=== PATIENT | male | born 1935 | race Caucasian/White ===

== ENCOUNTER → 2017-03-30 | Outpatient (CLI) | payer MEDICARE, OTHER ==
[~2017-03-30] MED LIST: ACHD5005 PO; ALDACTONE25 MG PO; ALLP300T PO; ASCO-262 PO; ASP81CT PO; ASPI-983 PO; ATOR80TA PO; CARV12.53 PO; CARV25TA PO; CEFU500T PO; DOCU-143 PO; ESCI10TA55 PO; GRAP50CA5 PO; METF500T4 PO; MTF500T PO; MULT-608 PO; OMEG1CAP PO; OMEP-10 PO; PGLT30T PO; RAMI5CAP PO; UBID200C16 PO
[2017-03-30 08:44] LABS: ALANINE AMINOTRANSFERASE 24 U/L (0-55); ALBUMIN 3.9 GM/DL (3.2-4.5); ANION GAP 10 MMOL/L (5-14); ASPARTATE AMINO TRANSFERASE 21 U/L (5-34); BILIRUBIN,TOTAL 0.8 MG/DL (0.1-1.0); BLOOD UREA NITROGEN 14 MG/DL (7-18); BUN/CREATININE RATIO 19; CALCIUM 9.2 MG/DL (8.5-10.1); CARBON DIOXIDE 26 MMOL/L (21-32); CHLORIDE 103 MMOL/L (98-107); CHOLESTEROL 101 MG/DL (< 200); CREATININE SERUM 0.72 MG/DL (0.60-1.30); DIRECT LDL 49 MG/DL (1-129); GFR ESTIMATED > 60; GLUCOSE 100 MG/DL (70-105); POTASSIUM 4.1 MMOL/L (3.6-5.0); SODIUM 139 MMOL/L (135-145); TOTAL PROTEIN 6.9 GM/DL (6.4-8.2); TRIGLYCERIDES 125 MG/DL (<150); VLDL CHOLESTEROL 25 MG/DL (5-40)
== END ==
LOC: LAB 07:58
PROVIDERS: ATTEND Physician Assistant
DX: I25.10 Atherosclerotic heart disease of native coronary artery without angina pectoris (principal); I10 Essential (primary) hypertension; E78.2 Mixed hyperlipidemia
CPT/HCPCS: 36415; 80053; 80061

== ENCOUNTER → 2017-05-14 | Outpatient (CLI) | payer MEDICARE, OTHER | LOC: CARD 08:12 | PROVIDERS: ATTEND Physician Assistant | DX: I25.10 Atherosclerotic heart disease of native coronary artery without angina pectoris (principal); I11.0 Hypertensive heart disease with heart failure; I50.22 Chronic systolic (congestive) heart failure; E78.2 Mixed hyperlipidemia | CPT/HCPCS: 93306 ==

== ENCOUNTER → 2017-05-19 | Outpatient (CLI) | payer MEDICARE, OTHER ==
[~2017-05-19] MED LIST changes: +CATHETER FLUSH 10 ML SYR IV PRN; +REGADENOSON 0.4 MG/5 ML SYR (LEXISCAN) IV ONE
[2017-05-19 09:00] VITALS: BP 140/70
[2017-05-19 09:08] VITALS: BP 127/53
--- NOTE | 2017-05-20 09:22 | STRESS TEST ---
DATE OF SERVICE: 05/19/2017 LEXISCAN MYOVIEW STRESS TEST REPORT REFERRING PHYSICIAN: Dr. Zheng Baseline heart rate is 63. Baseline blood pressure 140/70. Baseline EKG is sinus rhythm with no ischemic changes. In summary, the patient received 10.94 mCi of technetium-99 Myoview and the resting images were obtained. Then, the patient received 0.4 mg of Lexiscan followed by 32.7 mCi of technetium-99 Myoview. Throughout the test, there were no EKG changes. The resting and stress images were reviewed and compared in the short axis, horizontal long axis, and vertical long axis views. Review of the images showed patchy uptake with total infarction of the whole inferior wall, inferolateral wall, inferior apex and true apex with small area of nixon-infarct ischemia. SSS is 26, SDS 2, TID value 0.92. On the gated images, the left ventricle is dilated with akinesia of the whole inferior wall, inferoapical hypokinesia at the lateral wall. Calculated ejection fraction 35%. CONCLUSION: 1. The patient tolerated Lexiscan well. 2. 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 3. Dilated left ventricle with akinesia of the whole inferior wall, inferior apex, mild hypokinesia of the lateral wall. Calculated ejection fraction 35%. Job ID: [id number] DocumentID: [id number] Dictated Date: 05/19/2017 15:32:22 Mold Shaker Date: 05/20/2017 08:11:56 Dictated By: JONO WASHINGTON MD
== END ==
LOC: CARD 07:16
PROVIDERS: ATTEND Physician Assistant
DX: I50.22 Chronic systolic (congestive) heart failure; I11.0 Hypertensive heart disease with heart failure; E78.2 Mixed hyperlipidemia; I25.10 Atherosclerotic heart disease of native coronary artery without angina pectoris
CPT/HCPCS: 78452; 93017

== ENCOUNTER → 2017-11-24 | Outpatient (CLI) | payer MEDICARE, OTHER ==
[~2017-11-24] MED LIST changes: -CATHETER FLUSH 10 ML SYR IV PRN; -REGADENOSON 0.4 MG/5 ML SYR (LEXISCAN) IV ONE
[2017-11-24 09:43] LABS: ALANINE AMINOTRANSFERASE 25 U/L (0-55); ALBUMIN 4.1 GM/DL (3.2-4.5); ALKALINE PHOSPHATASE 57 U/L (40-136); BILIRUBIN,TOTAL 0.7 MG/DL (0.1-1.0); BUN/CREATININE RATIO 25; CALCIUM 9.3 MG/DL (8.5-10.1); CARBON DIOXIDE 22 MMOL/L (21-32); CHLORIDE 106 MMOL/L (98-107); CHOLESTEROL 94 MG/DL (< 200); CREATININE SERUM 0.75 MG/DL (0.60-1.30); GFR ESTIMATED > 60; GLUCOSE 97 MG/DL (70-105); HDL CHOLESTEROL 31 MG/DL (40-60); SODIUM 140 MMOL/L (135-145); TRIGLYCERIDES 104 MG/DL (<150); VLDL CHOLESTEROL 21 MG/DL (5-40)
== END ==
LOC: LAB 09:05
PROVIDERS: ATTEND Internal Medicine Cardiovascular Disease
DX: I25.10 Atherosclerotic heart disease of native coronary artery without angina pectoris (principal); I11.0 Hypertensive heart disease with heart failure; I50.22 Chronic systolic (congestive) heart failure; E78.5 Hyperlipidemia, unspecified; E66.9 Obesity, unspecified
CPT/HCPCS: 36415; 80053; 80061

== ENCOUNTER → 2018-03-24 | Outpatient (CLI) | payer MEDICARE, OTHER ==
[~2018-03-24] MED LIST changes: -METF500T4 PO; +METF500T5 PO
[2018-03-24 07:51] LABS: ALANINE AMINOTRANSFERASE 25 U/L (0-55); ALBUMIN 4.2 GM/DL (3.2-4.5); ALKALINE PHOSPHATASE 62 U/L (40-136); BUN/CREATININE RATIO 21; CALCIUM 9.2 MG/DL (8.5-10.1); CARBON DIOXIDE 23 MMOL/L (21-32); CHLORIDE 101 MMOL/L (98-107); CHOLESTEROL 103 MG/DL (< 200); CREATININE SERUM 0.77 MG/DL (0.60-1.30); GFR ESTIMATED > 60; GLUCOSE 109 MG/DL (70-105); HDL CHOLESTEROL 32 MG/DL (40-60); POTASSIUM 4.4 MMOL/L (3.6-5.0); SODIUM 135 MMOL/L (135-145); TRIGLYCERIDES 105 MG/DL (<150); VLDL CHOLESTEROL 21 MG/DL (5-40)
== END ==
LOC: LAB 07:14
PROVIDERS: ATTEND Physician Assistant
DX: I25.10 Atherosclerotic heart disease of native coronary artery without angina pectoris (principal); I11.0 Hypertensive heart disease with heart failure; I50.9 Heart failure, unspecified; E78.5 Hyperlipidemia, unspecified
CPT/HCPCS: 36415; 80053; 80061

== ENCOUNTER → 2018-03-31 | Outpatient (CLI) | payer MEDICARE, OTHER | LOC: CARD 09:22 | PROVIDERS: ATTEND Physician Assistant | DX: I25.10 Atherosclerotic heart disease of native coronary artery without angina pectoris (principal); I11.9 Hypertensive heart disease without heart failure; I50.22 Chronic systolic (congestive) heart failure; E78.2 Mixed hyperlipidemia | CPT/HCPCS: 93306 ==

== ENCOUNTER → 2018-05-16 | Outpatient (CLI) | payer MEDICARE, OTHER ==
[~2018-05-16] MED LIST changes: +METF-397 PO; -METF500T5 PO
[2018-05-16 08:04] LABS: ALANINE AMINOTRANSFERASE 17 U/L (0-55); ALKALINE PHOSPHATASE 49 U/L (40-136); BILIRUBIN,TOTAL 0.9 MG/DL (0.1-1.0); BUN/CREATININE RATIO 18; CALCIUM 9.4 MG/DL (8.5-10.1); CARBON DIOXIDE 23 MMOL/L (21-32); CHLORIDE 103 MMOL/L (98-107); CREATININE SERUM 0.83 MG/DL (0.60-1.30); GFR ESTIMATED > 60; GLUCOSE 107 MG/DL (70-105); POTASSIUM 4.4 MMOL/L (3.6-5.0); SODIUM 136 MMOL/L (135-145); TOTAL PROTEIN 6.9 GM/DL (6.4-8.2)
[2018-05-16 08:10] LABS: DIGOXIN 0.39 NG/ML (0.80-2.00)
== END ==
LOC: LAB 07:27
PROVIDERS: ATTEND Internal Medicine Cardiovascular Disease
DX: I25.10 Atherosclerotic heart disease of native coronary artery without angina pectoris (principal); I50.22 Chronic systolic (congestive) heart failure; I11.0 Hypertensive heart disease with heart failure; E66.9 Obesity, unspecified
CPT/HCPCS: 36415; 80053; 80162; 84443

== ENCOUNTER 2018-07-27 08:21 | Day surgery (SDC) | payer MEDICARE, OTHER ==
[~2018-07-27] VITALS: Ht 175.3 cm; Wt 95.7 kg
[2018-07-27] VITALS (25 sets, daily range): BP systolic 97–139; BP diastolic 48–103
[2018-07-27] MEDS ORDERED: NS IV 1000 ML 1,000 ML IV ONE (08:25)
[2018-07-27] MEDS ORDERED: LIDOCAINE 2% VISCOUS 15 ML UDC ONE (08:29)
[2018-07-27] MEDS ORDERED: NS IV 1000 ML 1,000 ML ONE (08:29)
[2018-07-27] MEDS ORDERED: LIDOCAINE 2% VISCOUS 15 ML UDC PO ONE ×2 (08:30→10:00)
[2018-07-27] MEDS ORDERED: proPOfol 200 MG/20 ML (DIPRIVAN) VIAL IV ONE ×2 (08:53→09:36)
[2018-07-27] MEDS ORDERED: MIDAZOLAM 5 MG/5 ML (VERSED) VIAL ONE (08:54)
[2018-07-27] MEDS ORDERED: fentaNYL INJECTION 100 MCG/2 ML AMP ONE (08:54)
[2018-07-27 08:56] LABS: HEMOGLOBIN 13.6 G/DL (13.3-17.7); MEAN PLATELET VOLUME 9.6 FL (7.4-10.4); RED BLOOD COUNT 4.07 10^6/uL (4.35-5.85); RED CELL DISTRIBUTION WIDTH 14.5 % (10.0-14.5); WHITE BLOOD COUNT 7.6 10^3/uL (4.3-11.0)
--- NOTE | 2018-07-27 09:01 | Diagnostic Imaging Report ---
EXAMINATION: Portable erect AP chest at 8:37 AM. INDICATION: Pre cardioversion. FINDINGS: The heart size is within normal limits and stable when compared to 09/15/2015. The left-sided defibrillator device and the sternotomy wires and surgical clips noted previously are again evident and no different; however, in the interval since the prior study, the right hemidiaphragm has become obscured by atelectasis/infiltrate and fluid. The right upper lung and left lung are generally clear. The mediastinum is not widened. The osseous structures are intact. IMPRESSION: 1. The appearance of the chest has worsened since the prior study as the right lung base is now partially opacified by atelectasis/infiltrate and fluid. Clinical followup is recommended. 2. There is no acute cardiopulmonary abnormality noted otherwise. 3. These results were called to Dr. Dominguez. Dictated by: Dictated on workstation # [id number]
[2018-07-27 09:10] LABS: INR 1.1 (0.8-1.4); PROTHROMBIN TIME PATIENT 13.7 SEC (12.2-14.7)
[2018-07-27 09:15] LABS: ALANINE AMINOTRANSFERASE 22 U/L (0-55); ALKALINE PHOSPHATASE 50 U/L (40-136); BILIRUBIN,TOTAL 0.9 MG/DL (0.1-1.0); BUN/CREATININE RATIO 23; CALCIUM 9.3 MG/DL (8.5-10.1); CARBON DIOXIDE 23 MMOL/L (21-32); CHLORIDE 106 MMOL/L (98-107); CREATININE SERUM 0.79 MG/DL (0.60-1.30); GFR ESTIMATED > 60; GLUCOSE 117 MG/DL (70-105); POTASSIUM 4.1 MMOL/L (3.6-5.0); SODIUM 139 MMOL/L (135-145)
[2018-07-27] MEDS ORDERED: CARV25TA PO (09:17)
[2018-07-27] MEDS ORDERED: DIGO125T18 PO (09:17)
[2018-07-27] MEDS ORDERED: APIX5TAB PO (09:18)
[2018-07-27] MEDS ORDERED: OMEG10005 PO (09:19)
[2018-07-27] MEDS ORDERED: FURO20TA4 PO (09:19)
[2018-07-27] MEDS ORDERED: POTA10CA43 PO (09:20)
[2018-07-27] MEDS ORDERED: UBID200C16 PO (09:20)
--- NOTE | 2018-07-27 09:22 | Cardiac Procedure Note-CS/ASA ---
Pre-Procedure Note Pre-Op Procedure Note H&P Reviewed The H&P was reviewed, patient examined and no changes noted. Date H&P Reviewed: Jul 27, 2018 Time H&P Reviewed: 09:22 Conscious Sedation Pre-Proced Time 09:22 ASA Score 3 For ASA 3 and 4: Consider anesthesia and medical clearance. Also, for patients with a history of failed moderate sedation consider anesthesia. Airway Lungs Heart ASA score ASA 1: a normal healthy patient ASA 2: a patient with a mild systemic disease (mid diabetes, controlled hypertension, obesity x ASA 3: a patient with a severe systemic disease that limits activity (angina , COPD, prior Myocardial infarction) ASA 4: a patient with an incapacitating disease that is a constant threat to life (CHF, renal failure) ASA 5: a moribund patient not expected to survive 24 hrs. (ruptured aneurysm) ASA 6: a declared brain patient whose organs are being harvested. For emergent operations, add the letter E after the classification Mallampati Classification Grade 3 Sedation Plan Analgesia, Amnesia, Plan communicated to team members, Discussed options with patient/fam, Discussed risks with patient/fam The patient is an appropriate candidate to undergo the planned procedure, sedation, and anesthesia. The patient immediately re-assessed prior to indication. JONO WASHINGTON MD Jul 27, 2018 09:22
[2018-07-27] MEDS ORDERED: MIDAZOLAM 2 MG/2 ML (VERSED) VIAL ONE (09:36)
[2018-07-27] MEDS ORDERED: AMIODARONE 150 MG/3 ML (CORDARONE) AMP IV ONE (09:58)
[2018-07-27] MEDS ORDERED: AMIODARONE FOR BOLUS 150 MG in D5W 100 ML IVPB 100 ML IV ONE (10:00)
--- NOTE | 2018-07-27 10:08 | Cardioversion ---
Cardioversion PROCEDURE PHYSICIAN: Jono Dominguez DATE OF PROCEDURE: 07/27/18 DIRECT EXTERNAL ELECTRICAL CARDIOVERSION: Indications: Atrial Fibrillation Preoperative diagnoses: Atrial Fibrillation Postoperative diagnosis: Sinus rhythm, Successful Electrical Cardioversion Anesthesia: By Anesthesia services Complications: None Specimen: None Contrast: 0 Flouroscopy: none Procedure Details: The patient was brought the stucco laborer after informed consent was taken, all the risks and complications were explained including the risk of stroke. Electrical cardioversion was carried out with anesthesia support with propofol. 200 joules of synchronized shock was delivered through external patches which promptly restored sinus rhythm. The patient tolerated the procedure well. Conclusions: Successful electrical cardioversion Final Diagnosis: Atrial fibrillation Congestive heart failure, chronic compensated LV systolic dysfunction Coronary artery disease Hypertension JONO DOMINGUEZ MD Jul 27, 2018 10:08
[2018-07-27] MEDS: AMIODARONE INJECTION 450 MG in D5W IV SOLUTION (EXCEL) 250 ML IV SCH ×2 (10:22→18:14)
[2018-07-27] MEDS ORDERED: APIXABAN 5 MG (ELIQUIS) TABLET ONE (10:52)
[2018-07-27] MEDS: APIXABAN 5 MG (ELIQUIS) TABLET PO SCH ×2 (10:59→20:53)
[2018-07-27] MEDS ORDERED: FUROSEMIDE 40 MG/4 ML INJ (LASIX) ONE (11:35)
[2018-07-27] MEDS: FUROSEMIDE 40 MG/4 ML INJ (LASIX) IVP SCH ×2 (11:39→16:07)
--- OUTSIDE RECORDS SUMMARY | 2018-07-27 12:43 | XMS REPORT | Clinical Summary ---
Author Author [facility] Organization [facility] Address Unknown Phone Unavailable Care Team Providers Care Scalper Operator Name Role Phone PCP Unavailable Allergies Not on File Current Medications Not on file Active Problems Not on file Social History Tobacco Use Types Packs/Day Years Used Date Never Assessed Sex Assigned at Date Recorded Not on file Last Filed Vital Signs Not on file Plan of Treatment Not on file Results Not on filefrom Last 3 Months
[2018-07-27] MEDS ORDERED: PATIENT MAY USE OWN MEDS, ALL MC SCH (12:45)
--- OUTSIDE RECORDS SUMMARY | 2018-07-27 12:45 | XMS REPORT | Continuity of Care Document ---
Author Author [facility] Address Unknown Phone Unavailable Allergies Active Description Code Type Severity Reaction Onset Reported/Identified Relationship to Patient Clinical Status Yes No Known Drug Allergies [id number] Drug Allergy Unknown N/A 09/14/2015 Medications There is no data. Problems Date Dx Coded Attending Type Code Diagnosis Diagnosed By 03/02/2011 Ot 923.21 CONTUSION OF WRIST 03/02/2011 Ot 959.3 ELB/FOREARM/ WRST INJ NOS 03/02/2011 Ot E000.8 OTHER EXTERNAL CAUSE STATUS 03/02/2011 Ot E849.0 ACCIDENT IN HOME 03/02/2011 Ot E888.9 FALL NOS 07/26/2014 GIL WALTER YONATHAN K V03.82 PCV-13 (PREVNAR) DX 05/25/2015 Ot E11.9 TYPE 2 DIABETES MELLITUS WITHOUT COMPLIC 05/25/2015 Ot I10 ESSENTIAL ( PRIMARY) HYPERTENSION 05/25/2015 Ot S30.0XXA CONTUSION OF LOWER BACK AND PELVIS, INIT 05/25/2015 Ot S39.012A STRAIN OF MUSCLE, FASCIA AND TENDON OF L 05/25/2015 Ot S39.92XA UNSPECIFIED INJURY OF LOWER BACK, INITIA 05/25/2015 Ot S40.811A ABRASION OF RIGHT UPPER ARM, INITIAL ENC 05/25/2015 Ot S40.812A ABRASION OF LEFT UPPER ARM, INITIAL ENCO 05/25/2015 Ot W10.8XXA FALL (ON) (FROM) OTHER STAIRS AND STEPS, 05/25/[address] IN SINGLE-FAMILY (PRIVATE) SANDRA 05/27/2015 JONO WASHINGTON MD Ot 272.4 05/27/2015 JONO WASHINGTON MD Ot 278.00 05/27/2015 JONO WASHINGTON MD Ot 401.9 05/27/2015 JONO WASHINGTON MD Ot 414.00 05/27/2015 JONO WASHINGTON MD Ot 272.4 05/27/2015 PADMINI POLO, JONO Dumont Ot 278.00 05/27/2015 PADMINI POLO, JONO Dumont Ot 401.9 05/27/2015 PADMINI POLO, JONO Dumont Ot 414.00 06/03/2015 PADMINI POLO, JONO Dumont Ot 272.4 06/03/2015 PADMINI POLO, JONO Dumont Ot 278.00 06/03/2015 PADMINI POLO, JONO Dumont Ot 401.9 06/03/2015 PADMINI POLO, JONO J Ot 414.00 06/05/2015 JONO WASHINGTON MD Ot E66.9 06/05/2015 JONO WASHINGTON MD Ot E78.5 06/05/2015 JONO WASHINGTON MD Ot I10 06/05/2015 JONO WASHINGTON MD Ot I25.10 06/05/2015 JONO WASHINGTON MD Ot E66.9 06/05/2015 JONO WASHINGTON MD Ot E78.5 06/05/2015 JONO WASHINGTON MD Ot I10 06/05/2015 JONO WASHINGTON MD Ot I25.10 06/05/2015 JONO WASHINGTON MD Ot 272.4 06/05/2015 PADMINI POLO, JONO Dumont Ot 278.00 06/05/2015 JONO WASHINGTON MD Ot 401.9 06/05/2015 JONO WASHINGTON MD Ot 414.00 06/05/2015 JONO WASHINGTON MD Ot 272.4 06/05/2015 PADMINI POLO, JONO J Ot 278.00 06/05/2015 JONO WASHINGTON MD Ot 401.9 06/05/2015 JONO WASHINGTON MD Ot 414.00 06/05/2015 JONO WASHINGTON MD Ot E11.9 TYPE 2 DIABETES MELLITUS WITHOUT COMPLIC 06/05/2015 JONO WASHINGTON MD Ot E66.9 OBESITY, UNSPECIFIED 06/05/2015 JONO WASHINGTON MD Ot E78.5 HYPERLIPIDEMIA, UNSPECIFIED 06/05/2015 JONO WASHINGTON MD J Ot I10 ESSENTIAL (PRIMARY) HYPERTENSION 06/05/2015 JONO WASHINGTON MD Ot 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 06/05/2015 JONO WASHINGTON MD Ot 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 06/05/2015 JONO WASHINGTON MD Ot I42.9 CARDIOMYOPATHY, UNSPECIFIED 06/05/2015 JONO WASHINGTON MD Ot 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) HEART FAIL 06/05/2015 JONO WASHINGTON MD Ot R94.39 ABNORMAL RESULT OF OTHER CARDIOVASCULAR 06/05/2015 JONO WASHINGTON MD Ot Z68.31 BODY MASS INDEX (BMI) 31.0-31.9, ADULT 06/05/2015 JONO WASHINGTON MD Ot Z79.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 06/05/2015 JONO WASHINGTON MD Ot Z95.1 PRESENCE OF AORTOCORONARY BYPASS GRAFT 06/07/2015 JONO WASHINGTON MD Ot E66.9 06/07/2015 JONO WASHIGNTON MD Ot E78.5 06/07/2015 JONO WASHINGTON MD Ot I10 06/07/2015 JONO WASHINGTON MD Ot I25.10 06/07/2015 JONO WASHINGTON MD Ot E66.9 06/07/2015 JONO WASHINGTON MD Ot E78.5 06/07/2015 JONO WASHINGTON MD Ot I10 06/07/2015 JONO WASHINGTON MD Ot I25.10 06/07/2015 JONO WASHINGTON MD Ot 272.4 06/07/2015 JONO WASHNIGTON MD Ot 278.00 06/07/2015 JONO WASHINGTON MD Ot 401.9 06/07/2015 JONO WASHINGTON MD Ot 414.00 06/07/2015 JONO WASHINGTON MD Ot 272.4 06/07/2015 JONO WASHINGTON MD Ot 278.00 06/07/2015 JONO WASHINGTON MD Ot 401.9 06/07/2015 JONO WASHINGTON MD Ot 414.00 06/07/2015 JONO WASHINGTON MD Ot E66.9 06/07/2015 JONO WASHINGTON MD Ot E78.5 06/07/2015 JONO WASHINGTON MD Ot I10 06/07/2015 JONO WASHINGTON MD Ot I25.10 06/07/2015 JONO WASHINGTON MD Ot E66.9 06/07/2015 JONO WASHINGTON MD Ot E78.5 06/07/2015 PADMINI POLO, JONO Dumont Ot I10 06/07/2015 PADMINI POLO, JONO Dumont Ot I25.10 06/07/2015 JONO WASHINGTON MD Ot E66.9 06/07/2015 JONO WASHINGTON MD Ot E78.5 06/07/2015 PADMINI POLO, JONO Dumont Ot I10 06/07/2015 JONO WASHINGTON MD Ot I25.10 06/07/2015 JONO WASHINGTON MD Ot E66.9 06/07/2015 JONO WASHINGTON MD Ot E78.5 06/07/2015 JONO WASHINGTON MD Ot I10 06/07/2015 JONO WASHINGTON MD Ot I25.10 06/13/2015 JONO WASHINGTON MD Ot E11.9 06/13/2015 JONO WASHINGTON MD Ot E66.9 06/13/2015 JONO WASHINGTON MD Ot E78.5 06/13/2015 JONO WASHINGTON MD Ot I10 06/13/2015 JONO WASHINGTON MD Ot I25.10 06/13/2015 JONO WASHINGTON MD Ot I25.82 06/13/2015 JONO WASHINGTON MD Ot I42.9 06/13/2015 JONO WASHINGTON MD Ot I50.22 06/13/2015 JONO WASHINGTON MD Ot R94.39 06/13/2015 JONO WASHINGTON MD Ot Z68.31 06/13/2015 JONO WASHINGTON MD Ot Z79.899 06/13/2015 JONO WASHINGTON MD Ot Z95.1 06/19/2015 JONO WASHINGTON MD Ot E66.9 06/19/2015 JONO WASHINGTON MD Ot E78.5 06/19/2015 JONO WASHINGTON MD Ot I10 06/19/2015 JONO WASHINGTON MD Ot I25.10 06/25/2015 JONO WASHINGTON MD Ot E66.9 06/25/2015 JONO WASHINGTON MD Ot E78.5 06/25/2015 JONO WASHINGTON MD Ot I10 06/25/2015 JONO WASHINGTON MD Ot I25.10 07/08/2015 JONO WASHINGTON MD Ot E66.9 07/08/2015 JONO WASHINGTON MD Ot E78.5 07/08/2015 JONO WASHINGTON MD Ot I10 07/08/2015 JONO WASHINGTON MD Ot I25.10 07/10/2015 JONO WASHINGTON MD Ot E66.9 07/10/2015 JONO WASHINGTON MD Ot E78.5 07/10/2015 JONO WASHINGTON MD Ot I10 07/10/2015 JONO WASHINGTON MD Ot I25.10 09/12/2015 JONO WASHINGTON MD Ot E78.5 HYPERLIPIDEMIA, UNSPECIFIED 09/12/2015 JONO WASHINGTON MD Ot I10 ESSENTIAL (PRIMARY) HYPERTENSION 09/12/2015 JONO WASHINGTON MD Ot 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 09/12/2015 JONO WASHINGTON MD Ot I25.5 ISCHEMIC CARDIOMYOPATHY 09/12/2015 JONO WASHINGTON MD Ot 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) HEART FAIL 09/12/2015 JONO WASHINGTON MD Ot 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.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 09/12/2015 JONO WASHINGTON MD Ot Z95.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 09/18/2015 SHARON WHARTON DOI Ot I10 ESSENTIAL (PRIMARY) HYPERTENSION 09/18/2015 BRIDGER WHARTON DO Ot 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 09/18/2015 BRIDGER WHARTON DO Ot I42.9 CARDIOMYOPATHY, UNSPECIFIED 09/18/2015 SHARON WHARTON DOI Ot 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) HEART FAIL 09/18/2015 BRIDGER WHARTON DO Ot 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, LEFT ELBOW 09/18/2015 BRIDGER WHARTON DO Ot 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, LEFT WRIST 09/18/2015 BRIDGER WHARTON DO Ot M19.021 PRIMARY OSTEOARTHRITIS, RIGHT ELBOW 09/18/2015 DIO WALTERBRIDGER Ot M25.561 PAIN IN RIGHT KNEE 09/18/2015 WHARTONBRIGDER PIÑA DO Ot M70.21 OLECRANON BURSITIS, RIGHT ELBOW 09/18/2015 DIO WALTERBRIDGER Ot Z87.891 PERSONAL HISTORY OF NICOTINE DEPENDENCE 09/18/2015 WHARTON BRIDGER Ot Z95.1 PRESENCE OF AORTOCORONARY BYPASS GRAFT 09/18/2015 BRIDGER WHARTON DO Ot Z95.810 PRESENCE OF AUTOMATIC (IMPLANTABLE) CARD 09/23/2015 JACQUELINE BOWMNA Ot E78.2 09/23/2015 JACQUELINE BOWMAN Ot I10 09/23/2015 JACQUELINE BOWMAN Ot I25.10 09/23/2015 JACQUELINE BOWMAN Ot I25.5 04/07/2016 JACQUELINE BOWMAN Ot E78.5 HYPERLIPIDEMIA, UNSPECIFIED 04/07/2016 JACQUELINE BOWMAN Ot I10 ESSENTIAL (PRIMARY) HYPERTENSION 04/07/2016 JACQUELINE BOWMAN Ot 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 04/07/2016 JACQUELINE BOWMAN Ot 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) HEART FAIL 04/24/2016 JACQUELINE BOWMAN Ot E78.5 HYPERLIPIDEMIA, UNSPECIFIED 04/24/2016 JACQUELINE BOWMAN Ot I10 ESSENTIAL (PRIMARY) HYPERTENSION 04/24/2016 JACQUELINE BOWMAN Ot 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 05/13/2016 JONO WASHINGTON MD Ot 272.4 HYPERLIPIDEMIA NEC/NOS 05/13/2016 JONO WASHINGTON MD Ot 278.00 OBESITY, NOS 05/13/2016 JONO WASHINGTON MD Ot 401.9 HYPERTENSION NOS 05/13/2016 JONO WASHINGTON MD Ot 414.00 CORON ATHEROSCLER NOS TYPE VESSEL, NATIV 05/13/2016 JONO WASHINGTON MD Ot 272.4 HYPERLIPIDEMIA NEC/NOS 05/13/2016 JONO WASHINGTON MD Ot 278.00 OBESITY, NOS 05/13/2016 JONO WASHINGTON MD Ot 401.9 HYPERTENSION NOS 05/13/2016 JONO WASHINGTON MD Ot 414.00 CORON ATHEROSCLER NOS TYPE VESSEL, NATIV 05/13/2016 JACQUELINE BOWMAN Ot E78.2 MIXED HYPERLIPIDEMIA 05/13/2016 JACQUELINE BOWMAN Ot I10 ESSENTIAL (PRIMARY) HYPERTENSION 05/13/2016 JACQUELINE BOWMAN Ot 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 05/13/2016 JACQUELINE BOWMAN Ot I25.5 ISCHEMIC CARDIOMYOPATHY 05/13/2016 JACQUELINE BOWMAN Ot E78.5 HYPERLIPIDEMIA, UNSPECIFIED 05/13/2016 JACQUELINE BOWMAN Ot I10 ESSENTIAL (PRIMARY) HYPERTENSION 05/13/2016 JACQUELINE BOWMAN Ot 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 05/13/2016 JACQUELINE BOWMAN Ot 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) HEART FAIL 05/14/2016 JACQUELINE BOWMAN Ot E78.2 MIXED HYPERLIPIDEMIA 05/14/2016 JACQUELINE BOWMAN Ot I10 ESSENTIAL (PRIMARY) HYPERTENSION 05/14/2016 COLVIN-JAREN PA, JACQUELINE K Ot 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 05/14/2016 JACQUELINE BOWMAN Ot 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) HEART FAIL 05/14/2016 JACQUELINE BOWMAN Ot E78.2 MIXED HYPERLIPIDEMIA 05/14/2016 JACQUELINE BOWMAN Ot I10 ESSENTIAL (PRIMARY) HYPERTENSION 05/14/2016 JACQUELINE BOWMAN Ot 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 05/14/2016 JACQUELINE BOWMAN Ot 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) HEART FAIL 06/04/2016 JACQUELINE BOWMAN Ot E78.2 MIXED HYPERLIPIDEMIA 06/04/2016 JACQUELINE BOWMAN Ot I10 ESSENTIAL (PRIMARY) HYPERTENSION 06/04/2016 JACQUELINE BOWMAN Ot 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 03/30/2017 JONO WASHINGTON MD Ot 272.4 HYPERLIPIDEMIA NEC/NOS 03/30/2017 JONO WASHINGTON MD Ot 278.00 OBESITY, NOS 03/30/2017 JONO WASHINGTON MD Ot 401.9 HYPERTENSION NOS 03/30/2017 OJNO WASHINGTON MD Ot 414.00 CORON ATHEROSCLER NOS TYPE VESSEL, NATIV 03/30/2017 JONO WASHINGTON MD Ot 272.4 HYPERLIPIDEMIA NEC/NOS 03/30/2017 JONO WASHINGTON MD Ot 278.00 OBESITY, NOS 03/30/2017 JONO WASHINGTON MD Ot 401.9 HYPERTENSION NOS 03/30/2017 JONO WASHINGTON MD Ot 414.00 CORON ATHEROSCLER NOS TYPE VESSEL, NATIV 03/30/2017 JACQUELINE BOWMAN Ot E78.2 MIXED HYPERLIPIDEMIA 03/30/2017 JACQUELINE BOWMAN Ot I10 ESSENTIAL (PRIMARY) HYPERTENSION 03/30/2017 JACQUELINE BOWMAN Ot 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 03/30/2017 JACQUELINE BOWMAN Ot I25.5 ISCHEMIC CARDIOMYOPATHY 03/30/2017 JACQUELINE BOWMAN Ot E78.5 HYPERLIPIDEMIA, UNSPECIFIED 03/30/2017 JACQUELINE BOWMAN Ot I10 ESSENTIAL (PRIMARY) HYPERTENSION 03/30/2017 JACQUELINE BOWMAN Ot 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 03/30/2017 JACQUELINE BOWMAN Ot 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) HEART FAIL 03/30/2017 JACQUELINE BOWMAN Ot E78.2 MIXED HYPERLIPIDEMIA 03/30/2017 JACQUELINE BOWMAN Ot I10 ESSENTIAL (PRIMARY) HYPERTENSION 03/30/2017 JACQUELINE BOWMAN Ot 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 03/30/2017 JACQUELINE BOWMAN Ot 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) HEART FAIL 03/30/2017 JACQUELINE BOWMAN Ot E78.2 MIXED HYPERLIPIDEMIA 03/30/2017 JACQUELINE BOWMAN Ot I10 ESSENTIAL (PRIMARY) HYPERTENSION 03/30/2017 JACQUELINE BOWMAN Ot 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 04/21/2017 JACQUELINE BOWMAN Ot E78.2 MIXED HYPERLIPIDEMIA 04/21/2017 JACQUELINE BOWMAN K Ot I10 ESSENTIAL (PRIMARY) HYPERTENSION 04/21/2017 COLVIN-JAREN PA, JACQUELINE K Ot 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 05/20/2017 JAYDE PA, JACQUELINE K Ot E78.2 MIXED HYPERLIPIDEMIA 05/20/2017 JAYDE PA, JACQUELINE K Ot 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 05/20/2017 JAYDE PA, JACQUELINE K Ot 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 05/20/2017 JAYDE PA, JACQUELINE K Ot 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) HEART FAIL 05/25/2017 JAYDE PA, JACQUELINE K Ot E78.2 MIXED HYPERLIPIDEMIA 05/25/2017 JAYDE RICHARDS, JACQUELINE K Ot 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 05/25/2017 JAYDE RICHARDS, JACQUELINE K Ot 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 05/25/2017 JAYDE RICHARDS, JACQUELINE K Ot 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) HEART FAIL 06/04/2017 JAYDE RICHARDS, JACQUELINE K Ot E78.2 MIXED HYPERLIPIDEMIA 06/04/2017 JAYDE RICHARDS, JACQUELINE K Ot 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 06/04/2017 JAYDE RICHARDS, JACQUELINE K Ot 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 06/04/2017 JAYDE RICHARDS, JACQUELINE K Ot 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) HEART FAIL 06/09/2017 JAYDE RICHARDS, JACQUELINE K Ot E78.2 MIXED HYPERLIPIDEMIA 06/09/2017 COLVINJAREN RICHARDS, JACQUELINE K Ot 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 06/09/2017 JAYDE RICHARDS, JACQUELINE K Ot 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 06/09/2017 JAYDE RICHARDS, JACQUELINE K Ot 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) HEART FAIL 06/14/2017 JAYDE RICHARDS, JACQUELINE K Ot E78.2 MIXED HYPERLIPIDEMIA 06/14/2017 JAYDE RICHARDS, JACQUELINE K Ot 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 06/14/2017 JAYDE RICHARDS, JACQUELINE K Ot 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 06/14/2017 JACQUELINE BOWMAN Ot 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) HEART FAIL 06/14/2017 JACQUELINE BOWMAN Ot E78.2 MIXED HYPERLIPIDEMIA 06/14/2017 JACQUELINE BOWMAN Ot 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 06/14/2017 JACQUELINE BOWMAN Ot 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 11/24/2017 JONO WASHINGTON MD Ot 272.4 HYPERLIPIDEMIA NEC/NOS 11/24/2017 JONO WASHINGTON MD Ot 278.00 OBESITY, NOS 11/24/2017 JONO WASHINGTON MD Ot 401.9 HYPERTENSION NOS 11/24/2017 JONO WASHINGTON MD Ot 414.00 CORON ATHEROSCLER NOS TYPE VESSEL, NATIV 11/24/2017 JONO WASHINGTON MD Ot 272.4 HYPERLIPIDEMIA NEC/NOS 11/24/2017 JONO WASHINGTON MD Ot 278.00 OBESITY, NOS 11/24/2017 JONO WASHINGTON MD J Ot 401.9 HYPERTENSION NOS 11/24/2017 JONO WASHINGTON MD Ot 414.00 CORON ATHEROSCLER NOS TYPE VESSEL, NATIV 11/24/2017 JACQUELINE BOWMAN Ot E78.2 MIXED HYPERLIPIDEMIA 11/24/2017 JAYDE RICHARDS, JACQUELINE K Ot I10 ESSENTIAL (PRIMARY) HYPERTENSION 11/24/2017 JAYDE RICHARDS, JACQUELINE K Ot 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 11/24/2017 JAYDE RICHARDS, JACQUELINE K Ot I25.5 ISCHEMIC CARDIOMYOPATHY 11/24/2017 JAYDE RICHARDS, JACQUELINE K Ot E78.5 HYPERLIPIDEMIA, UNSPECIFIED 11/24/2017 JAYDE RICHARDS, JACQUELINE K Ot I10 ESSENTIAL (PRIMARY) HYPERTENSION 11/24/2017 JAYDE RICHARDS, JACQUELINE K Ot 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 11/24/2017 JAYDE RICHARDS, JACQUELINE K Ot 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) HEART FAIL 11/24/2017 JACQUELINE BOWMAN Ot E78.2 MIXED HYPERLIPIDEMIA 11/24/2017 JAYDE RICHARDS, JACQUELINE K Ot I10 ESSENTIAL (PRIMARY) HYPERTENSION 11/24/2017 RADHA BOWMANTH K Ot 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 11/24/2017 JAYDE RICHARDS, JACQUELINE K Ot 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) HEART FAIL 11/24/2017 JACQUELINE BOWMAN K Ot E78.2 MIXED HYPERLIPIDEMIA 11/24/2017 JAYDE RICHARDS, JACQUELINE K Ot I10 ESSENTIAL (PRIMARY) HYPERTENSION 11/24/2017 JAYDE RICHARDS, JACQUELINE K Ot 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 11/24/2017 JACQUELINE BOWMAN K Ot E78.2 MIXED HYPERLIPIDEMIA 11/24/2017 JAYDE RICHARDS, JACQUELINE K Ot 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 11/24/2017 JACQUELINE BOWMAN K Ot 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 11/24/2017 RADHA BOWMANTH K Ot 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) HEART FAIL 11/24/2017 JAYDE RICHARDS, JACQUELINE K Ot E78.2 MIXED HYPERLIPIDEMIA 11/24/2017 JAYDE RICHARDS, JACQUELINE K Ot 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 11/24/2017 JACQUELINE BOWMAN Ot 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 11/24/2017 JACQUELINE BOWMAN Ot 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) HEART FAIL 11/25/2017 JONO WASHINGTON MD Ot E66.9 OBESITY, UNSPECIFIED 11/25/2017 JONO WASHINGTON MD Ot E78.5 HYPERLIPIDEMIA, UNSPECIFIED 11/25/2017 JONO WASHINGTON MD Ot 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 11/25/2017 JONO WASHINGTON MD Ot 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 11/25/2017 JONO WASHINGTON MD Ot 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) HEART FAIL 12/14/2017 JONO WASHINGTON MD Ot E66.9 OBESITY, UNSPECIFIED 12/14/2017 JONO WASHINGTON MD Ot E78.5 HYPERLIPIDEMIA, UNSPECIFIED 12/14/2017 JONO WASHINGTON MD Ot 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 12/14/2017 JONO WASHINGTON MD Ot 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9 HYPERTENSIVE HEART DISEASE WITHOUT HEART 05/04/2018 Ot 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 05/04/2018 Ot 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) HEART FAIL 05/10/2018 Ot E78.2 MIXED HYPERLIPIDEMIA 05/10/2018 Ot I11.9 HYPERTENSIVE HEART DISEASE WITHOUT HEART 05/10/2018 Ot 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 05/10/2018 Ot 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) HEART FAIL 05/18/2018 JONO WASHINGTON MD Ot E66.9 OBESITY, UNSPECIFIED 05/18/2018 JONO WASHINGTON MD Ot 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 05/18/2018 JONO WASHINGTON MD Ot 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 05/18/2018 JONO WASHINGTON MD Ot 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) HEART FAIL 06/14/2018 JONO WASHINGTON MD Ot E66.9 OBESITY, UNSPECIFIED 06/14/2018 JONO WASHINGTON MD Ot 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 06/14/2018 JONO WASHINGTON MD Ot 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 06/14/2018 JONO WASHINGTON MD Ot 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) HEART FAIL 07/26/2018 JONO WASHINGTON MD Ot E66.9 OBESITY, UNSPECIFIED 07/26/2018 JONO WASHINGTON MD Ot E78.5 HYPERLIPIDEMIA, UNSPECIFIED 07/26/2018 JONO WASHINGTON MD Ot I10 ESSENTIAL (PRIMARY) HYPERTENSION 07/26/2018 JONO WASHINGTON MD Ot 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 07/26/2018 JONO WASHINGTON MD Ot E66.9 OBESITY, UNSPECIFIED 07/26/2018 JONO WASHINGTON MD Ot E78.5 HYPERLIPIDEMIA, UNSPECIFIED 07/26/2018 JONO WASHINGTON MD Ot I10 ESSENTIAL (PRIMARY) HYPERTENSION 07/26/2018 JONO WASHINGTON MD Ot 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 07/26/2018 JONO WASHINGTON MD Ot 272.4 HYPERLIPIDEMIA NEC/NOS 07/26/2018 JONO WASHINGTON MD Ot 278.00 OBESITY, NOS 07/26/2018 JONO WASHINGTON MD Ot 401.9 HYPERTENSION NOS 07/26/2018 JOON WASHINGTON MD Ot 414.00 CORON ATHEROSCLER NOS TYPE VESSEL, NATIV 07/26/2018 JONO WASHINGTON MD Ot 272.4 HYPERLIPIDEMIA NEC/NOS 07/26/2018 JONO WASHINGTON MD Ot 278.00 OBESITY, NOS 07/26/2018 PADMINI POLO, JONO Dumont Ot 401.9 HYPERTENSION NOS 07/26/2018 PADMINI POLO, JONO Dumont Ot 414.00 CORON ATHEROSCLER NOS TYPE VESSEL, NATIV 07/26/2018 JACQUELINE BOWMAN Ot E78.2 MIXED HYPERLIPIDEMIA 07/26/2018 JACQUELINE BOWMAN Ot I10 ESSENTIAL (PRIMARY) HYPERTENSION 07/26/2018 JACQUELINE BOWMAN Ot 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 07/26/2018 JACQUELINE BOWMAN Ot I25.5 ISCHEMIC CARDIOMYOPATHY 07/26/2018 JACQUELINE BOWMAN Ot E78.5 HYPERLIPIDEMIA, UNSPECIFIED 07/26/2018 JACQUELINE BOWMAN Ot I10 ESSENTIAL (PRIMARY) HYPERTENSION 07/26/2018 JACQUELINE BOWMAN Ot 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 07/26/2018 JACQUELINE BOWMAN Ot 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) HEART FAIL 07/26/2018 JACQUELINE BOWMAN Ot E78.2 MIXED HYPERLIPIDEMIA 07/26/2018 JACQUELINE BOWMAN Ot I10 ESSENTIAL (PRIMARY) HYPERTENSION 07/26/2018 JACQUELINE BOWMAN Ot 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 07/26/2018 JACQUELINE BOWMAN Ot 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) HEART FAIL 07/26/2018 JACQUELINE BOWMAN Ot E78.2 MIXED HYPERLIPIDEMIA 07/26/2018 JACQUELINE BOWMAN Ot I10 ESSENTIAL (PRIMARY) HYPERTENSION 07/26/2018 JACQUELINE BOWMAN Ot 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 07/26/2018 JACQUELINE BOWMAN Ot E78.2 MIXED HYPERLIPIDEMIA 07/26/2018 JACQUELINE BOWMAN Ot 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 07/26/2018 JACQUELINE BOWMAN Ot 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 07/26/2018 JACQUELINE BOWMAN Ot 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) HEART FAIL 07/26/2018 JACQUELINE BOWMAN Ot E78.2 MIXED HYPERLIPIDEMIA 07/26/2018 JACQUELINE BOWMAN Ot 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 07/26/2018 JACQUELINE BOWMAN Ot 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 07/26/2018 JACQUELINE BOWMAN Ot 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) HEART FAIL 07/26/2018 JONO WASHINGTON MD Ot E66.9 OBESITY, UNSPECIFIED 07/26/2018 JONO WASHINGTON MD Ot E78.5 HYPERLIPIDEMIA, UNSPECIFIED 07/26/2018 JONO WASHINGTON MD Ot 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 07/26/2018 JONO WASHINGTON MD Ot 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 07/26/2018 JONO WASHINGTON MD Ot 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) HEART FAIL 07/26/2018 Ot E78.2 MIXED HYPERLIPIDEMIA 07/26/2018 Ot I11.9 HYPERTENSIVE HEART DISEASE WITHOUT HEART 07/26/2018 Ot 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 07/26/2018 Ot 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) HEART FAIL 07/26/2018 Ot E78.5 HYPERLIPIDEMIA, UNSPECIFIED 07/26/2018 Ot 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 07/26/2018 Ot 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 07/26/2018 Ot I50.9 HEART FAILURE , UNSPECIFIED 07/26/2018 JONO WASHINGTON MD Ot E66.9 OBESITY, UNSPECIFIED 07/26/2018 JONO WASHINGTON MD Ot 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 07/26/2018 JONO WASHINGTON MD Ot 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 07/26/2018 JONO WASHINGTON MD Ot 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) HEART FAIL Procedures There is no data. Results Test Result Range Whole blood basic metabolic panel - 04/03/16 06:50 Serum or plasma sodium measurement (moles/volume) 140 mmol/L 135-145 Serum or plasma potassium measurement (moles/volume) 3.9 mmol/L 3.6-5.0 Serum or plasma chloride measurement (moles/volume) 105 mmol/L 98-107 Carbon dioxide 27 mmol/L 21-32 Serum or plasma anion gap determination (moles/volume) 8 mmol/L 5-14 Serum or plasma urea nitrogen measurement (mass/volume) 16 mg/dL 7-18 Serum or plasma creatinine measurement (mass/volume) 0.66 mg/dL 0.60-1.30 Serum or plasma urea nitrogen/creatinine mass ratio 24 NRG Serum or plasma creatinine measurement with calculation of estimated glomerular filtration rate > NRG Serum or plasma glucose measurement (mass/volume) 101 mg/dL 70-105 Serum or plasma calcium measurement (mass/volume) 9.1 mg/dL 8.5-10.1 Automated blood complete blood count (hemogram) panel - 07/27/18 08:45 Blood leukocytes automated count (number/volume) 7.6 10*3/uL 4.3-11.0 Blood erythrocytes automated count (number/volume) 4.07 10*6/uL 4.35-5.85 Venous blood hemoglobin measurement (mass/volume) 13.6 g/dL 13.3-17.7 Blood hematocrit (volume fraction) 40 % 40-54 Automated erythrocyte mean corpuscular volume 98 [foz_us] 80-99 Automated erythrocyte mean corpuscular hemoglobin (mass per erythrocyte) 33 pg 25-34 Automated erythrocyte mean corpuscular hemoglobin concentration measurement ( mass/volume) 34 g/dL 32-36 Automated erythrocyte distribution width ratio 14.5 % 10.0-14.5 Automated blood platelet count (count/volume) 240 10*3/uL 130-400 Automated blood platelet mean volume measurement 9.6 [foz_us] 7.4-10.4 PT panel in platelet poor plasma by coagulation assay - 07/27/18 08:45 Prothrombin time (PT) in platelet poor plasma by coagulation assay 13.7 s 12.2-14.7 INR in platelet poor plasma or blood by coagulation assay 1.1 0.8-1.4 Activated partial thromboplastin time (aPTT) in platelet poor plasma bycoagulation assay - 07/27/18 08:45 Activated partial thromboplastin time (aPTT) in platelet poor plasma bycoagulation assay 39 s 24-35 Comprehensive metabolic panel - 07/27/18 08:45 Serum or plasma sodium measurement (moles/volume) 139 mmol/L 135-145 Serum or plasma potassium measurement (moles/volume) 4.1 mmol/L 3.6-5.0 Serum or plasma chloride measurement (moles/volume) 106 mmol/L 98-107 Carbon dioxide 23 mmol/L 21-32 Serum or plasma anion gap determination (moles/volume) 10 mmol/L 5-14 Serum or plasma urea nitrogen measurement (mass/volume) 18 mg/dL 7-18 Serum or plasma creatinine measurement (mass/volume) 0.79 mg/dL 0.60-1.30 Serum or plasma urea nitrogen/creatinine mass ratio 23 NRG Serum or plasma creatinine measurement with calculation of estimated glomerular filtration rate > NRG Serum or plasma glucose measurement (mass/volume) 117 mg/dL 70-105 Serum or plasma calcium measurement (mass/volume) 9.3 mg/dL 8.5-10.1 Serum or plasma total bilirubin measurement (mass/volume) 0.9 mg/dL 0.1-1.0 Serum or plasma alkaline phosphatase measurement (enzymatic activity/volume) 50 U/L 40-136 Serum or plasma aspartate aminotransferase measurement (enzymatic activity/ volume) 20 U/L 5-34 Serum or plasma alanine aminotransferase measurement (enzymatic activity/volume ) 22 U/L 0-55 Serum or plasma protein measurement (mass/volume) 7.0 g/dL 6.4-8.2 Serum or plasma albumin measurement (mass/volume) 4.0 g/dL 3.2-4.5 CALCIUM CORRECTED 9.3 mg/dL 8.5-10.1 Encounters ACCT No. Visit Date/Time Discharge Status Pt. Type Provider Facility Loc./Unit Complaint [id number] 07/26/2014 08:31:00 07/26/2014 23:59:59 CLS Outpatient YONATHAN CORDERO DO [id number] 05/16/2018 07:27:00 05/16/2018 23:59:59 CLS Outpatient JONO WASHINGTON MD [facility] I25.10,I50.22,E78.2,I10 [id number] 11/24/2017 09:05:00 11/24/2017 23:59:59 CLS Outpatient JONO WASHINGTON MD [facility] I25.10,I50.22 [id number] 05/19/2017 07:16:00 05/19/2017 23:59:59 CLS Outpatient VINICIUS-JACQUELINE PALOMINO [facility] CARD CAD I25.10 [id number] 05/14/2017 08:12:00 05/14/2017 23:59:59 CLS Outpatient VINICIUS-JACQUELINE PALOMINO [facility] CARD CAD I25.10 [id number] 03/30/2017 07:58:00 03/30/2017 23:59:59 CLS Outpatient JACQUELINE BOWMAN [facility] LAB I25.10 I10 E78.2 [id number] 05/13/2016 06:40:00 05/13/2016 23:59:59 CLS Outpatient JACQUELINE BOWMAN [facility] CAD,CHF,HLD, HTN [id number] 04/03/2016 06:38:00 04/03/2016 23:59:59 CLS Outpatient JACQUELINE BOWMAN [facility] CAD,CHF,HLD, HTN [id number] 09/14/2015 14:05:00 09/18/2015 11:50:00 DIS Inpatient BRIDGER WHARTON DO [facility] CSD POST OP CELLULITIS L CHEST, S/P ICD PLACEMENT [id number] 09/11/2015 11:51:00 09/11/2015 23:59:59 CLS Outpatient JONO WASHINGTON MD [facility] CATH CHF,CAD,HTN,HLP [id number] 08/19/2015 12:39:00 08/19/2015 23:59:59 CLS Outpatient JACQUELINE BOWMAN [facility] CARD CAD,HLD,HTN , ISCHEMIC CARDIOMYOPATHY [id number] 06/05/2015 08:21:00 06/05/2015 16:05:00 DIS Outpatient JONO WASHINGTON MD [facility] CATH ABN STRESS TEST,CAD,CHF, HTN,DM [id number] 05/29/2015 07:14:00 05/29/2015 23:59:59 CLS Outpatient JONO WASHINGTON MD [facility] CARD CAD, HLD, HTN, OBESITY [id number] 05/27/2015 14:48:00 05/27/2015 23:59:59 CLS Outpatient JONO WASHINGTON MD [facility] CARD CAD, HLD, HTN, OBESITY [id number] 05/11/2015 07:03:00 05/11/2015 23:59:59 CLS Outpatient JONO WASHINGTON MD [facility] LAB CAD,HLD,HTN,OBESITY [id number] 05/10/2015 12:21:00 05/10/2015 23:59:59 CLS Outpatient JONO WASHINGTON MD [facility] CAD,HLD,HTN,OBESITY [id number] 07/27/2018 08:21:00 ACT Outpatient JONO WASHINGTON MD [facility] AFIB,CAD,CHF [id number] 03/31/2018 09:22:00 Document Registration [id number] 03/24/2018 07:14:00 Document Registration [id number] 05/27/2015 14:48:00 Document Registration [id number] 03/02/2011 00:08:00 Document Registration
--- NOTE | 2018-07-27 14:22 | Anesthesia-Procedure Note ---
Procedures/Interventions Procedure Start/Stop/Diagnosis Date of Procedure: Jul 27, 2018 Start Time: 09:50 Referring Physician: Dr Dominguez Preprocedural Diagnosis: A-fib Brief History Brief history obtained from patient and Dr Dominguez. NPO status verified. Pt maintained the spontaneous ventilation throughout and tolerated the procedure well. Stop Time: 10:00 Postprocedural Diagnosis: Sinus rhythm DEMETRIS/Cardioversion Anesthesia Type: MAC ASA Class: 3 Medications Versed 1 mg IV and Propofol 80 mg IV Monitors and Equipment: BP Cuff - Left, Continuous EKG, End Tidal CO2, IV, Pulse Oximeter, V Lead EKG YANI PAGAN DO Jul 27, 2018 14:22
--- NOTE | 2018-07-27 14:29 | Anesthesia-General Post-Op ---
MAC Patient Condition Mental Status/LOC: Same as Preop Cardiovascular: Satisfactory Nausea/Vomiting: Absent Respiratory: Satisfactory Pain: Controlled Complications: Absent Post Op Complications Complications None Follow Up Care/Instructions Patient Instructions None needed. Anesthesiology Discharge Order Discharge Order Patient was seen this morning after the procedure and he was doing well, no complaints, stable vital signs, no apparent adverse anesthesia problems. YANI PAGAN DO Jul 27, 2018 14:28
[2018-07-27] MEDS: metFORMIN 500 MG (GLUCOPHAGE) TAB PO SCH (16:38)
[2018-07-27] MEDS: OMEGA 3 (FISH OIL) 1000 MG CAP PO SCH (16:38)
[2018-07-27] MEDS ORDERED: KCL 10 MEQ TAB (MICRO K) PO SCH (17:00)
[2018-07-27] MEDS: KCL 10 MEQ TAB (MICRO K) PO SCH (17:25)
[2018-07-27] MEDS: AMIODARONE 200 MG (CORDARONE) TAB PO SCH (20:54)
[2018-07-27] MEDS: CARVEDILOL 25 MG TAB PO SCH (20:55)
[2018-07-27] MEDS ORDERED: CARVEDILOL 12.5 MG (COREG) TABLET PO SCH (21:00)
[2018-07-27] MEDS ORDERED: APIXABAN 5 MG (ELIQUIS) TABLET PO SCH (21:00)
[2018-07-27] MEDS ORDERED: ASPIRIN E.C. 81 MG (ECOTRIN) TAB PO SCH (21:00)
[2018-07-27] MEDS ORDERED: ATORVASTATIN 80 MG (LIPITOR) TABLET PO SCH (21:00)
[2018-07-28] VITALS (11 sets, daily range): BP systolic 100–146; BP diastolic 49–75
[2018-07-28 05:40] LABS: ALANINE AMINOTRANSFERASE 20 U/L (0-55); ALBUMIN 3.7 GM/DL (3.2-4.5); ALKALINE PHOSPHATASE 52 U/L (40-136); BILIRUBIN,TOTAL 1.2 MG/DL (0.1-1.0); BUN/CREATININE RATIO 25; CALCIUM 9.6 MG/DL (8.5-10.1); CARBON DIOXIDE 25 MMOL/L (21-32); CHLORIDE 100 MMOL/L (98-107); CREATININE SERUM 0.89 MG/DL (0.60-1.30); GFR ESTIMATED > 60; GLUCOSE 103 MG/DL (70-105); POTASSIUM 4.1 MMOL/L (3.6-5.0); SODIUM 136 MMOL/L (135-145); TOTAL PROTEIN 6.4 GM/DL (6.4-8.2)
[2018-07-28] MEDS: FUROSEMIDE 40 MG/4 ML INJ (LASIX) IVP SCH (06:50)
[2018-07-28] MEDS ORDERED: MULTIVIT W/MINERALS TAB (THERAGRAN M) PO SCH (07:00)
[2018-07-28] MEDS: OMEGA 3 (FISH OIL) 1000 MG CAP PO SCH (07:42)
[2018-07-28] MEDS: metFORMIN 500 MG (GLUCOPHAGE) TAB PO SCH (07:43)
[2018-07-28] MEDS: KCL 10 MEQ TAB (MICRO K) PO SCH (07:43)
--- NOTE | 2018-07-28 08:04 | Cardiology Progress Note ---
Subjective Date Seen by Provider: Jul 28, 2018 Time Seen by Provider: 08:03 Subjective/Events-last exam patient is sitting in bed, continue to be in sinus rhythm overnight. No chest pain Review of Systems General: No Chills, No Night Sweats, No Fatigue, No Malaise, No Appetite, No Other HEENT: No Head Aches, No Visual Changes, No Eye Pain, No Ear Pain, No Dysphasia , No Sinus Congestion, No Post Nasal Drip, No Sore Throat, No Other Pulmonary: No Dyspnea, No Cough, No Pleuritic Chest Pain, No Other Cardiovascular: No: Chest Pain, Palpitations, Orthopnea, Paroxysmal Noc. Dyspnea, Edema, Lt Headedness, Other Objective-Cardiology Exam Last Set of Vital Signs Vital Signs 07/27/18 07/28/18 23:24 06:00 Pulse 58 Resp 16 B/P (MAP) 128/66 (86) Pulse Ox 90 O2 Delivery NIV CPAP O2 Flow Rate 1.00 Capillary Refill : I&O Intake and Output 07/28/18 00:00 Intake Total 1022 ml Output Total 4375 ml Balance -3353 ml Intake Oral 660 ml IV Total 362 ml Output Urine Total 4375 ml General: Alert, Oriented X3, Cooperative HEENT: Atraumatic, PERRLA Neck: Supple, No JVD, No Thyromegaly Lungs: Clear to Auscultation, Normal Air Movement Heart: Regular Rate, Normal S1, Normal S2, No Murmurs Abdomen: Normal Bowel Sounds, Soft, No Tenderness, No Hepatosplenomegaly, No Masses Extremities: No Clubbing, No Cyanosis, No Edema, Normal Pulses, No Tenderness/ Swelling Skin: No Rashes, No Breakdown, No Significant Lesion Neuro: Normal Gait, Normal Speech, Strength at 5/5 X4 Ext, Normal Tone, Sensation Intact Psych/Mental Status: Mental Status NL, Mood NL Results Lab Laboratory Tests 07/27/18 08:45 07/28/18 05:15 A/P-Cardiology Admission Diagnosis chronic atrial fibrillation Coronary artery disease Congestive heart failure Hypertension Assessment/Plan Paroxysmal atrial fibrillation, status post DEMETRIS with electrical cardioversion, maintained in sinus rhythm, continue on amiodarone Coronary artery disease, clinically stable. Continue to monitor Congestive heart failure, chronic compensated left ventricular systolic dysfunction, ischemic cardiomyopathy, ejection fraction 30 percent. Continue current medications and monitor Hypertension, controlled, continue to monitor blood pressure Permanent pacemaker/ICD, interrogated today. JONO WASHINGTON MD Jul 28, 2018 08:04
[2018-07-28] MEDS ORDERED: AMIO200T4 PO (08:06)
[2018-07-28] MEDS ORDERED: FUROSEMIDE 20 MG (LASIX) TAB PO SCH (09:00)
[2018-07-28] MEDS ORDERED: ALLOPURINOL 300 MG (ZYLOPRIM) TAB PO SCH (09:00)
[2018-07-28] MEDS ORDERED: SPIRONOLACTONE 25 MG (ALDACTONE) TAB PO SCH (09:00)
[2018-07-28] MEDS ORDERED: PANTOPRAZOLE 20 MG TABLET (PROTONIX) PO SCH (09:00)
[2018-07-28] MEDS ORDERED: DIGOXIN 0.125 MG (LANOXIN) TAB PO SCH ×2 (09:00)
[2018-07-28] MEDS ORDERED: RAMIPRIL 5 MG (ALTACE) CAP PO SCH (09:00)
[2018-07-28] MEDS: CARVEDILOL 25 MG TAB PO SCH (09:06)
[2018-07-28] MEDS: APIXABAN 5 MG (ELIQUIS) TABLET PO SCH (09:06)
[2018-07-28] MEDS: AMIODARONE 200 MG (CORDARONE) TAB PO SCH (09:16)
== END 2018-07-28 09:58 | disposition home or self-care (01) ==
LOC: CATH 08:21 → ICU 10:45 → CATH 07-28 09:58
PROVIDERS: ATTEND Internal Medicine Cardiovascular Disease
DX: I48.0 Paroxysmal atrial fibrillation (principal); I11.0 Hypertensive heart disease with heart failure; I50.22 Chronic systolic (congestive) heart failure; I25.5 Ischemic cardiomyopathy; I25.10 Atherosclerotic heart disease of native coronary artery without angina pectoris; E78.5 Hyperlipidemia, unspecified; E11.9 Type 2 diabetes mellitus without complications; I65.23 Occlusion and stenosis of bilateral carotid arteries; E66.9 Obesity, unspecified; Z68.31 Body mass index [BMI] 31.0-31.9, adult; Z79.01 Long term (current) use of anticoagulants; Z79.899 Other long term (current) drug therapy; Z95.0 Presence of cardiac pacemaker; Z95.1 Presence of aortocoronary bypass graft; Z95.5 Presence of coronary angioplasty implant and graft
CPT/HCPCS: 36415; 71045; 80053; 83880; 85027; 85610; 85730; 87081; 92960; 93005; 93312; 93320; 93325

== ENCOUNTER 2018-08-02 23:01 | Emergency (ER) | payer MEDICARE, OTHER ==
[~2018-08-02] VITALS: Ht 175.3 cm; Wt 95.7 kg
[~2018-08-02 23:01] MED LIST changes: +AMIO200T4 PO; +APIX5TAB PO; +DIGO125T18 PO; +FURO20TA4 PO; +OMEG10005 PO; +POTA10CA43 PO
--- OUTSIDE RECORDS SUMMARY | 2018-08-02 23:06 | XMS REPORT | Clinical Summary ---
Author Author [facility] Organization [facility] Address Unknown Phone Unavailable Care Team Providers Care Lumber Tripper Name Role Phone PCP Unavailable Allergies Not [...]
--- OUTSIDE RECORDS SUMMARY | 2018-08-02 23:08 | XMS REPORT | Continuity of Care Document ---
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 06/05/2015 JONO WASHINGTON MD Ot I42.9 CARDIOMYOPATHY, UNSPECIFIED 06/05/2015 JONO WASHINGTON MD Ot 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) HEART FAIL 06/05/2015 JONO WASHINGTON MD Ot R94.39 ABNORMAL RESULT OF OTHER CARDIOVASCULAR 06/05/2015 JONO WASHINGTON MD Ot Z68.31 BODY MASS INDEX (BMI) 31.0-31.9, ADULT 06/05/2015 JONO WASHINGTON MD Ot Z79.899 OTHER STATISTICS MANAGER (CURRENT) DRUG THERAPY 06/05/2015 JONO WASHINGTON MD [...] MD Ot I25.10 ATHSCL HEART DISEASE OF [place] CORONARY 09/12/2015 JONO WASHINGTON MD Ot I25.5 ISCHEMIC CARDIOMYOPATHY 09/12/2015 JONO WASHINGTON MD Ot 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) HEART FAIL 09/12/2015 JONO WASHINGTON MD Ot Z79.899 OTHER STATISTICS MANAGER (CURRENT) DRUG THERAPY 09/12/2015 JONO WASHINGTON MD [...] DO Ot I25.10 ATHSCL HEART DISEASE OF [place] CORONARY 09/18/2015 BRIDGER WHARTON DO Ot I42.9 CARDIOMYOPATHY, UNSPECIFIED 09/18/2015 SHARON WHARTON DOI Ot 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) HEART FAIL 09/18/2015 BRIDGER WHARTON DO Ot 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, LEFT ELBOW 09/18/2015 BRIDGER WHARTON DO Ot 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, LEFT WRIST 09/18/2015 BRIDGER WHARTON DO Ot M19.021 PRIMARY OSTEOARTHRITIS, RIGHT ELBOW 09/18/2015 DIO WALTERBRIDGER Ot M25.561 PAIN IN RIGHT KNEE 09/18/2015 WHARTONBRIDGER PIÑA DO Ot M70.21 OLECRANON BURSITIS, RIGHT ELBOW 09/18/2015 DIO WALTERBRIDGER Ot Z87.891 PERSONAL HISTORY OF NICOTINE DEPENDENCE 09/18/2015 WHARTON BRIDGER Ot Z95.1 PRESENCE OF AORTOCORONARY BYPASS GRAFT 09/18/2015 BRIDGER WHARTON DO Ot Z95.810 PRESENCE OF AUTOMATIC (IMPLANTABLE) CARD 09/23/2015 JACQUELINE BOWMAN Ot E78.2 09/23/2015 JACQUELINE BOWMAN Ot I10 09/23/2015 JACQUELINE BOWMAN Ot I25.10 09/23/2015 JACQUELINE BOWMAN Ot I25.5 04/07/2016 JACQUELINE BOWMAN Ot E78.5 HYPERLIPIDEMIA, UNSPECIFIED 04/07/2016 JACQUELINE BOWMAN Ot I10 ESSENTIAL (PRIMARY) HYPERTENSION 04/07/2016 JACQUELINE BOWMAN Ot I25.10 ATHSCL HEART DISEASE OF [place] CORONARY 04/07/2016 JACQUELINE BOWMAN Ot 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) HEART FAIL 04/24/2016 JACQUELINE BOWMAN Ot E78.5 HYPERLIPIDEMIA, UNSPECIFIED 04/24/2016 JACQUELINE BOWMAN Ot I10 ESSENTIAL (PRIMARY) HYPERTENSION 04/24/2016 JACQUELINE BOWMAN Ot I25.10 ATHSCL HEART DISEASE OF [place] CORONARY 04/24/2016 JACQUELINE BOWMAN Ot 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) HEART FAIL 05/13/2016 JONO WASHINGTON MD Ot E66.9 OBESITY, UNSPECIFIED 05/13/2016 JONO WASHINGTON MD Ot E78.5 HYPERLIPIDEMIA, UNSPECIFIED 05/13/2016 JONO WASHINGTON MD Ot I10 ESSENTIAL (PRIMARY) HYPERTENSION 05/13/2016 JONO WASHINGTON MD Ot I25.10 ATHSCL HEART DISEASE OF [place] CORONARY 05/13/2016 JONO WASHINGTON MD Ot E66.9 OBESITY, UNSPECIFIED 05/13/2016 JONO WASHINGTON MD Ot E78.5 HYPERLIPIDEMIA, UNSPECIFIED 05/13/2016 JONO WASHINGTON MD Ot I10 ESSENTIAL (PRIMARY) HYPERTENSION 05/13/2016 JONO WASHINGTON MD Ot I25.10 ATHSCL HEART DISEASE OF [place] CORONARY 05/13/2016 JONO WASHINGTON MD Ot 272.4 [...] BOWMAN Ot I25.10 ATHSCL HEART DISEASE OF [place] CORONARY 05/13/2016 JACQUELINE BOWMAN Ot I25.5 ISCHEMIC CARDIOMYOPATHY 05/13/2016 JACQUELINE BOWMAN Ot E78.5 HYPERLIPIDEMIA, UNSPECIFIED 05/13/2016 JACQUELINE BOWMAN Ot I10 ESSENTIAL (PRIMARY) HYPERTENSION 05/13/2016 JACQUELINE BOWMAN Ot I25.10 ATHSCL HEART DISEASE OF [place] CORONARY 05/13/2016 JACQUELINE BOWMAN Ot 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) HEART FAIL 05/14/2016 JACQUELINE BOWMAN Ot E78.2 MIXED HYPERLIPIDEMIA 05/14/2016 JACQUELINE BOWMAN Ot I10 ESSENTIAL (PRIMARY) HYPERTENSION 05/14/2016 COLVIN-JAREN PA, JACQUELINE K Ot I25.10 ATHSCL HEART DISEASE OF [place] CORONARY 05/14/2016 JACQUELINE BOWMAN Ot 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) HEART FAIL 05/14/2016 JACQUELINE BOWMAN Ot E78.2 MIXED HYPERLIPIDEMIA 05/14/2016 JACQUELINE BOWMAN Ot I10 ESSENTIAL (PRIMARY) HYPERTENSION 05/14/2016 JACQUELINE BOWMAN Ot I25.10 ATHSCL HEART DISEASE OF [place] CORONARY 05/14/2016 JACQUELINE BOWMAN Ot 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) HEART FAIL 06/04/2016 JACQUELINE BOWMAN Ot E78.2 MIXED HYPERLIPIDEMIA 06/04/2016 JACQUELINE BOWMAN Ot I10 ESSENTIAL (PRIMARY) HYPERTENSION 06/04/2016 JACQUELINE BOWMAN Ot I25.10 ATHSCL HEART DISEASE OF [place] CORONARY 06/04/2016 JACQUELINE BOWMAN Ot 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) HEART FAIL 03/30/2017 JONO WASHINGTON MD Ot E66.9 OBESITY, UNSPECIFIED 03/30/2017 JONO WASHINGTON MD Ot E78.5 HYPERLIPIDEMIA, UNSPECIFIED 03/30/2017 JONO WASHINGTON MD Ot I10 ESSENTIAL (PRIMARY) HYPERTENSION 03/30/2017 JONO WASHINGTON MD Ot I25.10 ATHSCL HEART DISEASE OF [place] CORONARY 03/30/2017 JONO WASHINGTON MD Ot E66.9 OBESITY, UNSPECIFIED 03/30/2017 JONO WASHINGTON MD Ot E78.5 HYPERLIPIDEMIA, UNSPECIFIED 03/30/2017 JONO WASHINGTON MD Ot I10 ESSENTIAL (PRIMARY) HYPERTENSION 03/30/2017 JONO WASHINGTON MD Ot I25.10 ATHSCL HEART DISEASE OF [place] CORONARY 03/30/2017 JONO WASHINGTON MD Ot 272.4 [...] BOWMAN Ot I25.10 ATHSCL HEART DISEASE OF [place] CORONARY 03/30/2017 JACQUELINE BOWMAN Ot I25.5 ISCHEMIC CARDIOMYOPATHY 03/30/2017 JACQUELINE BOWMAN Ot E78.5 HYPERLIPIDEMIA, UNSPECIFIED 03/30/2017 JACQUELINE BOWMAN Ot I10 ESSENTIAL (PRIMARY) HYPERTENSION 03/30/2017 JACQUELINE BOWMAN Ot I25.10 ATHSCL HEART DISEASE OF [place] CORONARY 03/30/2017 JACQUELINE BOWMAN Ot 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) HEART FAIL 03/30/2017 JACQUELINE BOWMAN Ot E78.2 MIXED HYPERLIPIDEMIA 03/30/2017 JACQUELINE BOWMAN Ot I10 ESSENTIAL (PRIMARY) HYPERTENSION 03/30/2017 JACQUELINE BOWMAN Ot I25.10 ATHSCL HEART DISEASE OF [place] CORONARY 03/30/2017 JACQUELINE BOWMAN Ot 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) HEART FAIL 03/30/2017 JACQUELINE BOWMAN Ot E78.2 MIXED HYPERLIPIDEMIA 03/30/2017 JACQUELINE BOWMAN Ot I10 ESSENTIAL (PRIMARY) HYPERTENSION 03/30/2017 JACQUELINE BOWMAN Ot I25.10 ATHSCL HEART DISEASE OF [place] CORONARY 04/21/2017 JACQUELINE BOWMAN Ot E78.2 MIXED HYPERLIPIDEMIA 04/21/2017 JACQUELINE BOWMAN K Ot I10 ESSENTIAL (PRIMARY) HYPERTENSION 04/21/2017 COLVIN-JAREN PA, JACQUELINE K Ot I25.10 ATHSCL HEART DISEASE OF [place] CORONARY 05/20/2017 JAYDE PA, JACQUELINE K Ot E78.2 MIXED HYPERLIPIDEMIA 05/20/2017 JAYDE PA, JACQUELINE K Ot 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 05/20/2017 JAYDE PA, JACQUELINE K Ot I25.10 ATHSCL HEART DISEASE OF [place] CORONARY 05/20/2017 JAYDE PA, JACQUELINE K Ot 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) HEART FAIL 05/25/2017 JAYDE PA, JACQUELINE K Ot E78.2 MIXED HYPERLIPIDEMIA 05/25/2017 JAYDE RICHARDS, JACQUELINE K Ot 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 05/25/2017 JAYDE RICHARDS, JACQUELINE K Ot I25.10 ATHSCL HEART DISEASE OF [place] CORONARY 05/25/2017 JAYDE RICHARDS, JACQUELINE K Ot 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) HEART FAIL 06/04/2017 JAYDE RICHARDS, JACQUELINE K Ot E78.2 MIXED HYPERLIPIDEMIA 06/04/2017 JAYDE RICHARDS, JACQUELINE K Ot 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 06/04/2017 JAYDE RICHARDS, JACQUELINE K Ot I25.10 ATHSCL HEART DISEASE OF [place] CORONARY 06/04/2017 JAYDE RICHARDS, JACQUELINE K Ot 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) HEART FAIL 06/09/2017 JAYDE RICHARDS, JACQUELINE K Ot E78.2 MIXED HYPERLIPIDEMIA 06/09/2017 COLVINJAREN RICHARDS, JACQUELINE K Ot 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 06/09/2017 JAYDE RICHARDS, JACQUELINE K Ot I25.10 ATHSCL HEART DISEASE OF [place] CORONARY 06/09/2017 JAYDE RICHARDS, JACQUELINE K Ot 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) HEART FAIL 06/14/2017 JAYDE RICHARDS, JACQUELINE K Ot E78.2 MIXED HYPERLIPIDEMIA 06/14/2017 JAYDE RICHARDS, JACQUELINE K Ot 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 06/14/2017 JAYDE RICHARDS, JACQUELINE K Ot I25.10 ATHSCL HEART DISEASE OF [place] CORONARY 06/14/2017 JACQUELINE BOWMAN Ot 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) HEART FAIL 06/14/2017 JACQUELINE BOWMAN Ot E78.2 MIXED HYPERLIPIDEMIA 06/14/2017 JACQUELINE BOWMAN Ot 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 06/14/2017 JACQUELINE BOWMAN Ot I25.10 ATHSCL HEART DISEASE OF [place] CORONARY 06/14/2017 JACQUELINE BOWMAN Ot 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) HEART FAIL 11/24/2017 JONO WASHINGTON MD Ot E66.9 OBESITY, UNSPECIFIED 11/24/2017 JONO WASHINGTON MD Ot E78.5 HYPERLIPIDEMIA, UNSPECIFIED 11/24/2017 JONO WASHINGTON MD Ot I10 ESSENTIAL (PRIMARY) HYPERTENSION 11/24/2017 JONO WASHINGTON MD Ot I25.10 ATHSCL HEART DISEASE OF [place] CORONARY 11/24/2017 JONO WASHINGTON MD Ot E66.9 OBESITY, UNSPECIFIED 11/24/2017 JONO WASHINGTON MD Ot E78.5 HYPERLIPIDEMIA, UNSPECIFIED 11/24/2017 JONO WASHINGTON MD Ot I10 ESSENTIAL (PRIMARY) HYPERTENSION 11/24/2017 JONO WASHINGTON MD Ot I25.10 ATHSCL HEART DISEASE OF [place] CORONARY 11/24/2017 JONO WASHINGTON MD Ot 272.4 [...] K Ot I25.10 ATHSCL HEART DISEASE OF [place] CORONARY 11/24/2017 JAYDE RICHARDS, JACQUELINE K Ot I25.5 ISCHEMIC CARDIOMYOPATHY 11/24/2017 JAYDE RICHARDS, JACQUELINE K Ot E78.5 HYPERLIPIDEMIA, UNSPECIFIED 11/24/2017 JAYDE RICHARDS, JACQUELINE K Ot I10 ESSENTIAL (PRIMARY) HYPERTENSION 11/24/2017 JAYDE RICHARDS, JACQUELINE K Ot I25.10 ATHSCL HEART DISEASE OF [place] CORONARY 11/24/2017 JAYDE RICHARDS, JACQUELINE K Ot 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) HEART FAIL 11/24/2017 JACQUELINE BOWMAN Ot E78.2 MIXED HYPERLIPIDEMIA 11/24/2017 JAYDE RICHARDS, JACQUELINE K Ot I10 ESSENTIAL (PRIMARY) HYPERTENSION 11/24/2017 RADHA BOWMANTH K Ot I25.10 ATHSCL HEART DISEASE OF [place] CORONARY 11/24/2017 JAYDE RICHARDS, JACQUELINE K Ot 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) HEART FAIL 11/24/2017 JACQUELINE BOWMAN K Ot E78.2 MIXED HYPERLIPIDEMIA 11/24/2017 JAYDE RICHARDS, JACQUELINE K Ot I10 ESSENTIAL (PRIMARY) HYPERTENSION 11/24/2017 JAYDE RICHARDS, JACQUELINE K Ot I25.10 ATHSCL HEART DISEASE OF [place] CORONARY 11/24/2017 JACQUELINE BOWMAN K Ot E78.2 MIXED HYPERLIPIDEMIA 11/24/2017 JAYDE RICHARDS, JACQUELINE K Ot 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 11/24/2017 JACQUELINE BOWMAN K Ot I25.10 ATHSCL HEART DISEASE OF [place] CORONARY 11/24/2017 RADHA BOWMANTH K Ot 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) HEART FAIL 11/24/2017 JAYDE RICHARDS, JACQUELINE K Ot E78.2 MIXED HYPERLIPIDEMIA 11/24/2017 JAYDE RICHARDS, JACQUELINE K Ot 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 11/24/2017 JACQUELINE BOWMAN Ot I25.10 ATHSCL HEART DISEASE OF [place] CORONARY 11/24/2017 JACQUELINE BOWMAN Ot 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) HEART FAIL 11/25/2017 JONO WASHINGTON MD Ot E66.9 OBESITY, UNSPECIFIED 11/25/2017 JONO WASHINGTON MD Ot E78.5 HYPERLIPIDEMIA, UNSPECIFIED 11/25/2017 JONO WASHINGTON MD Ot 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 11/25/2017 JONO WASHINGTON MD Ot I25.10 ATHSCL HEART DISEASE OF [place] CORONARY 11/25/2017 JONO WASHINGTON MD Ot 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) HEART FAIL 12/14/2017 JONO WASHINGTON MD Ot E66.9 OBESITY, UNSPECIFIED 12/14/2017 JONO WASHINGTON MD Ot E78.5 HYPERLIPIDEMIA, UNSPECIFIED 12/14/2017 JONO WASHINGTON MD Ot 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 12/14/2017 JONO WASHINGTON MD Ot I25.10 ATHSCL HEART DISEASE OF [place] CORONARY 12/14/2017 JONO WASHINGTON MD Ot 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) HEART FAIL 04/04/2018 Ot E78.2 MIXED HYPERLIPIDEMIA 04/04/2018 Ot I11.9 HYPERTENSIVE HEART DISEASE WITHOUT HEART 04/04/2018 Ot I25.10 ATHSCL HEART DISEASE OF [place] CORONARY 04/04/2018 Ot 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) HEART FAIL 05/04/2018 Ot E78.5 HYPERLIPIDEMIA, UNSPECIFIED 05/04/2018 Ot 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 05/04/2018 Ot I25.10 ATHSCL HEART DISEASE OF [place] CORONARY 05/04/2018 Ot I50.9 HEART FAILURE , UNSPECIFIED 05/04/2018 Ot E78.2 MIXED HYPERLIPIDEMIA 05/04/2018 Ot I11.9 HYPERTENSIVE HEART DISEASE WITHOUT HEART 05/04/2018 Ot I25.10 ATHSCL HEART DISEASE OF [place] CORONARY 05/04/2018 Ot 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) HEART FAIL 05/10/2018 Ot E78.2 MIXED HYPERLIPIDEMIA 05/10/2018 Ot I11.9 HYPERTENSIVE HEART DISEASE WITHOUT HEART 05/10/2018 Ot I25.10 ATHSCL HEART DISEASE OF [place] CORONARY 05/10/2018 Ot 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) HEART FAIL 05/18/2018 JONO WASHINGTON MD Ot E66.9 OBESITY, UNSPECIFIED 05/18/2018 JONO WASHINGTON MD Ot 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 05/18/2018 JONO WASHINGTON MD Ot I25.10 ATHSCL HEART DISEASE OF [place] CORONARY 05/18/2018 JONO WASHINGTON MD Ot 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) HEART FAIL 06/14/2018 JONO WASHINGTON MD Ot E66.9 OBESITY, UNSPECIFIED 06/14/2018 JONO WASHINGTON MD Ot 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 06/14/2018 JONO WASHINGTON MD Ot I25.10 ATHSCL HEART DISEASE OF [place] CORONARY 06/14/2018 JONO WASHINGTON MD Ot 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) HEART FAIL 07/26/2018 JONO WASHINGTON MD Ot E66.9 OBESITY, UNSPECIFIED 07/26/2018 JONO WASHINGTON MD Ot E78.5 HYPERLIPIDEMIA, UNSPECIFIED 07/26/2018 JONO WASHINGTON MD Ot I10 ESSENTIAL (PRIMARY) HYPERTENSION 07/26/2018 JONO WASHINGTON MD Ot I25.10 ATHSCL HEART DISEASE OF [place] CORONARY 07/26/2018 JONO WASHINGTON MD Ot E66.9 OBESITY, UNSPECIFIED 07/26/2018 JONO WASHINGTON MD Ot E78.5 HYPERLIPIDEMIA, UNSPECIFIED 07/26/2018 JONO WASHINGTON MD Ot I10 ESSENTIAL (PRIMARY) HYPERTENSION 07/26/2018 JONO WASHINGTON MD Ot I25.10 ATHSCL HEART DISEASE OF [place] CORONARY 07/26/2018 JONO WASHINGTON MD Ot 272.4 HYPERLIPIDEMIA NEC/NOS 07/26/2018 JONO WASHINGTON MD Ot 278.00 OBESITY, NOS 07/26/2018 JONO WASHINGTON MD Ot 401.9 HYPERTENSION NOS 07/26/2018 JNOO WASHINGTON MD Ot 414.00 CORON ATHEROSCLER NOS [...] BOWMAN Ot I25.10 ATHSCL HEART DISEASE OF [place] CORONARY 07/26/2018 JACQUELINE BOWMAN Ot I25.5 ISCHEMIC CARDIOMYOPATHY 07/26/2018 JACQUELINE BOWMAN Ot E78.5 HYPERLIPIDEMIA, UNSPECIFIED 07/26/2018 JACQUELINE BOWMAN Ot I10 ESSENTIAL (PRIMARY) HYPERTENSION 07/26/2018 JACQUELINE BOWMAN Ot I25.10 ATHSCL HEART DISEASE OF [place] CORONARY 07/26/2018 JACQUELINE BOWMAN Ot 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) HEART FAIL 07/26/2018 JACQUELINE BOWMAN Ot E78.2 MIXED HYPERLIPIDEMIA 07/26/2018 JACQUELINE BOWMAN Ot I10 ESSENTIAL (PRIMARY) HYPERTENSION 07/26/2018 JACQUELINE BOWMAN Ot I25.10 ATHSCL HEART DISEASE OF [place] CORONARY 07/26/2018 JACQUELINE BOWMAN Ot 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) HEART FAIL 07/26/2018 JACQUELINE BOWMAN Ot E78.2 MIXED HYPERLIPIDEMIA 07/26/2018 JACQUELINE BOWMAN Ot I10 ESSENTIAL (PRIMARY) HYPERTENSION 07/26/2018 JACQUELINE BOWMAN Ot I25.10 ATHSCL HEART DISEASE OF [place] CORONARY 07/26/2018 JACQUELINE BOWMAN Ot E78.2 MIXED HYPERLIPIDEMIA 07/26/2018 JACQUELINE BOWMAN Ot 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 07/26/2018 JACQUELINE BOWMAN Ot I25.10 ATHSCL HEART DISEASE OF [place] CORONARY 07/26/2018 JACQUELINE BOWMAN Ot 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) HEART FAIL 07/26/2018 JACQUELINE BOWMAN Ot E78.2 MIXED HYPERLIPIDEMIA 07/26/2018 JACQUELINE BOWMAN Ot 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 07/26/2018 JACQUELINE BOWMAN Ot I25.10 ATHSCL HEART DISEASE OF [place] CORONARY 07/26/2018 JACQUELINE BOWMAN Ot 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) HEART FAIL 07/26/2018 JONO WASHINGTON MD Ot E66.9 OBESITY, UNSPECIFIED 07/26/2018 JONO WASHINGTON MD Ot E78.5 HYPERLIPIDEMIA, UNSPECIFIED 07/26/2018 JONO WASHINGTON MD Ot 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 07/26/2018 JONO WASHINGTON MD Ot I25.10 ATHSCL HEART DISEASE OF [place] CORONARY 07/26/2018 JONO WASHINGTON MD Ot 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) HEART FAIL 07/26/2018 Ot E78.2 MIXED HYPERLIPIDEMIA 07/26/2018 Ot I11.9 HYPERTENSIVE HEART DISEASE WITHOUT HEART 07/26/2018 Ot I25.10 ATHSCL HEART DISEASE OF [place] CORONARY 07/26/2018 Ot 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) HEART FAIL 07/26/2018 Ot E78.5 HYPERLIPIDEMIA, UNSPECIFIED 07/26/2018 Ot 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 07/26/2018 Ot I25.10 ATHSCL HEART DISEASE OF [place] CORONARY 07/26/2018 Ot I50.9 HEART FAILURE , UNSPECIFIED 07/26/2018 JONO WASHINGTON MD Ot E66.9 OBESITY, UNSPECIFIED 07/26/2018 JONO WASHINGTON MD Ot 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 07/26/2018 JONO WASHINGTON MD Ot I25.10 ATHSCL HEART DISEASE OF [place] CORONARY 07/26/2018 JONO WASHINGTON MD Ot I50.22 [...] calculation of estimated glomerular filtration rate > [facility] Serum or plasma glucose measurement (mass/volume) 117 [...] g/dL 3.2-4.5 CALCIUM CORRECTED 9.3 mg/dL 8.5-10.1 Methicillin resistant Staphylococcus aureus (MRSA) screening culture - 08:45 Methicillin resistant Staphylococcus aureus (MRSA) screening culture NEG [facility] Comprehensive metabolic panel - 07/28/18 05:15 Serum or plasma sodium measurement (moles/volume) 136 mmol/L 135-145 Serum or plasma potassium measurement (moles/volume) 4.1 mmol/L 3.6-5.0 Serum or plasma chloride measurement (moles/volume) 100 mmol/L 98-107 Carbon dioxide 25 mmol/L 21-32 Serum or plasma anion gap determination (moles/volume) 11 mmol/L 5-14 Serum or plasma urea nitrogen measurement (mass/volume) 22 mg/dL 7-18 Serum or plasma creatinine measurement (mass/volume) 0.89 mg/dL 0.60-1.30 Serum or plasma urea nitrogen/creatinine mass ratio 25 NRG Serum or plasma creatinine measurement with calculation of estimated glomerular filtration rate > [facility]G Serum or plasma glucose measurement (mass/volume) 103 mg/dL 70-105 Serum or plasma calcium measurement (mass/volume) 9.6 mg/dL 8.5-10.1 Serum or plasma total bilirubin measurement (mass/volume) 1.2 mg/dL 0.1-1.0 Serum or plasma alkaline phosphatase measurement (enzymatic activity/volume) 52 U/L 40-136 Serum or plasma aspartate aminotransferase measurement (enzymatic activity/ volume) 20 U/L 5-34 Serum or plasma alanine aminotransferase measurement (enzymatic activity/volume ) 20 U/L 0-55 Serum or plasma protein measurement (mass/volume) 6.4 g/dL 6.4-8.2 Serum or plasma albumin measurement (mass/volume) 3.7 g/dL 3.2-4.5 CALCIUM CORRECTED 9.8 mg/dL 8.5-10.1 Serum or plasma lithium measurement (moles/volume) - 07/28/18 05:15 BNP level 92.7 pg/mL <100.0 Encounters ACCT No. Visit Date/Time Discharge Status Pt. Type Provider Facility Loc./Unit Complaint [id number] 07/26/2014 08:31:00 07/26/2014 23:59:59 CLS Outpatient YONATHAN CORDERO DO [id number] 07/27/2018 08:21:00 07/28/2018 09:58:00 DIS Outpatient JONO WASHINGTON MD [facility] CATH AFIB,CAD,CHF [id number] 05/16/2018 07:27:00 05/16/2018 23:59:59 CLS Outpatient JONO WASHINGTON MD [facility] LAB I25.10,I50.22,E78.2,I10 [id number] 11/24/2017 09:05:00 11/24/2017 23:59:59 CLS Outpatient JONO WASHINGTON MD [facility] LAB I25.10,I50.22 [id number] 05/19/2017 07:16:00 05/19/2017 23:59:59 CLS Outpatient JACQUELINE BOWMAN [facility] CARD CAD I25.10 [id number] 05/14/2017 08:12:00 05/14/2017 23:59:59 CLS Outpatient JACQUELINE BOWMAN [facility] CARD CAD I25.10 [id number] 03/30/2017 07:58:00 03/30/2017 23:59:59 CLS Outpatient JACQUELINE BOWMAN [facility] LAB I25.10 I10 E78.2 [id number] 05/13/2016 06:40:00 05/13/2016 23:59:59 CLS Outpatient JACQUELINE BOWMAN [facility] LAB CAD,CHF,HLD, HTN [id number] 04/03/2016 06:38:00 04/03/2016 23:59:59 CLS Outpatient JACQUELINE BOWMAN [facility] LAB CAD,CHF,HLD, HTN [id number] 09/14/2015 14:05:00 09/18/2015 11:50:00 DIS Inpatient BRIDGER WHARTON DO [facility] CSD POST OP CELLULITIS L CHEST, S/P ICD PLACEMENT [id number] 09/11/2015 11:51:00 09/11/2015 23:59:59 CLS Outpatient JONO WASHINGTON MD [facility] CATH CHF,CAD,HTN,HLP [id number] 08/19/2015 12:39:00 08/19/2015 23:59:59 CLS Outpatient JACQUELINE BOWMAN [facility] CARD CAD,HLD,HTN , ISCHEMIC CARDIOMYOPATHY [id number] 06/05/2015 08:21:00 06/05/2015 16:05:00 DIS Outpatient JONO WASHINGTON MD [facility] CATH ABN STRESS TEST,CAD,CHF, HTN,DM [id number] 05/29/2015 07:14:00 05/29/2015 23:59:59 CLS Outpatient JONO WASHINGTON MD [facility] CARD CAD, HLD, HTN, OBESITY [id number] 05/27/2015 14:48:00 05/27/2015 23:59:59 CLS Outpatient JONO WASHINGTON MD [facility] CARD CAD, HLD, HTN, OBESITY [id number] 05/11/2015 07:03:00 05/11/2015 23:59:59 CLS Outpatient JONO WASHINGTON MD [facility] LAB CAD,HLD,HTN,OBESITY [id number] 05/10/2015 12:21:00 05/10/2015 23:59:59 CLS Outpatient JONO WASHINGTON MD [facility] LAB CAD,HLD,HTN,OBESITY [id number] 03/31/2018 09:22:00 Document Registration [id number] 03/24/2018 07:14:00 Document Registration [id number] 05/27/2015 14:48:00 Document Registration [id number] 03/02/2011 00:08:00 Document Registration
[2018-08-02] MEDS ORDERED: OXYMETAZOLINE (AFRIN) 0.05% NA 15 ML BTL ONE (23:16)
--- NOTE | 2018-08-03 00:01 | ED EENT ---
History of Present Illness General Chief Complaint: Nasal Problems Stated Complaint: NOSE BLEED Nursing Triage Note: pt presents ot er with complaint of nose bleed. states it started around 9pm and has not been able to get it stop. Source: patient, family Exam Limitations: no limitations History of Present Illness Date Seen by Provider: Aug 02, 2018 Time Seen by Provider: 23:14 Initial Comments This 83-year-old gentleman presents to the emergency room with nosebleed. He is anticoagulated. Apparently the epistaxis was quite severe at home. EMS was called and the hope. They placed a gauze packing in his right nostril and patient presented to the ER by private vehicle. It does not appear to be actively bleeding upon arrival. Allergies and Home Medications Allergies Coded Allergies: No Known Drug Allergies (Unverified , 09/14/15) Home Medications Allopurinol 300 Mg Tab, 300 MG PO DAILY, (Reported) Amiodarone HCl 200 Mg Tablet, 200 MG PO UD Take 2 tabs twice daily for one week then Take 1 tab twice daily Prescribed by: JONO WASHINGTON on 07/28/18 0806 Apixaban 5 Mg Tablet, 5 MG PO BID, (Reported) Ascorbate Calcium 500 Mg Tablet, 1,000 MG PO DAILY, (Reported) Aspirin 81 Mg Tablet.dr, 81 MG PO HS, (Reported) Atorvastatin Calcium 80 Mg Tablet, 80 MG PO HS, (Reported) Carvedilol 25 Mg Tablet, 25 MG PO BID, (Reported) Digoxin 125 Mcg Tablet, 125 MCG PO DAILY, (Reported) Escitalopram Oxalate 10 Mg Tablet, 10 MG PO DAILY, (Reported) Furosemide 20 Mg Tablet, 20 MG PO DAILY, (Reported) Metformin HCl 500 Mg Tablet, 500 MG PO BID, (Reported) Multivitamins 1 Tab Tablet, 1 TAB PO DAILY, (Reported) [place]-3 Fatty Acids 1,000 Mg Capsule, 2,000 MG PO BID, (Reported) Omeprazole 20 Mg Capsule.dr, 20 MG PO DAILY, (Reported) Pioglitazone Hcl 30 Mg Tab, 30 MG PO DAILY, (Reported) Potassium Chloride 10 Meq Capsule.er, 10 MEQ PO DAILY, (Reported) Ramipril 5 Mg Capsule, 5 MG PO DAILY, (Reported) Spironolactone 25 Mg Tablet, 25 MG PO DAILY, (Reported) Ubidecarenone 200 Mg Capsule, 200 MG PO DAILY, (Reported) Patient Home Medication List Home Medication List Reviewed: Yes Review of Systems Review of Systems Constitutional: no symptoms reported Eyes: No Symptoms Reported Ears: No Symptoms Reported Nose: see HPI Mouth: no symptoms reported Throat: no symptoms reported Respiratory: no symptoms reported Cardiovascular: no symptoms reported Gastrointestinal: no symptoms reported Musculoskeletal: no symptoms reported Skin: no symptoms reported Neurological: No Symptoms Reported Hematologic/Lymphatic: See HPI Immunological/Allergic: no symptoms reported Past Jywgfgb-Bnrdcv-Kibhta Hx Past Med/Social Hx: Reviewed and Corrections made Patient Social History Alcohol Use: Denies Use Recreational Drug Use: No Smoking Status: Former Smoker Type Used: Cigarettes Former Smoker, Quit: Jul 27, 1953 Recent Foreign Travel: No Contact w/Someone Who Travel: No Recent Infectious Disease Expo: No Immunizations Up To Date Tetanus Booster (TDap): Unknown PED Vaccines UTD: No Date of Pneumonia Vaccine: Jun 05, 2011 Date of Influenza Vaccine: May 16, 2018 Past Medical History Surgeries: Yes (ICD ON 09-11-15) Defibrillator, Orthopedic Respiratory: Yes Sleep Apnea Currently Using CPAP: Yes Currently Using BIPAP: No Cardiac: Yes (PT HAD LIFE VEST PRIOR TO ICD PLACEMENT) Atrial Fibrillation, Coronary Artery Disease, Congenital Heart Disease, Heart Attack, High Cholesterol, Hypertension Neurological: No Reproductive Disorders: No Sexually Transmitted Disease: No Gastrointestinal: No Musculoskeletal: Yes Arthritis, Gout Endocrine: Yes Diabetes, Non-Insulin dep Cataract Loss of Vision: Denies Cancer: No Psychosocial: No Integumentary: No Blood Disorders: No Family Medical History Hypertension Not obtainable due to adoption No Pertinent Family Hx Physical Exam Vital Signs Vital Signs - First Documented 08/02/18 23:14 Temp 98.0 Pulse 62 Resp 20 B/P (MAP) 150/58 (88) Pulse Ox 97 O2 Delivery Room Air Height, Weight, BMI Height: 5'9.00" Weight: 211lbs. 0.0oz. 95.037189jm; 31.2 BMI Method:Stated General Appearance: WD/WN, no apparent distress Nose: other (gauze packing in the right near with minimal blood on it. No active bleeding. Small blood in the nostril) Neck: normal inspection Cardiovascular: regular rate, rhythm, no edema, no murmur Respiratory: lungs clear, normal breath sounds, no respiratory distress, no accessory muscle use Neurologic/Psychiatric: slip injector and applicator II-XII nml as tested, no motor/sensory deficits, alert, normal mood/affect, oriented x 3 Skin: normal color, warm/dry Progress/Results/Core Measures Results/Orders My Orders Orders - AYSE LLANES MD Oxymetazoline 0.05% [place] (Afrin 0. (08/03/18 09:00) Oxymetazoline 0.05% [place] (Afrin 0. (08/02/18 23:16) Vital Signs/I&O 08/02/18 08/03/18 23:14 00:05 Temp 98.0 98.0 Pulse 62 62 Resp 20 20 B/P (MAP) 150/58 (88) 132/56 (81) Pulse Ox 97 97 O2 Delivery Room Air Blood Pressure Mean: 88 Progress Progress Note : Progress Note Patient was observed for sufficient time to ensure no rebound bleeding. He was discharged home with a nasal clamp and Afrin to use if bleeding returns. Departure Impression Primary Impression: Epistaxis Disposition: 01 HOME, SELF-CARE Condition: Improved Departure-Patient Inst. Decision time for Depature: 23:59 Referrals: HELADIO LÓPEZ MD (PCP/Family) Primary Care Physician Patient Instructions: Nosebleeds (DC) Add. Discharge Instructions: Avoid rubbing or blowing your nose for at least 24 hours. Any disruption of the nose could cause of bleeding to return. If bleeding does return, spray 2-4 sprays of Afrin in each nostril and apply direct pressure for 15 minutes. Elevate your head. If this does not resolve the bleeding, you may return to the emergency room. All discharge instructions reviewed with patient and/or family. Voiced understanding. AYSE LLANES MD Aug 03, 2018 00:00
[2018-08-03 00:05] VITALS: BP 132/56
[2018-08-03] MEDS ORDERED: OXYMETAZOLINE (AFRIN) 0.05% NA 15 ML BTL SCH (09:00)
== END 2018-08-03 00:07 | disposition home or self-care (01) ==
LOC: EDUNIT# 23:01 → ER 23:02
DX: R04.0 Epistaxis (principal); G47.30 Sleep apnea, unspecified; I48.91 Unspecified atrial fibrillation; I25.10 Atherosclerotic heart disease of native coronary artery without angina pectoris; I25.2 Old myocardial infarction; E78.00 Pure hypercholesterolemia, unspecified; I10 Essential (primary) hypertension; M10.9 Gout, unspecified; E11.9 Type 2 diabetes mellitus without complications; Z79.01 Long term (current) use of anticoagulants; Z79.82 Long term (current) use of aspirin; Z79.84 Long term (current) use of oral hypoglycemic drugs; Z87.891 Personal history of nicotine dependence; Z95.810 Presence of automatic (implantable) cardiac defibrillator
CPT/HCPCS: 99281

== ENCOUNTER → 2018-08-03 | Outpatient (CLI) | payer MEDICARE, OTHER ==
--- NOTE | 2018-08-03 10:12 | Diagnostic Imaging Report ---
INDICATION: Abnormal chest radiograph. COMPARISON: 07/27/2018. FINDINGS: Frontal and lateral radiographic views of the chest were obtained and continue show complete obscuration the right hemidiaphragm. There is blunting of the posterior and lateral costophrenic angles consistent with underlying effusion. Left lung is relatively clear. There is no large effusion on the left. No pneumothorax is seen on either side. Cardiac silhouette and pulmonary vasculature are within normal limits. Sternotomy wires and left-sided AICD are noted. Bony structures show no gross acute abnormalities. IMPRESSION: 1. Persistent small right basilar effusion and associated adjacent atelectasis. Some component of underlying infiltrate is not entirely excluded. Dictated by: Dictated on workstation # [id number]
== END ==
LOC: RAD 09:23
PROVIDERS: ATTEND Internal Medicine
DX: J90 Pleural effusion, not elsewhere classified (principal); J98.11 Atelectasis
CPT/HCPCS: 71046

== ENCOUNTER → 2018-09-15 | Outpatient (CLI) | payer MEDICARE, OTHER ==
--- NOTE | 2018-09-15 08:00 | Diagnostic Imaging Report ---
EXAM: CHEST PA/LAT (2 VIEW) INDICATION: F/U PLEURAL EFFUSION COMPARISON: Chest radiograph 08/03/2018. FINDINGS: Sternotomy with mediastinal markers. AICD. Normal heart size and central pulmonary vascularity. Tiny right pleural effusion similar to the prior exam. No pneumothorax. No acute osseous findings IMPRESSION: Stable tiny right pleural effusion. No new cardiopulmonary findings. Dictated by: Dictated on workstation # [id number]
== END ==
LOC: RAD 07:35
PROVIDERS: ATTEND Internal Medicine
DX: J90 Pleural effusion, not elsewhere classified (principal); Z95.810 Presence of automatic (implantable) cardiac defibrillator
CPT/HCPCS: 71046

== ENCOUNTER → 2019-03-21 | Outpatient (CLI) | payer MEDICARE, OTHER ==
[2019-03-21 08:09] LABS: BUN/CREATININE RATIO 20; CALCIUM 9.2 MG/DL (8.5-10.1); CARBON DIOXIDE 24 MMOL/L (21-32); CHLORIDE 104 MMOL/L (98-107); CREATININE SERUM 0.89 MG/DL (0.60-1.30); GFR ESTIMATED > 60; GLUCOSE 99 MG/DL (70-105); POTASSIUM 4.3 MMOL/L (3.6-5.0); SODIUM 138 MMOL/L (135-145)
[2019-03-21 08:10] LABS: ALANINE AMINOTRANSFERASE 152 U/L (0-55); ALBUMIN 3.7 GM/DL (3.2-4.5); ALKALINE PHOSPHATASE 69 U/L (40-136); BILIRUBIN,TOTAL 0.5 MG/DL (0.1-1.0); CHOLESTEROL 105 MG/DL (< 200); HDL CHOLESTEROL 38 MG/DL (40-60); TOTAL PROTEIN 6.7 GM/DL (6.4-8.2); TRIGLYCERIDES 91 MG/DL (<150); VLDL CHOLESTEROL 18 MG/DL (5-40)
== END ==
LOC: LAB 07:35
PROVIDERS: ATTEND Physician Assistant
DX: I25.10 Atherosclerotic heart disease of native coronary artery without angina pectoris (principal); I10 Essential (primary) hypertension; E78.5 Hyperlipidemia, unspecified
CPT/HCPCS: 36415; 80053; 80061

== ENCOUNTER 2019-10-26 19:32 | Emergency (ER) | payer MEDICARE, OTHER ==
[~2019-10-26] VITALS: Ht 175.2 cm; Wt 95.2 kg
--- NOTE | 2019-10-26 20:07 | ED Fall/Injury ---
General Chief Complaint: Trauma-Non Activation Stated Complaint: FALL Source: patient, family (SON) History of Present Illness Date Seen by Provider: Oct 26, 2019 Time Seen by Provider: 19:55 Initial Comments PT ARRIVES VIA POV WITH FAMILY--SON PT WAS WALKING INTO THE [facility] TO GO EXERCISE, AND TRIPPED AND FELL ON THE SIDEWALK--OCCURRED AT 1900 WITNESSED BY SON FELL FORWARD, HIT FACE ON SIDEWALK, AND HAD OUTSTRETCHED HANDS BROKE HIS GLASSES HAS ABRASIONS TO FACE, AND LEFT HAND NO LOSS OF CONSCIOUSNESS, BUT WAS "WOOZY" IMMEDIATELY AFTERWARD, BUT NOT NOW. NO NECK OR BACK PAIN NO CHEST OR ABDOMINAL PAIN NO LEG OR HIP PAIN NO NAUSEA/VOMITING NO CHANGES IN VISION NO PARESTHESIAS OR MOTOR DEFICITS NO HEADACHE NO ALTERED MENTAL STATUS LAST TETANUS IS UNKNOWN PT IS ON ELIQUIS--TOOK AM DOSE TODAY PCP: DR. LÓPEZ TORCH OPERATOR: DR. WASHINGTON Allergies and Home Medications Allergies Coded Allergies: No Known Drug Allergies (Unverified , 09/14/15) Home Medications Allopurinol 300 Mg Tab, 300 MG PO DAILY, (Reported) Amiodarone HCl 200 Mg Tablet, 200 MG PO UD Take 2 tabs twice daily for one week then Take 1 tab twice daily Prescribed by: JONO WASHINGTON on 07/28/18 0806 Apixaban 5 Mg Tablet, 5 MG PO BID, (Reported) Ascorbate Calcium 500 Mg Tablet, 1,000 MG PO DAILY, (Reported) Aspirin 81 Mg Tablet., 81 MG PO HS, (Reported) Atorvastatin Calcium 80 Mg Tablet, 80 MG PO HS, (Reported) Carvedilol 25 Mg Tablet, 25 MG PO BID, (Reported) Digoxin 125 Mcg Tablet, 125 MCG PO DAILY, (Reported) Escitalopram Oxalate 10 Mg Tablet, 10 MG PO DAILY, (Reported) Furosemide 20 Mg Tablet, 20 MG PO DAILY, (Reported) Hydrocodone/Acetaminophen 1 Each Tablet, 1 TAB PO Q4-6HR Prescribed by: ALINA SCRUGGS on 10/26/19 2223 Metformin HCl 500 Mg Tablet, 500 MG PO BID, (Reported) Multivitamins 1 Tab Tablet, 1 TAB PO DAILY, (Reported) [place]-3 Fatty Acids 1,000 Mg Capsule, 2,000 MG PO BID, (Reported) Omeprazole 20 Mg Capsule., 20 MG PO DAILY, (Reported) Pioglitazone Hcl 30 Mg Tab, 30 MG PO DAILY, (Reported) Potassium Chloride 10 Meq Capsule.er, 10 MEQ PO DAILY, (Reported) Ramipril 5 Mg Capsule, 5 MG PO DAILY, (Reported) Spironolactone 25 Mg Tablet, 25 MG PO DAILY, (Reported) Ubidecarenone 200 Mg Capsule, 200 MG PO DAILY, (Reported) Patient Home Medication List Home Medication List Reviewed: Yes Review of Systems Review of Systems Constitutional: see HPI, dizziness Eyes: No Symptoms Reported Ears, Nose, Mouth, Throat: no symptoms reported Respiratory: no symptoms reported Cardiovascular: no symptoms reported Gastrointestinal: no symptoms reported Genitourinary: no symptoms reported Musculoskeletal: see HPI Skin: see HPI Psychiatric/Neurological: No Symptoms Reported; Denies Headache, Denies Numbness, Denies Paresthesia, Denies Seizure, Denies Tingling, Denies Weakness Past Chzujzi-Mdivto-Fegvac Hx Past Med/Social Hx: Reviewed and Corrections made Patient Social History Smoking Status: Former Smoker Type Used: Cigarettes Former Smoker, Quit: Jul 27, 1953 Recent Foreign Travel: No Contact w/Someone Who Travel: No Immunizations Up To Date Tetanus Booster (TDap): Unknown PED Vaccines UTD: No Date of Pneumonia Vaccine: Jun 05, 2011 Date of Influenza Vaccine: May 16, 2018 Past Medical History Surgeries: Yes (ICD ON 09-11-) Cardiac, CABG, Coronary Stent, Defibrillator, Joint Replacement, Orthopedic Respiratory: Yes Sleep Apnea Currently Using CPAP: Yes Currently Using BIPAP: No Cardiac: Yes (PT HAD LIFE VEST PRIOR TO ICD PLACEMENT) Atrial Fibrillation, Coronary Artery Disease, Congenital Heart Disease, Heart Attack, High Cholesterol, Hypertension Neurological: No Reproductive Disorders: No Sexually Transmitted Disease: No Gastrointestinal: No Musculoskeletal: Yes Arthritis, Gout Endocrine: Yes Diabetes, Non-Insulin dep Cataract Loss of Vision: Denies Cancer: No Psychosocial: No Integumentary: No Blood Disorders: No Family Medical History Hypertension Not obtainable due to adoption No Pertinent Family Hx PSH: -RIGHT FEUMUR FRACTURE SURGERY X 5 -RIGHT KNEE PATELLAR TENDON REPAIR -LEFT KNEE REPLACEMENT -CARDIAC CATHS WITH STENT X 1 -5 VESSEL CABG Physical Exam Vital Signs Vital Signs - First Documented 10/26/19 19:56 Temp 36.4 Pulse 69 Resp 18 B/P (MAP) 123/62 (82) Pulse Ox 99 O2 Delivery Room Air Capillary Refill : Height, Weight, BMI Height: 5'9.00" Weight: 211lbs. 0.0oz. 95.298545vq; 31.2 BMI Method:Stated General Appearance: WD/WN, no apparent distress, other (SMILING, VERY TALKATIVE, VERY PLEASANT GENTLEMAN. ) HEENT: PERRL/EOMI, TMs normal, pharynx normal, other (ABRASIONS TO LEFT FOREHEAD AND LEFT CHEEK WITH MILD SWELLING AND EARLY BRUSING. ) Neck: non-tender, full range of motion, supple, normal inspection Cardiovascular: regular rate, rhythm, no murmur Respiratory: normal breath sounds, no respiratory distress, no accessory muscle use Peripheral Pulses: 2+ Dorsalis Pedis (R), 2+ Left Dors-Pedis (L) Gastrointestinal: normal bowel sounds, non tender, soft Back: normal inspection, no CVA tenderness, no vertebral tenderness Extremities: other (RIGHT KNEE HAS VERY MINIMAL ROM--UNABLE TO FLEX--IS CHRONIC/NORMAL FOR PT. LEFT KNEE IS NOT TENDER. DORSAL ASPECT OF LEFT HAD WITH MILD SWELLING AND ECCHYMOSIS , WITH TENDERNESS OVER METACARPALS 2 AND 3. NO DEFORMITY, DISTAL MOTOR/SENSORY/VASCULAR INTACT. 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, no motor/sensory deficits, alert, normal mood/affect, oriented x 3 Skin: normal color, warm/dry, ecchymosis, other (ABRASIONS) Procedures/Interventions Splinting and Joint Reduction : Splints: [facility] Wrist Progress/Results/Core Measures Results/Orders Lab Results Laboratory Tests Test 10/26/19 00:00 10/26/19 21:36 Range/Units Digoxin Level 0.56 L 0.80-2.00 NG/ML White Blood Count 5.7 4.3-11.0 10^3/uL Red Blood Count 3.53 L 4.35-5.85 10^6/uL Hemoglobin 11.7 L 13.3-17.7 G/DL Hematocrit 35 L 40-54 % Mean Corpuscular Volume 99 80-99 FL Mean Corpuscular Hemoglobin 33 25-34 PG Mean Corpuscular Hemoglobin Concent 34 32-36 G/DL Red Cell Distribution Width 14.0 10.0-14.5 % Platelet Count 168 130-400 10^3/uL Mean Platelet Volume 9.2 7.4-10.4 FL Neutrophils (%) (Auto) 74 42-75 % Lymphocytes (%) (Auto) 14 12-44 % Monocytes (%) (Auto) 10 0-12 % Eosinophils (%) (Auto) 1 0-10 % Basophils (%) (Auto) 0 0-10 % Neutrophils # (Auto) 4.2 1.8-7.8 X 10^3 Lymphocytes # (Auto) 0.8 L 1.0-4.0 X 10^3 Monocytes # (Auto) 0.6 0.0-1.0 X 10^3 Eosinophils # (Auto) 0.1 0.0-0.3 10^3/uL Basophils # (Auto) 0.0 0.0-0.1 10^3/uL Prothrombin Time 14.7 12.2-14.7 SEC INR Comment 1.1 0.8-1.4 Activated Partial Thromboplast Time 37 H 24-35 SEC Sodium Level 134 L 135-145 MMOL/L Potassium Level 4.5 3.6-5.0 MMOL/L Chloride Level 101 98-107 MMOL/L Carbon Dioxide Level 20 L 21-32 MMOL/L Anion Gap 13 5-14 MMOL/L Blood Urea Nitrogen 17 7-18 MG/DL Creatinine 0.81 0.60-1.30 MG/DL Estimat Glomerular Filtration Rate > 60 BUN/Creatinine Ratio 21 Glucose Level 121 H 70-105 MG/DL Calcium Level 8.3 L 8.5-10.1 MG/DL Corrected Calcium 8.7 8.5-10.1 MG/DL Magnesium Level 1.5 L 1.6-2.4 MG/DL Total Bilirubin 0.4 0.1-1.0 MG/DL Aspartate Amino Transf (AST/SGOT) 40 H 5-34 U/L Alanine Aminotransferase (ALT/SGPT) 52 0-55 U/L Alkaline Phosphatase 59 40-136 U/L Total Protein 6.2 L 6.4-8.2 GM/DL Albumin 3.5 3.2-4.5 GM/DL My Orders Orders - ALINA SCRUGGS DO Ed Iv/Invasive Line Start (10/26/19 20:03) Monitor-Rhythm Ecg Trace Only (10/26/19 20:03) Ct Head/Face/Cervical Wo (10/26/19 20:03) Hand, Left, 3 Views (10/26/19 20:03) Cbc With Automated Diff (10/26/19 20:03) Comprehensive Metabolic Panel (10/26/19 20:03) Magnesium (10/26/19 20:03) Protime With Inr (10/26/19 20:03) Partial Thromboplastin Time (10/26/19 20:03) Dipht,Pertuss(Acell),Tet Adult (Boostrix (10/26/19 20:15) Ed Ortho/Other Supplies Order (10/26/19 21:35) Digoxin (10/26/19 22:05) Magnesium Oxide Tablet (Mag Ox Tablet) (10/26/19 22:15) Rx-Hydrocodone/Apap 5-325 Mg (Rx-Vicodin (10/26/19 22:30) Magnesium Oxide Tablet (Mag Ox Tablet) (10/26/19 22:35) Medications Given in ED Vital Signs/I&O 10/26/19 10/26/19 19:56 22:47 Temp 36.4 Pulse 69 72 Resp 18 18 B/P (MAP) 123/62 (82) 106/62 (82) Pulse Ox 99 99 O2 Delivery Room Air Progress Progress Note : Progress Note UNEVENTFUL ER STAY Diagnostic Imaging Comments XRAYS LEFT HAND--FRACTURE 3RD METACARPAL CT HEAD/MAXILLOFACIALS/CERVICAL SPINE--NO ACUTE PROCESS, CHRONIC/DEGENERATIVE CHANGES PER RADIOLOGIST REPORTS Reviewed: Reviewed by Me Departure Impression Primary Impression: S/P FALL FROM STANDING Additional Impressions: Minor head injury without loss of consciousness FACIAL CONTUSIONS AND ABRASIONS Closed fracture of third metacarpal bone of left hand Bazqhsjtof-bgdrgpcky-mgjnkiv (DPT) vaccination administered at current visit ELIQUIS THERAPY Disposition: 01 HOME, SELF-CARE Condition: Stable Departure-Patient Inst. Referrals: HELADIO LÓPEZ MD (PCP/Family) Primary Care Physician PORSHA VELIZ MD Patient Instructions: Minor Head Injury (DC), Skin Abrasions (DC), Hand Fracture (DC) Add. Discharge Instructions: WEAR SPLINT AT ALL TIMES ICE TO SORE AREAS AT 20 MINUTE INTERVALS ELEVATE HAND MUCH POSSIBLE TYLENOL NEEDED FOR PAIN FOLLOW UP WITH DR. VELIZ NEXT WEEK FOR FURTHER CARE--CALL IN AM FOR APPOINTMENT All discharge instructions reviewed with patient and/or family. Voiced understanding. Scripts Hydrocodone/Acetaminophen (Hydrocodone/Acetaminophen 5 MG/325 MG TAB) 1 Each Tablet 1 TAB PO Q4-6HR for Pain MDD 10 TABS for 7 Days, #20 TAB Prov: ALINA SCRUGGS DO 10/26/19 ALINA SCRUGGS DO Oct 26, 2019 20:07
[2019-10-26] MEDS ORDERED: TETANUS,DIPTH,PERTUSS P/F (BOOSTRIX) 0.5 ML VIAL IM ONE (20:15)
--- NOTE | 2019-10-26 21:00 | Diagnostic Imaging Report ---
INDICATION: Fell today with abrasion to the left posterior hand over the 2nd and 3rd metacarpals. FINDINGS: 3 views of the left hand demonstrate a minimally displaced fracture of the midshaft of the 3rd metacarpal. There are fairly severe degenerative changes of the 1st carpometacarpal joint. Moderate degenerative changes present in the fingers. IMPRESSION: There is a fairly well aligned fracture of the 3rd metacarpal shaft. Dictated by: Dictated on workstation # [id number]
--- NOTE | 2019-10-26 21:09 | Diagnostic Imaging Report ---
PROCEDURE: CT head, face, and cervical spine without contrast. TECHNIQUE: Multiple contiguous axial images were obtained through the head, neck, and facial bones without the use of intravenous contrast. Sagittal and coronal reformations through the cervical spine and facial bones were also performed. Auto Exposure Controls were utilized during the CT exam to meet ALARA standards for radiation dose reduction. INDICATION: Fell and landed on face with abrasion to the forehead. FINDINGS: Noncontrast CT scan of the head demonstrates no mass effect, midline shift, hemorrhage, or extra-axial fluid collection. Moderate atrophy and mild white matter changes are present. There are no focal areas of ischemia. Bone windows demonstrate no fractures. No fluid is seen in the paranasal sinuses or mastoid air cells. Facial bones: Examination demonstrates soft tissue swelling of the left forehead. Postoperative changes are present consistent with cataract surgery. Some mild degenerative changes present in the temporomandibular joints, greatest on the left. The paranasal sinuses are clear. No fractures are present. Cervical spine: Noncontrast CT scan of the cervical spine demonstrates diffuse degenerative changes. No fractures are present. Soft tissues appear unremarkable. There is some calcification of the carotid arteries. C3-C4 level demonstrates moderate narrowing of the left neural foramina. C4-C5 level demonstrates mild narrowing of the right neural foramina. C5-C6 level demonstrates moderate narrowing of the right neural foramina and mild central stenosis. C6-C7 level demonstrates moderate narrowing of the left neural foramina. IMPRESSION: 1. There are senescent changes within the brain with no acute findings. 2. No acute findings are seen to the facial bones. Degenerative changes present in the temporomandibular joints. 3. No acute findings are present in the cervical spine. Degenerative changes are present. There is calcification of the carotid arteries. 4. There is a right pleural effusion. Dictated by: Dictated on workstation # [id number]
[2019-10-26 21:57] LABS: BASOPHILS % (AUTO) 0 % (0-10); EOSINOPHILS # (AUTO) 0.1 10^3/uL (0.0-0.3); EOSINOPHILS % (AUTO) 1 % (0-10); HEMATOCRIT 35 % (40-54); HEMOGLOBIN 11.7 G/DL (13.3-17.7); LYMPHOCYTES # (AUTO) 0.8 X 10^3 (1.0-4.0); LYMPHOCYTES % (AUTO) 14 % (12-44); MEAN CORPUSCULAR HEMOGLOBIN 33 PG (25-34); MEAN CORPUSCULAR HGB CONC 34 G/DL (32-36); MEAN CORPUSCULAR VOLUME 99 FL (80-99); MEAN PLATELET VOLUME 9.2 FL (7.4-10.4); MONOCYTES # (AUTO) 0.6 X 10^3 (0.0-1.0); MONOCYTES % (AUTO) 10 % (0-12); NEUTROPHILS # (AUTO) 4.2 X 10^3 (1.8-7.8); NEUTROPHILS % (AUTO) 74 % (42-75); PLATELET COUNT 168 10^3/uL (130-400); WHITE BLOOD COUNT 5.7 10^3/uL (4.3-11.0)
[2019-10-26 22:06] LABS: ALANINE AMINOTRANSFERASE 52 U/L (0-55); ALBUMIN 3.5 GM/DL (3.2-4.5); ALKALINE PHOSPHATASE 59 U/L (40-136); BILIRUBIN,TOTAL 0.4 MG/DL (0.1-1.0); BUN/CREATININE RATIO 21; CALCIUM 8.3 MG/DL (8.5-10.1); CARBON DIOXIDE 20 MMOL/L (21-32); CHLORIDE 101 MMOL/L (98-107); CREATININE SERUM 0.81 MG/DL (0.60-1.30); GFR ESTIMATED > 60; GLUCOSE 121 MG/DL (70-105); MAGNESIUM 1.5 MG/DL (1.6-2.4); POTASSIUM 4.5 MMOL/L (3.6-5.0); SODIUM 134 MMOL/L (135-145); TOTAL PROTEIN 6.2 GM/DL (6.4-8.2)
[2019-10-26 22:11] LABS: INR 1.1 (0.8-1.4); PROTHROMBIN TIME PATIENT 14.7 SEC (12.2-14.7)
[2019-10-26] MEDS ORDERED: MAGNESIUM OXIDE (MAG-OX)400 MG TAB PO ONE (22:15)
[2019-10-26] MEDS ORDERED: HYDR-4226 PO (22:22)
[2019-10-26] MEDS ORDERED: RX-HYDROCODONE/APAP 5/325 MG #4 TAB PK PO PRN (22:30)
[2019-10-26] MEDS ORDERED: MAGNESIUM OXIDE (MAG-OX)400 MG TAB ONE (22:35)
[2019-10-26 22:47] VITALS: BP 106/62
== END 2019-10-26 23:02 | disposition home or self-care (01) ==
LOC: EDUNIT# 19:32 → ER 19:34
DX: S09.90XA Unspecified injury of head, initial encounter (principal); S62.303A Unspecified fracture of third metacarpal bone, left hand, initial encounter for closed fracture; S00.83XA Contusion of other part of head, initial encounter; I10 Essential (primary) hypertension; I25.2 Old myocardial infarction; E11.9 Type 2 diabetes mellitus without complications; E78.00 Pure hypercholesterolemia, unspecified; I25.10 Atherosclerotic heart disease of native coronary artery without angina pectoris; I48.91 Unspecified atrial fibrillation; M10.9 Gout, unspecified; G47.30 Sleep apnea, unspecified; Z99.89 Dependence on other enabling machines and devices; Z23 Encounter for immunization; Z95.1 Presence of aortocoronary bypass graft; Z95.5 Presence of coronary angioplasty implant and graft; Z95.810 Presence of automatic (implantable) cardiac defibrillator; Z79.01 Long term (current) use of anticoagulants; Z79.82 Long term (current) use of aspirin; Z79.84 Long term (current) use of oral hypoglycemic drugs; Z87.891 Personal history of nicotine dependence; W01.0XXA Fall on same level from slipping, tripping and stumbling without subsequent striking against object, initial encounter; Y92.480 Sidewalk as the place of occurrence of the external cause
CPT/HCPCS: 36415; 70450; 70486; 72125; 73130; 80053; 80162; 83735; 85025; 85610; 85730; 90715; 93041

== ENCOUNTER 2020-01-05 20:00 | Emergency (ER) | payer MEDICARE ==
[~2020-01-05] VITALS: Ht 175 cm; Wt 90.0 kg
[~2020-01-05 20:00] MED LIST changes: +HYDR-4226 PO
--- OUTSIDE RECORDS SUMMARY | 2020-01-05 20:38 | XMS REPORT ---
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 [employer] [facility] [employer] (formerly [employer]) [facility] [employer] Address [address] [address] Care Team Providers Care Joy Operator Helper Name Role Phone HELADIO LÓPEZ Unavailable JACQUELINE BOWMAN Unavailable Unavailab HELADIO Tapia Unavailable JACQUELINE BOWMAN Unavailable Unavailab ALINA Koch DO Unavailable Unavailable Unavailable Unavailable ROSE POLO, RAJNI Allen Unavailable Unavailable Unavailable Unavailable Unavailable Unavailable Unavailable Unavailable Allergies Normalized Allergy Reported Date of Reaction(s) Care Provider Facility Allergy Type classification allergen Allergy Onset DA (21 Unclassified No Known Drug 09-14-2015 - no information BASITA ANGELICA , Not Available sources.) Allergies (14695) Medications Medication Ingredient Drug Dose Dates Status Sig Sig Care Class(es) (Normalized) (Original) Provid er no Acetaminoph no 03-02-20 Complete take 5 Acetaminophe Timoth information en/Hydrocod information 11 - d tablets by n/H ydrocodon y D (2 one Bitart 06-05-20 mouth every e Bitart Stebbi sources.) (Lortab 5 15 six hours as (Lortab 5 Mg ns (n o Mg Tablet) needed, then Tablet) 1 phone) 1 Each take 1-1 Each Tablet, Tablet, 1 - tablets by 1 - 2 Each 2 Each Oral mouth as Oral Every 6 needed Hours as needed 03/02/11 Discontinued amiodarone Amiodarone Antiarrhyth 400 mg 07-28-20 Complete take 2 Amiodarone Bashar hydrochlori rosemarie 18 d tablets by Hcl 200 Mg J de 200 mg mouth twice Tablet 200 Angelica oral tablet daily, then Mg ORAL As (no (2 take 1 Directed 100 phone) sources.) tablet by Tab Take 2 mouth twice tabs twice daily daily for one week then Take 1 tab twice daily 07/28/18 apixaban 5 apixaban Factor Xa 5 mg Complete take 1 Apixaban (n o mg oral Inhibitor d tablet by (Eliquis) 5 phone) tablet (2 mouth twice Mg Tablet 5 sources.) daily Mg ORAL Twice A Day no Ascorbate no 1000 Complete take 2 Ascorbate (no information Calcium information mg d tablets by Calcium phone) (2 (Vitamin C) mouth once (Vitamin C) sources.) 500 Mg daily 500 Mg Tablet Tablet 1,000 Mg ORAL Daily digoxin Digoxin Cardiac 0.125 Complete take 1 Digoxin (no 0.125 mg Glycoside mg d tablet by (Digox) 125 brandon ne) oral tablet mouth once Mcg Tablet (2 daily 125 Mcg ORAL sources.) Daily furosemide Furosemide Loop 20 mg Complete take 1 Furosemide ( no 20 mg oral Diuretic d tablet by 20 Mg Tablet phone) tablet (2 mouth once 20 Mg ORAL sources.) daily Daily no Multivitami no Complete take 1 Multivitamin (n o information ns information d tablet by s (Multipl e phone) (2 (Multiple mouth once Vitamin) 1 sources.) Vitamin) 1 daily, then Tab Tablet 1 Tab Tablet take 1 Tab ORAL tablet by Daily mouth no Columbus-3 no 1999 Complete take 1 Columbus-3 (no information Fatty Acids information mg d capsule by Fatt y Acids phone) (2 (Columbus-3) mouth twice (Columbus-3) sources.) 1,000 Mg daily, then 1,000 Mg Capsule take 1000 Capsule capsules by 2,000 Mg mouth ORAL Twice A Day no Omeprazole no 20 mg Complete take 1 Omeprazole (no information (Prilosec information d capsule by (Prilose c 20 phone) (2 20 Mg) 20 mouth once Mg) 20 Mg sources.) Mg daily, then Capsule.dr Capsule.dr take 1 20 Mg ORAL capsule by Daily mouth potassium Potassium no 10 mEq Complete take 1 Potassium (no chloride 10 Chloride information d capsule by Chloride 10 phone) meq mouth once Meq extended daily Capsule.er release 10 Meq ORAL oral Daily capsule (2 sources.) no Ubidecareno no 200 mg Complete take 1 Ubidecarenon ( no information ne (Co information d capsule by e (Co Q-1 0) phone) (2 Q-10) 200 mouth once 200 Mg sources.) Mg Capsule daily Capsule 200 Mg ORAL Daily no Ubidecareno no 09-11-19 Complete no Ubidecarenon (no information ne (Co information 16 d information e (Co Q -10) phone) (2 Q-10) 200 200 Mg sources.) Mg Capsule, Capsule, 200 200 Mg Oral Mg Oral Daily Discontinued Problems Active Problems Problem Normalized Date Last Normalized Normalized Provider Fa cility Classification Problem(s) Recorded Problem Problem Sta tus Duration Coronary Atheroscleroti Chronic Active JONO DOMINGUEZ , No t Available atherosclerosi c heart MD (30376) s and other disease of heart disease habematolel (22 sources.) coronary artery without angina pectoris Translations: [ ISCHEMIC CARDIOMYOPATHY , CORON ATHEROSCLER NOS TYPE VESSEL, NATIV, OLD MYOCARDIAL INFARCTION, ATHSCL HEART DISEASE OF [place] CORONARY ] Other Body mass Chronic Active BASHAR ANGELICA , Not Maria D ilable nutritional; index (BMI) MD (31933) endocrine; and 31.0-31.9, metabolic adult disorders (8 sources.) Hyacinth-; endo-; Cardiomyopathy Chronic Active BASHAR ANGELICA , Not Available and , unspecified MD (09545) myocarditis; cardiomyopathy (8 sources.) Congestive Chronic Chronic Active BASHAR ANGELICA , Not Maria D ilable heart failure; systolic MD (42746) nonhypertensiv (congestive) e (22 heart failure sources.) Translations: [ HEART FAILURE, UNSPECIFIED] Coronary Chronic total no information Active JONO ANGELICA , Not Available atherosclerosi occlusion of MD (59988) s and other coronary heart disease artery (22 sources.) Translations: [ ATHSCL HEART DISEASE OF [place] CORONARY , PRESENCE OF AORTOCORONARY BYPASS GRAFT, ISCHEMIC CARDIOMYOPATHY , PRESENCE OF CORONARY ANGIOPLASTY IMPLANT, ISCHEMIC CARDIOMYOPATHY ] Residual Dependence on Chronic Active ALINA SHEBA DO [facility] codes; other enabling [facility] unclassified machines and Hospital - (2 sources.) devices [place] ([address]897) Immunizations Encounter for Episodic Active ALINA SHEBA DO [facility] Via and screening immunization [facility] for infectious Hospital - disease (2 [place] sources.) (89450) Other upper Epistaxis Episodic Active HELADIO LÓPEZ [facility] Via respiratory [address] [place] disease (1 Hospital source.) (67211) Other upper Epistaxis Episodic Active AYSE Not Availa ble respiratory BRUEGGEMANN , (28658) disease (4 MD sources.) External cause Fall on same Episodic Active ALINA SHEBA DO [facility] Via codes: Fall (2 level from [place] sources.) slipping, Hospital - tripping and [place] stumbling (14213) without subsequent striking against object, initial encounter Disorders of Hyperlipidemia Chronic Active JACQUELINE Not Available lipid , unspecified [facility] (52315) metabolism (22 Translations: N , [place] sources.) [ MIXED HYPERLIPIDEMIA , HYPERLIPIDEMIA NEC/NOS, HYPERLIPIDEMIA , UNSPECIFIED, PURE HYPERCHOLESTER OLEMIA, UNSPECIFIED] Hypertension Hypertensive Chronic Active JACQUELINE Not Av ailable with heart disease [facility] (18869[facility] complications with heart N , [place] and secondary failure hypertension Translations: (21 sources.) [ ESSENTIAL (PRIMARY) HYPERTENSION, HYPERTENSIVE HEART DISEASE WITHOUT HEART] Gout and other Idiopathic Chronic Active BRIDGER WHARTON N ot Available crystal gout, left DO (06019) arthropathies wrist (10 sources.) Translations: [ IDIOPATHIC GOUT, LEFT ELBOW, GOUT, UNSPECIFIED] Other shelter Episodic Active BASHAR ANGELICA , Not Maria D ilable aftercare (9 (current) use MD (54870) sources.) of anticoagulants Other shelter Episodic Active AYSE Not Availabl e aftercare (4 (current) use MARIO ALBERTO , (80622) sources.) of aspirin 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 ALINA SHEBA , DO [facility] Via aftercare (2 (current) use [place] sources.) of oral Hospital - hypoglycemic [place] drugs (83443) Other Obesity, Chronic Active BASHAR ANGELICA , Not Avai lable nutritional; unspecified MD (48138) endocrine; and Translations: metabolic [ BODY MASS disorders (21 INDEX (BMI) sources.) 31.0-31.9, ADULT, OBESITY, NOS] Other Obesity, Chronic Active BASHAR ANGELICA , Not Avai lable nutritional; unspecified MD (13098) endocrine; and metabolic disorders (6 sources.) Occlusion or Occlusion and Chronic Active BASHAR ANGELICA , Not Available 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 (5 carotid sources.) arteries Other Other long Episodic Active BASHAR ANGELICA , Not Av ailable aftercare (13 term (current) MD (13723) sources.) drug therapy Cardiac Paroxysmal Chronic Active BASHAR ANGELICA , Not Av ailable dysrhythmias atrial (55010) (9 sources.) fibrillation Translations: [ UNSPECIFIED ATRIAL FIBRILLATION] Screening or Personal Episodic Active BRIDGER IDO , Not A vailable history of history of DO (60278) mental health nicotine and substance dependence abuse (8 sources.) Skin and Postoperative Episodic Active HELADIO LÓPEZ [facility] [place] [place] [address] [facility] tissue surgical wound Hospital infections (2 (24022) sources.) Coronary Presence of Episodic Active ALINA SHEBA , DO [facility] V ia atherosclerosi aortocoronary [facility] and other bypass graft Hospital - heart disease Translations: [place] (4 sources.) [ PRESENCE OF (02172) CORONARY ANGIOPLASTY IMPLANT] Conduction Presence of Chronic Active BRIDGER WHARTON , Not Available disorders (15 automatic DO (04228) sources.) (implantable) cardiac defibrillator Translations: [ PRESENCE OF CARDIAC PACEMAKER] Osteoarthritis Primary Chronic Active BRIDGER WHARTON , Not Available (4 sources.) osteoarthritis DO (20981) , right elbow External cause Sidewalk as Episodic Active ALINA SHEBA , DO [facility] Via codes: Place the place [facility] of occurrence occurrence of Hospital - (2 sources.) the external [place] cause (92379) Residual Sleep apnea, Chronic Active ALINA SHEBA , DO [facility] Via codes; unspecified [place] unclassified Hospital - (2 sources.) [place] (82486) Diabetes Type 2 Chronic Active RAJNI Not Available mellitus diabetes MD ROSE (98253) without mellitus complication without (21 sources.) complications Essential Unspecified Chronic Active BASITA DOMINGUEZ , Not A vailable hypertension essential (75289) (21 sources.) hypertension Translations: [ ESSENTIAL (PRIMARY) HYPERTENSION] Fracture of Unspecified Episodic Active ALINA SHEBA , DO [facility] Via upper limb (2 fracture of [facility] sources.) third Hospital - metacarpal [place] bone, left (61203) hand, initial encounter for closed fracture Other injuries Unspecified Episodic Active ALINA SHEBA , DO [facility] Via and conditions injury of [facility] due to head, initial Hospital - external encounter [place] causes (2 (51848) sources.) Unclassified no information no information Active HELADIO SALCIDO ON [facility] (12 sources.) [address] [place] [address] (35945) Past or Other Problems Problem Normalized Date Last Normalized Normalized Provider Fa cility Classification Problem(s) Recorded Problem Problem Sta tus Duration Unclassified Abnormal Episodic Completed JONO DOMINGUEZ , Not A vailable (4 sources.) result of MD (78490) other cardiovascular function study Delirium, Delirium due Episodic Completed BRIDGER WHARTON , Not Available 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 cognitive disorders (4 sources.) External Fall (on) no information no information RAJNI No t Available Injury - Fall (from) other MD ROSE (01147) (4 sources.) stairs and steps, initial encounter Other shelter no information no information AYSE No t Available aftercare (2 (current) use MARIO ALBERTO , (49151) sources.) of oral MD hypoglycemic drugs Other Olecranon Episodic Completed BRIDGER WHARTON , Not Maria D ilable connective bursitis, DO (32982) tissue disease right elbow (4 sources.) External Other place in no information no information RAJNI Not Available Injury - Place single-family MD ROSE (95619) of occurrence (private) (4 sources.) house as the place of occurrence of the external cause Other Pain in right Episodic Completed BRIDGER WHARTON , Not Available non-traumatic knee DO (50419) joint disorders (4 sources.) Disorders of Pure no information no information AYSE Not Available lipid hypercholester MARIO ALBERTO , (42141) metabolism (2 olemiaMD sources.) unspecified Residual Sleep apnea, no information no information AYSE Not Available codes; unspecified MARIO ALBERTO , (59748) unclassified (2 sources.) Other injuries Unspecified Episodic Completed RAJNI Not A vailable and conditions injury of MD ROSE (14179) due to lower back, external initial causes (4 encounter sources.) Procedures Procedure Normalized Procedure Procedure Result Performer Facility Date 07-27-2018 Bidirectional no information JONO DOMINGUEZ [facility] (28566) ultrasonic Doppler 07-28-2018 Diagnostic radiography no information JONO CALLES I [facility] of chest, combined [facility] (35539) and lateral 07-27-2018 Echocardiography no information JONO DOMINGUEZ Asc [facility] (95085) 07-28-2018 Electrocardiographic no information JONO DOMINGUEZ [facility] (01272) 07-27-2018 Electrocardiographic no information JONO DOMINGUEZ [facility] (10087) 07-27-2018 Plain chest X-ray no information JONO DOMINGUEZ As cension Via [facility] (49084) 07-27-2018 Transesophageal no information JONO Dumont ANGELICA Asce nsion Via [facility] (32615) Immunizations Normalized Immunization Date Notes Care Provider Facili ty Immunization tetanus toxoid, 10-26-2019 no information no name [facility] diphtheria [facility] toxoid, and (56895) acellular pertussis vaccine, adsorbed vaccine no information HELADIO LÓPEZ [address] [facility] ia Translations: [ [facility] vaccine] (45162) Results Test Name Value Interpretation Reference Range Date Time Fa cility (Normalized) (Normalized) (Medline Reference) serum or plasma urea nitrogen/creatin ine mass ratio on 2018-07-28 Urea 25 mg/mg (no code) 6 - 22 mg/mg [facility] a nitrogen/Creatin [facility] ine mass ratio (01550) serum or plasma urea nitrogen measurement (mass/volume) on 2018-07-28 Urea nitrogen 22 mg/dL (H) 7 - 20 mg/dL [facility] mass [facility] (06359) serum or plasma total bilirubin measurement (mass/volume) on 2018-07-28 Bilirubin mass 1.2 mg/dL (H) 0.1 - 1.2 mg/dL [facility] (03800) serum or plasma sodium measurement (moles/volume) on 2018-07-28 Sodium molar 136 mmol/L (no code) 135 - 145 mmol/L [facility] (34557) serum or plasma protein measurement (mass/volume) on 2018-07-28 Protein mass 6.4 g/dL (no code) 6.4 - 8.3 g/dL [facility] (77721) serum or plasma potassium measurement (moles/volume) on 2018-07-28 Potassium molar 4.1 mmol/L (no code) 3.7 - 5.2 mmol/L Asce nsion Via [facility] (22972) serum or plasma glucose measurement (mass/volume) on 2018-07-28 Glucose mass 103 mg/dL (no code) 60 - 125 mg/dL [facility] (12212) serum or plasma creatinine measurement with calculation of estimated glomerular filtration rate on 2018-07-28 GFR/1.73 sq M no information (no code) [facility] predicted among [facility] non-blacks MDRD (95874) vol rate/area (S/P/Bld) serum or plasma creatinine measurement (mass/volume) on 2018-07-28 Creatinine mass 0.89 mg/dL (no code) [facility] (33584) serum or plasma chloride measurement (moles/volume) on 2018-07-28 Chloride molar 100 mmol/L (no code) 95 - 106 mmol/L [facility] (52675) serum or plasma calcium measurement (mass/volume) on 2018-07-28 Calcium mass 9.6 mg/dL (no code) 8.5 - 10.2 mg/dL [facility] (57069) serum or plasma aspartate aminotransferase measurement (enzymatic activity/volume) on 2018-07-28 AST enzyme 20 U/L (no code) 10 - 34 U/L [facility] act/[facility] (70565) serum or plasma anion gap determination (moles/volume) on 2018-07-28 Anion gap 3 11 mmol/L (no code) 3 - 11 mmol/L [facility] molar [facility] (03318) serum or plasma alkaline phosphatase measurement (enzymatic activity/volume) on 2018-07-28 ALP enzyme 52 U/L (no code) 44 - 147 U/L [facility] (15318) serum or plasma albumin measurement (mass/volume) on 2018-07-28 Albumin mass 3.7 g/dL (no code) 3.4 - 5.4 g/dL [facility] (73555) serum or plasma alanine aminotransferase measurement (enzymatic activity/volume) on 2018-07-28 ALT enzyme 20 U/L (no code) 4 - 40 U/L [facility] (58633) carbon dioxide on 2018-07-28 CO2 molar conc 25 mmol/L (no code) 23 - 29 mmol/L [facility] (22793) calcium measurement corrected for albumin on 2018-07-28 Albumin mass 9.8 g/dL (no code) 3.4 - 5.4 g/dL [facility] (43718) bnp level on 2018-07-28 Natriuretic 92.7 pg/mL (no code) 0 - 100 pg/mL [facility] peptide B mass [facility] conc (Bld) (53596) venous blood hemoglobin measurement (mass/volume) on 2018-07-27 Hemoglobin mass 13.6 g/dL (no code) 12.1 - 17.2 g/dL Asce ns[facility] Via conc (Bld) [facility] (47925) prothrombin time (pt) in platelet poor plasma by coagulation assay on 2018-07-27 Prothrombin time 13.7 s (no code) 9.4 - 12.5 s [facility] (PT) Coag time [facility] (PPP) (79041) methicillin resistant staphylococcus aureus (mrsa) screening culture on 2018-07-27 MRSA DNA MRSA not (no code) [facility] GLORIA+probe Ql isolated [facility] (Unsp spec) (06795) inr in platelet poor plasma or blood by coagulation assay on 2018-07-27 INR Coag RelTime 1.1 (no code) [facility] (Platelet poor [facility] plasma or blood) (08334) blood leukocytes automated count (number/volume) on 2018-07-27 WBC Auto #/vol 7.6 10*3/uL (no code) 3.5 - 10.5 [facility] (Bld) 10*3/uL [facility] (46446) blood hematocrit (volume fraction) on 2018-07-27 Hematocrit Auto 40 % (no code) 36.1 - 50.3 % [facility] Volume Fraction [facility] ([facility]) (05427) blood erythrocytes automated count (number/volume) on 2018-07-27 RBC Auto #/vol 4.07 10*6/uL (L) 4.2 - 6.1 [facility] (Bld) 10*6/uL [facility] (17857) automated erythrocyte mean corpuscular volume on 2018-07-27 MCV Auto Entitic 98 fL (no code) 80 - 100 fL [facility] volume (RBC) [facility] (55796) automated erythrocyte mean corpuscular hemoglobin concentration measurement (mass/volume) on 2018-07-27 MCHC Auto mass 34 g/dL (no code) 32 - 36 g/dL [facility] conc (RBC) [facility] (49772) automated erythrocyte mean corpuscular hemoglobin (mass per erythrocyte) on 2018-07-27 MCH Auto Entitic 33 pg (no code) 27 - 31 pg [facility] mass (RBC) [facility] (05390) automated erythrocyte distribution width ratio on 2018-07-27 Erythrocyte 14.5 % (no code) 11.6 - 14.6 % [facility] distribution [facility] width Auto Ratio (27490) (RBC) automated blood platelet mean volume measurement on 2018-07-27 Platelet mean 9.6 fL (no code) 7.2 - 11.7 fL [facility] volume Auto [facility] Entitic volume (89712) (Bld) automated blood platelet count (count/volume) on 2018-07-27 Platelets Auto 240 10*3/uL (no code) 150 - 450 [facility] #/vol (Bld) 10*3/uL [facility] (29577) activated partial thromboplastin time (aptt) in platelet poor plasma bycoagulation assay on 2018-07-27 aPTT Coag time 39 s (H) 25 - 35 s [facility] (Bld) [facility] (40828) Vital Signs The data below is from unstructured sources Vital Response Date/Time Temperature Source [facility] 09/18/2015 4:00am Pulse Rate (adult) 70 bpm (60 - 90) 09/18/2015 8:21am Respiratory Rate 16 bpm (12 - 24) 09/18/2015 8:21am O2 Sat by Pulse Oximetry 96 % (88 - 100) 09/18/2015 8:21am Blood Pressure 129/67 mm Hg 09/18/2015 8:21am Blood Pressure Mean 87 mm Hg 09/18/2015 8:21am Pain Pain Intensity 0 2015 8:21am Height (Centimeters) 175.5 cm 09/14/2015 2:55pm Weight (Calculated Grams) 77787.000 gm 09/18/2015 6:00am Weight (Kilograms) 95.2 kg 09/18/2015 6:00am Calculated BMI 31.00 2:55pm Vital Response Date/Time Temperature Source [facility] 09/12/2015 10:20am Pulse Rate (adult) 52 bpm (60 - 90) 09/12/2015 10:20am Respiratory Rate 16 bpm (12 - 24) 09/12/2015 10:20am O2 Sat by Pulse Oximetry 96 % (88 - 100) 09/12/2015 10:20am Blood Pressure 133/86 mm Hg 09/12/2015 10:20am Blood Pressure Mean 102 mm Hg 09/12/2015 7:32am Pain Pain Intensity 0 2015 7:32am Height (Centimeters) 175.3 cm 09/11/2015 12:19pm Weight (Calculated Grams) 67903.000 gm 09/12/2015 6:17am Weight (Kilograms) 97.0 kg 09/12/2015 6:17am Calculated BMI 30.45 12:19pm Vital Response Date/Time Temperature (Fahrenheit) 96.0 degree s F (97.6 - 99.5) 06/05/2015 5:07pm Temperature (Calculated Celsius) 35. 76682 degrees C (36.4 - 37.5) 06/05/2015 3:15pm Temperature Source Temporal 06/05/2015 5:07pm Pulse Rate (adult) 70 bpm (60 - 90) 06/05/2015 5:07pm Respiratory Rate 18 bpm (12 - 24) 06/05/2015 5:07pm O2 Sat by Pulse Oximetry 96 % (88 - 100) 06/05/2015 3:15pm Blood Pressure 104/63 mm Hg 06/05/2015 5:07pm Blood Pressure Mean 77 mm Hg 06/05/2015 3:15pm Pain Pain Intensity 0 2014 3:15pm Height (Feet) 5 feet 8:46am Height (Inches) 9.00 inches 06/05/2015 8:46am Height (Calculated Centimeters) 175. 883324 cm 06/05/2015 8:46am Weight (Pounds) 211 pounds 06/05/2015 8:46am Weight (Calculated Grams) 72747.991 gm 06/05/2015 8:46am Weight (Calculated Kilograms) 95.707 991 kilograms 06/05/2015 8:46am Calculated BMI 31.16 8:46am Vital Response Date/Time Temperature (Fahrenheit) 98.0 degree s F (97.6 - 99.5) 08/02/2018 11:14pm Temperature (Calculated Celsius) 36. 30185 degrees C (36.4 - 37.5) 08/02/2018 11:14pm Temperature Source Temporal 07/28/2018 9:58am Pulse Rate (adult) 62 bpm (60 - 90) 08/02/2018 11:14pm Respiratory Rate 20 bpm (12 - 24) 08/02/2018 11:14pm O2 Sat by Pulse Oximetry 97 % (88 - 100) 08/02/2018 11:14pm Blood Pressure 150/58 mm Hg 08/02/2018 11:14pm Blood Pressure Mean 88 mm Hg (65 - 110) 08/02/2018 11:14pm Pain Numeric Pain Scale 0-No Pain 08/02/2018 11:14pm Height (Feet) 5 feet 11:14pm Height (Inches) 9.00 inches 08/02/2018 11:14pm Height (Calculated Centimeters) 175. 530534 cm 08/02/2018 11:14pm Height Method Stated 11:14pm Weight (Pounds) 211 pounds 08/02/2018 11:14pm Weight (Ounces) 0.0 oz 1 09/27/2017 8:45am Weight (Calculated Grams) 66439.99 gm 08/02/2018 11:14pm Weight (Calculated Kilograms) 95.707 991 kilograms 08/02/2018 11:14pm Calculated BMI 31.2 07/16 8:45am Weight Method Stated 11:14pm Capillary Refill Capillary Refill Less Than 3 Seconds 08/02/2018 11:14pm Vital Response Date/Time Temperature (Fahrenheit) 97.6 degree s F (97.6 - 99.5) 07/28/2018 9:58am Temperature (Calculated Celsius) 36. 53555 degrees C (36.4 - 37.5) 07/28/2018 8:00am Temperature Source Temporal 07/28/2018 9:58am Pulse Rate (adult) 59 bpm (60 - 90) 07/28/2018 9:58am Respiratory Rate 16 bpm (12 - 24) 07/28/2018 9:58am O2 Sat by Pulse Oximetry 90 % (88 - 100) 07/28/2018 9:58am Blood Pressure 128/66 mm Hg 07/28/2018 9:58am Blood Pressure Mean 86 mm Hg (65 - 110) 07/28/2018 6:00am Pain Numeric Pain Scale 0-No Pain 07/28/2018 9:58am Height (Feet) 5 feet 07/2018 8:45am Height (Inches) 9.00 inches 07/27/2018 8:45am Height (Calculated Centimeters) 175. 223727 cm 07/27/2018 8:45am Weight (Pounds) 211 pounds 07/27/2018 8:45am Weight (Ounces) 0.0 oz 1 09/27/2017 8:45am Weight (Calculated Grams) 56518.99 gm 07/27/2018 8:45am Weight (Calculated Kilograms) 95.707 991 kilograms 07/27/2018 8:45am Calculated BMI 31.2 07/16 8:45am Vital Response Date/Time Temperature (Fahrenheit) 97.6 degree s F (97.6 - 99.5) 07/28/2018 9:58am Temperature (Calculated Celsius) 36. 06048 degrees C (36.4 - 37.5) 07/28/2018 8:00am Temperature Source Temporal 07/28/2018 9:58am Pulse Rate (adult) 59 bpm (60 - 90) 07/28/2018 9:58am Respiratory Rate 16 bpm (12 - 24) 07/28/2018 9:58am O2 Sat by Pulse Oximetry 90 % (88 - 100) 07/28/2018 9:58am Blood Pressure 128/66 mm Hg 07/28/2018 9:58am Blood Pressure Mean 86 mm Hg (65 - 110) 07/28/2018 6:00am Pain Numeric Pain Scale 0-No Pain 07/28/2018 9:58am Height (Feet) 5 feet 07/2018 8:45am Height (Inches) 9.00 inches 07/27/2018 8:45am Height (Calculated Centimeters) 175. 292090 cm 07/27/2018 8:45am Weight (Pounds) 211 pounds 07/27/2018 8:45am Weight (Ounces) 0.0 oz 1 09/27/2017 8:45am Weight (Calculated Grams) 61139.99 gm 07/27/2018 8:45am Weight (Calculated Kilograms) 95.707 991 kilograms 07/27/2018 8:45am Calculated BMI 31.2 07/16 8:45am Interventions No Information Plan of Treatment The data below is from unstructured sources Discharge Date 09/18/15 11:50am Disposition 01 HOME, SELF-CARE Instructions/Education Provided Cell ulitis (DC) Forms Provided PDI Medical Prescriptions See Medication Section Referrals JONO DOMINGUEZ MD (Unspeci fied) - 09/26/15 Address: [address] [place] [phone] Reason(s) for Referral: FOLLOW UP WITH DR. DOMINGUEZ ON SEPTEMBER 26 AT 1:40 PM. HELADIO LÓPEZ MD (Unspecified) - 09/25/15 Address: [address] [place] [address], [address] [place] [phone] Reason(s) for Referral: FOLLOW UP WITH DR. 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 Any disruption of the nose could cause of bleeding to return. If bleeding does return, spray 2-4 sprays of Afrin in each nostril and apply direct pressure for 15 minutes. Elevate your head. If this does not resolve the bleeding, you may return to the emergency room. All discharge instructions reviewed with patient and/or family. Voiced understanding. Discharge Date 07/28/18 9:58am Instructions/Education Provided Atri al Fibrillation (DC) Prescriptions See Medication Section Discharge Date 07/28/18 9:58am Instructions/Education Provided Atri al Fibrillation (DC) Prescriptions See Medication Section Goals No Information Social History No Information Functional Status The data below is from unstructured sources Query Response Date Cuong rded Patient Orientation Person Place Confused September 18, 2015 12:04pm Comprehension Ability Understands Co ncepts September 18, 2015 8:00am Query Response Date Cuong rded Patient Orientation Person Place Time Situation Normal For Age September 12, 2015 11:00am Comprehension Ability Understands Co ncepts September 12, 2015 7:34am Query Response Date Cuong rded Patient Orientation Person Place Time Situation June 13, 2015 10:41am Query Response Date Cuong rded Patient Orientation Person Place Time Situation Normal For Age July 27, 2018 6:45pm Comprehension Ability Understands Co ncepts July 28, 2018 8:00am Query Response Date Cuong rded Patient Orientation Person Place Time Situation Normal For Age July 27, 2018 6:45pm Comprehension Ability Understands Co ncepts July 28, 2018 8:00am Mental Status No Information Encounters Encounter Normalized Encounter Encounter Diagnosis Care Provi zulma Organization Date Type 07-27-2018 Admission to day no information JONO DOMINGUEZ Work no organization name - surgery Phone: 07-28-2018 JONO Dumont [employer] 01-05-2020 Emergency department no information RAJNI CALLEJAS MD [facility] patient visit (no phone) [facility] (no phone) 10-26-2019 Emergency department no information ALINA SCRUGGS DO (no [facility] - patient visit phone) [facility] 10-26-2019 (no phone) 08-03-2018 Emergency department no information AYSE LOVELL no organization name - patient visit Work Phone: 08-03-2018 NEGATED Patient encounter no information no name no or ganization name 05-16-2018 03-31-2018 Patient encounter no information no name no or ganization name 03-24-2018 Patient encounter no information no name no or ganization name 11-24-2017 Patient encounter no information no name no or ganization name 05-19-2017 Patient encounter no information no name no or ganization name 05-14-2017 Patient encounter no information no name no or ganization name 03-30-2017 Patient encounter no information no name no or ganization name 05-13-2016 Patient encounter no information no name no or ganization name 04-03-2016 Patient encounter no information no name no or ganization name 09-11-2015 Patient encounter no information no name no or ganization name - 09-12-2015 06-05-2015 Patient encounter no information no name no or ganization name - 06-05-2015 05-11-2015 Patient encounter no information no name no or ganization name 05-10-2015 Patient encounter no information no name no or ganization name 12-28-2019 Patient encounter no information (no phone) [facility] procedure [facility] (no phone) 10-26-2019 Patient encounter no information ALINA SCRUGGS DO (no [facility] procedure phone) [facility] (no phone) 03-21-2019 Patient encounter no information no name no or ganization name procedure 09-15-2018 Patient encounter no information no name no or ganization name procedure 08-03-2018 Patient encounter no information no name no or ganization name procedure 07-27-2018 Patient encounter no information no name no or ganization name - procedure 07-28-2018 Patient encounter no information (no phone) [facility] procedure [facility] (no phone) Medical Equipment No Information Payers Normalized Payer Value Medicare [id number] ([id number]) Advance Directives Directive Response Recor ded Date/Time Advance Directives Yes 0 09/14/15 3:02pm Health Care Power of School Library Media Specialist Y STEPHAN ADAN DTR 09/14/15 3:02pm Organ Donor No 09/14/15 11:22am Resuscitation Status Full Code 09/14/15 3:02pm Directive Response Recor ded Date/Time Advance Directives Yes 0 09/11/15 12:17pm Health Care Power of School Library Media Specialist Y STEPHAN ADAN DTR 09/11/15 12:17pm Organ Donor No 09/11/15 12:17pm Resuscitation Status Full Code 09/11/15 12:17pm Directive Response Recor ded Date/Time Advance Directives Yes 1 8:54am Health Care Power of School Library Media Specialist Y STEPHAN ADAN DTR 06/05/15 8:54am Organ Donor No 06/05/15 8:54am Resuscitation Status Full Code 06/05/15 8:54am Directive Response Recor ded Date/Time Advance Directives Yes 1 10/03/17 11:14pm Health Care Power of School Library Media Specialist Y [facility] NA ADAN DTR 08/02/18 11:14pm Organ Donor No 08/02/18 11:14pm Resuscitation Status Full Code 08/02/18 11:14pm Directive Response Recor ded Date/Time Advance Directives Yes 1 09/27/17 8:47am Health Care Power of School Library Media Specialist Deena LEO ADAN DTR 07/27/18 8:47am Organ Donor No 07/27/18 8:47am Resuscitation Status Full Code 07/27/18 8:47am Discharge Instructions No hospital discharge instructions.No hospital discharge instructions.No hospital discharge instructions. Patient Instructions Physician Instructions Follow Up/Plan Hold Metformin for [address] Dominguez's office in 2-4 weeks CARDIAC CATH DISCHARGE INSTRUCTIONS Cardiac Rehab Please be expecting a follow up call from Cardiac Rehab within in one week. *Hold Metformin for 48 hours post heart cath. ACTIVITY * Go Home directly and rest. * Limit activity of the leg (or wrist if it was used) for 7 days including aerobics, swimming, jogging, bicycling, etc. * Restrict stair-climbing for 7 days if possible, if not, climb up with your non-cath leg, then bring together on the same step. * Avoid lifting, pushing, pulling or excessive movement of the affected extremity for 7 days. * Customary sexual activity may be resumed after 2 days-use caution not to use a position that strains or causes pain to the affected extremity. * No driving for 24 hours. * NO SMOKING. * Avoid straining for bowel movements for 7 days. * Gentle walking on level ground is allowed. * Returning to work will depend on the type of procedure and the results. Your doctor will discuss this with you. CALL YOUR DOCTOR FOR ANY OF THE FOLLOWING: *If bleeding from the puncture site occurs- Apply gentle pressure to site with clean cloth and call your doctor or EMS. * If a knot or lump forms under the skin, increases in size, or causes pain. * If bruising appears to be worsening or moving further down your leg instead of disappearing. * Temperature above 101 F. CARE OF YOUR GROIN INCISION; * Bruising or purple discoloration of the skin near the puncture site is common. * You may shower only, no bathtub bathing for 5 days. Be careful to avoid slipping as your leg may feel stiff. * If a closure device was used on your femoral artery, please see the attached guide regarding care of the device and your leg. * REMOVE the dressing from your groin the next day after your procedure in the shower. CARE OF YOUR WRIST INCISION; * Bruising or purple discoloration of the skin near the puncture site is common. * You may shower. * DO NOT submerge wrist. * Remove dressing in 24 hours. No hospital discharge instruction information available.No hospital discharge instruction information available. Chief Complaint and Reason for Visit Chief Complaint Nasal Problems Reason for Visit Epistaxis Family History Relationship Condition A ge at Onset Recorded Date/Time Not Specified Family history not obt ainable due to adoption Not Recorded 09/11/2015 6:14pm Additional Source Comments This clinical document has been generated using [employer] software that has been certified by the Office of the National Coordinator for Health Information Technology (ONC 15.99.04.3023.Diam.[id number]) and the National Committee for Water Resources Technical Officer (NCQA, as an eMeasure certified technology). FOR RECORDS PERTAINING TO PATIENTS WHO ARE OR HAVE BEEN ENROLLED IN A CHEMICAL D EPENDENCY/SUBSTANCE ABUSE PROGRAM, SOME INFORMATION MAY BE OMITTED. This clinica l summary was aggregated from multiple sources. Caution should be exercised in using it in the provision of clinical care. This summary normalizes information from multiple sources, and as a consequence, information in this document may ma terially change the coding, format and clinical context of patient data. In lebron tion, data may be omitted in some cases. CLINICAL DECISIONS SHOULD BE BASED ON T HE PRIMARY CLINICAL RECORDS. [employer] provides no warranty or guara ntee of the accuracy or completeness of information in this document.The followi ng information is based on time limited clinical information
--- OUTSIDE RECORDS SUMMARY | 2020-01-05 20:38 | XMS REPORT | Continuity of Care Document ---
Author Organization Unknown Address Unknown Phone Unavailable Allergies Active Description Code Type Severity Reaction Onset Reported/Identified Relationship to Patient Clinical Status Yes No Known Drug Allergies [id number] Drug Allergy Unknown N/A 09/14/2015 Medications There is no data. 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 07/26/2014 CORDERO DO, YONATHAN K V03.82 PCV-13 (PREVNAR) DX 05/25/2015 Ot E11.9 TYPE 2 DIABETES MELLITUS WITHOUT COMPLIC 05/25/2015 Ot I10 ESSENT IAL (PRIMARY) HYPERTENSION 05/25/2015 Ot S30.0XXA C ONTUSION OF LOWER BACK AND PELVIS, INIT 05/25/2015 Ot S39.012A S TRAIN OF MUSCLE, FASCIA AND TENDON OF L 05/25/2015 Ot S39.92XA U NSPECIFIED INJURY OF LOWER BACK, INITIA 05/25/2015 Ot S40.811A A BRASION OF RIGHT UPPER ARM, INITIAL ENC 05/25/2015 Ot S40.812A A BRASION OF LEFT UPPER ARM, INITIAL ENCO 05/25/2015 Ot W10.8XXA F ALL (ON) (FROM) OTHER STAIRS AND STEPS, 05/25/[address] IN SINGLE-FAMILY (PRIVATE) SANDRA 05/27/2015 JONO WASHINGTON MD Ot 272. 4 05/27/2015 JONO WASHINGTON MD Ot 278. 00 05/27/2015 JONO WASHINGTON MD Ot 401. 9 05/27/2015 JONO WASHINGTON MD Ot 414. 00 05/27/2015 JONO WASHINGTON MD Ot 272. 4 05/27/2015 PADMINI POLO, JONO Dumont Ot 278. 00 05/27/2015 PADMINI POLO, JONO Dumont Ot 401. 9 05/27/2015 PADMINI POLO, JONO Dumont Ot 414. 00 06/03/2015 PADMINI POLO, JONO Dumont Ot 272. 4 06/03/2015 PADMINI POLO, JONO Dumont Ot 278. 00 06/03/2015 PADMINI POLO, JONO Dumont Ot 401. 9 06/03/2015 PADMINI POLO, JONO J Ot 414. 00 06/05/2015 JONO WASHINGTON MD Ot E66. 9 06/05/2015 JONO WASHINGTON MD Ot E78. 5 06/05/2015 JONO WASHINGTON MD Ot I10 06/05/2015 JONO WASHINGTON MD Ot I25. 10 06/05/2015 JONO WASHINGTON MD Ot E66. 9 06/05/2015 JONO WASHINGTON MD Ot E78. 5 06/05/2015 JONO WASHINGTON MD Ot I10 06/05/2015 JONO WASHINGTON MD Ot I25. 10 06/05/2015 JONO WASHINGTON MD Ot 272. 4 06/05/2015 PADMINI POLO, JONO Dumont Ot 278. 00 06/05/2015 JONO WASHINGTON MD Ot 401. 9 06/05/2015 PADMINI POLO, JONO Dumont Ot 414. 00 06/05/2015 JONO WASHINGTON MD Ot 272. 4 06/05/2015 PADMINI POLO, JONO J Ot 278. 00 06/05/2015 JONO WASHINGTON MD Ot 401. 9 06/05/2015 JONO WASHINGTON MD Ot 414. 00 06/05/2015 JONO WASHINGTON MD Ot E11. 9 TYPE 2 DIABETES MELLITUS WITHOUT COMPLIC 06/05/2015 JONO WASHINGTON MD Ot E66. 9 OBESITY, UNSPECIFIED 06/05/2015 JONO WASHINGTON MD Ot E78. 5 HYPERLIPIDEMIA, UNSPECIFIED 06/05/2015 JONO WASHINGTON MD J Ot I10 ESSENTIAL (PRIMARY) HYPERTENSION 06/05/2015 JONO WASHINGTON MD Ot I25. 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 39 ABNORMAL RESULT OF OTHER CARDIOVASCULAR 06/05/2015 JONO WASHINGTON MD Ot Z68. 31 BODY MASS INDEX (BMI) 31.0-31.9, ADULT 06/05/2015 JONO WASHINGTON MD Ot Z79.899 OTHER HALF-WAY (CURRENT) DRUG THERAPY 06/05/2015 JONO WASHINGTON MD Ot Z95. 1 PRESENCE OF AORTOCORONARY BYPASS GRAFT 06/07/2015 JONO WASHINGTON MD Ot E66. 9 06/07/2015 JONO WASHINGTON MD Ot E78. 5 06/07/2015 JONO WASHINGTON MD Ot I10 06/07/2015 JONO WASHINGTON MD Ot I25. 10 06/07/2015 JONO WASHINGTON MD Ot E66. 9 06/07/2015 JONO WASHINGTON MD Ot E78. 5 06/07/2015 JONO WASHINGTON MD Ot I10 06/07/2015 JONO WASHINGTON MD Ot I25. 10 06/07/2015 JONO WASHINGTON MD Ot 272. 4 06/07/2015 JONO WASHINGTON MD Ot 278. 00 06/07/2015 JONO WASHINGTON MD Ot 401. 9 06/07/2015 JONO WASHINGTON MD Ot 414. 00 06/07/2015 JONO WASHINGTON MD Ot 272. 4 06/07/2015 JONO WASHINGTON MD Ot 278. 00 06/07/2015 JONO WASHINGTON MD Ot 401. 9 06/07/2015 JONO WASHINGTON MD Ot 414. 00 06/07/2015 JONO WASHINGTON MD Ot E66. 9 06/07/2015 JONO WASHINGTON MD Ot E78. 5 06/07/2015 JONO WASHINGTON MD Ot I10 06/07/2015 JONO WASHINGTON MD Ot I25. 10 06/07/2015 JONO WASHINGTON MD Ot E66. 9 06/07/2015 JONO WASHINGTON MD Ot E78. 5 06/07/2015 PADMINI POLO, JONO Dumont Ot I10 06/07/2015 JONO WASHINGTON MD Ot I25. 10 06/07/2015 PADMINI POLO, JONO Dumont Ot E66. 9 06/07/2015 JONO WASHINGTON MD Ot E78. 5 06/07/2015 JONO WASHINGTON MD Ot I10 06/07/2015 JONO WASHINGTON MD Ot I25. 10 06/07/2015 JONO WASHINGTON MD Ot E66. 9 06/07/2015 JONO WASHINGTON MD Ot E78. 5 06/07/2015 JONO WASHINGTON MD Ot I10 06/07/2015 JONO WASHINGTON MD Ot I25. 10 06/13/2015 JONO WASHINGTON MD Ot E11. 9 06/13/2015 JONO WASHINGTON MD Ot E66. 9 06/13/2015 JONO WASHINGTON MD Ot E78. 5 06/13/2015 JNOO WASHINGTON MD Ot I10 06/13/2015 JONO WASHINGTON MD Ot I25. 10 06/13/2015 JONO WASHINGTON MD Ot I25. 82 06/13/2015 JONO WASHINGTON MD Ot I42. 9 06/13/2015 JONO WASHINGTON MD Ot I50. 22 06/13/2015 JONO WASHINGTON MD Ot R94. 39 06/13/2015 JONO WASHINGTON MD Ot Z68. 31 06/13/2015 JONO WASHINGTON MD Ot Z79.899 06/13/2015 JONO WASHINGTON MD Ot Z95. 1 06/19/2015 JONO WASHINGTON MD Ot E66. 9 06/19/2015 JONO WASHINGTON MD Ot E78. 5 06/19/2015 JONO WASHINGTON MD Ot I10 06/19/2015 JONO WASHINGTON MD Ot I25. 10 06/25/2015 JONO WASHINGTON MD Ot E66. 9 06/25/2015 JONO WASHINGTON MD Ot E78. 5 06/25/2015 JONO WASHINGTON MD Ot I10 06/25/2015 JONO WASHINGTON MD Ot I25. 10 07/08/2015 JONO WASHINGTON MD Ot E66. 9 07/08/2015 JONO WASHINGTON MD Ot E78. 5 07/08/2015 JONO WASHINGTON MD Ot I10 07/08/2015 JONO WASHINGTON MD Ot I25. 10 07/10/2015 JONO WASHINGTON MD Ot E66. 9 07/10/2015 JONO WASHINGTON MD Ot E78. 5 07/10/2015 JONO WASHINGTON MD Ot I10 07/10/2015 JONO WASHINGTON MD Ot I25. 10 09/12/2015 JONO WASHINGTON MD Ot E78. 5 HYPERLIPIDEMIA, UNSPECIFIED 09/12/2015 JONO WASHINGTON MD Ot I10 ESSENTIAL (PRIMARY) HYPERTENSION 09/12/2015 JONO WASHINGTON MD Ot I25. 10 ATHSCL HEART DISEASE OF [place] CORONARY 09/12/2015 JONO WASHINGTON MD Ot I25. 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 09/18/2015 SHARON WHARTON DOI Ot I10 ESSENTIAL (PRIMARY) HYPERTENSION 09/18/2015 BRIDGER WHARTON DO Ot I25.10 ATHSCL HEART DISEASE OF [place] CORONARY 09/18/2015 BRIDGER WHARTON DO Ot I42.9 CARDIOMYOPATHY, UNSPECIFIED 09/18/2015 BRIDGER WHARTON DO Ot 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) HEART FAIL 09/18/2015 BRIDGER WHARTON DO Ot 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, LEFT ELBOW 09/18/2015 BRIDGER WHARTON DO Ot 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, LEFT WRIST 09/18/2015 BRIDGER WHARTON DO Ot M19.02 1 PRIMARY OSTEOARTHRITIS, RIGHT ELBOW 09/18/2015 BRIDGER WHARTON DO Ot M25.56 1 PAIN IN RIGHT KNEE 09/18/2015 BRIDGER WHARTON DO Ot M70.21 OLECRANON BURSITIS, RIGHT ELBOW 09/18/2015 BRIDGER WHARTON DO Ot Z87.89 1 PERSONAL HISTORY OF NICOTINE DEPENDENCE 09/18/2015 BRIDGER WHARTON DO Ot Z95.1 PRESENCE OF AORTOCORONARY BYPASS GRAFT 09/18/2015 BRIDGER WHARTON DO Ot Z95.81 0 PRESENCE OF AUTOMATIC (IMPLANTABLE) CARD 09/23/2015 JACQUELINE BOWMAN Ot E78.2 09/23/2015 JACQUELINE BOWMAN Ot I10 09/23/2015 JACQUELINE BOWMAN Ot I25.10 09/23/2015 JACQUELNIE BOWMAN Ot I25.5 04/07/2016 JACQUELINE BOWMAN Ot E78.5 HYPERLIPIDEMIA, UNSPECIFIED 04/07/2016 JACQUELINE BOWMAN Ot I10 ESSENTIAL (PRIMARY) HYPERTENSION 04/07/2016 JACQUELINE BOWMAN Ot I25.10 ATHSCL HEART DISEASE OF [place] CORONARY 04/07/2016 JACQUELINE BOWMAN Ot 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) HEART FAIL 04/24/2016 JACQUELINE BOWMAN Ot E78.5 HYPERLIPIDEMIA, UNSPECIFIED 04/24/2016 JACQUELINE BOWMAN Ot I10 ESSENTIAL (PRIMARY) HYPERTENSION 04/24/2016 JACQUELINE BOWMAN Ot I25.10 ATHSCL HEART DISEASE OF [place] CORONARY 04/24/2016 JACQUELINE BOWMAN Ot 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) HEART FAIL 05/13/2016 JONO WASHINGTON MD Ot E66. 9 OBESITY, UNSPECIFIED 05/13/2016 JONO WASHINGTON MD Ot E78. 5 HYPERLIPIDEMIA, UNSPECIFIED 05/13/2016 JONO WASHINGTON MD Ot I10 ESSENTIAL (PRIMARY) HYPERTENSION 05/13/2016 JONO WASHINGTON MD Ot I25. 10 ATHSCL HEART DISEASE OF [place] CORONARY 05/13/2016 JONO WASHINGTON MD Ot E66. 9 OBESITY, UNSPECIFIED 05/13/2016 JONO WASHINGTON MD Ot E78. 5 HYPERLIPIDEMIA, UNSPECIFIED 05/13/2016 JONO WASHINGTON MD Ot I10 ESSENTIAL (PRIMARY) HYPERTENSION 05/13/2016 JONO WASHINGTON MD Ot I25. 10 ATHSCL HEART DISEASE OF [place] CORONARY 05/13/2016 JONO WASHINGTON MD Ot 272. 4 HYPERLIPIDEMIA NEC/NOS 05/13/2016 JONO WASHINGTON MD Ot 278. 00 OBESITY, NOS 05/13/2016 JONO WASHINGTON MD Ot 401. 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 4 HYPERLIPIDEMIA NEC/NOS 05/13/2016 JONO WASHINGTON MD Ot 278. 00 OBESITY, NOS 05/13/2016 JONO WASHINGTON MD Ot 401. 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, NATIV 05/13/2016 JACQUELINE BOWMAN Ot E78.2 MIXED HYPERLIPIDEMIA 05/13/2016 JACQUELINE BOWMAN Ot I10 ESSENTIAL (PRIMARY) HYPERTENSION 05/13/2016 JACQUELINE BOWMAN Ot I25.10 ATHSCL HEART DISEASE OF [place] CORONARY 05/13/2016 JACQUELINE BOWMAN Ot I25.5 ISCHEMIC CARDIOMYOPATHY 05/13/2016 JACQUELINE BOWMAN Ot E78.5 HYPERLIPIDEMIA, UNSPECIFIED 05/13/2016 JACQUELINE BOWMAN Ot I10 ESSENTIAL (PRIMARY) HYPERTENSION 05/13/2016 JACQUELINE BOWMAN Ot I25.10 ATHSCL HEART DISEASE OF [place] CORONARY 05/13/2016 JACQUELINE BOWMAN Ot 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) HEART FAIL 05/14/2016 JACQUELINE BOWMAN Ot E78.2 MIXED HYPERLIPIDEMIA 05/14/2016 JACQUELINE BOWMAN Ot I10 ESSENTIAL (PRIMARY) HYPERTENSION 05/14/2016 JACQUELINE BOWMAN Ot I25.10 ATHSCL HEART DISEASE OF [place] CORONARY 05/14/2016 JACQUELINE BOWMAN Ot 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) HEART FAIL 05/14/2016 JACQUELINE BOWMAN Ot E78.2 MIXED HYPERLIPIDEMIA 05/14/2016 JACQUELINE BOWMAN Ot I10 ESSENTIAL (PRIMARY) HYPERTENSION 05/14/2016 JACQUELINE BOWMAN Ot I25.10 ATHSCL HEART DISEASE OF [place] CORONARY 05/14/2016 JACQUELINE BOWMAN Ot 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) HEART FAIL 06/04/2016 JACQUELINE BOWMAN Ot E78.2 MIXED HYPERLIPIDEMIA 06/04/2016 JACQUELINE BOWMAN Ot I10 ESSENTIAL (PRIMARY) HYPERTENSION 06/04/2016 JACQUELINE BOWMAN Ot I25.10 ATHSCL HEART DISEASE OF [place] CORONARY 06/04/2016 JACQUELINE BOWMAN Ot 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) HEART FAIL 03/30/2017 JONO WASHINGTON MD Ot E66. 9 OBESITY, UNSPECIFIED 03/30/2017 JONO WASHINGTON MD Ot E78. 5 HYPERLIPIDEMIA, UNSPECIFIED 03/30/2017 JONO WASHINGTON MD Ot I10 ESSENTIAL (PRIMARY) HYPERTENSION 03/30/2017 JONO WASHINGTON MD Ot I25. 10 ATHSCL HEART DISEASE OF [place] CORONARY 03/30/2017 JONO WASHINGTON MD Ot E66. 9 OBESITY, UNSPECIFIED 03/30/2017 JONO WASHINGTON MD Ot E78. 5 HYPERLIPIDEMIA, UNSPECIFIED 03/30/2017 JONO WASHINGTON MD Ot I10 ESSENTIAL (PRIMARY) HYPERTENSION 03/30/2017 JONO WASHINGTON MD Ot I25. 10 ATHSCL HEART DISEASE OF [place] CORONARY 03/30/2017 JONO WASHINGTON MD Ot 272. 4 HYPERLIPIDEMIA NEC/NOS 03/30/2017 JONO WASHINGTON MD Ot 278. 00 OBESITY, NOS 03/30/2017 JONO WASHINGTON MD Ot 401. 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 4 HYPERLIPIDEMIA NEC/NOS 03/30/2017 PADMINI POLO, JONO Dumont Ot 278. 00 OBESITY, NOS 03/30/2017 JONO WASHINGTON MD Ot 401. 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, NATIV 03/30/2017 JACQUELINE BOWMAN Ot E78.2 MIXED HYPERLIPIDEMIA 03/30/2017 JACQUELINE BOWMAN Ot I10 ESSENTIAL (PRIMARY) HYPERTENSION 03/30/2017 JACQUELINE BOWMAN Ot I25.10 ATHSCL HEART DISEASE OF [place] CORONARY 03/30/2017 JACQUELINE BOWMAN Ot I25.5 ISCHEMIC CARDIOMYOPATHY 03/30/2017 JACQUELINE BOWMAN Ot E78.5 HYPERLIPIDEMIA, UNSPECIFIED 03/30/2017 JACQUELINE BOWMAN Ot I10 ESSENTIAL (PRIMARY) HYPERTENSION 03/30/2017 JACQUELINE BOWMAN Ot I25.10 ATHSCL HEART DISEASE OF [place] CORONARY 03/30/2017 JACQUELINE BOWMAN Ot 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) HEART FAIL 03/30/2017 JACQUELINE BOWMAN Ot E78.2 MIXED HYPERLIPIDEMIA 03/30/2017 JACQUELINE BOWMAN Ot I10 ESSENTIAL (PRIMARY) HYPERTENSION 03/30/2017 JACQUELINE BOWMAN Ot I25.10 ATHSCL HEART DISEASE OF [place] CORONARY 03/30/2017 JACQUELINE BOWMAN Ot 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) HEART FAIL 03/30/2017 JACQUELINE BOWMAN Ot E78.2 MIXED HYPERLIPIDEMIA 03/30/2017 JACQUELINE BOWMAN K Ot I10 ESSENTIAL (PRIMARY) HYPERTENSION 03/30/2017 JACQUELINE BOWMAN Ot I25.10 ATHSCL HEART DISEASE OF [place] CORONARY 04/21/2017 JACQUELINE BOWMAN Ot E78.2 MIXED HYPERLIPIDEMIA 04/21/2017 JACQUELINE BOWMAN K Ot I10 ESSENTIAL (PRIMARY) HYPERTENSION 04/21/2017 JAYDE RICHARDS, JACQUELINE K Ot I25.10 ATHSCL HEART DISEASE OF [place] CORONARY 05/20/2017 JAYDE RICHARDS, JACQUELINE K Ot E78.2 MIXED HYPERLIPIDEMIA 05/20/2017 JAYDE RICHARDS, JACQUELINE K Ot 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 05/20/2017 JAYDE RICHARDS, JACQUELINE K Ot I25.10 ATHSCL HEART DISEASE OF [place] CORONARY 05/20/2017 JAYDE RICHARDS, JACQUELINE K Ot 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) HEART FAIL 05/25/2017 JAYDE RICHARDS, JACQUELINE K Ot E78.2 MIXED HYPERLIPIDEMIA 05/25/2017 JAYDE RICHARDS, JACQUELINE K Ot 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 05/25/2017 JAYDE RICHARDS, JACQUELINE K Ot I25.10 ATHSCL HEART DISEASE OF [place] CORONARY 05/25/2017 JAYDE RICHARDS JACQUELINE K Ot 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) HEART FAIL 06/04/2017 JAYDE RICHARDS, JACQUELINE K Ot E78.2 MIXED HYPERLIPIDEMIA 06/04/2017 JAYDE RICHARDS, JACQUELINE K Ot 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 06/04/2017 JAYDE RICHARDS, JACQUELINE K Ot I25.10 ATHSCL HEART DISEASE OF [place] CORONARY 06/04/2017 JAYDE RICHARDS, JACQUELINE K Ot 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) HEART FAIL 06/09/2017 JAYDE RICHARDS, JACQUELINE K Ot E78.2 MIXED HYPERLIPIDEMIA 06/09/2017 JAYDE RICHARDS, JACQUELINE K Ot 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 06/09/2017 JAYDE RICHARDS, JACQUELINE K Ot I25.10 ATHSCL HEART DISEASE OF [place] CORONARY 06/09/2017 JAYDE RICHARDS, JACQUELINE K Ot 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) HEART FAIL 06/14/2017 JAYDE RICHARDS, JACQUELINE K Ot E78.2 MIXED HYPERLIPIDEMIA 06/14/2017 JAYDE RICHARDS, JACQUELINE K Ot 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 06/14/2017 COLVINJACQUELINE DENNISON Ot I25.10 ATHSCL HEART DISEASE OF [place] CORONARY 06/14/2017 JACQUELINE BOWMAN Ot 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) HEART FAIL 06/14/2017 JACQUELINE BOWMAN Ot E78.2 MIXED HYPERLIPIDEMIA 06/14/2017 JACQUELINE BOWMAN Ot 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 06/14/2017 JACQUELINE BOWMAN Ot I25.10 ATHSCL HEART DISEASE OF [place] CORONARY 06/14/2017 JACQUELINE BOWMAN Ot 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) HEART FAIL 11/24/2017 JONO WASHINGTON MD Ot E66. 9 OBESITY, UNSPECIFIED 11/24/2017 JONO WASHINGTON MD Ot E78. 5 HYPERLIPIDEMIA, UNSPECIFIED 11/24/2017 JONO WASHINGTON MD Ot I10 ESSENTIAL (PRIMARY) HYPERTENSION 11/24/2017 JONO WASHINGTON MD Ot I25. 10 ATHSCL HEART DISEASE OF [place] CORONARY 11/24/2017 JONO WASHINGTON MD Ot E66. 9 OBESITY, UNSPECIFIED 11/24/2017 JONO WASHINGTON MD Ot E78. 5 HYPERLIPIDEMIA, UNSPECIFIED 11/24/2017 JONO WASHINGTON MD Ot I10 ESSENTIAL (PRIMARY) HYPERTENSION 11/24/2017 JONO WASHINGTON MD Ot I25. 10 ATHSCL HEART DISEASE OF [place] CORONARY 11/24/2017 JONO WASHINGTON MD Ot 272. 4 HYPERLIPIDEMIA NEC/NOS 11/24/2017 JONO WASHINGTON MD Ot 278. 00 OBESITY, NOS 11/24/2017 JONO WASHINGTON MD Ot 401. 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 4 HYPERLIPIDEMIA NEC/NOS 11/24/2017 JONO WASHINGTON MD Ot 278. 00 OBESITY, NOS 11/24/2017 JONO WASHINGTON MD Ot 401. 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, NATIV 11/24/2017 COLVIN-JAREN PA, JACQUELINE K Ot E78.2 MIXED HYPERLIPIDEMIA 11/24/2017 JAYDE RICHARDS, JACQUELINE K Ot I10 ESSENTIAL (PRIMARY) HYPERTENSION 11/24/2017 JAYDE RICHARDS, JACQUELINE K Ot I25.10 ATHSCL HEART DISEASE OF [place] CORONARY 11/24/2017 JAYDE RICHARDS, JACQUELINE K Ot I25.5 ISCHEMIC CARDIOMYOPATHY 11/24/2017 JAYDE RICHARDS, JACQUELINE K Ot E78.5 HYPERLIPIDEMIA, UNSPECIFIED 11/24/2017 JAYDE RICHARDS, JACQUELINE K Ot I10 ESSENTIAL (PRIMARY) HYPERTENSION 11/24/2017 JAYDE RICHARDS, JACQUELINE K Ot I25.10 ATHSCL HEART DISEASE OF [place] CORONARY 11/24/2017 JAYDE RICHARDS, JACQUELINE K Ot 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) HEART FAIL 11/24/2017 JAYDE RICHARDS, JACQUELINE K Ot E78.2 MIXED HYPERLIPIDEMIA 11/24/2017 JAYDE RICHARDS, JACQUELINE K Ot I10 ESSENTIAL (PRIMARY) HYPERTENSION 11/24/2017 JAYDE RICHARDS, JACQUELINE K Ot I25.10 ATHSCL HEART DISEASE OF [place] CORONARY 11/24/2017 JAYDE RICHARDS, JACQUELINE K Ot 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) HEART FAIL 11/24/2017 JAYDE RICHARDS, JACQUELINE K Ot E78.2 MIXED HYPERLIPIDEMIA 11/24/2017 JAYDE RICHARDS, JACQUELINE K Ot I10 ESSENTIAL (PRIMARY) HYPERTENSION 11/24/2017 JAYDE RICHARDS, JACQUELINE K Ot I25.10 ATHSCL HEART DISEASE OF [place] CORONARY 11/24/2017 JAYDE RICHARDS, JACQUELINE K Ot E78.2 MIXED HYPERLIPIDEMIA 11/24/2017 JAYDE RICHARDS, JACQUELINE K Ot 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 11/24/2017 JAYDE RICHARDS, JACQUELINE K Ot I25.10 ATHSCL HEART DISEASE OF [place] CORONARY 11/24/2017 JAYDE RICHARDS, JACQUELINE K Ot 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) HEART FAIL 11/24/2017 JAYDE RICHARDS, JACQUELINE K Ot E78.2 MIXED HYPERLIPIDEMIA 11/24/2017 JAYDE RICHARDS, JACQUELINE K Ot 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 11/24/2017 JACQUELINE BOWMAN Ot I25.10 ATHSCL HEART DISEASE OF [place] CORONARY 11/24/2017 JACQUELINE BOWMAN Ot 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) HEART FAIL 11/25/2017 JONO WASHINGTON MD Ot E66. 9 OBESITY, UNSPECIFIED 11/25/2017 JONO WASHINGTON MD Ot E78. 5 HYPERLIPIDEMIA, UNSPECIFIED 11/25/2017 JONO WASHINGTON MD Ot I11. 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 11/25/2017 JONO WASHINGTON MD Ot I25. 10 ATHSCL HEART DISEASE OF [place] CORONARY 11/25/2017 JONO WASHINGTON MD Ot I50. 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) HEART FAIL 12/14/2017 JONO WASHINGTON MD Ot E66. 9 OBESITY, UNSPECIFIED 12/14/2017 JONO WASHINGTON MD Ot E78. 5 HYPERLIPIDEMIA, UNSPECIFIED 12/14/2017 JONO WASHINGTON MD Ot I11. 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 12/14/2017 JONO WASHINGTON MD Ot I25. 10 ATHSCL HEART DISEASE OF [place] CORONARY 12/14/2017 JONO WASHINGTON MD Ot I50. 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 9 OBESITY, UNSPECIFIED 05/18/2018 JONO WASHINGTON MD Ot I11. 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 05/18/2018 JONO WASHINGTON MD Ot I25. 10 ATHSCL HEART DISEASE OF [place] CORONARY 05/18/2018 JONO WASHINGTON MD Ot I50. 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) HEART FAIL 06/14/2018 JONO WASHINGTON MD Ot E66. 9 OBESITY, UNSPECIFIED 06/14/2018 JONO WASHINGTON MD Ot I11. 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 06/14/2018 JONO WASHINGTON MD Ot I25. 10 ATHSCL HEART DISEASE OF [place] CORONARY 06/14/2018 JONO WASHINGTON MD Ot I50. 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) HEART FAIL 07/26/2018 JONO WASHINGTON MD Ot E66. 9 OBESITY, UNSPECIFIED 07/26/2018 JONO WASHINGTON MD Ot E78. 5 HYPERLIPIDEMIA, UNSPECIFIED 07/26/2018 JONO WASHINGTON MD Ot I10 ESSENTIAL (PRIMARY) HYPERTENSION 07/26/2018 JONO WASHINGTON MD Ot I25. 10 ATHSCL HEART DISEASE OF [place] CORONARY 07/26/2018 JONO WASHINGTON MD Ot E66. 9 OBESITY, UNSPECIFIED 07/26/2018 JONO WASHINGTON MD Ot E78. 5 HYPERLIPIDEMIA, UNSPECIFIED 07/26/2018 JONO WASHINGTON MD Ot I10 ESSENTIAL (PRIMARY) HYPERTENSION 07/26/2018 JONO WASHINGTON MD Ot I25. 10 ATHSCL HEART DISEASE OF [place] CORONARY 07/26/2018 JONO WASHINGTON MD Ot 272. 4 HYPERLIPIDEMIA NEC/NOS 07/26/2018 JONO WASHINGTON MD Ot 278. 00 OBESITY, NOS 07/26/2018 JONO WASHINGTON MD Ot 401. 9 HYPERTENSION NOS 07/26/2018 JONO WASHINGTON MD Ot 414. 00 CORON ATHEROSCLER NOS TYPE VESSEL, NATIV 07/26/2018 JONO WASHINGTON MD Ot 272. 4 HYPERLIPIDEMIA NEC/NOS 07/26/2018 JONO WASHINGTON MD Ot 278. 00 OBESITY, NOS 07/26/2018 JONO WASHINGTON MD Ot 401. 9 HYPERTENSION NOS 07/26/2018 JONO WASHINGTON MD Ot 414. 00 CORON ATHEROSCLER NOS TYPE VESSEL, NATIV 07/26/2018 JACQUELINE BOWMAN Ot E78.2 MIXED HYPERLIPIDEMIA 07/26/2018 JACQUELINE BOWMAN Ot I10 ESSENTIAL (PRIMARY) HYPERTENSION 07/26/2018 JACQUELINE BOWMAN Ot I25.10 ATHSCL HEART DISEASE OF [place] CORONARY 07/26/2018 JACQUELINE BOWMAN Ot I25.5 ISCHEMIC CARDIOMYOPATHY 07/26/2018 JACQUELINE BOWMAN Ot E78.5 HYPERLIPIDEMIA, UNSPECIFIED 07/26/2018 JACQUELINE BOWMAN Ot I10 ESSENTIAL (PRIMARY) HYPERTENSION 07/26/2018 JACQUELINE BOWMAN Ot I25.10 ATHSCL HEART DISEASE OF [place] CORONARY 07/26/2018 JACQUELINE BOWMAN K Ot 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) HEART FAIL 07/26/2018 JACQUELINE BOWMAN Ot E78.2 MIXED HYPERLIPIDEMIA 07/26/2018 JACQUELINE BOWMAN K Ot I10 ESSENTIAL (PRIMARY) HYPERTENSION 07/26/2018 JACQUELINE BOWMAN Ot I25.10 ATHSCL HEART DISEASE OF [place] CORONARY 07/26/2018 JACQUELINE BOWMAN Ot 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) HEART FAIL 07/26/2018 JACQUELINE BOWMAN Ot E78.2 MIXED HYPERLIPIDEMIA 07/26/2018 JACQUELINE BOWMAN Ot I10 ESSENTIAL (PRIMARY) HYPERTENSION 07/26/2018 JACQUELINE BOWMAN Ot I25.10 ATHSCL HEART DISEASE OF [place] CORONARY 07/26/2018 JACQUELINE BOWMAN Ot E78.2 MIXED HYPERLIPIDEMIA 07/26/2018 JACQUELINE BOWMAN Ot 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 07/26/2018 JACQUELINE BOWMAN Ot I25.10 ATHSCL HEART DISEASE OF [place] CORONARY 07/26/2018 JACQUELINE BOWMAN Ot 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) HEART FAIL 07/26/2018 JACQUELINE BOWMAN Ot E78.2 MIXED HYPERLIPIDEMIA 07/26/2018 JACQUELINE BOWMAN Ot 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 07/26/2018 JACQUELINE BOWMAN Ot I25.10 ATHSCL HEART DISEASE OF [place] CORONARY 07/26/2018 JACQUELINE BOWMAN Ot 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) HEART FAIL 07/26/2018 JONO WASHINGTON MD Ot E66. 9 OBESITY, UNSPECIFIED 07/26/2018 JONO WASHINGTON MD Ot E78. 5 HYPERLIPIDEMIA, UNSPECIFIED 07/26/2018 JONO WASHINGTON MD Ot I11. 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 07/26/2018 JONO WASHINGTON MD Ot I25. 10 ATHSCL HEART DISEASE OF [place] CORONARY 07/26/2018 JONO WASHINGTON MD Ot I50. 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 9 OBESITY, UNSPECIFIED 07/26/2018 JONO WASHINGTON MD Ot I11. 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 07/26/2018 JONO WASHINGTON MD Ot I25. 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 9 TYPE 2 DIABETES MELLITUS WITHOUT COMPLIC 07/28/2018 JONO WASHINGTON MD Ot E66. 9 OBESITY, UNSPECIFIED 07/28/2018 JONO WASHINGTON MD Ot E78. 5 HYPERLIPIDEMIA, UNSPECIFIED 07/28/2018 JONO WASHINGTON MD Ot I11. 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 07/28/2018 JONO WASHINGTON MD Ot I25. 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 31 BODY MASS INDEX (BMI) 31.0-31.9, ADULT 07/28/2018 JONO WASHINGTON MD Ot Z79. 01 MECHANICAL ESTIMATOR (CURRENT) USE OF ANTICOAGULANT 07/28/2018 JONO WASHINGTON MD Ot Z79.899 OTHER HALF-WAY (CURRENT) DRUG THERAPY 07/28/2018 JONO WASHINGTON MD Ot Z95. 0 PRESENCE OF CARDIAC PACEMAKER 07/28/2018 JONO WASHINGTON MD Ot Z95. 1 PRESENCE OF AORTOCORONARY BYPASS GRAFT 07/28/2018 JONO WASHINGTON MD Ot Z95. 5 PRESENCE OF CORONARY ANGIOPLASTY IMPLANT 08/01/2018 JONO WASHINGTON MD Ot E11. 9 TYPE 2 DIABETES MELLITUS WITHOUT COMPLIC 08/01/2018 JONO WASHINGTON MD Ot E66. 9 OBESITY, UNSPECIFIED 08/01/2018 JONO WASHINGTON MD Ot E78. 5 HYPERLIPIDEMIA, UNSPECIFIED 08/01/2018 JONO WASHINGTON MD Ot I11. 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 08/01/2018 JONO WASHINGTON MD Ot I25. 10 ATHSCL HEART DISEASE OF [place] CORONARY 08/01/2018 JONO WASHINGTON MD Ot I25. 5 ISCHEMIC CARDIOMYOPATHY 08/01/2018 JONO WASHINGTON MD Ot I48. 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 31 BODY MASS INDEX (BMI) 31.0-31.9, ADULT 08/01/2018 JONO WASHINGTON MD Ot Z79. 01 HALF-WAY (CURRENT) USE OF ANTICOAGULANT 08/01/2018 JONO WASHINGTON MD Ot Z79.899 OTHER HALF-WAY (CURRENT) DRUG THERAPY 08/01/2018 JONO WASHINGTON MD Ot Z95. 0 PRESENCE OF CARDIAC PACEMAKER 08/01/2018 JONO WASHINGTON MD Ot Z95. 1 PRESENCE OF AORTOCORONARY BYPASS GRAFT 08/01/2018 JONO WASHINGTON MD Ot Z95. 5 PRESENCE OF CORONARY ANGIOPLASTY IMPLANT 08/02/2018 JONO WASHINGTON MD Ot E11. 9 TYPE 2 DIABETES MELLITUS WITHOUT COMPLIC 08/02/2018 JONO WAHSINGTON MD Ot E66. 9 OBESITY, UNSPECIFIED 08/02/2018 JONO WASHINGTON MD Ot E78. 5 HYPERLIPIDEMIA, UNSPECIFIED 08/02/2018 JONO WASHINGTON MD Ot I11. 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 08/02/2018 JONO WASHINGTON MD Ot I25. 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 31 BODY MASS INDEX (BMI) 31.0-31.9, ADULT 08/02/2018 JONO WASHINGTON MD Ot Z79. 01 MECHANICAL ESTIMATOR (CURRENT) USE OF ANTICOAGULANT 08/02/2018 JONO WASHINGTON MD Ot Z79.899 OTHER MECHANICAL ESTIMATOR (CURRENT) DRUG THERAPY 08/02/2018 JONO WASHINGTON MD Ot Z95. 0 PRESENCE OF CARDIAC PACEMAKER 08/02/2018 PADMINI POLO, JONO Dumont Ot Z95. 1 PRESENCE OF AORTOCORONARY BYPASS GRAFT 08/02/2018 PADMINI POLO, JONO Dumont Ot Z95. 5 PRESENCE OF CORONARY ANGIOPLASTY IMPLANT 08/03/2018 AYSE LLANES MD Ot E11.9 TYPE 2 DIABETES MELLITUS WITHOUT COMPLIC 08/03/2018 AYSE LLANES MD Ot E78.00 PURE HYPERCHOLESTEROLEMIA, UNSPECIFIED 08/03/2018 AYSE LLANES MD Ot G47.30 SLEEP APNEA, UNSPECIFIED 08/03/2018 AYSE LLANES MD Ot I10 ESSENTIAL (PRIMARY) HYPERTENSION 08/03/2018 AYSE LLANES MD Ot I25.10 ATHSCL HEART DISEASE OF [place] CORONARY 08/03/2018 AYSE LLANES MD, Ot I25.2 OLD MYOCARDIAL INFARCTION 08/03/2018 AYSE LLANES MD Ot I48.91 UNSPECIFIED ATRIAL FIBRILLATION 08/03/2018 AYSE LLANES MD Ot M10.9 GOUT, UNSPECIFIED 08/03/2018 AYSE LLANES MD Ot R04.0 EPISTAXIS 08/03/2018 AYSE LLANES MD Ot Z79.01 HALF-WAY (CURRENT) USE OF ANTICOAGULANT 08/03/2018 AYSE LLANES MD Ot Z79.82 MECHANICAL ESTIMATOR (CURRENT) USE OF ASPIRIN 08/03/2018 AYSE LLANES MD Ot Z79.84 HALF-WAY (CURRENT) USE OF ORAL HYPOGLYC 08/03/2018 AYSE LLANES MD Ot Z87.891 PERSONAL HISTORY OF NICOTINE DEPENDENCE 08/03/2018 AYSE LLANES MD Ot Z95.810 PRESENCE OF AUTOMATIC (IMPLANTABLE) CARD 08/04/2018 HELADIO LÓPEZ MD Ot J90 PLEURAL EFFUSION, NOT ELSEWHERE CLASSIFI 08/04/2018 HELADIO LÓPEZ MD Ot J98. 11 ATELECTASIS 08/24/2018 HELADIO LÓPEZ MD, Ot J90 PLEURAL EFFUSION, NOT ELSEWHERE CLASSIFI 08/24/2018 HELADIO LÓPEZ MD Ot J98. 11 ATELECTASIS 08/26/2018 HELADIO LÓPEZ MD Ot J90 PLEURAL EFFUSION, NOT ELSEWHERE CLASSIFI 08/26/2018 HELADIO LÓPEZ MD Ot J98. 11 ATELECTASIS 10/05/2018 HELADIO LÓPEZ MD Ot J90 PLEURAL EFFUSION, NOT ELSEWHERE CLASSIFI 10/05/2018 HELADIO LÓPEZ MD Ot Z95.810 PRESENCE OF AUTOMATIC (IMPLANTABLE) CARD 10/10/2018 HELADIO LÓPEZ MD Ot J90 PLEURAL EFFUSION, NOT ELSEWHERE CLASSIFI 10/10/2018 HELADIO LÓPEZ MD Ot Z95.810 PRESENCE OF AUTOMATIC (IMPLANTABLE) CARD 03/22/2019 JACQUELINE BOWMAN Ot E78.2 MIXED HYPERLIPIDEMIA 03/23/2019 JACQUELINE BOWMAN Ot E78.5 HYPERLIPIDEMIA, UNSPECIFIED 03/23/2019 JACQUELINE BOWMAN Ot I10 ESSENTIAL (PRIMARY) HYPERTENSION 03/23/2019 JACQUELINE BOWMAN Ot I25.10 ATHSCL HEART DISEASE OF [place] CORONARY 10/26/2019 SHEBA DO, ALINA K Ot E11.9 TYPE 2 DIABETES MELLITUS WITHOUT COMPLIC 10/26/2019 SHEBA DO, ALINA K Ot E78.00 PURE HYPERCHOLESTEROLEMIA, UNSPECIFIED 10/26/2019 SHEBA DO, ALINA K Ot G47.30 SLEEP APNEA, UNSPECIFIED 10/26/2019 SHEBA DO, ALINA K Ot I10 ESSENTIAL (PRIMARY) HYPERTENSION 10/26/2019 SHEBA DO, ALINA K Ot I25.10 ATHSCL HEART DISEASE OF [place] CORONARY 10/26/2019 SHEBA DO, ALINA K Ot I25.2 OLD MYOCARDIAL INFARCTION 10/26/2019 SHEBA DO, ALINA K Ot I48.91 UNSPECIFIED ATRIAL FIBRILLATION 10/26/2019 SHEBA DO, ALINA K Ot M10.9 GOUT, UNSPECIFIED 10/26/2019 SHEBA DO, ALINA K Ot S00.83X A CONTUSION OF OTHER PART OF HEAD, INITIAL 10/26/2019 SHEBA DO, ALINA K Ot S09.90X A UNSPECIFIED INJURY OF HEAD, INITIAL ENCO 10/26/2019 SHEBA DO, ALINA K Ot S62.303 A UNSP FRACTURE OF THIRD METACARPAL BONE, 10/26/2019 SHEBA DO, ALINA K Ot W01.0XX A FALL SAME LEV FROM SLIP/TRIP W/O STRIKE 10/26/2019 MCGREW DO, ALINA Carter Ot Y92.[address] OF OCCURRENCE OF T 10/26/2019 MCGREW DO, ALINA Carter Ot Z23 ENCOUNTER FOR IMMUNIZATION 10/26/2019 MCGREW DO, ALINA Carter Ot Z79.01 MECHANICAL ESTIMATOR (CURRENT) USE OF ANTICOAGULANT 10/26/2019 MCGREW DO, ALINA Carter Ot Z79.82 MECHANICAL ESTIMATOR (CURRENT) USE OF ASPIRIN 10/26/2019 MCGREW DO, ALINA Carter Ot Z79.84 HALF-WAY (CURRENT) USE OF ORAL HYPOGLYC 10/26/2019 MCGREW DO, ALINA Carter Ot Z87.891 PERSONAL HISTORY OF NICOTINE DEPENDENCE 10/26/2019 MCGREW DO, ALINA Carter Ot Z95.1 PRESENCE OF AORTOCORONARY BYPASS GRAFT 10/26/2019 MCGREW DO, ALINA Carter Ot Z95.5 PRESENCE OF CORONARY ANGIOPLASTY IMPLANT 10/26/2019 MCGREW DO, ALINA Carter Ot Z95.810 PRESENCE OF AUTOMATIC (IMPLANTABLE) CARD 10/26/2019 MCGREW DO, ALINA Carter Ot Z99.89 DEPENDENCE ON OTHER ENABLING MACHINES AN 11/02/2019 MCGREW DO, ALINA Carter Ot E11.9 TYPE 2 DIABETES MELLITUS WITHOUT COMPLIC 11/02/2019 MCGREW DO, ALINA Carter Ot E78.00 PURE HYPERCHOLESTEROLEMIA, UNSPECIFIED 11/02/2019 SHEBA DO, ALINA Carter Ot G47.30 SLEEP APNEA, UNSPECIFIED 11/02/2019 MCGREW DOCTA Emma Ot I10 ESSENTIAL (PRIMARY) HYPERTENSION 11/02/2019 MCGREW DOALINA Ot I25.10 ATHSCL HEART DISEASE OF [place] CORONARY 11/02/2019 MCGREW DOALINA Ot I25.2 OLD MYOCARDIAL INFARCTION 11/02/2019 SHEBA DO, ALINA Carter Ot I48.91 UNSPECIFIED ATRIAL FIBRILLATION 11/02/2019 MCGREW DOALINA Ot M10.9 GOUT, UNSPECIFIED 11/02/2019 SHEBA DO, ALINA Emma Ot S00.83X A CONTUSION OF OTHER PART OF HEAD, INITIAL 11/02/2019 SHEBA DOALINA Ot S09.90X A UNSPECIFIED INJURY OF HEAD, INITIAL ENCO 11/02/2019 SHEBA DOALINA Ot S62.303 A UNSP FRACTURE OF THIRD METACARPAL BONE, 11/02/2019 SHEBA ALINA Emma Ot W01.0XX A FALL SAME LEV FROM SLIP/TRIP W/O STRIKE 11/02/2019 SHEBA ALINA Emma Ot Y92.[address] OF OCCURRENCE OF T 11/02/2019 SHEBA ALINA Emma Ot Z23 ENCOUNTER FOR IMMUNIZATION 11/02/2019 MCGREW ALINA Emma Ot Z79.01 HALF-WAY (CURRENT) USE OF ANTICOAGULANT 11/02/2019 [facility] ALINA Emma Ot Z79.82 HALF-WAY (CURRENT) USE OF ASPIRIN 11/02/2019 [facility] ALINA Emma Ot Z79.84 HALF-WAY (CURRENT) USE OF ORAL HYPOGLYC 11/02/2019 [facility] ALINA Emma Ot Z87.891 PERSONAL HISTORY OF NICOTINE DEPENDENCE 11/02/2019 [facility] ALINA Emma Ot Z95.1 PRESENCE OF AORTOCORONARY BYPASS GRAFT 11/02/2019 [facility] ALINA Emma Ot Z95.5 PRESENCE OF CORONARY ANGIOPLASTY IMPLANT 11/02/2019 [facility] ALINA Emma Ot Z95.810 PRESENCE OF AUTOMATIC (IMPLANTABLE) CARD 11/02/2019 SHEBA DO ALINA Carter Ot Z99.89 DEPENDENCE ON OTHER ENABLING MACHINES AN Procedures There is no data. Results Test Result Range Whole blood basic metabolic panel - 03/16 05/01 06:50 Serum or plasma sodium measurement (moles/volume) 140 mmol/L 135-145 Serum or plasma potassium measurement (moles/volume) 3.9 mmol/L 3.6-5.0 Serum or plasma chloride measurement (moles/volume) 105 mmol/L 98-107 Carbon dioxide 27 mmol/L 21-32 Serum or plasma anion gap determination (moles/volume) 8 mmol/L 5-14 Serum or plasma urea nitrogen measurement (mass/volume ) 16 mg/dL 7-18 Serum or plasma creatinine measurement (mass/volume) 0.66 mg/dL 0.60-1.30 Serum or plasma urea nitrogen/creatinine mass ratio 24 NRG Serum or plasma creatinine measurement w ith calculation of estimated glomerular filtration rate > NRG Serum or plasma glucose measurement (mass/volume) 101 mg/dL 70-105 Serum or plasma calcium measurement (mass/volume) 9.1 mg/dL 8.5-10.1 Automated blood complete blood count (he mogram) panel - 07/27/18 08:45 Blood leukocytes automated count (number/volume) 7.6 10*3/uL 4.3-11.0 Blood erythrocytes automated count (number/volume) 4.07 10*6/uL 4.35-5.85 Venous blood hemoglobin measurement (mass/volume) 13.6 g/dL 13.3-17.7 Blood hematocrit (volume fraction) 40 % 40-54 Automated erythrocyte mean corpuscular volume 98 [ foz_us] 80-99 Automated erythrocyte mean corpuscular h emoglobin (mass per erythrocyte) 33 pg 25-34 Automated erythrocyte mean corpuscular h emoglobin concentration measurement (mass/volume) 34 g/dL 32-36 Automated erythrocyte distribution width ratio 14. 5 % 10.0- 14.5 Automated blood platelet count (count/volume) 240 10*3/uL 130-400 Automated blood platelet mean volume measurement 9.6 [foz_us] 7.4-10.4 PT panel in platelet poor plasma by coag ulation assay - 07/27/18 08:45 Prothrombin time (PT) in platelet poor plasma by coagu lation assay 13.7 s 12.2-14.7 INR in platelet poor plasma or blood by coagulation as say 1.1 0.8-1.4 Activated partial thromboplastin time (a PTT) in platelet poor plasma bycoagulation assay - 07/27/18 08:45 Activated partial thromboplastin time (a PTT) in platelet poor plasma bycoagulation assay 39 s 24-35 Comprehensive metabolic panel - 07/27/18 08:45 Serum or plasma sodium measurement (moles/volume) 139 mmol/L 135-145 Serum or plasma potassium measurement (moles/volume) 4.1 mmol/L 3.6-5.0 Serum or plasma chloride measurement (moles/volume) 106 mmol/L 98-107 Carbon dioxide 23 mmol/L 21-32 Serum or plasma anion gap determination (moles/volume) 10 mmol/L 5-14 Serum or plasma urea nitrogen measurement (mass/volume ) 18 mg/dL 7-18 Serum or plasma creatinine measurement (mass/volume) 0.79 mg/dL 0.60-1.30 Serum or plasma urea nitrogen/creatinine mass ratio 23 NRG Serum or plasma creatinine measurement w ith calculation of estimated glomerular filtration rate > NRG Serum or plasma glucose measurement (mass/volume) 117 mg/dL 70-105 Serum or plasma calcium measurement (mass/volume) 9.3 mg/dL 8.5-10.1 Serum or plasma total bilirubin measurement (mass/volu me) 0.9 mg/dL 0.1-1.0 Serum or plasma alkaline phosphatase gurinder surement (enzymatic activity/volume) 50 U/L 40-136 Serum or plasma aspartate aminotransfera se measurement (enzymatic activity/volume) 20 U/L 5-34 Serum or plasma alanine aminotransferase measurement (enzymatic activity/volume) 22 U/L 0-55 Serum or plasma protein measurement (mass/volume) 7.0 g/dL 6.4-8.2 Serum or plasma albumin measurement (mass/volume) 4.0 g/dL 3.2-4.5 CALCIUM CORRECTED 9.3 mg/dL 8.5-10.1 Methicillin resistant Staphylococcus aur eus (MRSA) screening culture - 07/27/18 08:45 Methicillin resistant Staphylococcus aureus (MRSA) scr eening culture NEG G Comprehensive metabolic panel - 07/28/18 05:15 Serum or plasma sodium measurement (moles/volume) 136 mmol/L 135-145 Serum or plasma potassium measurement (moles/volume) 4.1 mmol/L 3.6-5.0 Serum or plasma chloride measurement (moles/volume) 100 mmol/L 98-107 Carbon dioxide 25 mmol/L 21-32 Serum or plasma anion gap determination (moles/volume) 11 mmol/L 5-14 Serum or plasma urea nitrogen measurement (mass/volume ) 22 mg/dL 7-18 Serum or plasma creatinine measurement (mass/volume) 0.89 mg/dL 0.60-1.30 Serum or plasma urea nitrogen/creatinine mass ratio 25 NRG Serum or plasma creatinine measurement w ith calculation of estimated glomerular filtration rate > NRG Serum or plasma glucose measurement (mass/volume) 103 mg/dL 70-105 Serum or plasma calcium measurement (mass/volume) 9.6 mg/dL 8.5-10.1 Serum or plasma total bilirubin measurement (mass/volu me) 1.2 mg/dL 0.1-1.0 Serum or plasma alkaline phosphatase gurinder surement (enzymatic activity/volume) 52 U/L 40-136 Serum or plasma aspartate aminotransfera se measurement (enzymatic activity/volume) 20 U/L 5-34 Serum or plasma alanine aminotransferase measurement (enzymatic activity/volume) 20 U/L 0-55 Serum or plasma protein measurement (mass/volume) 6.4 g/dL 6.4-8.2 Serum or plasma albumin measurement (mass/volume) 3.7 g/dL 3.2-4.5 CALCIUM CORRECTED 9.8 mg/dL 8.5-10.1 Serum or plasma lithium measurement (mol es/volume) - 07/28/18 05:15 BNP level 92.7 pg/mL <100.0 [id number] - 10/26/19 00:00 [id number] 0.56 ng/mL 0.80-2.00 Complete blood count (CBC) with automate d white blood cell (WBC) differential - 10/26/19 21:36 Blood leukocytes automated count (number/volume) 5.7 10*3/uL 4.3-11.0 Blood erythrocytes automated count (number/volume) 3.53 10*6/uL 4.35-5.85 Venous blood hemoglobin measurement (mass/volume) 11.7 g/dL 13.3-17.7 Blood hematocrit (volume fraction) 35 % 40-54 Automated erythrocyte mean corpuscular volume 99 [ foz_us] 80-99 Automated erythrocyte mean corpuscular h emoglobin (mass per erythrocyte) 33 pg 25-34 Automated erythrocyte mean corpuscular h emoglobin concentration measurement (mass/volume) 34 g/dL 32-36 Automated erythrocyte distribution width ratio 14. 0 % 10.0- 14.5 Automated blood platelet count (count/volume) 168 10*3/uL 130-400 Automated blood platelet mean volume measurement 9.2 [foz_us] 7.4-10.4 Automated blood neutrophils/100 leukocytes 74 % 42-75 Automated blood lymphocytes/100 leukocytes 14 % 12-44 Blood monocytes/100 leukocytes 10 % 0-12 Automated blood eosinophils/100 leukocytes 1 % 0-10 Automated blood basophils/100 leukocytes 0 % 0-10 Blood neutrophils automated count (number/volume) 4.2 10*3 1.8-7.8 Blood lymphocytes automated count (number/volume) 0.8 10*3 1.0-4.0 Blood monocytes automated count (number/volume) 0. 6 10*3 0.0-1.0 Automated eosinophil count 0.1 10*3/uL 0 .0-0.3 Automated blood basophil count (count/volume) 0.0 10*3/uL 0.0-0.1 Comprehensive metabolic panel - 10/26/19 21:36 Serum or plasma sodium measurement (moles/volume) 134 mmol/L 135-145 Serum or plasma potassium measurement (moles/volume) 4.5 mmol/L 3.6-5.0 Serum or plasma chloride measurement (moles/volume) 101 mmol/L 98-107 Carbon dioxide 20 mmol/L 21-32 Serum or plasma anion gap determination (moles/volume) 13 mmol/L 5-14 Serum or plasma urea nitrogen measurement (mass/volume ) 17 mg/dL 7-18 Serum or plasma creatinine measurement (mass/volume) 0.81 mg/dL 0.60-1.30 Serum or plasma urea nitrogen/creatinine mass ratio 21 NRG Serum or plasma creatinine measurement w ith calculation of estimated glomerular filtration rate > NRG Serum or plasma glucose measurement (mass/volume) 121 mg/dL 70-105 Serum or plasma calcium measurement (mass/volume) 8.3 mg/dL 8.5-10.1 Serum or plasma total bilirubin measurement (mass/volu me) 0.4 mg/dL 0.1-1.0 Serum or plasma alkaline phosphatase gurinder surement (enzymatic activity/volume) 59 U/L 40-136 Serum or plasma aspartate aminotransfera se measurement (enzymatic activity/volume) 40 U/L 5-34 Serum or plasma alanine aminotransferase measurement (enzymatic activity/volume) 52 U/L 0-55 Serum or plasma protein measurement (mass/volume) 6.2 g/dL 6.4-8.2 Serum or plasma albumin measurement (mass/volume) 3.5 g/dL 3.2-4.5 CALCIUM CORRECTED 8.7 mg/dL 8.5-10.1 Magnesium - 10/26/19 21:36 Magnesium 1.5 mg/dL 1.6-2.4 PT panel in platelet poor plasma by coag ulation assay - 10/26/19 21:36 Prothrombin time (PT) in platelet poor plasma by coagu lation assay 14.7 s 12.2-14.7 INR in platelet poor plasma or blood by coagulation as say 1.1 0.8-1.4 Activated partial thromboplastin time (a PTT) in platelet poor plasma bycoagulation assay - 10/26/19 21:36 Activated partial thromboplastin time (a PTT) in platelet poor plasma bycoagulation assay 37 s 24-35 Encounters ACCT No. Visit Date/Time Discharge Status Pt. Type Provider Facility Loc./Unit Complaint [id number] 12/28/2019 15:30:00 12/28/2019 23:59: 59 CLS Outpatient [facility] [id number] 07/26/2014 08:31:00 07/26/2014 23:59: 59 CLS Outpatient YONATHAN CORDERO DO [id number] 10/26/2019 19:34:00 020 23:02:00 DIS Emergency SHEBA WALTER ALINA Carter [facility] ER FALL [id number] 03/21/2019 07:35:00 019 23:59:59 CLS Outpatient KEO BOWMAN [facility] CORONARY AR HARSHA DISEASE [id number] 09/15/2018 07:35:00 019 23:59:59 CLS Outpatient HELADIO LÓPEZ MD [facility] RAD PLEURAL EFFUSION [id number] 08/03/2018 09:23:00 018 23:59:59 CLS Outpatient HELADIO LÓPEZ MD [facility] RAD ABNORMAL CHEST XRAY [id number] 08/02/2018 23:02:00 018 00:07:00 DIS Emergency AYSE LLANES MD [facility] ER NOSE BLEED [id number] 07/27/2018 08:21:00 018 09:58:00 DIS Outpatient JONO WASHINGTON MD [facility] CATH AFIB,CAD,CHF [id number] 05/16/2018 07:27:00 018 23:59:59 CLS Outpatient JONO WASHINGTON MD [facility] LAB I25.10,I50.22,E78.2,I10 [id number] 11/24/2017 09:05:00 23:59:59 CLS Outpatient JONO WASHINGTON MD [facility] I25.10,I50.22 [id number] 05/19/2017 07:16:00 23:59:59 CLS Outpatient KEO BOWMAN [facility] CARD CAD I25.10 [id number] 05/14/2017 08:12:00 23:59:59 CLS Outpatient KEO BOWMAN [facility] CARD CAD I25.10 [id number] 03/30/2017 07:58:00 23:59:59 CLS Outpatient KEO BOWMAN [facility] LAB I25.10 I10 E78.2 [id number] 05/13/2016 06:40:00 23:59:59 CLS Outpatient KEO BOWMAN [facility] CAD,CHF,HLD ,HTN [id number] 04/03/2016 06:38:00 23:59:59 CLS Outpatient KEO BOWMAN [facility] CAD,CHF,HLD ,HTN [id number] 09/14/2015 14:05:00 016 11:50:00 DIS Inpatient BRIDGER WHARTON DO, [facility] CSD POST OP CELLULITIS L CH EST, S/P ICD PLACEMENT [id number] 09/11/2015 11:51:00 016 23:59:59 CLS Outpatient JONO WASHINGTON MD [facility] CATH CHF,CAD,HTN,HLP [id number] 08/19/2015 12:39:00 23:59:59 CLS Outpatient KEO BOWMAN [facility] CARD CAD,HLD,HTN , ISCHEMIC CARDIOMYOPATHY [id number] 06/05/2015 08:21:00 16:05:00 DIS Outpatient JONO WASHINGTON MD [facility] CATH ABN STRESS TEST,CAD,CHF ,HTN,DM [id number] 05/29/2015 07:14:00 23:59:59 CLS Outpatient JONO WASHINGTON MD [facility] CARD CAD, HLD, HTN, OBESITY [id number] 05/27/2015 14:48:00 23:59:59 CLS Outpatient JONO WASHINGTON MD [facility] CARD CAD, HLD, HTN, OBESITY [id number] 05/11/2015 07:03:00 23:59:59 CLS Outpatient JONO WASHINGTON MD [facility] CAD,HLD,HTN,OBESITY [id number] 05/10/2015 12:21:00 23:59:59 CLS Outpatient JONO WASHINGTON MD [facility] CAD,HLD,HTN,OBESITY [id number] 03/31/2018 09:22:00 Document Registration [id number] 03/24/2018 07:14:00 Document Registration [id number] 05/27/2015 14:48:00 Document Registration [id number] 03/02/2011 00:08:00 Document Registration
--- NOTE | 2020-01-05 21:08 | ED Lower Extremity ---
General Chief Complaint: Lower Extremity Stated Complaint: R LEG PAIN Nursing Triage Note: Pt to FT2 with c/o right leg pain x 1 wk. Pt states he's tried icy hot with minimal relief, rating pain 6/10 after intervention. Pt would like an x-ray of extremity. Nursing Sepsis Screen: No Definite Risk Source: patient Exam Limitations: no limitations History of Present Illness Date Seen by Provider: January 05, 2020 Time Seen by Provider: 20:53 Initial Comments Here with report of right leg pain in the region of previous bone fracture of the mid femur. This happened 50+ years ago and had repeat surgery a year later. Interim he's had a bone chip actually come out of his leg from the mid incision line. Denies any recent injury but has had spontaneous fracture there previously requiring secondary surgery. He is worried about the possibility of fracture. The old incision line in the mid region has a red spot that does have a little bit of drainage. He states his daughter is worried about infection. They have been using antibiotic ointment over that area. He states that's with a bone chip came out the last time. He has been using topical lidocaine patches and that has helped bring his pain from a 10 down to a 6. Denies fever or chills. Denies nausea or vomiting or other systemic signs of infection. Onset: last week Severity: moderate Pain/Injury Location: right leg Method of Injury: unknown Modifying Factors: Worse With Movement; Improves With Pain Medication Allergies and Home Medications Allergies Coded Allergies: No Known Drug Allergies (Unverified , 09/14/15) Home Medications Allopurinol 300 Mg Tab, 300 MG PO DAILY, (Reported) Amiodarone HCl 200 Mg Tablet, 200 MG PO UD Take 2 tabs twice daily for one week then Take 1 tab twice daily Prescribed by: JONO WASHINGTON on 07/28/18 0806 Apixaban 5 Mg Tablet, 5 MG PO BID, (Reported) Ascorbate Calcium 500 Mg Tablet, 1,000 MG PO DAILY, (Reported) Aspirin 81 Mg Tablet.dr, 81 MG PO HS, (Reported) Atorvastatin Calcium 80 Mg Tablet, 80 MG PO HS, (Reported) Carvedilol 25 Mg Tablet, 25 MG PO BID, (Reported) Digoxin 125 Mcg Tablet, 125 MCG PO DAILY, (Reported) Escitalopram Oxalate 10 Mg Tablet, 10 MG PO DAILY, (Reported) Furosemide 20 Mg Tablet, 20 MG PO DAILY, (Reported) Hydrocodone/Acetaminophen 1 Each Tablet, 1 TAB PO Q4-6HR Prescribed by: ALINA SCRUGGS on 10/26/192222 Metformin HCl 500 Mg Tablet, 500 MG PO BID, (Reported) Multivitamins 1 Tab Tablet, 1 TAB PO DAILY, (Reported) Mangum-3 Fatty Acids 1,000 Mg Capsule, 2,000 MG PO BID, (Reported) Omeprazole 20 Mg Capsule.dr, 20 MG PO DAILY, (Reported) Pioglitazone Hcl 30 Mg Tab, 30 MG PO DAILY, (Reported) Potassium Chloride 10 Meq Capsule.er, 10 MEQ PO DAILY, (Reported) Ramipril 5 Mg Capsule, 5 MG PO DAILY, (Reported) Spironolactone 25 Mg Tablet, 25 MG PO DAILY, (Reported) Ubidecarenone 200 Mg Capsule, 200 MG PO DAILY, (Reported) Patient Home Medication List Home Medication List Reviewed: Yes Review of Systems Constitutional: see HPI; No chills, No fever EENTM: no symptoms reported Respiratory: no symptoms reported Cardiovascular: no symptoms reported Gastrointestinal: no symptoms reported Musculoskeletal: see HPI, muscle pain, muscle stiffness Skin: change in color, lesions Psychiatric/Neurological: No Symptoms Reported Past Kqdpfes-Atswad-Wagiow Hx Past Med/Social Hx: Reviewed Nursing Past Med/Soc Hx Patient Social History Alcohol Use: Denies Use Recreational Drug Use: No Smoking Status: Former Smoker Type Used: Cigarettes Former Smoker, Quit: Jul 27, 1953 Recent Foreign Travel: No Contact w/Someone Who Travel: No Recent Infectious Disease Expo: No Recent Hopitalizations: No Immunizations Up To Date Tetanus Booster (TDap): Unknown PED Vaccines UTD: No Date of Pneumonia Vaccine: Jun 05, 2011 Date of Influenza Vaccine: May 16, 2018 Seasonal Allergies Seasonal Allergies: No Past Medical History Surgeries: Yes (ICD ON 09-11-15) Cardiac, CABG, Coronary Stent, Defibrillator, Joint Replacement, Orthopedic Respiratory: Yes Sleep Apnea Currently Using CPAP: Yes Currently Using BIPAP: No Cardiac: Yes (PT HAD LIFE VEST PRIOR TO ICD PLACEMENT) Atrial Fibrillation, Coronary Artery Disease, Congenital Heart Disease, Heart Attack, High Cholesterol, Hypertension Neurological: No Reproductive Disorders: No Sexually Transmitted Disease: No Genitourinary: No Gastrointestinal: No Musculoskeletal: Yes Arthritis, Gout Endocrine: Yes Diabetes, Non-Insulin dep Cataract Loss of Vision: Denies Cancer: No Psychosocial: No Integumentary: No Blood Disorders: No Family Medical History Reviewed Nursing Family Hx Hypertension Not obtainable due to adoption No Pertinent Family Hx PSH: -RIGHT FEUMUR FRACTURE SURGERY X 5 -RIGHT KNEE PATELLAR TENDON REPAIR -LEFT KNEE REPLACEMENT -CARDIAC CATHS WITH STENT X 1 -5 VESSEL CABG Physical Exam Vital Signs Vital Signs - First Documented 01/05/20 20:25 Temp 36.8 Pulse 77 Resp 20 B/P (MAP) 135/62 (86) Pulse Ox 96 O2 Delivery Room Air Capillary Refill : Less Than 3 Seconds Height, Weight, BMI Height: 5'9.00" Weight: 211lbs. 0.0oz. 95.345201ln; 29.00 BMI Method:Stated General Appearance: WD/WN, no apparent distress Cardiovascular: regular rate, rhythm, no murmur Respiratory: lungs clear, normal breath sounds Legs: left leg non-tender, left leg normal inspection, left leg normal range of motion; right leg pain (lateral aspect of right upper leg), right leg soft tissue tenderness, right leg other (has old incision scar lateral aspect minutes approximately 12 cm. Pain around mid incision site) Neurologic/Psychiatric: alert, oriented x 3 Skin: warm/dry, other (area of redness noted to the site of the old incision on the right thigh in the mid incision line.) Progress/Results/Core Measures Results/Orders Lab Results Laboratory Tests Test 01/05/20 21:22 Range/Units White Blood Count 8.3 4.3-11.0 10^3/uL Red Blood Count 4.00 L 4.35-5.85 10^6/uL Hemoglobin 13.6 13.3-17.7 G/DL Hematocrit 40 40-54 % Mean Corpuscular Volume 99 80-99 FL Mean Corpuscular Hemoglobin 34 25-34 PG Mean Corpuscular Hemoglobin Concent 34 32-36 G/DL Red Cell Distribution Width 14.1 10.0-14.5 % Platelet Count 273 130-400 10^3/uL Mean Platelet Volume 10.0 7.4-10.4 FL Neutrophils (%) (Auto) 72 42-75 % Lymphocytes (%) (Auto) 16 12-44 % Monocytes (%) (Auto) 11 0-12 % Eosinophils (%) (Auto) 1 0-10 % Basophils (%) (Auto) 1 0-10 % Neutrophils # (Auto) 6.0 1.8-7.8 X 10^3 Lymphocytes # (Auto) 1.3 1.0-4.0 X 10^3 Monocytes # (Auto) 0.9 0.0-1.0 X 10^3 Eosinophils # (Auto) 0.1 0.0-0.3 10^3/uL Basophils # (Auto) 0.1 0.0-0.1 10^3/uL Erythrocyte Sedimentation Rate 43 H 0-30 MM/HR Sodium Level 136 135-145 MMOL/L Potassium Level 4.1 3.6-5.0 MMOL/L Chloride Level 102 98-107 MMOL/L Carbon Dioxide Level 24 21-32 MMOL/L Anion Gap 10 5-14 MMOL/L Blood Urea Nitrogen 15 7-18 MG/DL Creatinine 0.79 0.60-1.30 MG/DL Estimat Glomerular Filtration Rate > 60 BUN/Creatinine Ratio 19 Glucose Level 113 H 70-105 MG/DL Calcium Level 9.1 8.5-10.1 MG/DL Corrected Calcium 9.4 8.5-10.1 MG/DL Total Bilirubin 0.4 0.1-1.0 MG/DL Aspartate Amino Transf (AST/SGOT) 19 5-34 U/L Alanine Aminotransferase (ALT/SGPT) 19 0-55 U/L Alkaline Phosphatase 49 40-136 U/L C-Reactive Protein High Sensitivity 2.29 H 0.00-0.50 MG/DL Total Protein 6.7 6.4-8.2 GM/DL Albumin 3.6 3.2-4.5 GM/DL My Orders Orders - RAJNI ROSE MD Cbc With Automated Diff (01/05/20 20:58) Comprehensive Metabolic Panel (01/05/20 20:58) Hs C Reactive Protein (01/05/20 20:58) Erythrocyte Sedimentation Rate (01/05/20 20:58) Femur, Right, 2 Views (01/05/20 20:58) Wound Culture (01/05/20 20:59) Cephalexin Capsule (Keflex Capsule) (01/05/20 22:01) Vital Signs/I&O 01/05/20 20:25 Temp 36.8 Pulse 77 Resp 20 B/P (MAP) 135/62 (86) Pulse Ox 96 O2 Delivery Room Air Blood Pressure Mean: 86 Progress Progress Note : Progress Note Seen and evaluated. Labs, x-ray right femur and wound culture to the 1 cm area of redness with small drainage to the right thigh. Monitor patient. 2204: I did discuss the case with Dr. Zheng. We will initiate cephalexin by mouth now and continue that outpatient pending cultures. Patient will initiate outpatient acetaminophen for pain as well. He is instructed to call Dr. Zheng's office on Wednesday morning for appointment next week. Patient reassured by the negative x- ray. Discharged home with return precautions. Patient verbalize understanding instructions and agreement with plan. Diagnostic Imaging Diagonstic Imaging: Xray Plain Films/CT/US/NM/MRI: other Comments [facility], [place] NAME: NOLBERTO ADAN [facility] REC#: [id number] PT STATUS: REG ER : 1935 PHYSICIAN: RAJNI ROSE MD ADMIT DATE: 01/05/20/ER Draft Date of Exam:01/05/20 FEMUR, RIGHT, 2 VIEWS INDICATION: One week history of right leg pain. Patient has had multiple previous surgeries; however, I do not have any comparison studies. EXAMINATION: Two views of the right femur. COMPARISON: None. FINDINGS: The femoral head and neck, as well as acetabulum, are nonacute. The knee reveals severe tricompartmental osteoarthritis. There are old appearing deformities to the mid shaft of the femur, compatible with the provided history. There are atherosclerotic vascular calcifications as well as vascular clips. An acute appearing abnormality is not appreciable. IMPRESSION: Chronic appearing deformities to the mid shaft of the femur. Severe arthritis to the knee. The hip appears intact. Dictated on workstation # [id number] Dict: 01/05/202128 Trans: 01/05/202139 [id number] Interpreted by: SAÚL ROY Electronically signed by: Departure Impression Primary Impression: Right leg pain Additional Impression: Soft tissue infection Disposition: HOME, SELF-CARE Condition: Improved Departure-Patient Inst. Decision time for Depature: 22:07 Referrals: HELADIO ZHENG MD (PCP/Family) Primary Care Physician Patient Instructions: Wound Infection Add. Discharge Instructions: All discharge instructions reviewed with patient and/or family. Voiced understanding. You may continue to use antibiotic ointment over wound on leg twice daily. Take medications as directed. You may take Tylenol/acetaminophen 1000 mg every 6-8 hours as needed for pain. You may continue to use the topical patches that you are using. Follow-up with Dr. Zheng next week for recheck. Call his office on Wednesday or Wednesday morning for appointment. Return for worse pain, fever, swelling, weakness, increased drainage, increasing redness or other concerns as needed. Scripts Cephalexin (Cephalexin) 500 Mg Tablet 500 MG PO QID, #28 TAB 0 Refills Prov: RAJNI ROSE MD 01/05/20 Copy Copies To 1: HELADIO ZHENG MD, TIMOTHY D MD January 05, 2020 21:08
[2020-01-05 21:38] LABS: BASOPHILS # (AUTO) 0.1 10^3/uL (0.0-0.1); BASOPHILS % (AUTO) 1 % (0-10); EOSINOPHILS # (AUTO) 0.1 10^3/uL (0.0-0.3); EOSINOPHILS % (AUTO) 1 % (0-10); HEMATOCRIT 40 % (40-54); HEMOGLOBIN 13.6 G/DL (13.3-17.7); LYMPHOCYTES # (AUTO) 1.3 X 10^3 (1.0-4.0); LYMPHOCYTES % (AUTO) 16 % (12-44); MEAN CORPUSCULAR HEMOGLOBIN 34 PG (25-34); MEAN CORPUSCULAR HGB CONC 34 G/DL (32-36); MEAN CORPUSCULAR VOLUME 99 FL (80-99); MONOCYTES # (AUTO) 0.9 X 10^3 (0.0-1.0); MONOCYTES % (AUTO) 11 % (0-12); NEUTROPHILS % (AUTO) 72 % (42-75); PLATELET COUNT 273 10^3/uL (130-400); RED CELL DISTRIBUTION WIDTH 14.1 % (10.0-14.5); WHITE BLOOD COUNT 8.3 10^3/uL (4.3-11.0)
--- NOTE | 2020-01-05 21:41 | Diagnostic Imaging Report ---
INDICATION: One week history of right leg pain. Patient has had multiple previous surgeries; however, I do not have any comparison studies. EXAMINATION: Two views of the right femur. COMPARISON: None. FINDINGS: The femoral head and neck, as well as acetabulum, are nonacute. The knee reveals severe tricompartmental osteoarthritis. There are old appearing deformities to the mid shaft of the femur, compatible with the provided history. There are atherosclerotic vascular calcifications as well as vascular clips. An acute appearing abnormality is not appreciable. IMPRESSION: Chronic appearing deformities to the mid shaft of the femur. Severe arthritis to the knee. The hip appears intact. Dictated by: Dictated on workstation # [id number]
[2020-01-05 21:47] LABS: ALBUMIN 3.6 GM/DL (3.2-4.5); CHLORIDE 102 MMOL/L (98-107); POTASSIUM 4.1 MMOL/L (3.6-5.0); SODIUM 136 MMOL/L (135-145)
[2020-01-05 21:49] LABS: CALCIUM 9.1 MG/DL (8.5-10.1)
[2020-01-05 21:50] LABS: GLUCOSE 113 MG/DL (70-105); TOTAL PROTEIN 6.7 GM/DL (6.4-8.2)
[2020-01-05 21:51] LABS: CARBON DIOXIDE 24 MMOL/L (21-32)
[2020-01-05 21:52] LABS: BILIRUBIN,TOTAL 0.4 MG/DL (0.1-1.0); ERYTHROCYTE SEDIMENTATION RATE 43 MM/HR (0-30)
[2020-01-05 21:53] LABS: ALKALINE PHOSPHATASE 49 U/L (40-136)
[2020-01-05 21:54] LABS: CREATININE SERUM 0.79 MG/DL (0.60-1.30); GFR ESTIMATED > 60
[2020-01-05 21:55] LABS: BUN/CREATININE RATIO 19
[2020-01-05 21:56] LABS: ALANINE AMINOTRANSFERASE 19 U/L (0-55)
[2020-01-05] MEDS ORDERED: CEPHALEXIN 250 MG (KEFLEX) CAP PO STA (22:01)
[2020-01-05] MEDS ORDERED: CEPH500T PO (22:09)
[2020-01-05 22:20] VITALS: BP 128/82
== END 2020-01-05 22:20 | disposition home or self-care (01) ==
LOC: EDUNIT# 20:00 → ER 20:01
DX: M79.651 Pain in right thigh (principal); L08.9 Local infection of the skin and subcutaneous tissue, unspecified; I10 Essential (primary) hypertension; E78.00 Pure hypercholesterolemia, unspecified; I25.2 Old myocardial infarction; I48.91 Unspecified atrial fibrillation; I25.10 Atherosclerotic heart disease of native coronary artery without angina pectoris; Q24.9 Congenital malformation of heart, unspecified; E11.9 Type 2 diabetes mellitus without complications; Z96.652 Presence of left artificial knee joint; Z95.810 Presence of automatic (implantable) cardiac defibrillator; Z95.5 Presence of coronary angioplasty implant and graft; Z95.1 Presence of aortocoronary bypass graft; Z79.01 Long term (current) use of anticoagulants; Z79.82 Long term (current) use of aspirin; Z79.84 Long term (current) use of oral hypoglycemic drugs; Z87.891 Personal history of nicotine dependence
CPT/HCPCS: 36415; 73552; 80053; 85025; 85652; 86141; 87070; 87205

== ENCOUNTER → 2020-01-29 | Outpatient (CLI) | payer MEDICARE ==
[~2020-01-29] MED LIST changes: +CEPH500T PO
[2020-01-29 09:37] LABS: ALANINE AMINOTRANSFERASE 22 U/L (0-55); ALBUMIN 3.8 GM/DL (3.2-4.5); ALKALINE PHOSPHATASE 55 U/L (40-136); BILIRUBIN,TOTAL 0.6 MG/DL (0.1-1.0); BUN/CREATININE RATIO 19; CALCIUM 9.1 MG/DL (8.5-10.1); CARBON DIOXIDE 25 MMOL/L (21-32); CHLORIDE 101 MMOL/L (98-107); CREATININE SERUM 0.78 MG/DL (0.60-1.30); GFR ESTIMATED > 60; GLUCOSE 105 MG/DL (70-105); POTASSIUM 4.3 MMOL/L (3.6-5.0); SODIUM 137 MMOL/L (135-145); TOTAL PROTEIN 7.2 GM/DL (6.4-8.2)
== END ==
LOC: LAB 08:41
PROVIDERS: ATTEND Internal Medicine
DX: I25.10 Atherosclerotic heart disease of native coronary artery without angina pectoris (principal)
CPT/HCPCS: 36415; 80053; 83036; 86141

== ENCOUNTER 2020-03-11 05:34 | Outpatient (RCR) | payer MEDICARE ==
[~2020-03-11] VITALS: Ht 175 cm; Wt 90.9 kg
[~2020-03-11 05:34] MED LIST changes: +ALLO300T2 PO; +MULT1CAP27 PO; +OMEP20TA7 PO; +PIOG30TA71 PO; +RAMI5CAP65 PO; +SPIR25TA5 PO
== END 2020-03-11 10:21 | disposition home or self-care (01) ==
LOC: PREOP 05:34
PROVIDERS: ATTEND Surgery
DX: Z01.812 Encounter for preprocedural laboratory examination (principal); C44.329 Squamous cell carcinoma of skin of other parts of face; Z20.828 Contact with and (suspected) exposure to other viral communicable diseases
CPT/HCPCS: 87635

== ENCOUNTER 2020-03-13 12:02 | Day surgery (SDC) | payer MEDICARE ==
[2020-03-13] VITALS (8 sets, daily range): BP systolic 113–142; BP diastolic 57–74
[~2020-03-13] VITALS: Ht 175 cm; Wt 90.9 kg
[~2020-03-13 12:02] MED LIST changes: +LACTATED RINGERS 1,000 ML IV PRN; +ceFAZolin 2 GM IV Premixed 50 ML IV ONE
[2020-03-13] MEDS ORDERED: ceFAZolin 2 GM IV Premixed 50 ML ONE (12:38)
[2020-03-13] MEDS ORDERED: ONDANSETRON 4 MG/2 ML (SDV) Z0FRAN ONE (12:41)
[2020-03-13] MEDS ORDERED: proPOfol 200 MG/20 ML (DIPRIVAN) VIAL IV ONE (12:41)
--- NOTE | 2020-03-13 12:52 | Progress Note-Pre Operative ---
Pre-Operative Progress Note H&P Reviewed The H&P was reviewed, patient examined and no changes noted. 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
[2020-03-13] MEDS ORDERED: BUP/EPI 0.5% 1:200,000 (MARCAINE) 10ML VIAL IJ ONE (12:57)
[2020-03-13] MEDS ORDERED: MUPIROCIN 2% OINT 22 GM (BACTROBAN) TUBE ONE (13:23)
--- NOTE | 2020-03-13 13:44 | Anesthesia-General Post-Op ---
MAC Patient Condition Mental Status/LOC: Same as Preop Cardiovascular: Satisfactory Nausea/Vomiting: Absent Respiratory: Satisfactory Pain: Controlled Complications: Absent Post Op Complications Complications None Follow Up Care/Instructions Patient Instructions None needed. Anesthesiology Discharge Order Discharge Order Patient is doing well, no complaints, stable vital signs, no apparent adverse anesthesia problems. No complications reported per nursing. MINNIE KRISHNA MARBLE INSTALLER SUPERVISOR Mar 13, 2020 13:44
[2020-03-13] MEDS ORDERED: HYDROmorphone 2 MG/ML VIAL (DILAUDID) IV ONE (13:45)
[2020-03-13] MEDS ORDERED: ONDANSETRON 4 MG/2 ML (SDV) Z0FRAN IVP PRN (13:45)
--- NOTE | 2020-03-13 14:05 | NUR ---
TO AMB SURG FROM PAR PER CART. ALERT, DENIES PAIN. TAPED GAUZE DRESSING D/I TO LEFT TEMPORAL SURGICAL SITE. PO FLUIDS PROVIDED.
--- NOTE | 2020-03-13 14:07 | Progress Note-Post Operative ---
Post-Operative Progess Note Surgeon (s)/Graduate Research Assistant (s) Surgeon EARLE AQUINO DO Graduate Research Assistant: none Pre-Operative Diagnosis Left temporal Squamous Cell CA Post-Operative Diagnosis same pending path Procedure & Operative Findings Date of Procedure 03/13/20 Procedure Performed/Findings Exc of Squamous Cell CA , 4.9 x 1.6 cm Anesthesia Type MAC Estimated Blood Loss Estimated blood loss (mL): less than 5ml Specimens/Packing Specimens Removed left temporal mass EARLE AQUINO DO Mar 13, 2020 14:07
[2020-03-13] MEDS ORDERED: HYDR-4226 PO ×2 (14:08)
--- NOTE | 2020-03-13 14:09 | Discharge Inst-Surgical ---
Discharge Inst-Surgical Depart Medication/Instructions New, Converted or Re-Newed RX: RX Given to Pt/Family Patient Instructions Follow up Appt: Make appointment for 1 week. [phone] Instructions: No lifting greater than 20 pounds. No strenuous activity. May shower in 24 hours, no tub bath or soaking. Use incentive spirometer at home as directed. No Smoking Skin/Wound Care: May remove bandages in am. You need to leave the stitches in place and come to clinic to have them removed. Symptoms to Report: Appetite Changes, Extremity Discoloration, Numbness/Tingling, Swelling Increased, Bleeding Excessive, Eyesight Changes, Pain Increased, Urine Color Change, Constipation(Persistent), Fever over 101 degree F, Pain/Pressure in chest, Urinating Difficulty, Cough Up/Vomit Blood, Heart Beat Irreg/Pounding, Pain/Pressure in jaw, Cramps in feet or legs, Lightheadedness, Pain/Pressure in shoulder, Diarrhea(Persistent), Memory Changes Suddenly, Questions/Concerns, Weight gain consecutive days, Dizziness/Fainting, Nausea/Vomiting, Shortness of Breath, Weight gain over 2 pounds If questions or concerns contact your physician Or seek help at emergency department. Activity Activity Instructions: Avoid Stress to Incision Driving Instructions: No Driving/Refer to Dr. Taveras Discharge Diet: No Restrictions Diet After 24 Hours: Clear Liquid if Nauseous If Any Problems/Questions/Issu: Contact Your Physician, Go to Emergency Room Skin/Wound Care Infection Signs and Symptoms: Increased Redness, Foul Odor of Wound, Increased Drainage, Skin Itchy or Has a Rash, Increased Swelling, Temperature Above 101 F Bathing Instructions: Shower Stitches/[place]/Dermabond Dis: Care of Stitches EARLE AQUINO DO Mar 13, 2020 14:09
--- NOTE | 2020-03-13 14:35 | NUR ---
TAKING PO FLUIDS WITHOUT PROBLEM. NO CHANGE IN PAIN OR SITE ASSESSMENT.
--- NOTE | 2020-03-13 15:10 | NUR ---
NO RESTART DATE FOR STOPPED ELIQUIS INCLUDED ON DISCHARGE INSTRUCTIONS ENTERED BY DR AQUINO. PT STATES HE WAS TOLD BY HIS CITY CARRIER ASSISTANT, DR WASHINGTON, TO HOLD ELIQUIS FOR A TOTAL OF 4 DAYS ONLY PERIOPERATIVELY, AND STATES TODAY WAS 5TH DAY ON HOLD WITH LAST DATE TAKEN 03/08/20. CONTACTED DR AQUINO, THIS INFORMATION RELAYED. INSTRUCTED BY DR AQUINO TO TELL PT CONTINUE TO HOLD ELIQUIS TOMORROW AND TO RESTART ELIQUIS ON 03/15/20. INFORMED PT VERBALLY AND IN PRINTED DISCHARGE INSTRUCTIONS. PT REMAINS ALERT, VOICES NO COMPLAINTS. SURGICAL SITE DRESSING DRY AND INTACT.
--- NOTE | 2020-03-14 07:24 | OPERATIVE REPORT ---
DATE OF SERVICE: 03/13/2020 PREOPERATIVE DIAGNOSIS: Left temporal squamous cell carcinoma. POSTOPERATIVE DIAGNOSIS: Left temporal squamous cell carcinoma, pending pathology. PROCEDURE PERFORMED: Excision of left temporal mass approximately 4.9 x 1.6 cm incision with 1 cm undermining. SURGEON: Eliezer Smith DO. CARD CLEANER: None. ANESTHESIA: MAC. SPECIMEN: Left temporal mass. BLOOD LOSS: Less than 10 mL. FLUIDS: Per anesthesia. POSTOPERATIVE CONDITION: Stable. INDICATION FOR PROCEDURE: The patient is an 84-year-old male, who had a squamous cell carcinoma that was shaved, but it came back and he wanted to get this removed. FINDINGS: The patient had a left temporal mass removed. Incision measured 4.9 x 1.6, all the way through the tissue and then had to do some 1 cm undermining to be able to close the incision. PROCEDURE NOTE: After informed consent was obtained, the patient had previously been marked on the left side. He was brought to the operating room, timeout was done, site confirmed by everyone in the OR. He was then sterilely prepped and draped in a normal fashion. Local lidocaine was used to infiltrate the skin around this left temporal mass. I then made an elliptical incision measuring 4.9 cm x 1.6 cm, carried down through the skin into then subcutaneous tissue, then deepened down through the subcutaneous tissue with Bovie electrocautery going on around and under this and then marking it short stitch superior, long stitch lateral and passed this off table and sent to pathology. Hemostasis was obtained using Bovie electrocautery. I could not bring the skin together so I had to undermine x 1 cm in all directions and then able to close the skin and closed the skin with a 2-0 nylon. I used two vertical mattress sutures and then five simple interrupted sutures to close this. The area was cleaned and dried, dressing placed. The patient tolerated the procedure and transferred to the recovery room in a stable condition. Sponge, instrument and needle count correct at the end of the case. Job ID: [id number] DocumentID: [id number] Dictated Date: 03/13/2020 21:52:24 Casino Gaming Worker Date: 03/14/2020 07:24:19 Dictated By: ELIEZER SMITH DO
== END 2020-03-13 15:25 | disposition home or self-care (01) ==
LOC: SDC 12:02
PROVIDERS: ATTEND Surgery
DX: C44.329 Squamous cell carcinoma of skin of other parts of face (principal); L98.8 Other specified disorders of the skin and subcutaneous tissue; I11.0 Hypertensive heart disease with heart failure; I50.9 Heart failure, unspecified; E11.9 Type 2 diabetes mellitus without complications; I25.10 Atherosclerotic heart disease of native coronary artery without angina pectoris; I48.0 Paroxysmal atrial fibrillation; G47.33 Obstructive sleep apnea (adult) (pediatric); E78.5 Hyperlipidemia, unspecified; M10.9 Gout, unspecified; M06.9 Rheumatoid arthritis, unspecified; Z11.2 Encounter for screening for other bacterial diseases; Z95.1 Presence of aortocoronary bypass graft; Z95.5 Presence of coronary angioplasty implant and graft; K21.9 Gastro-esophageal reflux disease without esophagitis; I65.23 Occlusion and stenosis of bilateral carotid arteries; I25.2 Old myocardial infarction; Z79.84 Long term (current) use of oral hypoglycemic drugs; Z79.01 Long term (current) use of anticoagulants; Z79.899 Other long term (current) drug therapy; Z96.652 Presence of left artificial knee joint; Z87.891 Personal history of nicotine dependence; Z95.0 Presence of cardiac pacemaker
CPT/HCPCS: 87081; 94664

== ENCOUNTER → 2020-05-07 | Outpatient (CLI) | payer MEDICARE ==
[~2020-05-07] MED LIST changes: +ASPI-1238 PO; -ASPI-983 PO; -LACTATED RINGERS 1,000 ML IV PRN; -ceFAZolin 2 GM IV Premixed 50 ML IV ONE
[2020-05-07 08:49] LABS: CHLORIDE 101 MMOL/L (98-107); POTASSIUM 4.2 MMOL/L (3.6-5.0); SODIUM 136 MMOL/L (135-145)
[2020-05-07 08:50] LABS: ALBUMIN 3.9 GM/DL (3.2-4.5)
[2020-05-07 08:51] LABS: CALCIUM 9.4 MG/DL (8.5-10.1)
[2020-05-07 08:52] LABS: GLUCOSE 118 MG/DL (70-105); TOTAL PROTEIN 7.1 GM/DL (6.4-8.2); TRIGLYCERIDES 221 MG/DL (<150); VLDL CHOLESTEROL 44 MG/DL (5-40)
[2020-05-07 08:53] LABS: CARBON DIOXIDE 26 MMOL/L (21-32)
[2020-05-07 08:54] LABS: BILIRUBIN,TOTAL 0.6 MG/DL (0.1-1.0)
[2020-05-07 08:56] LABS: ALKALINE PHOSPHATASE 55 U/L (40-136); CREATININE SERUM 0.86 MG/DL (0.60-1.30); GFR ESTIMATED > 60
[2020-05-07 08:57] LABS: BUN/CREATININE RATIO 19; CHOLESTEROL 198 MG/DL (< 200)
[2020-05-07 08:58] LABS: HDL CHOLESTEROL 27 MG/DL (40-60)
[2020-05-07 08:59] LABS: ALANINE AMINOTRANSFERASE 40 U/L (0-55)
== END ==
LOC: LAB 08:18
PROVIDERS: ATTEND Physician Assistant
DX: I25.10 Atherosclerotic heart disease of native coronary artery without angina pectoris (principal); I50.9 Heart failure, unspecified; E78.5 Hyperlipidemia, unspecified; I48.0 Paroxysmal atrial fibrillation
CPT/HCPCS: 36415; 80053; 80061

== ENCOUNTER → 2020-05-15 | Day surgery (SDC) | payer MEDICARE ==
[~2020-05-15] VITALS: Ht 175 cm; Wt 90.0 kg
[~2020-05-15] MED LIST changes: +ASCO100024 PO; +ATOR10TA66 PO; +LIDOCAINE 2% VISCOUS 15 ML UDC ONE; +NS IV 1000 ML 1,000 ML IV SCH; +NS IV 1000 ML 1,000 ML ONE; +OMG1KC PO; +STL80T PO; +proPOfol 200 MG/20 ML (DIPRIVAN) VIAL IV ONE
[2020-05-15 07:13] VITALS: BP 135/95
[2020-05-15 07:25] LABS: HEMOGLOBIN 14.6 g/dL (13.3-17.7); MEAN PLATELET VOLUME 9.9 fL (9.0-12.2)
[2020-05-15 07:36] LABS: ALBUMIN 3.9 GM/DL (3.2-4.5); CHLORIDE 103 MMOL/L (98-107); POTASSIUM 4.2 MMOL/L (3.6-5.0); SODIUM 137 MMOL/L (135-145)
[2020-05-15 07:37] LABS: CALCIUM 9.3 MG/DL (8.5-10.1)
[2020-05-15 07:38] LABS: GLUCOSE 116 MG/DL (70-105); TOTAL PROTEIN 7.1 GM/DL (6.4-8.2); TRIGLYCERIDES 218 MG/DL (<150); VLDL CHOLESTEROL 44 MG/DL (5-40)
[2020-05-15 07:39] LABS: CARBON DIOXIDE 24 MMOL/L (21-32)
[2020-05-15 07:40] LABS: BILIRUBIN,TOTAL 0.5 MG/DL (0.1-1.0)
[2020-05-15 07:42] LABS: ALKALINE PHOSPHATASE 60 U/L (40-136); CREATININE SERUM 0.89 MG/DL (0.60-1.30); GFR ESTIMATED > 60
[2020-05-15 07:43] LABS: BUN/CREATININE RATIO 25; CHOLESTEROL 144 MG/DL (< 200); INR 1.1 (0.8-1.4); PROTHROMBIN TIME PATIENT 14.2 SEC (12.2-14.7)
[2020-05-15 07:44] LABS: HDL CHOLESTEROL 21 MG/DL (40-60)
[2020-05-15 07:45] LABS: ALANINE AMINOTRANSFERASE 36 U/L (0-55)
--- NOTE | 2020-05-15 08:11 | Diagnostic Imaging Report ---
INDICATION: Atrial fibrillation Frontal chest obtained at 0739 a.m. is compared to 09/15/2018. Patient's had previous coronary bypass and sternotomy. Pacemaker is unchanged in position. Heart is top limits normal in size. The right lung shows some new infiltrate in the right lung base with obscuration of right hemidiaphragm. There is some questionable pleural fluid in the right costophrenic angle. The left lung is clear. There is no pneumothorax. IMPRESSION: New right basilar infiltrate with some probable right pleural fluid. Left lung is clear. Postop changes with borderline heart size. Dictated by: Dictated on workstation # [id number]
--- NOTE | 2020-05-15 08:32 | NUR ---
SPOKE WITH THE PT (HE HAD SOME HOME MEDS WITH HIM BUT NOT ALL), CALLED HIS [facility] ORDER [facility] AND [facility] TO COMPLETE THE MED REC THE FOLLOWING MEDICATIONS WERE FILLED ON 02-29-2020: LOVAZA 1GM #360/90DS SPIRONOLACTONE 25MG #90/90DS RAMIPRIL 5MG #90/90DS ELIQUIS 5MG #180/90DS POTASSIUM ER CL 10MEQ #90/90DS FUROSEMIDE 20MG #90/90DS DIGOXIN 125MCG #90/90DS ESCITALOPRAM 10MG #90/90DS OMEPRAZOLE 20MG #90/90DS METFORMIN 500MG #180/90DS PIOGLITAZONE 30MG #90/90DS ALLOPURINOL 300MG #90/90DS ON THE HOME MED BOTTLES THERE ARE SOME THAT HAVE DIFFERENT DATES THEN LISTED ABOVE, HOWEVER I CALLED THE MAIL ORDER PHARMACY TO GET ACCURATE FILL DATES. 05-09-2020 ATORVASTATIN 10MG #90/90DS 05-06-2020 SOTALOL 80MG- DIRECTIONS FROM [facility] SHOW "1 TAB BID" HOWEVER PT SAYS HE WAS TOLD TO TAKE 1 & TABS (120MG) BID, THESE DIRECTIONS ARE ALSO LISTED ON THE MEDICATION LIST FROM THE CARDIOLOGY OFFICE OTC MEDS: DOCUSATE VITAMIN C MTV
[2020-05-15 09:18] VITALS: BP 109/75
[2020-05-15 09:23] VITALS: BP 109/71
[2020-05-15 09:27] VITALS: BP 130/86
[2020-05-15 09:32] VITALS: BP 101/68
--- NOTE | 2020-05-15 09:33 | Cardiac Procedure Note-CS/ASA ---
Pre-Procedure Note Pre-Op Procedure Note H&P Reviewed The H&P was reviewed, patient examined and no changes noted. Date H&P Reviewed: May 15, 2020 Time H&P Reviewed: 09:33 Conscious Sedation Pre-Proced Time 09:33 ASA Score 3 For ASA 3 and 4: Consider anesthesia and medical clearance. Also, for patients with a history of failed moderate sedation consider anesthesia. Airway Lungs Heart ASA score ASA 1: a normal healthy patient ASA 2: a patient with a mild systemic disease (mid diabetes, controlled hypertension, obesity x ASA 3: a patient with a severe systemic disease that limits activity (angina, COPD, prior Myocardial infarction) ASA 4: a patient with an incapacitating disease that is a constant threat to life (CHF, renal failure) ASA 5: a moribund patient not expected to survive 24 hrs. (ruptured aneurysm) ASA 6: a declared brain- patient whose organs are being harvested. For emergent operations, add the letter E after the classification Mallampati Classification Grade 3 Sedation Plan Analgesia, Amnesia, Plan communicated to team members, Discussed options with patient/fam, Discussed risks with patient/fam The patient is an appropriate candidate to undergo the planned procedure, sedation, and anesthesia. The patient immediately re-assessed prior to indication. JONO WASHINGTON MD May 15, 2020 09:33
--- NOTE | 2020-05-15 09:35 | Discharge Inst-Post CATH ---
Discharge Inst-CATH/EP Problems Reviewed?: Yes Post Cardiac Cath/EP D/C Inst Follow Up/Plan Appointment with Dr. Dominguez's office in 4 weeks <b>CARDIAC CATH/EP PROCEDURE DISCHARGE INSTRUCTIONS</b> ACTIVITY * Go Home directly and rest. * Limit activity of the leg (or wrist if it was used) for 7 days including aerobics, swimming, jogging, bicycling, etc. * Restrict stair-climbing for 7 days if possible, if not, climb up with your non-cath leg, then bring together on the same step. * Avoid lifting, pushing, pulling or excessive movement of the affected extremity for 7 days. * Customary sexual activity may be resumed after 2 days-use caution not to use a position that strains or causes pain to the affected extremity. * No driving for 24 hours. * NO SMOKING. * Avoid straining for bowel movements for 7 days. * Gentle walking on level ground is allowed. * Returning to work will depend on the type of procedure and the results. Your doctor will discuss this with you. CALL YOUR DOCTOR FOR ANY OF THE FOLLOWING: *If bleeding from the puncture site occurs- Apply gentle pressure to site with clean cloth and call your doctor or EMS. * If a knot or lump forms under the skin, increases in size, or causes pain. * If bruising appears to be worsening or moving further down your leg instead of disappearing. * Temperature above 101 F. CARE OF YOUR GROIN INCISION; * Bruising or purple discoloration of the skin near the puncture site is common. * You may shower only, no bathtub bathing for 5 days. Be careful to avoid slipping as your leg may feel stiff. * If a closure device was used on your femoral artery, please see the attached guide regarding care of the device and your leg. * Leave dressing on FOR 24 hours. CARE OF YOUR WRIST INCISION; * Bruising or purple discoloration of the skin near the puncture site is common. * You may shower. * DO NOT submerge wrist. * Leave dressing on FOR 24 hours. JONO DOMINGUEZ MD May 15, 2020 09:35
--- NOTE | 2020-05-15 09:36 | Clinic Account Progress/Dx ---
Clinic Account Progress/Dx DIAGNOSIS: Date Seen by Provider: May 15, 2020 Time Seen by Provider: 09:35 Atrial fibrillation Congestive heart failure, chronic compensated left ventricular systolic dysfunction, nonischemic cardiomyopathy, ejection fraction 40 percent Hypertension Hyperlipidemia JONO WASHINGTON MD May 15, 2020 09:36
[2020-05-15 09:37] VITALS: BP 103/59
--- NOTE | 2020-05-15 09:41 | NUR ---
PT AWAKE, NUERO'S INACT, KELLEE LIMBS EQUAL, EYES PERRL, SMILE SYMMETRICAL, TONGUE MIDLINE
--- NOTE | 2020-05-15 09:43 | Anesthesia-General Post-Op ---
MAC Patient Condition Mental Status/LOC: Same as Preop Cardiovascular: Satisfactory Nausea/Vomiting: Absent Respiratory: Satisfactory Pain: Controlled Complications: Absent Post Op Complications Complications None Follow Up Care/Instructions Patient Instructions None needed. Anesthesiology Discharge Order Discharge Order Patient is doing well, no complaints, stable vital signs, no apparent adverse anesthesia problems. No complications reported per nursing. VIRGINIE MYERS CRNA May 15, 2020 09:43
== END ==
LOC: CATH 06:37
PROVIDERS: ATTEND Internal Medicine Cardiovascular Disease
DX: I48.0 Paroxysmal atrial fibrillation (principal); I11.0 Hypertensive heart disease with heart failure; I50.9 Heart failure, unspecified; E78.5 Hyperlipidemia, unspecified; I25.10 Atherosclerotic heart disease of native coronary artery without angina pectoris; G47.33 Obstructive sleep apnea (adult) (pediatric); K21.9 Gastro-esophageal reflux disease without esophagitis; E11.9 Type 2 diabetes mellitus without complications; M19.90 Unspecified osteoarthritis, unspecified site; I65.23 Occlusion and stenosis of bilateral carotid arteries; Z79.84 Long term (current) use of oral hypoglycemic drugs; Z79.899 Other long term (current) drug therapy; Z79.01 Long term (current) use of anticoagulants; Z20.828 Contact with and (suspected) exposure to other viral communicable diseases; Z87.891 Personal history of nicotine dependence
CPT/HCPCS: 71045; 80053; 80061; 85027; 85610; 85730; 87081; 93312; 93320; 93325; U0002; 36415; 87635

== ENCOUNTER → 2020-06-24 | Outpatient (CLI) | payer MEDICARE ==
[~2020-06-24] MED LIST changes: -AMIO200T4 PO; +AMIO200T6 PO; -LIDOCAINE 2% VISCOUS 15 ML UDC ONE; -NS IV 1000 ML 1,000 ML IV SCH; -NS IV 1000 ML 1,000 ML ONE; -proPOfol 200 MG/20 ML (DIPRIVAN) VIAL IV ONE
== END ==
LOC: LABNPT 05:20
PROVIDERS: ATTEND Internal Medicine Cardiovascular Disease
DX: Z01.812 Encounter for preprocedural laboratory examination (principal); Z20.828 Contact with and (suspected) exposure to other viral communicable diseases
CPT/HCPCS: 87635

== ENCOUNTER → 2020-06-26 | Day surgery (SDC) | payer MEDICARE ==
[~2020-06-26] VITALS: Ht 175.3 cm; Wt 90.0 kg
[2020-06-26] VITALS (16 sets, daily range): BP systolic 101–139; BP diastolic 49–81
[~2020-06-26] MED LIST changes: +LIDOCAINE 2% VISCOUS 15 ML UDC ONE; +LIDOCAINE 2% VISCOUS 15 ML UDC PO ONE; +MIDAZOLAM 2 MG/2 ML (VERSED) VIAL ONE; +NS IV 1000 ML 1,000 ML IV SCH; +NS IV 1000 ML 1,000 ML ONE; +proPOfol 200 MG/20 ML (DIPRIVAN) VIAL IV ONE
[2020-06-26 08:15] LABS: HEMOGLOBIN 14.3 g/dL (13.3-17.7); MEAN PLATELET VOLUME 10.2 fL (9.0-12.2); WHITE BLOOD COUNT 8.8 10^3/uL (4.3-11.0)
--- NOTE | 2020-06-26 08:16 | Diagnostic Imaging Report ---
INDICATION: Precardiac catheterization COMPARISON: 05/15/2020 FINDINGS: Small right pleural effusion and right basilar pulmonary opacity present. The parenchymal density and elevation of the right diaphragm has increased. This may reflect progressive subpulmonic pleural fluid with worsening atelectasis however a pneumonia in the appropriate clinical scenario could not be excluded. No overt failure pattern. The left lung and pleural space negative. IMPRESSION: Right basilar pleural-parenchymal opacity is progressed likely increased subpulmonic effusion and subjacent passive atelectasis. Superimposed pneumonia in the appropriate clinical scenario could not be excluded. No failure pattern. Dictated by: Dictated on workstation # [id number]
--- NOTE | 2020-06-26 08:19 | Cardiac Procedure Note-CS/ASA ---
Pre-Procedure Note Pre-Op Procedure Note H&P Reviewed The H&P was reviewed, patient examined and no changes noted. Date H&P Reviewed: Jun 26, 2020 Time H&P Reviewed: 08:18 Conscious Sedation Pre-Proced Time 08:19 ASA Score 3 For ASA 3 and 4: Consider anesthesia and medical clearance. Also, for patients with a history of failed moderate sedation consider anesthesia. Airway Lungs Heart ASA score ASA 1: a normal healthy patient ASA 2: a patient with a mild systemic disease (mid diabetes, controlled hypertension, obesity x ASA 3: a patient with a severe systemic disease that limits activity (angina, COPD, prior Myocardial infarction) ASA 4: a patient with an incapacitating disease that is a constant threat to life (CHF, renal failure) ASA 5: a moribund patient not expected to survive 24 hrs. (ruptured aneurysm) ASA 6: a declared brain- patient whose organs are being harvested. For emergent operations, add the letter E after the classification Mallampati Classification Grade 3 Sedation Plan Analgesia, Amnesia, Plan communicated to team members, Discussed options with patient/fam, Discussed risks with patient/fam The patient is an appropriate candidate to undergo the planned procedure, sedation, and anesthesia. The patient immediately re-assessed prior to indication. JONO WASHINGTON MD Jun 26, 2020 8:19 am
[2020-06-26 08:35] LABS: PROTHROMBIN TIME PATIENT 13.6 SEC (12.2-14.7)
[2020-06-26 08:38] LABS: ALANINE AMINOTRANSFERASE 33 U/L (0-55); ALBUMIN 3.8 GM/DL (3.2-4.5); ALKALINE PHOSPHATASE 60 U/L (40-136); BILIRUBIN,TOTAL 0.6 MG/DL (0.1-1.0); BUN/CREATININE RATIO 17; CALCIUM 9.2 MG/DL (8.5-10.1); CARBON DIOXIDE 24 MMOL/L (21-32); CHLORIDE 102 MMOL/L (98-107); CHOLESTEROL 113 MG/DL (< 200); CREATININE SERUM 0.87 MG/DL (0.60-1.30); GFR ESTIMATED > 60; GLUCOSE 135 MG/DL (70-105); HDL CHOLESTEROL 26 MG/DL (40-60); POTASSIUM 4.1 MMOL/L (3.6-5.0); SODIUM 138 MMOL/L (135-145); TRIGLYCERIDES 161 MG/DL (<150); VLDL CHOLESTEROL 32 MG/DL (5-40)
--- NOTE | 2020-06-26 09:32 | Discharge Inst-Post CATH ---
Discharge Inst-CATH/EP Problems Reviewed?: Yes Post Cardiac Cath/EP D/C Inst Follow Up/Plan Appointment with Dr. Dominguez's office in 4 weeks <b>CARDIAC CATH/EP PROCEDURE DISCHARGE INSTRUCTIONS</b> ACTIVITY * Go Home directly and rest. * Limit activity of the leg (or wrist if it was used) for 7 days including aerobics, swimming, jogging, bicycling, etc. * Restrict stair-climbing for 7 days if possible, if not, climb up with your non-cath leg, then bring together on the same step. * Avoid lifting, pushing, pulling or excessive movement of the affected extremity for 7 days. * Customary sexual activity may be resumed after 2 days-use caution not to use a position that strains or causes pain to the affected extremity. * No driving for 24 hours. * NO SMOKING. * Avoid straining for bowel movements for 7 days. * Gentle walking on level ground is allowed. * Returning to work will depend on the type of procedure and the results. Your doctor will discuss this with you. CALL YOUR DOCTOR FOR ANY OF THE FOLLOWING: *If bleeding from the puncture site occurs- Apply gentle pressure to site with clean cloth and call your doctor or EMS. * If a knot or lump forms under the skin, increases in size, or causes pain. * If bruising appears to be worsening or moving further down your leg instead of disappearing. * Temperature above 101 F. CARE OF YOUR GROIN INCISION; * Bruising or purple discoloration of the skin near the puncture site is common. * You may shower only, no bathtub bathing for 5 days. Be careful to avoid slipping as your leg may feel stiff. * If a closure device was used on your femoral artery, please see the attached guide regarding care of the device and your leg. * Leave dressing on FOR 24 hours. CARE OF YOUR WRIST INCISION; * Bruising or purple discoloration of the skin near the puncture site is common. * You may shower. * DO NOT submerge wrist. * Leave dressing on FOR 24 hours. JONO DOMINGUEZ MD Jun 26, 2020 9:32 am
--- NOTE | 2020-06-26 09:34 | Cardioversion ---
Cardioversion PROCEDURE PHYSICIAN: Jono Dominguez DATE OF PROCEDURE: 06/26/20 DIRECT EXTERNAL ELECTRICAL CARDIOVERSION: Indications: Atrial Fibrillation with rapid ventricular rate Preoperative diagnoses: Atrial Fibrillation with rapid ventricular rate Postoperative diagnosis: Sinus rhythm, Successful Electrical Cardioversion History: 85 years old gentleman with paroxysmal atrial fibrillation, had a DEMETRIS and cardioversion in the past, last DEMETRIS showed questionable thrombus, scheduled to repeat DEMETRIS with possible electrical cardioversion, procedure was done showing no significant thrombus. Anesthesia: By Anesthesia services Complications: None Specimen: None Contrast: 0 Flouroscopy: none Procedure Details: The patient was brought the helper animal laboratory after informed consent was taken, all the risks and complications were explained including the risk of stroke. Electrical cardioversion was carried out with anesthesia support with propofol. 120 joules of synchronized shock was delivered through external patches which promptly restored sinus rhythm. The patient tolerated the procedure well. Conclusions: Successful electrical cardioversion with no complication Final Diagnosis: Paroxysmal atrial fibrillation Coronary artery disease Hypertension Hyperlipidemia PADMINI,JONO Dumont MD Jun 26, 2020 9:34 am
--- NOTE | 2020-06-26 10:55 | NUR ---
GAG REFLEX HAS RETURNED, PT COUGHS ET SWALLOWS ON COMMAND. PO ELIQUIS AND BETAPACE GIVEN AT THIS TIME,JUST PT TAKES HIS MORNING DOSES AT HOME, PER DR WASHINGTON'S WISHES, REPORTED BY Saji DARDEN RN.
--- NOTE | 2020-06-26 13:05 | NUR ---
SPOKE WITH THE PT (HE HAS HIS HOME MED WITH HIM) AND CALLED HIS MAILORDER PHARMACY TO COMPLETE THE MED REC THE MED BOTTLES WITH A FEBRUARY 2020 HAVE BEEN FILLED MORE RECENTLY- PT JUST DIDNT WANT TO BRING THE FULL BOTTLES WITH HIM HERE IS THE ACCURATE LAST FILL DATES: 05-06-2020 SOTALOL 80MG #180 05-09-2020 ATORVASTATIN 10MG #90/90DS 05-23-2020 IS THE FILL DATE ON THE FOLLOWING MEDICATIONS: LOVAZA 1GM #360/90DS RAMIPRIL 5MG #90/90DS SPIRONOLACTONE 25MG #90/90DS ELIQUIS 5MG #180/90DS POTASSIUM CL ER 10MEQ #90/90DS FUROSEMIDE 20MG #90/90DS DIGOXIN 125MCG #90/90 ESCITALOPRAM 10MG #90/90DS OMEPRAZOLE 20MG #90/90DS METFORMIN 500MG #180/90DS ALLOPURINOL 100MG #90/90DS PIOGLITAZONE 30MG- THIS IS LISTED ON THE MEDICATION LIST FROM CARDIOLOGY- PT DOES NOT HAVE THIS BOTTLE WITH HIM AND WHEN I ASKED ABOUT IT HE THINKS IT WAS DISCONTINUED. I CALLED HIS MAIL ORDER PHARMACY AND IT HAS NOT BEEN FILLED SINCE FEBRUARY 2020 AND WHEN THE MAIL ORDER WENT TO FILL IT FOR AN UPCOMING REFILL IT WAS CANCELLED. OTC MEDS: LEILANI Espinoza [employer]
== END ==
LOC: SDC 07:21
PROVIDERS: ATTEND Internal Medicine Cardiovascular Disease
DX: I48.0 Paroxysmal atrial fibrillation (principal); I25.10 Atherosclerotic heart disease of native coronary artery without angina pectoris; I10 Essential (primary) hypertension; E78.5 Hyperlipidemia, unspecified; I11.0 Hypertensive heart disease with heart failure; I50.9 Heart failure, unspecified; M19.90 Unspecified osteoarthritis, unspecified site; R79.1 Abnormal coagulation profile; E66.9 Obesity, unspecified; Z68.29 Body mass index [BMI] 29.0-29.9, adult; Z79.01 Long term (current) use of anticoagulants; Z79.899 Other long term (current) drug therapy; Z79.84 Long term (current) use of oral hypoglycemic drugs; Z85.828 Personal history of other malignant neoplasm of skin; Z95.1 Presence of aortocoronary bypass graft; Z95.5 Presence of coronary angioplasty implant and graft
CPT/HCPCS: 36415; 71045; 80053; 80061; 85027; 85610; 85730; 87081; 92960; 93005; 93312

== ENCOUNTER → 2020-11-20 | Outpatient (CLI) | payer MEDICARE, OTHER ==
[~2020-11-20] VITALS: Ht 175 cm; Wt 90.0 kg
[~2020-11-20] MED LIST changes: +CATHETER FLUSH 10 ML SYR IV PRN; +ESCI-2 PO; -ESCI10TA55 PO; -LIDOCAINE 2% VISCOUS 15 ML UDC ONE; -LIDOCAINE 2% VISCOUS 15 ML UDC PO ONE; -MIDAZOLAM 2 MG/2 ML (VERSED) VIAL ONE; -NS IV 1000 ML 1,000 ML IV SCH; -NS IV 1000 ML 1,000 ML ONE; +REGADENOSON 0.4 MG/5 ML SYR (LEXISCAN) IV ONE; -proPOfol 200 MG/20 ML (DIPRIVAN) VIAL IV ONE
[2020-11-20 09:01] VITALS: BP 150/76
[2020-11-20 09:23] VITALS: BP 132/66
[2020-11-20 09:25] VITALS: BP 145/85
--- NOTE | 2020-11-20 17:36 | Cardiology Stress Test Report ---
Stress Test Report Date of Procedure/Referring: Date of Procedure: Nov 20, 2020 Nita Rose Admitting Physician Ren Watson MD Indications: CAD Baseline Heart Rate: 91 Baseline Blood Pressure: Blood Pressure Systolic: 145 Blood Pressure Diastolic: 85 Baseline Vitals Vital Signs Date Time Temp Pulse Resp B/P (MAP) Pulse Ox O2 Delivery O2 Flow Rate FiO2 11/20/20 09:01 90 18 150/76 (100) 96 Room Air Baseline EKG: Baseline EKG: NSR Summary After explaining the procedure to the patient, he signed a consent and then brought to the stress nuclear laboratory. Patient received 0.4 mg Lexiscan for stress test, ECG, heart rate and blood pressure were monitored continuously. Resting and stress dose of radio tracer were injected, imaging was acquired and reviewed in short axis, horizontal long axis and vertical long axis views. TID: 1.02 SSS: 21 SDS: 2 EF: 27 1. Patient tolerated Lexiscan well 2. Baseline atrial fibrillation persisted during test 3. Extracardiac attenuation with diaphragmatic attenuation in both arm being down affecting the quality of the images. There is decreased uptake involving the inferior wall inferoapex and true apex with no significant reversibility, could be secondary to the extracardiac attenuation 4. Prominent left ventricle hypokinesia at the inferior wall, EF 27%, gated images are unreliable due to underlying atrial fibrillation JONO WASHINGTON MD Nov 20, 2020 17:36
== END ==
LOC: CARD 07:45
PROVIDERS: ATTEND Physician Assistant
DX: I25.10 Atherosclerotic heart disease of native coronary artery without angina pectoris (principal)
CPT/HCPCS: 78452; 93017; A9502

== ENCOUNTER 2021-03-21 22:42 | Emergency (ER) | payer MEDICARE, OTHER ==
[~2021-03-21] VITALS: Ht 172.7 cm; Wt 90.0 kg
[~2021-03-21 22:42] MED LIST changes: -CATHETER FLUSH 10 ML SYR IV PRN; +NF-LOVAZAC PO; -OMEG1CAP PO; -REGADENOSON 0.4 MG/5 ML SYR (LEXISCAN) IV ONE
[2021-03-21 23:16] LABS: BASOPHILS # (AUTO) 0.1 10^3/uL (0.0-0.1); BASOPHILS % (AUTO) 1 % (0-10); EOSINOPHILS # (AUTO) 0.4 10^3/uL (0.0-0.3); EOSINOPHILS % (AUTO) 4 % (0-10); HEMATOCRIT 42 % (40-54); HEMOGLOBIN 14.7 g/dL (13.3-17.7); LYMPHOCYTES # (AUTO) 1.8 10^3/uL (1.0-4.0); LYMPHOCYTES % (AUTO) 19 % (12-44); MEAN CORPUSCULAR HEMOGLOBIN 33 pg (25-34); MEAN CORPUSCULAR HGB CONC 35 g/dL (32-36); MEAN CORPUSCULAR VOLUME 96 fL (80-99); MEAN PLATELET VOLUME 9.9 fL (9.0-12.2); MONOCYTES # (AUTO) 0.8 10^3/uL (0.0-1.0); MONOCYTES % (AUTO) 9 % (0-12); NEUTROPHILS # (AUTO) 6.4 10^3/uL (1.8-7.8); NEUTROPHILS % (AUTO) 67 % (42-75); PLATELET COUNT 243 10^3/uL (130-400); WHITE BLOOD COUNT 9.5 10^3/uL (4.3-11.0)
[2021-03-21 23:35] LABS: ALBUMIN 3.7 GM/DL (3.2-4.5); INR 2.4 (0.8-1.4); PROTHROMBIN TIME PATIENT 26.2 SEC (12.2-14.7)
[2021-03-21 23:36] LABS: CHLORIDE 104 MMOL/L (98-107); POTASSIUM 4.1 MMOL/L (3.6-5.0); SODIUM 141 MMOL/L (135-145)
[2021-03-21 23:37] LABS: AMYLASE 48 U/L (25-125); CALCIUM 9.1 MG/DL (8.5-10.1)
[2021-03-21 23:38] LABS: GLUCOSE 119 MG/DL (70-105); TOTAL PROTEIN 6.8 GM/DL (6.4-8.2)
--- NOTE | 2021-03-21 23:38 | Diagnostic Imaging Report ---
INDICATION: Chest pain Frontal chest obtained at 1120 p.m. and compared to 06/26/2020. Patient has had previous sternotomy. The heart is normal in size. There is a moderate sized right pleural effusion with right basilar infiltrate versus atelectasis. Left lung is clear. Pacemaker is unchanged. IMPRESSION: Unchanged right basilar atelectatic change versus infiltrate with moderate sized right pleural effusion. Postoperative findings are stable. Dictated by: Dictated on workstation # [id number]
[2021-03-21 23:39] LABS: CARBON DIOXIDE 23 MMOL/L (21-32)
[2021-03-21 23:40] LABS: BILIRUBIN,TOTAL 0.6 MG/DL (0.1-1.0)
[2021-03-21 23:41] LABS: ALKALINE PHOSPHATASE 62 U/L (40-136)
[2021-03-21 23:42] LABS: CREATININE SERUM 0.91 MG/DL (0.60-1.30); GFR ESTIMATED 79
[2021-03-21 23:43] LABS: BUN/CREATININE RATIO 13
[2021-03-21 23:44] LABS: ALANINE AMINOTRANSFERASE 31 U/L (0-55)
[2021-03-21 23:45] LABS: MAGNESIUM 1.6 MG/DL (1.6-2.4)
[2021-03-21 23:46] LABS: CREATINE KINASE 40 U/L (30-200); LIPASE 28 U/L (8-78)
[2021-03-21 23:52] LABS: CREATINE KINASE MB 1.5 NG/ML (<6.6)
--- NOTE | 2021-03-22 00:03 | ED General ---
General Chief Complaint: Chest Pain Stated Complaint: LEFT ARM PAIN,KNOT IN ARM,PREVIOUS HEART HIS Nursing Triage Note: TO ED VIA POV AND AMBULATORY TO ROOM 8 WITH C/O LEFT ARM PAIN THAT STARTED LAST NIGHT. DENIES CP. STATES SOA WITH EXERTION. EXTENSIVE CARDIAC HX. STATES HX AFIB AND TAKES "BLOOD THINNER" SWITCHED FROM ELIQUIS AND CANNOT REMEMBER THE NAME, CONFIRMS HE HAS NOT MISSED ANY MEDICATION DOSES. DENIES INJURY TO LEFT ARM. Allergies and Home Medications Allergies Coded Allergies: No Known Drug Allergies (Unverified , 03/08/20) Home Medications Allopurinol 300 Mg Tablet, 300 MG PO DAILY, (Reported) Apixaban 5 Mg Tablet, 5 MG PO BID, (Reported) Ascorbic Acid 1,000 Mg Tablet, 1,000 MG PO DAILY PRN for IMMUNE SYSTEM, (Reported) Atorvastatin Calcium 10 Mg Tablet, 10 MG PO DAILY, (Reported) Digoxin 125 Mcg Tablet, 125 MCG PO HS, (Reported) Docusate Sodium 100 Mg Capsule, 100 MG PO WED,,FR, (Reported) TAKES 3X WEEKLY Escitalopram Oxalate 10 Mg Tablet, 10 MG PO DAILY, (Reported) Furosemide 20 Mg Tablet, 20 MG PO DAILY, (Reported) Lidocaine 1 Each Adh..patch, 1 EACH TP Q12H PRN for Neuropathic pain 2 patches max for 12 hours, then 12 hours patch-free period. Prescribed by: ALINA SCRUGGS on 03/22/21 0050 Metformin HCl 500 Mg Tablet, 500 MG PO BID, (Reported) Multivitamin 1 Each Capsule, 1 EACH PO DAILY, (Reported) Canadian-3 Acid Ethyl Esters 1 Gm Capsule, 2 GM PO BID, (Reported) TAKES 2 (1GM) CAPS Omeprazole 20 Mg Tablet.dr, 20 MG PO DAILY, (Reported) Potassium Chloride 10 Meq Capsule.er, 10 MEQ PO DAILY, (Reported) Ramipril 5 Mg Capsule, 5 MG PO HS, (Reported) Sotalol HCl 80 Mg Tablet, 120 MG PO BID, (Reported) TAKES 1 & (80MG) TABS Spironolactone 25 Mg Tablet, 25 MG PO HS, (Reported) Past Ttceocr-Ilopvp-Rzxgpn Hx Patient Social History Tobacco Use?: No Smoking Status: Former Smoker Substance use?: No Alcohol Use?: No Pt feels they are or have been: No Immunizations Up To Date Tetanus Booster (TDap): Unknown PED Vaccines UTD: No Second COVID19 Vaccination Sree: 11/14/20 COVID19 Vaccine 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: [employer] Seasonal Allergies Seasonal Allergies: Yes Past Medical History Surgery/Hospitalization HX: CABG Surgeries: Yes (ICD ON 09-11-15, L TKR, R LEG X5, ) Cardiac, CABG, Coronary Stent, Defibrillator, Gallbladder, Joint Replacement, Orthopedic Respiratory: Yes Sleep Apnea Currently Using CPAP: Yes Currently Using BIPAP: No Cardiac: Yes Atrial Fibrillation, Coronary Artery Disease, Congenital Heart Disease, Deep Vein Thrombosis, Heart Attack, High Cholesterol, Hypertension Neurological: No Reproductive Disorders: No Sexually Transmitted Disease: No HIV/AIDS: No Genitourinary: Yes Kidney Stones Gastrointestinal: Yes Gastroesophageal Reflux Musculoskeletal: Yes Arthritis, Gout Endocrine: Yes Diabetes, Non-Insulin dep HEENT: Yes (GLASSES) Cataract Loss of Vision: Denies Hearing Impairment: Denies Cancer: Yes Skin What Type of Treatment Did You: Surgical Intervention Psychosocial: No Integumentary: No Blood Disorders: No Adverse Reaction/Blood Tranf: No (N/A) Family Medical History Hypertension Not obtainable due to adoption No Pertinent Family Hx PSH: -RIGHT FEUMUR FRACTURE SURGERY X 5 -RIGHT KNEE PATELLAR TENDON REPAIR -LEFT KNEE REPLACEMENT -CARDIAC CATHS WITH STENT X 1 -5 VESSEL CABG Physical Exam Vital Signs Vital Signs - First Documented 03/21/21 23:10 O2 Flow Rate 2.00 Capillary Refill : Less Than 3 Seconds Height, Weight, BMI Height: 5'9.00" Weight: 211lbs. 0.0oz. [id number]; 30.00 BMI Method:Stated Progress/Results/Core Measures Suspected Sepsis SIRS Temperature: Pulse: 88 Respiratory Rate: 18 Laboratory Tests 03/21/21 23:05: White Blood Count 9.5 Blood Pressure 109 /91 Mean: 97 Laboratory Tests 03/21/21 23:05: Creatinine 0.91, INR Comment 2.4H, Platelet Count 243, Total Bilirubin 0.6 Results/Orders Lab Results Laboratory Tests Test 03/21/21 23:05 03/21/21 23:30 Range/Units White Blood Count 9.5 4.3-11.0 10^3/uL Red Blood Count 4.40 4.30-5.52 10^6/uL Hemoglobin 14.7 13.3-17.7 g/dL Hematocrit 42 40-54 % Mean Corpuscular Volume 96 80-99 fL Mean Corpuscular Hemoglobin 33 25-34 pg Mean Corpuscular Hemoglobin Concent 35 32-36 g/dL Red Cell Distribution Width 13.5 10.0-14.5 % Platelet Count 243 130-400 10^3/uL Mean Platelet Volume 9.9 9.0-12.2 fL Immature Granulocyte % (Auto) 0 % Neutrophils (%) (Auto) 67 42-75 % Lymphocytes (%) (Auto) 19 12-44 % Monocytes (%) (Auto) 9 0-12 % Eosinophils (%) (Auto) 4 0-10 % Basophils (%) (Auto) 1 0-10 % Neutrophils # (Auto) 6.4 1.8-7.8 10^3/uL Lymphocytes # (Auto) 1.8 1.0-4.0 10^3/uL Monocytes # (Auto) 0.8 0.0-1.0 10^3/uL Eosinophils # (Auto) 0.4 H 0.0-0.3 10^3/uL Basophils # (Auto) 0.1 0.0-0.1 10^3/uL Immature Granulocyte # (Auto) 0.0 0.0-0.1 10^3/uL Prothrombin Time 26.2 H 12.2-14.7 SEC INR Comment 2.4 H 0.8-1.4 Activated Partial Thromboplast Time 60 H 24-35 SEC Sodium Level 141 135-145 MMOL/L Potassium Level 4.1 3.6-5.0 MMOL/L Chloride Level 104 98-107 MMOL/L Carbon Dioxide Level 23 21-32 MMOL/L Anion Gap 14 5-14 MMOL/L Blood Urea Nitrogen 12 7-18 MG/DL Creatinine 0.91 0.60-1.30 MG/DL Estimat Glomerular Filtration Rate 79 BUN/Creatinine Ratio 13 Glucose Level 119 H 70-105 MG/DL Calcium Level 9.1 8.5-10.1 MG/DL Corrected Calcium 9.3 8.5-10.1 MG/DL Magnesium Level 1.6 1.6-2.4 MG/DL Total Bilirubin 0.6 0.1-1.0 MG/DL Aspartate Amino Transf (AST/SGOT) 25 5-34 U/L Alanine Aminotransferase (ALT/SGPT) 31 0-55 U/L Alkaline Phosphatase 62 40-136 U/L Total Creatine Kinase 40 30-200 U/L Creatine Kinase MB 1.5 <6.6 NG/ML Myoglobin 47.1 10.0-92.0 NG/ML Troponin I < 0.028 <0.028 NG/ML B-Type Natriuretic Peptide 158.8 H <100.0 PG/ML Total Protein 6.8 6.4-8.2 GM/DL Albumin 3.7 3.2-4.5 GM/DL Amylase Level 48 25-125 U/L Lipase 28 8-78 U/L Digoxin Level 0.37 L 0.80-2.00 NG/ML My Orders Orders - ALINA SCRUGGS DO Ed Iv/Invasive Line Start (03/21/21 22:59) Ekg Tracing (03/21/21 22:59) O2 (03/21/21 22:59) Monitor-Rhythm Ecg Trace Only (03/21/21 22:59) Amylase (03/21/21 22:59) BNP (03/21/21 22:59) Cbc With Automated Diff (03/21/21 22:59) Comprehensive Metabolic Panel (03/21/21 22:59) Creatine Kinase (03/21/21 22:59) Creatine Kinase Mb (03/21/21 22:59) Lipase (03/21/21 22:59) Magnesium (03/21/21 22:59) Protime With Inr (03/21/21 22:59) Partial Thromboplastin Time (03/21/21 22:59) Troponin I (03/21/21 22:59) Chest 1 View, Ap/Pa Only (03/21/21 22:59) Ekg Tracing (03/21/21 22:59) Myoglobin Serum (03/21/21 22:59) O2 (03/21/21 22:59) Ed Iv/Invasive Line Start (03/21/21 22:59) Digoxin (03/21/21 23:45) Vital Signs/I&O 03/21/21 03/21/21 03/21/21 22:53 22:53 23:10 Temp 36.3 Pulse 88 Resp 18 B/P (MAP) 109/91 (97) Pulse Ox 92 O2 Delivery Room Air Room Air Nasal Cannula O2 Flow Rate 2.00 Capillary Refill : Less Than 3 Seconds Blood Pressure Mean: 97 Departure Impression Primary Impression: Left elbow pain Disposition: HOME, SELF-CARE Condition: Stable Departure-Patient Inst. Decision time for Depature: 00:30 Referrals: ARELIS LOPEZ MD (PCP/Family) Primary Care Physician JONO WASHINGTON MD Patient Instructions: Elbow Sprain (DC) Add. Discharge Instructions: VINOD WRAP TO ELBOW NEEDED FOR COMFORT ELEVATE ARM MUCH POSSIBLE TAKE YOUR HOME HYDROCODONE NEEDED FOR PAIN FOLLOW UP WITH YOUR DR IN 3-4 DAYS FOR FURTHER CARE OF ELBOW PAIN FOLLOW UP WITH DR. WASHINGTON FOR FOLLOW UP OF SLEEP APNEA, FLUID IN YOUR RIGHT LUNG AND ATRIAL FIBRILLATION RETURN TO ER IF SYMPTOMS WORSEN All discharge instructions reviewed with patient and/or family. Voiced understanding. Scripts Lidocaine (Lidocaine 5% Patch) 1 Each Adh..patch 1 EACH TP Q12H PRN for Neuropathic pain MDD 2, #14 PATCH 2 patches max for 12 hours, then 12 hours patch-free period. Prov: ALINA SCRUGGS DO 03/22/21 ALINA SCRUGGS DO Mar 22, 2021 00:03
[2021-03-22] MEDS ORDERED: LIDO700A45 TP (00:50)
[2021-03-22 01:10] VITALS: BP 104/56
[2021-03-22] MEDS ORDERED: LIDOCAINE 4% (SALONPAS) PATCH TOP SCH (09:00)
== END 2021-03-22 01:10 | disposition home or self-care (01) ==
LOC: EDUNIT# 22:42 → ER 22:47
DX: M25.522 Pain in left elbow (principal); G47.30 Sleep apnea, unspecified; I25.2 Old myocardial infarction; I10 Essential (primary) hypertension; K21.9 Gastro-esophageal reflux disease without esophagitis; M10.9 Gout, unspecified; I48.91 Unspecified atrial fibrillation; I25.10 Atherosclerotic heart disease of native coronary artery without angina pectoris; E78.00 Pure hypercholesterolemia, unspecified; E11.9 Type 2 diabetes mellitus without complications; Z87.891 Personal history of nicotine dependence; Z79.899 Other long term (current) drug therapy; Z79.01 Long term (current) use of anticoagulants; Z79.84 Long term (current) use of oral hypoglycemic drugs
CPT/HCPCS: 36415; 71045; 80053; 80162; 82150; 82550; 82553; 83690; 83735; 83874; 83880; 84484; 85025; 85610; 85730; 93005; 93041

== ENCOUNTER → 2021-06-23 | Outpatient (CLI) | payer MEDICARE ==
[~2021-06-23] MED LIST changes: +LIDO700A45 TP
[2021-06-23 09:02] LABS: CALCIUM 9.5 MG/DL (8.5-10.1)
[2021-06-23 09:03] LABS: TOTAL PROTEIN 7.5 GM/DL (6.4-8.2)
[2021-06-23 09:05] LABS: BILIRUBIN,TOTAL 1.4 MG/DL (0.1-1.0)
[2021-06-23 09:07] LABS: CREATININE SERUM 0.91 MG/DL (0.60-1.30)
== END ==
LOC: LAB 08:28
PROVIDERS: ATTEND Internal Medicine Cardiovascular Disease
DX: E78.2 Mixed hyperlipidemia (principal)
CPT/HCPCS: 36415; 80053; 80061

== ENCOUNTER 2021-11-05 14:21 | Outpatient (CLI) | payer MEDICARE, MEDICAID ==
[~2021-11-05 14:21] MED LIST changes: -AMIO200T6 PO; +AMIO200T65 PO
== END 2021-11-05 14:40 ==
LOC: SLEEP 14:21
PROVIDERS: ATTEND Internal Medicine Cardiovascular Disease
DX: G47.33 Obstructive sleep apnea (adult) (pediatric) (principal); I10 Essential (primary) hypertension
CPT/HCPCS: G0399

== ENCOUNTER 2021-11-12 07:48 | Outpatient (RCR) | payer MEDICARE, MEDICAID | END 2021-11-13 | LOC: CR 07:48 | PROVIDERS: ATTEND Internal Medicine Cardiovascular Disease | DX: Z29.8 Encounter for other specified prophylactic measures (principal); I48.91 Unspecified atrial fibrillation; I25.10 Atherosclerotic heart disease of native coronary artery without angina pectoris; I50.9 Heart failure, unspecified | CPT/HCPCS: 93798 ==

== ENCOUNTER 2021-12-12 08:14 | Outpatient (RCR) | payer MEDICARE, MEDICAID ==
[~2021-12-12 08:14] MED LIST changes: +OMEP20TA56 PO; -OMEP20TA7 PO
== END 2021-12-13 | disposition home or self-care (01) ==
LOC: CR 08:14
PROVIDERS: ATTEND Internal Medicine Cardiovascular Disease
DX: I48.91 Unspecified atrial fibrillation (principal); I25.10 Atherosclerotic heart disease of native coronary artery without angina pectoris; I50.9 Heart failure, unspecified
CPT/HCPCS: 93798

== ENCOUNTER 2022-01-09 07:50 | Outpatient (RCR) | payer MEDICARE, MEDICAID, OTHER | END 2022-01-13 | disposition home or self-care (01) | LOC: CR 07:50 | PROVIDERS: ATTEND Internal Medicine Cardiovascular Disease | DX: Z29.8 Encounter for other specified prophylactic measures (principal); I48.91 Unspecified atrial fibrillation; I25.10 Atherosclerotic heart disease of native coronary artery without angina pectoris; I50.9 Heart failure, unspecified | CPT/HCPCS: 93798 ==

== ENCOUNTER 2022-01-25 12:53 | Observation (INO) | payer MEDICARE, MEDICAID ==
[2022-01-25] VITALS (13 sets, daily range): BP systolic 93–166; BP diastolic 46–98
--- NOTE | 2022-01-25 13:34 | ED Syncope ---
General Chief Complaint: Trauma-Non Activation Stated Complaint: FALL - HIT HEAD Nursing Triage Note: PT AMB TO [facility] 7 WITH SON WITH CANE WITH C/O A FALL THIS MORNING AND HIT HEAD. PT STATES THE LAST TWO MORNINGS HE HAS WOKE UP DIZZY AND THIS MORNING WHILE SHAVING, HE WAS SITTING ON THE TOILET AND WOKE UP ON THE FLOOR. UNKNOWN AMOUNT OF TIME ON THE FLOOR. PT WAS AWAKE WHEN SON ARRIVED TO HELP Source of Information: Patient, Family History of Present Illness Date Seen by Provider: Jan 25, 2022 Time Seen by Provider: 13:30 Initial Comments This is an 86-year-old male with a history of coronary artery disease with previous four-vessel bypass and one cardiac stent that presents to the emergency room for evaluation of a syncopal event. He states that he was in his bathroom sitting on the toilet shaving and apparently lost consciousness. He did strike the right side of his head during his fall. He is not sure how long he was unconscious for but states it could not of been very long. His son is the one that found him. Patient states that he also woke up yesterday feeling lightheaded/dizzy but it seemed to resolve throughout the day. He otherwise denies active chest pain, shortness of breath, weakness, nausea, vomiting, diarrhea or other symptoms. Timing/Prior Episodes: Recent History Symptoms Prior to Episode: Lightheadedness Precipitating Factors: Sitting Loss of Consciousness: Brief (Seconds) Current Symptoms: Back to Normal Allergies and Home Medications Allergies Coded Allergies: No Known Drug Allergies (Unverified , 03/08/20) Patient Home Medication List Home Medication List Reviewed: Yes Allopurinol (Allopurinol) 300 Mg Tablet, 300 MG PO DAILY, (Reported) Entered as Reported by: ANTONI THOMPSON on 03/08/20 1159 Apixaban (Eliquis) 5 Mg Tablet, 5 MG PO BID, (Reported) Entered as Reported by: REYES ONTIVEROS on 05/15/20 08 Ascorbic Acid (Vitamin C) 1,000 Mg Tablet, 1,000 MG PO DAILY PRN for IMMUNE SYSTEM, (Reported) Entered as Reported by: REYES ONTIVEROS on 05/15/20 08 Atorvastatin Calcium (Atorvastatin Calcium) 10 Mg Tablet, 10 MG PO DAILY, (Reported) Entered as Reported by: REYES ONTIVEROS on 05/15/20 0825 Digoxin (Digox) 125 Mcg Tablet, 125 MCG PO HS, (Reported) Entered as Reported by: EVELYNE CELESTE on 07/27/18 0917 Docusate Sodium (Colace) 100 Mg Capsule, 100 MG PO MON,WE,FR, (Reported) Entered as Reported by: REYES ONTIVEROS on 05/15/20 0825 Escitalopram Oxalate (Escitalopram Oxalate) 10 Mg Tablet, 10 MG PO DAILY, (Reported) Entered as Reported by: CALI TORRES on 06/05/15 1001 Furosemide (Furosemide) 20 Mg Tablet, 20 MG PO DAILY, (Reported) Entered as Reported by: EVELYNE CELESTE on 07/27/18 0919 Lidocaine (Lidocaine 5% Patch) 1 Each Adh..patch, 1 EACH TP Q12H PRN for Neuropathic pain Prescribed by: ALINA SCRUGGS on 03/22/21 0050 Metformin HCl (Metformin HCl) 500 Mg Tablet, 500 MG PO BID, (Reported) Entered as Reported by: IRMA HELMS on 09/11/15 1247 Multivitamin (Multivitamins) 1 Each Capsule, 1 EACH PO DAILY, (Reported) Entered as Reported by: ANTONI THOMPSON on 03/08/20 1159 Warner-3 Acid Ethyl Esters (Lovaza) 1 Gm Capsule, 2 GM PO BID, (Reported) Entered as Reported by: REYES ONTIVEROS on 05/15/20 0828 Omeprazole (Omeprazole) 20 Mg Tablet.dr, 20 MG PO DAILY, (Reported) Entered as Reported by: ANTONI THOMPSON on 03/08/20 115 Potassium Chloride (Potassium Chloride) 10 Meq Capsule.er, 10 MEQ PO DAILY, (Reported) Entered as Reported by: EVELYNE CELESTE on 07/27/18 0920 Ramipril (Ramipril) 5 Mg Capsule, 5 MG PO HS, (Reported) Entered as Reported by: ANTONI THOMPSON on 03/08/20 115 Sotalol HCl (Sotalol) 80 Mg Tablet, 120 MG PO BID, (Reported) Entered as Reported by: REYES ONTIVEROS on 05/15/20 0825 Spironolactone (Spironolactone) 25 Mg Tablet, 25 MG PO HS, (Reported) Entered as Reported by: ANTONI THOMPSON on 03/08/20 1159 Review of Systems Constitutional: dizziness EENTM: see HPI Respiratory: no symptoms reported Cardiovascular: syncope Gastrointestinal: no symptoms reported Genitourinary: no symptoms reported Musculoskeletal: no symptoms reported Skin: other (Hematoma right forehead) Past Rjprqbs-Plmzdu-Qmsjam Hx Patient Social History Tobacco Use?: No Smoking Status: Former Smoker Substance use?: No Alcohol Use?: No Pt feels they are or have been: No Immunizations Up To Date Tetanus Booster (TDap): Unknown PED Vaccines UTD: No Influenza Vaccine Up-to-Date: Yes; Up-to-Date First/Initial COVID19 Vaccinat: 11/14/20 Second COVID19 Vaccination Sree: 12/2020 Seasonal Allergies Seasonal Allergies: Yes Past Medical History Surgery/Hospitalization HX: 4 VESSEL CABG 1998CODED DURING CARDIAC CATH AND STENT PLACEMENT [address] [facility]/DEFIBRILLATOR IN PLACELEFT TOTAL KNEE REPLACEMENT, GRACIELA, STIFF LEG, PACER, DEFIB HTN, AFIB Surgeries: Yes (ICD ON 09-11-15, L TKR, R LEG X5, ) Cardiac, CABG, Coronary Stent, Defibrillator, Gallbladder, Joint Replacement, Orthopedic, Pacemaker Respiratory: Yes Sleep Apnea Currently Using CPAP: Yes Currently Using BIPAP: No Cardiac: Yes Atrial Fibrillation, Coronary Artery Disease, Congenital Heart Disease, Deep Vein Thrombosis, Heart Attack, High Cholesterol, Hypertension Neurological: No Reproductive Disorders: No Sexually Transmitted Disease: No HIV/AIDS: No Genitourinary: Yes Kidney Stones Gastrointestinal: Yes Gastroesophageal Reflux Musculoskeletal: Yes (LEFT TOTAL KNEE REPLACEMENT) Arthritis, Gout Endocrine: Yes Diabetes, Non-Insulin dep HEENT: Yes (GLASSES) Cataract Loss of Vision: Denies Hearing Impairment: Denies Cancer: Yes Skin Did You Recieve Any Treatments: Yes What Type of Treatment Did You: Surgical Intervention Psychosocial: No Integumentary: No Blood Disorders: No Adverse Reaction/Blood Tranf: No (N/A) Family Medical History Hypertension Not obtainable due to adoption No Pertinent Family Hx PSH: -RIGHT FEUMUR FRACTURE SURGERY X 5 -RIGHT KNEE PATELLAR TENDON REPAIR -LEFT KNEE REPLACEMENT -CARDIAC CATHS WITH STENT X 1 -5 VESSEL CABG Physical Exam Vital Signs Vital Signs - First Documented 01/25/22 13:02 Temp 36.5 Pulse 78 Resp 20 B/P (MAP) 132/89 (103) Capillary Refill : Height, Weight, BMI Height: 5'9.00" Weight: 211lbs. 0.0oz. 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 II- XII Norm as Tested Coordination/Gait: Normal Finger to Nose Skin: Warm/Dry, Ecchymosis (Right anterior forehead) Progress/Results/Core Measures Results/Orders Lab Results Laboratory Tests Test 01/25/22 13:26 Range/Units White Blood Count 9.9 4.3-11.0 10^3/uL Red Blood Count 4.35 4.30-5.52 10^6/uL Hemoglobin 14.4 13.3-17.7 g/dL Hematocrit 42 40-54 % Mean Corpuscular Volume 96 80-99 fL Mean Corpuscular Hemoglobin 33 25-34 pg Mean Corpuscular Hemoglobin Concent 35 32-36 g/dL Red Cell Distribution Width 13.3 10.0-14.5 % Platelet Count 285 130-400 10^3/uL Mean Platelet Volume 9.7 9.0-12.2 fL Immature Granulocyte % (Auto) 1 % Neutrophils (%) (Auto) 83 H 42-75 % Lymphocytes (%) (Auto) 9 L 12-44 % Monocytes (%) (Auto) 7 0-12 % Eosinophils (%) (Auto) 1 0-10 % Basophils (%) (Auto) 1 0-10 % Neutrophils # (Auto) 8.2 H 1.8-7.8 X 10^3 Lymphocytes # (Auto) 0.9 L 1.0-4.0 X 10^3 Monocytes # (Auto) 0.6 0.0-1.0 X 10^3 Eosinophils # (Auto) 0.1 0.0-0.3 10^3/uL Basophils # (Auto) 0.0 0.0-0.1 10^3/uL Immature Granulocyte # (Auto) 0.1 0.0-0.1 10^3/uL Prothrombin Time 19.2 H 12.2-14.7 SEC INR Comment 1.6 H 0.8-1.4 Sodium Level 138 135-145 MMOL/L Potassium Level 4.1 3.6-5.0 MMOL/L Chloride Level 102 98-107 MMOL/L Carbon Dioxide Level 24 21-32 MMOL/L Anion Gap 12 5-14 MMOL/L Blood Urea Nitrogen 10 7-18 MG/DL Creatinine 0.86 0.60-1.30 MG/DL Estimat Glomerular Filtration Rate 84 BUN/Creatinine Ratio 12 Glucose Level 176 H 70-105 MG/DL Calcium Level 8.9 8.5-10.1 MG/DL Corrected Calcium 9.2 8.5-10.1 MG/DL Total Bilirubin 0.6 0.1-1.0 MG/DL Aspartate Amino Transf (AST/SGOT) 58 H 5-34 U/L Alanine Aminotransferase (ALT/SGPT) 73 H 0-55 U/L Alkaline Phosphatase 64 40-136 U/L Troponin I 0.120 H <0.028 NG/ML Total Protein 6.8 6.4-8.2 GM/DL Albumin 3.6 3.2-4.5 GM/DL My Orders Orders - NIKOLAS VAUGHN Ekg Tracing (01/25/22 13:26) Cbc With Automated Diff (01/25/22 13:26) Comprehensive Metabolic Panel (01/25/22 13:26) Protime With Inr (01/25/22 13:26) Ct Head Wo (01/25/22 13:26) Chest 1 View, Ap/Pa Only (01/25/22 13:26) Die Trimmer (01/25/22 13:26) Troponin I Hall (01/25/22 13:26) Ed Admission (Communication) (01/25/22 14:30) Vital Signs/I&O 01/25/22 13:02 Temp 36.5 Pulse 78 Resp 20 B/P (MAP) 132/89 (103) Blood Pressure Mean: 103 Departure Communication (Admissions) Time/Spoke to Admitting Phy: 14:[address] Chatman. Time/Spoke to Consulting Phy: 14:38 Dr. Donato would like us to stop digoxin but continue other meds Impression Primary Impression: Afib Additional Impression: Syncope Disposition: 09 ADMITTED INPATIENT Condition: Stable Admissions Decision to Admit Reason: Admit from ER (General) Decision to Admit/Date: Jan 25, 2022 Time/Decision to Admit Time: 14:38 Departure-Patient Inst. Referrals: ARELIS LOPEZ MD (PCP/Family) Primary Care Physician NIKOLAS VAUGHN Jan 25, 2022 13:34
[2022-01-25 13:38] LABS: WHITE BLOOD COUNT 9.9 10^3/uL (4.3-11.0)
[2022-01-25 13:39] LABS: BASOPHILS % (AUTO) 1 % (0-10); EOSINOPHILS % (AUTO) 1 % (0-10); HEMATOCRIT 42 % (40-54); HEMOGLOBIN 14.4 g/dL (13.3-17.7); LYMPHOCYTES % (AUTO) 9 % (12-44); MEAN CORPUSCULAR HEMOGLOBIN 33 pg (25-34); MEAN CORPUSCULAR HGB CONC 35 g/dL (32-36); MEAN CORPUSCULAR VOLUME 96 fL (80-99); MEAN PLATELET VOLUME 9.7 fL (9.0-12.2); MONOCYTES % (AUTO) 7 % (0-12); NEUTROPHILS % (AUTO) 83 % (42-75); PLATELET COUNT 285 10^3/uL (130-400)
[2022-01-25 13:40] LABS: EOSINOPHILS # (AUTO) 0.1 10^3/uL (0.0-0.3); LYMPHOCYTES # (AUTO) 0.9 X 10^3 (1.0-4.0); MONOCYTES # (AUTO) 0.6 X 10^3 (0.0-1.0); NEUTROPHILS # (AUTO) 8.2 X 10^3 (1.8-7.8)
[2022-01-25 13:53] LABS: INR 1.6 (0.8-1.4); PROTHROMBIN TIME PATIENT 19.2 SEC (12.2-14.7)
[2022-01-25 13:58] LABS: BILIRUBIN,TOTAL 0.6 MG/DL (0.1-1.0); CALCIUM 8.9 MG/DL (8.5-10.1); CREATININE SERUM 0.86 MG/DL (0.60-1.30); POTASSIUM 4.1 MMOL/L (3.6-5.0)
[2022-01-25 13:59] LABS: ALBUMIN 3.6 GM/DL (3.2-4.5); TOTAL PROTEIN 6.8 GM/DL (6.4-8.2)
--- NOTE | 2022-01-25 14:02 | Diagnostic Imaging Report ---
PROCEDURE: CT head without contrast. TECHNIQUE: Multiple contiguous axial images were obtained through the brain without the use of intravenous contrast. Auto Exposure Controls were utilized during the CT exam to meet ALARA standards for radiation dose reduction. DATE: January 25, 2022. COMPARISON: CT head, face, and cervical spine October 26, 2019. INDICATION: 86-year-old male, fall. Dizziness. FINDINGS: There is no identified skull fracture. The visualized portions of the paranasal sinuses, mastoid air cells, and middle ears are well-aerated. There is proportional prominence of the ventricles and additional CSF spaces consistent with moderate to severe cerebral volume loss. There is no identified abnormal extra-axial fluid collection. There is no evidence of acute intracranial hemorrhage. There is no mass effect or midline shift. IMPRESSION: 1. No identified acute intracranial abnormality. 2. Moderate to severe cerebral volume loss. Dictated by: Dictated on workstation # [id number]
--- NOTE | 2022-01-25 14:03 | Diagnostic Imaging Report ---
EXAM: Portable erect AP chest at 1:42 PM INDICATION: Dizziness FINDINGS: The heart size is within normal limits and stable when compared to 03/21/2021. The sternotomy wires, surgical clips and the left-sided defibrillator device seen on the prior study, are again evident and no different. The previous exam did note that the right lung base was partially opacified by atelectasis/infiltrate and fluid. The right lower lobe does seem better aerated on this exam but there is some recurrent pneumonia/atelectasis and fluid noted in the right lung base. The right upper lung and left lung are generally clear. The mediastinum is not widened. The osseous structures are intact. IMPRESSION: The increased density in the right lung base does suggest recurrent pneumonia/atelectasis and a small right pleural effusion. A follow-up exam would be recommended for continued evaluation. Dictated by: Dictated on workstation # [id number]
[2022-01-25] MEDS ORDERED: ONDANSETRON 4 MG (ZOFRAN) ORAL DISSOLVE TAB PO PRN (16:30)
[2022-01-25] MEDS ORDERED: AZITHROMYCIN INJECTION 500 MG in NS (IVPB) 250 ML IV ONE (16:30)
[2022-01-25] MEDS ORDERED: NITROGLYCERIN 0.4 MG SL TABS BTL 25'S SL PRN (16:30)
[2022-01-25] MEDS ORDERED: MELATONIN 3 MG TABLET PO PRN (16:30)
[2022-01-25] MEDS ORDERED: BISACODYL 10 MG SUPP (DULCOLAX) PR PRN (16:30)
[2022-01-25] MEDS ORDERED: polyethylene glycoL POWDER 17 GM (MIRALAX) PACK PO PRN (16:30)
[2022-01-25] MEDS ORDERED: ACETAMINOPHEN 325 MG TABLET PO PRN (16:30)
[2022-01-25] MEDS ORDERED: NALOXONE 0.4 MG/ML 1 ML (NARCAN) VIAL IV PRN (16:30)
[2022-01-25] MEDS ORDERED: CALCIUM CARBONATE 500 MG (TUMS) TAB.CHEW PO PRN (16:30)
[2022-01-25] MEDS ORDERED: ALPRAZolam 0.25 MG (XANAX) TAB PO PRN (16:30)
[2022-01-25] MEDS ORDERED: diphenhydrAMINE 50 MG/ML INJ (BENADRYL) IVP PRN (16:30)
[2022-01-25] MEDS ORDERED: PATIENT MAY USE OWN MEDS, ALL PO SCH (16:30)
[2022-01-25] MEDS ORDERED: LACTULOSE SYRUP 10GM/15ML (ENULOSE) 30ML UDC PO PRN (16:30)
[2022-01-25] MEDS ORDERED: MILK OF MAGNESIA 400 MG/5 ML 30 ML UDC PO PRN (16:30)
[2022-01-25] MEDS ORDERED: ONDANSETRON 4 MG/2 ML (SDV) Z0FRAN IV PRN (16:30)
[2022-01-25] MEDS ORDERED: morphine INJ 4 MG/ML 1 ML (VIAL/SYRINGE) IV PRN (16:30)
[2022-01-25] MEDS ORDERED: ANTACID SUSP 30 ML UDC (MYLANTA) PO PRN (16:30)
[2022-01-25] MEDS ORDERED: diphenhydrAMINE 25 MG TAB (BENADRYL) PO PRN (16:30)
[2022-01-25] MEDS ORDERED: RT-ALBUTEROL SULF 2.5 MG/3 ML PRE-MIX VIAL INH PRN (18:00)
--- NOTE | 2022-01-25 18:06 | History & Physical-Hospitalist ---
History of Present Illness HPI/Chief Complaint CC: Syncope HPI: This is an 86yoWM clinic patient of Dr Dominguez who presents to the ER following a syncopal episode. He has a h/o defib and pacemaker placement. Patient also has a h/o CABG and stents. He fell and hit his head but CT was normal. Patient is feeling well now but in need of observation and Tely monitoring with Cards consult. ER HPI: This is an 86-year-old male with a history of coronary artery disease with previous four-vessel bypass and one cardiac stent that presents to the emergency room for evaluation of a syncopal event. He states that he was in his bathroom sitting on the toilet shaving and apparently lost consciousness. He did strike the right side of his head during his fall. He is not sure how long he was unconscious for but states it could not of been very long. His son is the one that found him. Patient states that he also woke up yesterday feeling lightheaded/dizzy but it seemed to resolve throughout the day. He otherwise denies active chest pain, shortness of breath, weakness, nausea, vomiting, diarrhea or other symptoms. Source: patient Exam Limitations: no limitations Date Seen 01/25/22 Time Seen by a Provider: 19:00 Attending Physician Ren Watson MD PCP Admitting Physician: Sonam Chatman DO Attending Physician: Sonam Chatman DO Referring Physician Date of Admission Jan 25, 2022 at 14:37 Home Medications & Allergies Home Medications Reviewed patient Home Medication Reconciliation performed by pharmacy medication reconciliations sanitation technician and/or nursing. Patients Allergies have been reviewed. Allergies Allergies Coded Allergies No Known Drug Allergies (Unverified03/08/20) Past Tauzfei-Bkumra-Wjpfaf Hx Patient Social History Marrital Status: single Employed/Student: retired Tobacco Use?: No Smoking Status: Former Smoker Use of E-Cig and/or Vaping dev: No Substance use?: No Alcohol Use?: No Pt feels they are or have been: No Immunizations Up To Date Date of Influenza Vaccine: May 08, 2020 First/Initial COVID19 Vaccinat: 11/14/20 Second COVID19 Vaccination Sree: 12/2020 Tetanus Booster (TDap): Unknown PED Vaccines UTD: No Date of Pneumonia Vaccine: Jun 05, 2011 Seasonal Allergies Seasonal Allergies: Yes Current Status Advance Directives: No Communicates: Verbally Primary Language: Kyrgyz Preferred Spoken Language: Kyrgyz Is interpretation needed?: No Sensory deficits: Vision impairment Implanted or Applied Medical D: Pacemaker Past Medical History Surgeries: Cardiac, CABG, Coronary Stent, Defibrillator, Gallbladder, Joint Replacement, Orthopedic, Pacemaker Sleep Apnea Currently Using CPAP: Yes Currently Using BIPAP: No Atrial Fibrillation, Coronary Artery Disease, Congenital Heart Disease, Deep Vein Thrombosis, Heart Attack, High Cholesterol, Hypertension Sexually Transmitted Disease: No HIV/AIDS: No Kidney Stones Gastroesophageal Reflux Arthritis, Gout Diabetes, Non-Insulin dep Cataract Loss of Vision: Denies Hearing Impairment: Denies Skin Did You Recieve Any Treatments: Yes What Type of Treatment Did You: Surgical Intervention Blood Disorders: No Adverse Reaction/Blood Tranf: No (N/A) Family Medical History Hypertension Not obtainable due to adoption No Pertinent Family Hx PSH: -RIGHT FEUMUR FRACTURE SURGERY X 5 -RIGHT KNEE PATELLAR TENDON REPAIR -LEFT KNEE REPLACEMENT -CARDIAC CATHS WITH STENT X 1 -5 VESSEL CABG Review of Systems Constitutional: see HPI, dizziness, malaise, weakness EENTM: no symptoms reported Respiratory: no symptoms reported Cardiovascular: no symptoms reported Gastrointestinal: no symptoms reported Genitourinary: no symptoms reported Musculoskeletal: no symptoms reported Skin: no symptoms reported Psychiatric/Neurological: No Symptoms Reported All Other Systems Reviewed Negative Unless Noted: Yes Physical Exam Physical Exam Vital Signs Vital Signs - First Documented 01/25/22 01/25/22 01/25/22 01/25/22 13:02 17:00 17:54 18:02 Temp 36.5 Pulse 78 Resp 20 B/P (MAP) 132/89 (103) Pulse Ox 95 O2 Flow Rate 0.00 FiO2 21 Capillary Refill : Height, Weight, BMI Height: 5'9.00" Weight: 211lbs. 0.0oz. 95.604862ya; 30.00 BMI Method:Stated General Appearance: No Apparent Distress, Chronically ill Eyes: Right Eye Normal Inspection, Right Eye PERRL HEENT: PERRL/EOMI, Normal ENT Inspection, Pharynx Normal, Moist Mucous Membranes Neck: Full Range of Motion, Normal Inspection, Non Tender Respiratory: Chest Non Tender, Lungs Clear, Normal Breath Sounds, No Accessory Muscle Use, No Respiratory Distress Cardiovascular: Regular Rate, Rhythm, No Edema, No Gallop, No JVD, No Murmur, Normal Peripheral Pulses Gastrointestinal: Normal Bowel Sounds, No Organomegaly, No Pulsatile Mass, Non Tender, Soft Back: Normal Inspection, No CVA Tenderness, No Vertebral Tenderness Extremity: Normal Capillary Refill, Normal Inspection, Normal Range of Motion, Non Tender, No Calf Tenderness, No Pedal Edema Neurologic/Psychiatric: Alert, Oriented x3, No Motor/Sensory Deficits, Normal Mood/Affect Skin: Normal Color, Warm/Dry Lymphatic: No Adenopathy Results Results/Procedures Labs Laboratory Tests 01/25/22 13:26 Patient resulted labs reviewed. Assessment/Plan Admission Diagnosis Assessment: Syncope NSTEMI Defib/Pacemaker in place CAD CABG Coronary stents HTN HLP Plan: Tely Monitor closely ASA Home meds Admission Status: Observation Reason for Inpatient Admission: NSTEMI syncope SONAM CHATMAN DO Jan 25, 2022 18:06
[2022-01-25] MEDS: cefTRIAXone 1 GM PRE-MIX 50 ML IV SCH (18:38)
[2022-01-25] MEDS: NS IV 1000 ML 1,000 ML IV SCH (18:38)
[2022-01-25] MEDS ORDERED: TMSL.4C PO (19:48)
[2022-01-25] MEDS ORDERED: DILT-27 PO (19:48)
[2022-01-25] MEDS ORDERED: METF-397 PO (19:49)
[2022-01-25] MEDS ORDERED: RIVA20TA PO (19:51)
[2022-01-25] MEDS ORDERED: NON-FORMULARY MEDICATION 1 EA EA (Ascorbic Acid (Vitamin C) 1,000 MG) PO PRN (20:15)
[2022-01-25] MEDS ORDERED: LIDOCAINE 4% (SALONPAS) PATCH TP PRN (20:15)
[2022-01-25] MEDS ORDERED: APIXABAN 5 MG (ELIQUIS) TABLET PO SCH (21:00)
[2022-01-25] MEDS ORDERED: RIVAROXABAN 20 MG TABLET (XARELTO) PO SCH (21:00)
[2022-01-25] MEDS ORDERED: SPIRONOLACTONE 25 MG (ALDACTONE) TAB PO SCH (21:00)
[2022-01-25] MEDS ORDERED: RAMIPRIL 5 MG PO SCH (21:00)
[2022-01-25] MEDS ORDERED: OMEGA-3 ACID ETHYL ESTERS 1 GM (LOVAZA) NON-FORMULARY PO SCH (21:00)
[2022-01-25] MEDS ORDERED: TAMSULOSIN 0.4 MG (FLOMAX) CAP PO SCH (21:00)
[2022-01-25] MEDS ORDERED: SOTALOL 80 MG (BETAPACE) TAB PO SCH ×2 (21:00)
[2022-01-25] MEDS: DOCUSATE SODIUM 100 MG (COLACE) CAP PO SCH (21:11)
[2022-01-25] MEDS: SENNOSIDES 8.6 MG (SENOKOT) TAB PO SCH (21:11)
[2022-01-26] VITALS (19 sets, daily range): BP systolic 102–143; BP diastolic 54–109
[2022-01-26 05:37] LABS: BASOPHILS # (AUTO) 0.1 10^3/uL (0.0-0.1); BASOPHILS % (AUTO) 1 % (0-10); EOSINOPHILS # (AUTO) 0.2 10^3/uL (0.0-0.3); EOSINOPHILS % (AUTO) 2 % (0-10); HEMATOCRIT 39 % (40-54); HEMOGLOBIN 13.2 g/dL (13.3-17.7); LYMPHOCYTES # (AUTO) 1.3 10^3/uL (1.0-4.0); LYMPHOCYTES % (AUTO) 17 % (12-44); MEAN CORPUSCULAR HEMOGLOBIN 33 pg (25-34); MEAN CORPUSCULAR HGB CONC 34 g/dL (32-36); MEAN CORPUSCULAR VOLUME 96 fL (80-99); MONOCYTES # (AUTO) 0.7 10^3/uL (0.0-1.0); MONOCYTES % (AUTO) 9 % (0-12); NEUTROPHILS # (AUTO) 5.5 10^3/uL (1.8-7.8); NEUTROPHILS % (AUTO) 70 % (42-75); PLATELET COUNT 258 10^3/uL (130-400); WHITE BLOOD COUNT 7.8 10^3/uL (4.3-11.0)
[2022-01-26 05:59] LABS: ALBUMIN 3.4 GM/DL (3.2-4.5)
[2022-01-26 06:00] LABS: CALCIUM 8.7 MG/DL (8.5-10.1)
[2022-01-26 06:02] LABS: TOTAL PROTEIN 6.3 GM/DL (6.4-8.2)
[2022-01-26 06:04] LABS: BILIRUBIN,TOTAL 0.8 MG/DL (0.1-1.0)
[2022-01-26 06:05] LABS: CREATININE SERUM 0.79 MG/DL (0.60-1.30)
--- NOTE | 2022-01-26 06:15 | Diagnostic Imaging Report ---
INDICATION: Pneumonia. COMPARISON: 01/25/2022 FINDINGS: Single frontal radiographic view of the chest was obtained and demonstrates [id number] right-sided effusion. This does appear slightly increased in volume compared to prior exam. There is no large effusion on the left. No pneumothorax is seen on either side. Cardiac silhouette and pulmonary vasculature are within normal limits. Sternotomy wires and left-sided AICD are noted. IMPRESSION: 1. Interval increase in right basilar effusion. Dictated by: Dictated on workstation # [id number]
[2022-01-26] MEDS: NS IV 1000 ML 1,000 ML IV SCH (06:48)
[2022-01-26] MEDS ORDERED: metFORMIN 500 MG (GLUCOPHAGE) TAB PO SCH (08:00)
--- NOTE | 2022-01-26 08:41 | Consultation-Cardiology ---
HPI-Cardiology Cardiology Consultation: Date of Consultation 01/26/22 Time Seen by a Provider: 08:25 Date of Admission 01-25-22 Attending Physician Ren Watson MD Admitting Physician Admitting Physician: Sonam Chatman DO Attending Physician: Sonam Chatman DO Consulting Physician Rachel Donato MD Primary Language Specialist: Dr. Dominguez HPI: Chief Complaint: Syncope Mr. Turpin is an 86 yr old male admitted to 512 from the ED post syncopal fall. He reports he woke up Wednesday morning and got out of bed to do his normal morning routine. He states he felt weak and dizzy at the time. He states he went to lie back down in bed for about 15 minutes and the symptoms resolved and did not return for the rest of the day. He reports he got up yesterday morning and again was getting ready for sabianism. He reports he again felt weak, shaky, dizzy and so he then sat down on the toilet. He reports the next thing he recalls he was lying on the bathroom floor. He reports he thinks he was out for a few minutes, but he is unsure. He was unable to get up on his own, so he called out for his son (whom he lives with). His son then summoned EMS. He reports he has been compliant with his CPAP at home. He reports no further e pisodes since hospital admission. No c/o n/v/d. No c/o fever or chills. No c/o cough. No c/o SOB at this time. No c/o LE swelling. Review of Systems-Cardiology Review of Systems Constitutional: No chills, No fever; lightheadedness, malaise Eyes: No vision change Ears/Nose/Throat: No epistaxis, No recent hearing loss Respiratory: As described under HPI Cardiovascular: As described under HPI Gastrointestinal: As described under HPI Genitourinary: No dysuria, No hematuria Skin: other (multiple bruises to hands, arms, face); No rash on exposed areas, No ulcerations on exposed areas Psychiatric/Neurological: syncope Hematologic: easy bleeding, easy bruising; No bleeding abnormalities All Other Systems Reviewed Negative Unless Noted: Yes [id number]-[id number] Hx Patient Social History Marrital Status: single Employed/Student: retired Smoking Status: Former Smoker Former smoker/When Quit: Sep 11, 1965 2nd Hand Smoke Exposure: No Have you traveled recently?: No Alcohol Use?: No Pt feels they are or have been: No Immunizations Up To Date Tetanus Booster (TDap): Unknown Date of Pneumonia Vaccine: Jun 05, 2011 Date of Influenza Vaccine: May 08, 2020 Past Medical History PMH As described under Assessment. Family Medical History Family Medical History: No reported family h/o CAD Family History: Hypertension Not obtainable due to adoption Allergies and Home Medications Allergies Coded Allergies: No Known Drug Allergies (Unverified , 03/08/20) Patient Home Medication List Allopurinol (Allopurinol) 300 Mg Tablet, 300 MG PO DAILY, (Reported) Entered as Reported by: ANTONI THOMPSON on 03/08/20 1159 Last Action: Reviewed Atorvastatin Calcium (Atorvastatin Calcium) 10 Mg Tablet, 10 MG PO DAILY, (Reported) Entered as Reported by: REYES ONTIVEROS on 05/15/20824 Last Action: Reviewed Digoxin (Digox) 125 Mcg Tablet, 125 MCG PO 1800, (Reported) Entered as Reported by: EVELYNE CELESTE on 07/27/18916 Last Action: Reviewed Diltiazem HCl (Diltiazem 24Hr ER) 120 Mg Cap.er.24h, 120 MG PO DAILY, (Reported) Entered as Reported by: YARELI GARCIA on 01/25/221947 Last Action: Reviewed Docusate Sodium (Colace) 100 Mg Capsule, 100 MG PO DAILY PRN for CONSTIPATION- 1ST LINE, (Reported) Entered as Reported by: REYES ONTIVEROS on 05/15/20824 Last Action: Reviewed Escitalopram Oxalate (Escitalopram Oxalate) 10 Mg Tablet, 10 MG PO DAILY, (Reported) Entered as Reported by: CALI TORRES on 06/05/15 1001 Last Action: Reviewed Furosemide (Furosemide) 20 Mg Tablet, 20 MG PO DAILY, (Reported) Entered as Reported by: EVELYNE CELESTE on 07/27/18918 Last Action: Reviewed Metformin HCl (Metformin HCl) 500 Mg Tablet, 500 MG PO DAILY, (Reported) Entered as Reported by: YARELI GARCIA on 01/25/221948 Last Action: Reviewed Multivitamin (Multivitamin) 1 Each Tablet, 1 EACH PO DAILY, (Reported) Entered as Reported by: REYES ONTIVEROS on 01/26/22 1040 Last Action: Reviewed Tyler-3 Acid Ethyl Esters (Lovaza) 1 Gm Capsule, 2 GM PO BID, (Reported) Entered as Reported by: REYES ONTIVEROS on 05/15/20827 Last Action: Reviewed Omeprazole (Omeprazole) 20 Mg Tablet.dr, 20 MG PO DAILY, (Reported) Entered as Reported by: ANTONI THOMPSON on 03/08/201158 Last Action: Reviewed Potassium Chloride (Potassium Chloride) 10 Meq Capsule.er, 10 MEQ PO DAILY, (Reported) Entered as Reported by: EVELYNE CELESTE on 07/27/18919 Last Action: Reviewed Ramipril (Ramipril) 5 Mg Capsule, 5 MG PO 1800, (Reported) Entered as Reported by: ANTONI THOMPSON on 03/08/201158 Last Action: Reviewed Rivaroxaban (Xarelto) 20 Mg Tablet, 20 MG PO 1800, (Reported) Entered as Reported by: YARELI GARCIA on 01/25/221950 Last Action: Reviewed Spironolactone (Spironolactone) 25 Mg Tablet, 25 MG PO 1800, (Reported) Entered as Reported by: ANTONI THOMPSON on 03/08/201158 Last Action: Reviewed Tamsulosin HCl (Flomax) 0.4 Mg Cap, 0.4 MG PO 1800, (Reported) Entered as Reported by: YARELI GARCIA on 01/25/221947 Last Action: Reviewed Discontinued Medications Apixaban (Eliquis) 5 Mg Tablet, 5 MG PO BID, (Reported) Discontinued Reason: No Longer Taking Entered as Reported by: REYES ONTIVEROS on 05/15/20824 Last Action: Discontinued Ascorbic Acid (Vitamin C) 1,000 Mg Tablet, 1,000 MG PO DAILY PRN for IMMUNE SYSTEM, (Reported) Discontinued Reason: No Longer Taking Entered as Reported by: REYES ONTIVEROS on 05/15/20824 Last Action: Discontinued Lidocaine (Lidocaine 5% Patch) 1 Each Adh..patch, 1 EACH TP Q12H PRN for Neuropathic pain Discontinued Reason: Duplicate Order Prescribed by: ALINA SCRUGGS on 03/22/21 0050 Last Action: Discontinued Metformin HCl (Metformin HCl) 500 Mg Tablet, 500 MG PO BID, (Reported) Discontinued Reason: New Order Entered as Reported by: IRMA HELMS on 09/11/15 1247 Last Action: Discontinued Sotalol HCl (Sotalol) 80 Mg Tablet, 120 MG PO BID, (Reported) Discontinued Reason: No Longer Taking Entered as Reported by: REYES ONTIVEROS on 05/15/20 0893 Last Action: Discontinued Physical Exam-Cardiology Physical Exam Vital Signs/I&O 01/26/22 01/27/22 01/27/22 01/27/22 23:44 00:00 00:39 01:00 Temp 36.1 Pulse 77 76 73 Resp 12 8 19 B/P (MAP) 114/62 (79) 114/68 (84) 97/87 (88) Pulse Ox 93 93 92 O2 Delivery Room Air Room Air Room Air 01/27/22 01/27/22 01/27/22 01/27/22 01:00 01:40 02:00 03:00 Pulse 73 74 67 78 Resp 16 28 B/P (MAP) 125/57 (93) 120/74 (93) Pulse Ox 92 92 89 O2 Delivery Nasal Cannula Nasal Cannula Nasal Cannula O2 Flow Rate 2.00 2.00 2.00 01/27/22 01/27/22 01/27/22 01/27/22 04:00 04:39 05:01 06:00 Temp 36.2 Pulse 66 77 63 Resp 12 14 11 B/P (MAP) 120/74 (89) 124/78 (93) 128/45 (72) Pulse Ox 92 93 94 O2 Delivery Nasal Cannula Room Air Nasal Cannula Nasal Cannula O2 Flow Rate 2.00 2.00 2.00 01/27/22 01/27/22 01/27/22 01/27/22 06:26 08:00 08:05 08:20 Temp 35.7 Pulse 55 90 B/P (MAP) 131/68 (89) Pulse Ox 92 O2 Delivery Nasal Cannula Room Air Room Air O2 Flow Rate 2.00 01/26/22 23:59 Intake Total 440 ml Balance 440 ml Capillary Refill : Constitutional: AAO x 3, well-developed, well-nourished HEENT: PERRL, hearing is well preserved, oral hygience is good Neck: No carotid bruit; carotid pulses are 2 + bilaterally Respiratory: No accessory muscle use, No respiratory distress; chest expansion is symmetric, chest is bilaterally symmetric, other (diminished RLL) Cardiovascular: irregularly irregular; No JVD; bradycardia (intermittently) Gastrointestinal: No tender; soft, round, audible bowel sounds Extremities: no lower extremity edema bilateral Neurologic/Psychiatric: grossly intact (moves all extremities) Skin: other (bruises to right hand; dressing to left hand (not removed, D&I). Bruise to right side of forehead) Data Review Labs Laboratory Tests 01/27/22 05:32: White Blood Count 7.8, Red Blood Count 4.14L, Hemoglobin 13.7, Hematocrit 39L, Mean Corpuscular Volume 95, Mean Corpuscular Hemoglobin 33, Mean Corpuscular Hemoglobin Concent 35, Red Cell Distribution Width 13.2, Platelet Count 257, Mean Platelet Volume 10.1, Immature Granulocyte % (Auto) 0, Neutrophils (%) (Auto) 71, Lymphocytes (%) (Auto) 17, Monocytes (%) (Auto) 8, Eosinophils (%) (Auto) 3, Basophils (%) (Auto) 1, Neutrophils # (Auto) 5.5, Lymphocytes # (Auto) 1.3, Monocytes # (Auto) 0.6, Eosinophils # (Auto) 0.2, Basophils # (Auto) 0.1, Immature Granulocyte # (Auto) 0.0, Sodium Level 135, Potassium Level 3.9, Chloride Level 101, Carbon Dioxide Level 22, Anion Gap 12, Blood Urea Nitrogen 16, Creatinine 0.84, Estimat Glomerular Filtration Rate 85, BUN/Creatinine Ratio 19, Glucose Level 149H, Calcium Level 9.1, Corrected Calcium 9.6, Magnesium Level 1.6, Total Bilirubin 0.7, Aspartate Amino Transf (AST/SGOT) 33, Alanine Aminotransferase (ALT/SGPT) 53, Alkaline Phosphatase 59, Total Protein 6.4, Albumin 3.4 Radiology NAME: NOLBERTO TURPIN [facility] REC#: [id number] PT STATUS: ADM Sheila : 1935 PHYSICIAN: SONAM CHATMAN DO ADMIT DATE: 01/25/22/[facility] Draft Date of Exam:01/26/22 CHEST 1 VIEW, AP/PA ONLY INDICATION: Pneumonia. COMPARISON: 01/25/2022 FINDINGS: Single frontal radiographic view of the chest was obtained and demonstrates [id number] right-sided effusion. This does appear slightly increased in volume compared to prior exam. There is no large effusion on the left. No pneumothorax is seen on either side. Cardiac silhouette and pulmonary vasculature are within normal limits. Sternotomy wires and left-sided AICD are noted. IMPRESSION: 1. Interval increase in right basilar effusion. Dictated on workstation # [id number] Dict: 01/26/22612 Trans: 01/26/22614 [id number] Interpreted by: JERSEY JONES MD Electronically signed by: NAME: NOLBERTO TURPIN [facility] REC#: [id number] PT STATUS: REG ER : 1935 PHYSICIAN: NIKOLAS VAUGHN ADMIT DATE: 01/25/22/ER Signed Date of Exam:01/25/22 CT HEAD WO PROCEDURE: CT head without contrast. TECHNIQUE: Multiple contiguous axial images were obtained through the brain without the use of intravenous contrast. Auto Exposure Controls were utilized during the CT exam to meet ALARA standards for radiation dose reduction. DATE: January 25, 2022. COMPARISON: CT head, face, and cervical spine October 26, 2019. INDICATION: 86-year-old male, fall. Dizziness. FINDINGS: There is no identified skull fracture. The visualized portions of the paranasal sinuses, mastoid air cells, and middle ears are well-aerated. There is proportional prominence of the ventricles and additional CSF spaces consistent with moderate to severe cerebral volume loss. There is no identified abnormal extra-axial fluid collection. There is no evidence of acute intracranial hemorrhage. There is no mass effect or midline shift. IMPRESSION: 1. No identified acute intracranial abnormality. 2. Moderate to severe cerebral volume loss. Dictated by: Dictated on workstation # [id number] Dict: 01/25/22 1353 Trans: 01/25/22 1414 [facility] [id number] Interpreted by: ALBARO BELL MD Electronically signed by: ALBARO BELL MD 01/25/22 1414 A/P-Cardiology Assessment/Admission Diagnosis Syncope of undetermined etiology - possibly secondary to bradycardia - episodes of a-fib with slow ventricular response - reduce rate lowering medications (Dig already stopped) Permanent atrial fibrillation with somewhat slow vent response on ECG o 01-26-22 - OAC with Xarelto - [id number] score of 6, yearly risk of stroke without oral anticoagulation is 9.[address] Dominguez Pneumonia - management per medical services Shortness of breath on exertion - chronic History of elevated liver enzymes - remains elevated - not suitable candidate for statin Coronary artery disease - H/O angioplasty in 1989 (details unknown) - CABG 4 in 1997 - H/O stent in 2004 after a heart attack, had sudden during the procedure per Dr. Dominguez records - Most recent cardiac catheterization done in June 05, [address] Dominguez revealed 3 patent bypass grafts. Vein graft to the right coronary artery, vein graft to the diagonal artery, and CHRISTINA to LAD with excellent flow in the system. Totally occluded circumflex artery with no bypass to the obtuse marginal system. Receiving collaterals from the right coronary system EF 30 percent. - Stress test done in May 2017 and repeat stress test was done in November [address] Dominguezshowing fixed defect involving the inferior wall and inferoapex and true apex, no change compared to the previous stress test, ejection fraction 27% ICM - LVEF 40-45% per echo in Mar [address] Dominguez - LVEF 27% per MPI of November [address] 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 Dominguez showing ejection fraction 40-45 percent, dilated left atrium measuring 4.92 cm, mild MR, mild AR, PA 30-35 mmHg. Peripheral edema - chronic, no change from baseline Hypertension Hyperlipidemia - previous liver enzyme elevation - statin stopped - restarted by Dr. Dominguez - liver enzymes are currently elevated - hold statin for now Carotid arterial dz - Mild bilateral nonobstructive carotid artery stenosis per carotid duplex done in March [address] Dominguez Diabetes mellitus - managed by PCP Arthritis Sleep apnea - on CPAP Discussion and Recomendations Syncope of undetermined etiology - possibly secondary to bradycardia - Digoxin already stopped - Will stop Sotalol since it has not been effective in maintaining SR - Will stop Cardizem CD as well - Continue to monitor - may consider Holter monitor as out pt Elevated liver enzymes of undetermined etiology - stop statin - management per medical services Minimally elevated troponin - possible Type 2 WA d/t transient hypoxia - trending down - no c/o CP Continue OAC with Xarelto fro stroke prophylaxis Mangement of ? pneumonia - per medical services Monitor lab closely - replace electrolytes as indicated Further recs will be based on his hospital course We would like to thank medical services for this consult LOUIE WYMAN Jan 26, 2022 08:41
[2022-01-26] MEDS ORDERED: ALLOPURINOL 300 MG (ZYLOPRIM) TAB PO SCH (09:00)
[2022-01-26] MEDS: DOCUSATE SODIUM 100 MG (COLACE) CAP PO SCH ×2 (09:00→20:10)
[2022-01-26] MEDS ORDERED: NON-FORMULARY MEDICATION 1 EA EA (Potassium Chloride 10 MEQ) PO SCH (09:00)
[2022-01-26] MEDS ORDERED: NON-FORMULARY MEDICATION 1 EA EA (Escitalopram Oxalate 10 MG) PO SCH (09:00)
[2022-01-26] MEDS ORDERED: dilTIAZem120 MG (CARDIZEM CD) CAP PO SCH ×2 (09:00→09:07)
[2022-01-26] MEDS ORDERED: FUROSEMIDE 20 MG (LASIX) TAB PO SCH (09:00)
[2022-01-26] MEDS ORDERED: DOCUSATE SODIUM 100 MG (COLACE) CAP PO SCH (09:00)
[2022-01-26] MEDS: MULTIVITAMIN PO SCH ×2 (09:00→13:35)
[2022-01-26] MEDS: SENNOSIDES 8.6 MG (SENOKOT) TAB PO SCH ×2 (09:00→20:10)
--- NOTE | 2022-01-26 09:17 | Progress Note - Hospitalist ---
Subjective HPI/CC On Admission Date Seen by Provider: Jan 26, 2022 Time Seen by Provider: 09:00 CC: Syncope HPI: This is an 86yoWM clinic patient of Dr Dominguez who presents to the ER following a syncopal episode. He has a h/o defib and pacemaker placement. Patient also has a h/o CABG and stents. He fell and hit his head but CT was normal. Patient is feeling well now but in need of observation and Tely monitoring with Cards consult. ER HPI: This is an 86-year-old male with a history of coronary artery disease with pr evious four-vessel bypass and one cardiac stent that presents to the emergency room for evaluation of a syncopal event. He states that he was in his bathroom sitting on the toilet shaving and apparently lost consciousness. He did strike the right side of his head during his fall. He is not sure how long he was unconscious for but states it could not of been very long. His son is the one that found him. Patient states that he also woke up yesterday feeling lightheaded/dizzy but it seemed to resolve throughout the day. He otherwise denies active chest pain, shortness of breath, weakness, nausea, vomiting, diarrhea or other symptoms. Subjective/Events-last exam Pt is doing pretty well Heart rate is 56 Holding Digoxin Sotolol not working since he is now in afib Holding Cardizem Hep locking IV fluid PT and OT will be initiated Review of Systems General: Fatigue, Malaise Objective Exam Vital Signs Vital Signs Date Time Temp Pulse Resp B/P (MAP) Pulse Ox O2 Delivery O2 Flow Rate FiO2 01/27/22 05:01 77 14 124/78 (93) 93 Nasal Cannula 2.00 01/27/22 04:00 36.2 01/25/22 17:54 21 Capillary Refill : General Appearance: No Apparent Distress, WD/WN, Chronically ill Respiratory: Lungs Clear Cardiovascular: No Edema, Bradycardia Neurologic/Psychiatric: Alert, Oriented x3, No Motor/Sensory Deficits, Normal Mood/Affect Results/Procedures Lab Laboratory Tests 01/27/22 05:32 Patient resulted labs reviewed. Assessment/Plan Assessment and Plan Assess & Plan/Chief Complaint Assessment: Syncope NSTEMI Bradycardia Defib/Pacemaker in place CAD CABG Coronary stents HTN HLP Plan: Tely Monitor closely [facility] BRIDGER WHARTON DO Jan 26, 2022 09:16
[2022-01-26] MEDS ORDERED: MULT-1136 PO (10:40)
[2022-01-26] MEDS: AtorvaSTATin TABLET 10 MG TABLET PO SCH (10:56)
[2022-01-26] MEDS: ASPIRIN 81 MG CHEW (CHILDREN'S ASA) PO SCH (10:56)
[2022-01-26] MEDS: metFORMIN 500 MG (GLUCOPHAGE) TAB PO SCH (10:57)
[2022-01-26] MEDS: KCL 10 MEQ TAB (MICRO K) PO SCH (10:58)
[2022-01-26] MEDS: OMEGA-3 ACID ETHYL ESTERS 1 GM (LOVAZA) NON-FORMULARY PO SCH ×2 (10:58→20:10)
[2022-01-26] MEDS: FUROSEMIDE 20 MG (LASIX) TAB PO SCH (10:59)
[2022-01-26] MEDS: ALLOPURINOL 300 MG (ZYLOPRIM) TAB PO SCH (11:00)
[2022-01-26] MEDS: ESCITALOPRAM OXALATE PO SCH (11:01)
[2022-01-26] MEDS: OMEPRAZOLE PO SCH (11:02)
--- NOTE | 2022-01-26 13:00 | Consultation-Cardiology ---
HPI-Cardiology Cardiology Consultation: Date of Consultation 01/26/22 Time Seen by a Provider: 09:50 Date of Admission Attending Physician Ren Watson MD Admitting Physician Admitting Physician: Sonam Chatman DO Attending Physician: Sonam Chatman DO Consulting Physician RONALD MCGHEE MD, MA, FACP, [facility], [facility] [place], [facility] HPI: Chief Complaint: Syncope Mr. Turpin is an 86 yr old male admitted to 512 from the ED post syncopal fall. He reports he woke up Wednesday morning and got out of bed to do his normal morning routine. He states he felt weak and dizzy at the time. He states he went to lie back down in bed for about 15 minutes and the symptoms resolved and did not return for the rest of the day. He reports he got up yesterday morning and again was getting ready for uatsdin. He reports he again felt weak, shaky, dizzy and so he then sat down on the toilet. He reports the next thing he recalls he was lying on the bathroom floor. He reports he thinks he was out for a few minutes, but he is unsure. He was unable to get up on his own, so he called out for his son (whom he lives with). His son then summoned EMS. He reports he has been compliant with his CPAP at home. He reports no further episodes since hospital admission. No c/o n/v/d. No c/o fever or chills. No c/o cough. No c/o SOB at this time. No c/o LE swelling. Review of Systems-Cardiology Review of Systems Constitutional: No chills, No fever; lightheadedness, malaise Eyes: No vision change Ears/Nose/Throat: No epistaxis, No recent hearing loss Respiratory: As described under HPI Cardiovascular: As described under HPI Gastrointestinal: As described under HPI Genitourinary: No dysuria, No hematuria Skin: other (multiple bruises to hands, arms, face); No rash on exposed areas, No ulcerations on exposed areas Psychiatric/Neurological: syncope Hematologic: easy bleeding, easy bruising; No bleeding abnormalities All Other Systems Reviewed Negative Unless Noted: Yes BMD-Wmrubf-Lwqhgf Hx Patient Social History Marrital Status: single Employed/Student: retired Smoking Status: Former Smoker Former smoker/When Quit: Sep 11, 1965 2nd Hand Smoke Exposure: No Have you traveled recently?: No Alcohol Use?: No Pt feels they are or have been: No Immunizations Up To Date Tetanus Booster (TDap): Unknown Date of Pneumonia Vaccine: Jun 05, 2011 Date of Influenza Vaccine: May 08, 2020 Past Medical History PMH As described under Assessment. Family Medical History Family Medical History: No reported family h/o CAD Family History: Hypertension Not obtainable due to adoption Allergies and Home Medications Allergies Coded Allergies: No Known Drug Allergies (Unverified , 03/08/20) Patient Home Medication List Home Medication List Reviewed: Yes Allopurinol (Allopurinol) 300 Mg Tablet, 300 MG PO DAILY, (Reported) Entered as Reported by: ANTONI THOMPSON on 03/08/20 115 Last Action: Reviewed Atorvastatin Calcium (Atorvastatin Calcium) 10 Mg Tablet, 10 MG PO DAILY, (Reported) Entered as Reported by: REYES ONTIVEROS on 05/15/20824 Last Action: Reviewed Digoxin (Digox) 125 Mcg Tablet, 125 MCG PO 1800, (Reported) Entered as Reported by: EVELYNE CELESTE on 07/27/18916 Last Action: Reviewed Diltiazem HCl (Diltiazem 24Hr ER) 120 Mg Cap.er.24h, 120 MG PO DAILY, (Reported) Entered as Reported by: YARELI GARCIA on 01/25/221947 Last Action: Reviewed Docusate Sodium (Colace) 100 Mg Capsule, 100 MG PO DAILY PRN for CONSTIPATION- 1ST LINE, (Reported) Entered as Reported by: REYES ONTIVEROS on 05/15/20824 Last Action: Reviewed Escitalopram Oxalate (Escitalopram Oxalate) 10 Mg Tablet, 10 MG PO DAILY, (Reported) Entered as Reported by: CALI TORRES on 06/05/15 1001 Last Action: Reviewed Furosemide (Furosemide) 20 Mg Tablet, 20 MG PO DAILY, (Reported) Entered as Reported by: EVELYNE CELESTE on 07/27/18918 Last Action: Reviewed Metformin HCl (Metformin HCl) 500 Mg Tablet, 500 MG PO DAILY, (Reported) Entered as Reported by: YARELI GARCIA on 01/25/221948 Last Action: Reviewed Multivitamin (Multivitamin) 1 Each Tablet, 1 EACH PO DAILY, (Reported) Entered as Reported by: REYES ONTIVEROS on 01/26/22 1040 Last Action: Reviewed Townsend-3 Acid Ethyl Esters (Lovaza) 1 Gm Capsule, 2 GM PO BID, (Reported) Entered as Reported by: REYES ONTIVEROS on 05/15/20827 Last Action: Reviewed Omeprazole (Omeprazole) 20 Mg Tablet.dr, 20 MG PO DAILY, (Reported) Entered as Reported by: ANTONI THOMPSON on 03/08/201158 Last Action: Reviewed Potassium Chloride (Potassium Chloride) 10 Meq Capsule.er, 10 MEQ PO DAILY, (Reported) Entered as Reported by: EVELYNE CELESTE on 07/27/18 0920 Last Action: Reviewed Ramipril (Ramipril) 5 Mg Capsule, 5 MG PO 1800, (Reported) Entered as Reported by: ANTONI THOMPSON on 03/08/201158 Last Action: Reviewed Rivaroxaban (Xarelto) 20 Mg Tablet, 20 MG PO 1800, (Reported) Entered as Reported by: YARELI GARCIA on 01/25/221950 Last Action: Reviewed Spironolactone (Spironolactone) 25 Mg Tablet, 25 MG PO 1800, (Reported) Entered as Reported by: ANTONI THOMPSON on 03/08/201158 Last Action: Reviewed Tamsulosin HCl (Flomax) 0.4 Mg Cap, 0.4 MG PO 1800, (Reported) Entered as Reported by: YARELI GARCIA on 01/25/221947 Last Action: Reviewed Discontinued Medications Apixaban (Eliquis) 5 Mg Tablet, 5 MG PO BID, (Reported) Discontinued Reason: No Longer Taking Entered as Reported by: REYES ONTIVEROS on 05/15/20824 Last Action: Discontinued Ascorbic Acid (Vitamin C) 1,000 Mg Tablet, 1,000 MG PO DAILY PRN for IMMUNE SYSTEM, (Reported) Discontinued Reason: No Longer Taking Entered as Reported by: REYES ONTIVEROS on 05/15/20824 Last Action: Discontinued Lidocaine (Lidocaine 5% Patch) 1 Each Adh..patch, 1 EACH TP Q12H PRN for Neuropathic pain Discontinued Reason: Duplicate Order Prescribed by: ALINA SCRUGGS on 03/22/21 0050 Last Action: Discontinued Metformin HCl (Metformin HCl) 500 Mg Tablet, 500 MG PO BID, (Reported) Discontinued Reason: New Order Entered as Reported by: IRMA HELMS on 09/11/15 1247 Last Action: Discontinued Sotalol HCl (Sotalol) 80 Mg Tablet, 120 MG PO BID, (Reported) Discontinued Reason: No Longer Taking Entered as Reported by: REYES ONTIVEROS on 05/15/20 8514 Last Action: Discontinued Physical Exam-Cardiology Physical Exam Vital Signs/I&O 01/26/22 01/26/22 01/26/22 01/26/22 01:00 01:00 02:00 02:14 Pulse 59 59 58 64 Resp 23 28 24 B/P (MAP) 103/65 (80) 102/80 (89) Pulse Ox 95 95 95 O2 Delivery NIV Bilevel NIV Bilevel O2 Flow Rate 21.00 21.00 21.00 01/26/22 01/26/22 01/26/22 01/26/22 03:00 03:57 03:59 04:00 Temp 36.2 Pulse 71 62 Resp 16 9 B/P (MAP) 104/81 (89) 108/54 (72) Pulse Ox 95 95 O2 Delivery NIV Bilevel Room Air NIV Bilevel O2 Flow Rate 21.00 21.00 01/26/22 01/26/22 01/26/22 01/26/22 05:00 06:00 06:10 06:40 Pulse 67 54 61 60 Resp 27 29 20 B/P (MAP) 114/60 (79) 110/66 (81) Pulse Ox 94 95 94 O2 Delivery NIV Bilevel NIV Bilevel Room Air O2 Flow Rate 21.00 21.00 01/26/22 01/26/22 01/26/22 01/26/22 07:51 08:14 08:39 09:40 Temp 36.8 Pulse 57 Resp 13 B/P (MAP) 114/83 (93) Pulse Ox 95 O2 Delivery Room Air Room Air Room Air 01/26/22 01/26/22 12:00 12:39 Temp 36.5 Pulse 65 59 Resp 18 B/P (MAP) 110/59 (76) Pulse Ox 96 O2 Delivery Room Air 01/26/22 00:00 Intake Total 300 ml Balance 300 ml Capillary Refill : Constitutional: AAO x 3, well-developed, well-nourished HEENT: PERRL, hearing is well preserved, oral hygience is good Neck: No carotid bruit; carotid pulses are 2 + bilaterally Respiratory: No accessory muscle use, No respiratory distress; chest expansion is symmetric, chest is bilaterally symmetric, other (diminished RLL) Cardiovascular: irregularly irregular; No JVD; bradycardia (intermittently) Gastrointestinal: No tender; soft, round, audible bowel sounds Extremities: no lower extremity edema bilateral Neurologic/Psychiatric: grossly intact (moves all extremities) Skin: other (bruises to right hand; dressing to left hand (not removed, D&I). Bruise to right side of forehead) Data Review Labs Laboratory Tests 01/25/22 13:26: White Blood Count 9.9, Red Blood Count 4.35, Hemoglobin 14.4, Hematocrit 42, Mean Corpuscular Volume 96, Mean Corpuscular Hemoglobin 33, Mean Corpuscular Hemoglobin Concent 35, Red Cell Distribution Width 13.3, Platelet Count 285, Mean Platelet Volume 9.7, Immature Granulocyte % (Auto) 1, Neutrophils (%) (Auto) 83H, Lymphocytes (%) (Auto) 9L, Monocytes (%) (Auto) 7, Eosinophils (%) (Auto) 1, Basophils (%) (Auto) 1, Neutrophils # (Auto) 8.2H, Lymphocytes # ( Auto) 0.9L, Monocytes # (Auto) 0.6, Eosinophils # (Auto) 0.1, Basophils # (Auto) 0.0, Immature Granulocyte # (Auto) 0.1, Prothrombin Time 19.2H, INR Comment 1.6H , Sodium Level 138, Potassium Level 4.1, Chloride Level 102, Carbon Dioxide Level 24, Anion Gap 12, Blood Urea Nitrogen 10, Creatinine 0.86, Estimat Glomerular Filtration Rate 84, BUN/Creatinine Ratio 12, Glucose Level 176H, Calcium Level 8.9, Corrected Calcium 9.2, Total Bilirubin 0.6, Aspartate Amino Transf (AST/SGOT) 58H, Alanine Aminotransferase (ALT/SGPT) 73H, Alkaline Phosphatase 64, Troponin I 0.120H, Total Protein 6.8, Albumin 3.6 01/26/22 05:27: White Blood Count 7.8, Red Blood Count 4.05L, Hemoglobin 13.2L, Hematocrit 39L, Mean Corpuscular Volume 96, Mean Corpuscular Hemoglobin 33, Mean Corpuscular Hemoglobin Concent 34, Red Cell Distribution Width 13.5, Platelet Count 258, Mean Platelet Volume 10.0, Immature Granulocyte % (Auto) 1, Neutrophils (%) (A uto) 70, Lymphocytes (%) (Auto) 17, Monocytes (%) (Auto) 9, Eosinophils (%) (Auto) 2, Basophils (%) (Auto) 1, Neutrophils # (Auto) 5.5, Lymphocytes # (Auto) 1.3, Monocytes # (Auto) 0.7, Eosinophils # (Auto) 0.2, Basophils # (Auto) 0.1, Immature Granulocyte # (Auto) 0.0, Sodium Level 134L, Potassium Level 4.0, Chloride Level 103, Carbon Dioxide Level 22, Anion Gap 9, Blood Urea Nitrogen 13, Creatinine 0.79, Estimat Glomerular Filtration Rate 87, BUN/Creatinine Ratio 16, Glucose Level 143H, Calcium Level 8.7, Corrected Calcium 9.2, Total Bilirubin 0.8, Aspartate Amino Transf (AST/SGOT) 38H, Alanine Aminotransferase (ALT/SGPT) 59H, Alkaline Phosphatase 60, Troponin I 0.114H, Total Protein 6.3L, Albumin 3.4, Triglycerides Level 138, Cholesterol Level 145, LDL Cholesterol Direct 99, VLDL Cholesterol 28, HDL Cholesterol 22L A/P-Cardiology Assessment/Admission Diagnosis Syncope of undetermined etiology - possibly secondary to bradycardia - episodes of a-fib with slow ventricular response - reduce rate lowering medications (Dig already stopped) Permanent atrial fibrillation with somewhat slow vent response on ECG o 01-26-22 - OAC with Xarelto - [id number] score of 6, yearly risk of stroke without oral anticoagulation is 9.[address] Dominguez Pneumonia - management per medical services Shortness of breath on exertion - chronic History of elevated liver enzymes - remains elevated - not suitable candidate for statin Coronary artery disease - H/O angioplasty in 1989 (details unknown) - CABG 4 in 1997 - H/O stent in 2004 after a heart attack, had sudden during the procedure per Dr. Dominguez records - Most recent cardiac catheterization done in June 05, [address] Dominguez revealed 3 patent bypass grafts. Vein graft to the right coronary artery, vein graft to the diagonal artery, and CHRISTINA to LAD with excellent flow in the system. Totally occluded circumflex artery with no bypass to the obtuse marginal system. Receiving collaterals from the right coronary system EF 30 percent. - Stress test done in May 2017 and repeat stress test was done in November [address] Davis fixed defect involving the inferior wall and inferoapex and true apex, no change compared to the previous stress test, ejection fraction 27% ICM - LVEF 40-45% per echo in Mar [address] Dominguez - LVEF 27% per MPI of November [address] 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 Dominguez showing ejection fraction 40-45 percent, dilated left atrium measuring 4.92 cm, mild MR, mild AR, PA 30-35 mmHg. Peripheral edema - chronic, no change from baseline Hypertension Hyperlipidemia - previous liver enzyme elevation - statin stopped - restarted by Dr. Dominguez - liver enzymes are currently elevated - hold statin for now Carotid arterial dz - Mild bilateral nonobstructive carotid artery stenosis per carotid duplex done in March [address] 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 pneumonia - per medical services Monitor lab closely - replace electrolytes as indicated Further recs will be based on his hospital course We would like to thank Medical services for this consult I discussed his case with RONALD Stanley MD FACP FAC CCDS Jan 26, 2022 13:00
[2022-01-26] MEDS: cefTRIAXone 1 GM PRE-MIX 50 ML IV SCH (16:19)
[2022-01-26] MEDS ORDERED: SPIRONOLACTONE 25 MG (ALDACTONE) TAB PO SCH (18:00)
[2022-01-26] MEDS ORDERED: TAMSULOSIN 0.4 MG (FLOMAX) CAP PO SCH (18:00)
[2022-01-26] MEDS ORDERED: RIVAROXABAN 20 MG TABLET (XARELTO) PO SCH (18:00)
[2022-01-26] MEDS ORDERED: RAMIPRIL PO SCH (18:00)
[2022-01-27] VITALS (11 sets, daily range): BP systolic 97–138; BP diastolic 45–100
[2022-01-27 05:57] LABS: BASOPHILS # (AUTO) 0.1 10^3/uL (0.0-0.1); BASOPHILS % (AUTO) 1 % (0-10); EOSINOPHILS # (AUTO) 0.2 10^3/uL (0.0-0.3); EOSINOPHILS % (AUTO) 3 % (0-10); HEMATOCRIT 39 % (40-54); HEMOGLOBIN 13.7 g/dL (13.3-17.7); LYMPHOCYTES # (AUTO) 1.3 10^3/uL (1.0-4.0); LYMPHOCYTES % (AUTO) 17 % (12-44); MEAN CORPUSCULAR HEMOGLOBIN 33 pg (25-34); MEAN CORPUSCULAR HGB CONC 35 g/dL (32-36); MEAN CORPUSCULAR VOLUME 95 fL (80-99); MEAN PLATELET VOLUME 10.1 fL (9.0-12.2); MONOCYTES # (AUTO) 0.6 10^3/uL (0.0-1.0); MONOCYTES % (AUTO) 8 % (0-12); NEUTROPHILS # (AUTO) 5.5 10^3/uL (1.8-7.8); NEUTROPHILS % (AUTO) 71 % (42-75); PLATELET COUNT 257 10^3/uL (130-400); WHITE BLOOD COUNT 7.8 10^3/uL (4.3-11.0)
[2022-01-27 05:59] LABS: ALBUMIN 3.4 GM/DL (3.2-4.5); POTASSIUM 3.9 MMOL/L (3.6-5.0)
[2022-01-27 06:00] LABS: CALCIUM 9.1 MG/DL (8.5-10.1)
[2022-01-27 06:02] LABS: TOTAL PROTEIN 6.4 GM/DL (6.4-8.2)
[2022-01-27 06:03] LABS: BILIRUBIN,TOTAL 0.7 MG/DL (0.1-1.0)
[2022-01-27 06:05] LABS: CREATININE SERUM 0.84 MG/DL (0.60-1.30)
[2022-01-27 06:08] LABS: MAGNESIUM 1.6 MG/DL (1.6-2.4)
--- NOTE | 2022-01-27 06:54 | Progress Note - Hospitalist ---
Subjective HPI/CC On Admission Date Seen by Provider: Jan 27, 2022 Time Seen by Provider: 09:30 CC: Syncope HPI: This is an 86yoWM clinic patient of Dr Dominguez who presents to the ER following a syncopal episode. He has a h/o defib and pacemaker placement. Patient also has a h/o CABG and stents. He fell and hit his head but CT was normal. Patient is feeling well now but in need of observation and Tely monitoring with Cards consult. ER HPI: This is an 86-year-old male with a history of coronary artery disease with pr evious four-vessel bypass and one cardiac stent that presents to the emergency room for evaluation of a syncopal event. He states that he was in his bathroom sitting on the toilet shaving and apparently lost consciousness. He did strike the right side of his head during his fall. He is not sure how long he was unconscious for but states it could not of been very long. His son is the one that found him. Patient states that he also woke up yesterday feeling lightheaded/dizzy but it seemed to resolve throughout the day. He otherwise denies active chest pain, shortness of breath, weakness, nausea, vomiting, diarrhea or other symptoms. Subjective/Events-last exam Pt is doing well Heart rate is now 100 Off all anti arrhythmics but now it appears he is becoming tachycardic with afib Will see if we can discharge soon after cardiology assesses Review of Systems General: Fatigue, Malaise Objective Exam Vital Signs Vital Signs Date Time Temp Pulse Resp B/P (MAP) Pulse Ox O2 Delivery O2 Flow Rate FiO2 01/27/22 17:04 36.1 74 11 138/100 92 Room Air 01/27/22 12:00 2.00 01/25/22 17:54 21 Capillary Refill : General Appearance: No Apparent Distress, WD/WN, Chronically ill Results/Procedures Lab Laboratory Tests 01/27/22 05:32 Patient resulted labs reviewed. Assessment/Plan Assessment and Plan Assess & Plan/Chief Complaint Assessment: Syncope NSTEMI Bradycardia Defib/Pacemaker in place CAD CABG Coronary stents HTN HLP Plan: Tely Monitor closely ASA Home meds 01/27: BRIDGER ALBARADO DO Jan 27, 2022 06:54
[2022-01-27] MEDS ORDERED: MULTIVIT W/MINERALS TAB (THERAGRAN M) PO SCH (07:00)
[2022-01-27] MEDS: OMEGA-3 ACID ETHYL ESTERS 1 GM (LOVAZA) NON-FORMULARY PO SCH (08:13)
[2022-01-27] MEDS: KCL 10 MEQ TAB (MICRO K) PO SCH (08:14)
[2022-01-27] MEDS: metFORMIN 500 MG (GLUCOPHAGE) TAB PO SCH (08:14)
[2022-01-27] MEDS: FUROSEMIDE 20 MG (LASIX) TAB PO SCH (08:16)
[2022-01-27] MEDS: ALLOPURINOL 300 MG (ZYLOPRIM) TAB PO SCH (08:16)
[2022-01-27] MEDS: AtorvaSTATin TABLET 10 MG TABLET PO SCH (08:17)
[2022-01-27] MEDS: OMEPRAZOLE PO SCH (08:17)
[2022-01-27] MEDS: ASPIRIN 81 MG CHEW (CHILDREN'S ASA) PO SCH (08:17)
[2022-01-27] MEDS: ESCITALOPRAM OXALATE PO SCH (08:21)
[2022-01-27] MEDS: SENNOSIDES 8.6 MG (SENOKOT) TAB PO SCH (08:22)
[2022-01-27] MEDS: DOCUSATE SODIUM 100 MG (COLACE) CAP PO SCH (08:22)
[2022-01-27] MEDS ORDERED: AZITHROMYCIN 250 MG TAB (ZITHROMAX) PO SCH (09:00)
--- NOTE | 2022-01-27 11:15 | Progress Note - Cardiology ---
Cardiology SOAP Progress Note Subjective: Sitting up in bed Denies any further episodes of syncope or dizziness No c/o CP, SOB or palpitations States he is feeling good today Objective: I&O/Vital Signs 01/27/22 01/27/22 01/27/22 01/27/22 04:39 05:01 06:00 06:26 Pulse 77 63 55 Resp 14 11 B/P (MAP) 124/78 (93) 128/45 (72) Pulse Ox 93 94 O2 Delivery Room Air Nasal Cannula Nasal Cannula O2 Flow Rate 2.00 2.00 01/27/22 01/27/22 01/27/22 01/27/22 08:00 08:05 08:20 12:00 Temp 35.7 36.1 Pulse 90 95 B/P (MAP) 131/68 (89) 121/82 (95) Pulse Ox 92 93 O2 Delivery Nasal Cannula Room Air Room Air Nasal Cannula O2 Flow Rate 2.00 2.00 01/27/22 01/27/22 12:34 15:46 Temp 36.1 Pulse 93 74 B/P (MAP) 138/100 (113) Pulse Ox 92 O2 Delivery Room Air 01/27/22 00:00 Intake Total 440 ml Balance 440 ml Weight (Pounds): 211 Weight (Ounces): 0.0 Weight (Calculated Kilograms): [id number] Constitutional: AAO x 3, well-developed, well-nourished Respiratory: No accessory muscle use, No respiratory distress; chest expansion is symmetric, chest is bilaterally symmetric, other (diminished RLL) Cardiovascular: irregularly irregular; No JVD Gastrointestional: No tender; soft, round, audible bowel sounds Extremities: no lower extremity edema bilateral Neurologic/Psychiatric: grossly intact (moves all extremities) Skin: other (bruises to right hand; dressing to left hand (not removed, D&I). Bruise to right side of forehead) Results/Procedures: Labs Laboratory Tests 01/27/22 05:32: White Blood Count 7.8, Red Blood Count 4.14L, Hemoglobin 13.7, Hematocrit 39L, Mean Corpuscular Volume 95, Mean Corpuscular Hemoglobin 33, Mean Corpuscular Hemoglobin Concent 35, Red Cell Distribution Width 13.2, Platelet Count 257, Mean Platelet Volume 10.1, Immature Granulocyte % (Auto) 0, Neutrophils (%) (Auto) 71, Lymphocytes (%) (Auto) 17, Monocytes (%) (Auto) 8, Eosinophils (%) (Auto) 3, Basophils (%) (Auto) 1, Neutrophils # (Auto) 5.5, Lymphocytes # (Auto) 1.3, Monocytes # (Auto) 0.6, Eosinophils # (Auto) 0.2, Basophils # (Auto) 0.1, Immature Granulocyte # (Auto) 0.0, Sodium Level 135, Potassium Level 3.9, Chloride Level 101, Carbon Dioxide Level 22, Anion Gap 12, Blood Urea Nitrogen 16, Creatinine 0.84, Estimat Glomerular Filtration Rate 85, BUN/Creatinine Ratio 19, Glucose Level 149H, Calcium Level 9.1, Corrected Calcium 9.6, Magnesium Level 1.6, Total Bilirubin 0.7, Aspartate Amino Transf (AST/SGOT) 33, Alanine Aminotransferase (ALT/SGPT) 53, Alkaline Phosphatase 59, Total Protein 6.4, Albumin 3.4 A/P: Assessment: Syncope of undetermined etiology - possibly secondary to bradycardia - episodes of a-fib with slow ventricular response - reduce rate lowering medications (Dig already stopped) Permanent atrial fibrillation with somewhat slow vent response on ECG o 01-26- - OAC with Xarelto - [id number] score of 6, yearly risk of stroke without oral anticoagulation is 9.[address] Dominguez Pneumonia - management per medical services Shortness of breath on exertion - chronic History of elevated liver enzymes - remains elevated - not suitable candidate for statin Coronary artery disease - H/O angioplasty in 1989 (details unknown) - CABG 4 in 1997 - H/O stent in 2004 after a heart attack, had sudden during the procedure per Dr. Dominguez records - Most recent cardiac catheterization done in June 05, [address] Dominguez revealed 3 patent bypass grafts. Vein graft to the right coronary artery, vein graft to the diagonal artery, and CHRISTINA to LAD with excellent flow in the system. Totally occluded circumflex artery with no bypass to the obtuse marginal system. Receiving collaterals from the right coronary system EF 30 percent. - Stress test done in May 2017 and repeat stress test was done in November [address] Dominguezshowing fixed defect involving the inferior wall and inferoapex and true apex, no change compared to the previous stress test, ejection fraction 27% ICM - LVEF 40-45% per echo in Mar [address] Dominguez - LVEF 27% per MPI of November [address] 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 Dominguez showing ejection fraction 40-45 percent, dilated left atrium measuring 4.92 cm, mild MR, mild AR, PA 30-35 mmHg. Peripheral edema - chronic, no change from baseline Hypertension Hyperlipidemia - previous liver enzyme elevation - statin stopped - restarted by Dr. Dominguez - li xuan enzymes are currently elevated - hold statin for now Carotid arterial dz - Mild bilateral nonobstructive carotid artery stenosis per carotid duplex done in March [address] Dominguez Diabetes mellitus - managed by PCP Arthritis Sleep apnea - on CPAP Plan: Syncope of undetermined etiology - possibly secondary to bradycardia - no further episodes following cessation of Dig, Sotalol and Cardizem - Will stop Sotalol since it has not been effective in maintaining SR - Continue to monitor - may consider Holter monitor as out pt Elevated liver enzymes of undetermined etiology - stop statin - management per medical services Continue OAC with Xarelto fro stroke prophylaxis Mangement of ? pneumonia - per medical services LOUIE WYMAN Jan 27, 2022 11:15
[2022-01-27] MEDS ORDERED: CEFD300C3 PO ×2 (15:25→15:43)
[2022-01-27] MEDS ORDERED: ASPI81TA64 PO ×2 (15:25→15:43)
--- NOTE | 2022-01-27 15:25 | Discharge Summary ---
Discharge Summary Hospital Course Was the Problem List Reviewed?: Yes Problems/Dx: (1) Syncope (2) Pleural effusion Status: Acute (3) Afib Hospital Course Date of Admission: Jan 25, 2022 at 14:37 Admission Diagnosis : Family Physician/Provider: Ren Watson MD Date of Discharge: 01/27/22 Discharge Diagnosis: Syncope, bradycardia, AF, PNA Hospital Course: Brief course after admitted following syncope, noted infiltrate with small pleural effusion so treated with abx. Cardiology consulted and held Dig. Patient was feeling back to baseline and Cardiology modified meds and was DC home. Labs and Pending Lab Test: Laboratory Tests 01/27/22 05:32: White Blood Count 7.8, Red Blood Count 4.14L, Hemoglobin 13.7, Hematocrit 39L, Mean Corpuscular Volume 95, Mean Corpuscular Hemoglobin 33, Mean Corpuscular Hemoglobin Concent 35, Red Cell Distribution Width 13.2, Platelet Count 257, Mean Platelet Volume 10.1, Immature Granulocyte % (Auto) 0, Neutrophils (%) (Auto) 71, Lymphocytes (%) (Auto) 17, Monocytes (%) (Auto) 8, Eosinophils (%) (Auto) 3, Basophils (%) (Auto) 1, Neutrophils # (Auto) 5.5, Lymphocytes # (Auto) 1.3, Monocytes # (Auto) 0.6, Eosinophils # (Auto) 0.2, Basophils # (Auto) 0.1, Immature Granulocyte # (Auto) 0.0, Sodium Level 135, Potassium Level 3.9, Chloride Level 101, Carbon Dioxide Level 22, Anion Gap 12, Blood Urea Nitrogen 16, Creatinine 0.84, Estimat Glomerular Filtration Rate 85, BUN/Creatinine Ratio 19, Glucose Level 149H, Calcium Level 9.1, Corrected Calcium 9.6, Magnesium Level 1.6, Total Bilirubin 0.7, Aspartate Amino Transf (AST/SGOT) 33, Alanine Aminotransferase (ALT/SGPT) 53, Alkaline Phosphatase 59, Total Protein 6.4, Albumin 3.4 Home Meds Active Cefdinir 300 Mg Capsule 300 Mg PO BID Children's Aspirin (Aspirin) 81 Mg Tab.chew 81 Mg PO DAILY Reported Multivitamin 1 Each Tablet 1 Each PO DAILY Xarelto (Rivaroxaban) 20 Mg Tablet 20 Mg PO 1800 Metformin HCl 500 Mg Tablet 500 Mg PO DAILY Diltiazem 24Hr ER (Diltiazem HCl) 120 Mg Cap.er.24h 120 Mg PO DAILY Flomax (Tamsulosin HCl) 0.4 Mg Cap 0.4 Mg PO 1800 Lovaza ([place]-3 Acid Ethyl Esters) 1 Gm Capsule 2 Gm PO BID TAKES 2 (1GM) CAPS Colace (Docusate Sodium) 100 Mg Capsule 100 Mg PO DAILY PRN Atorvastatin Calcium 10 Mg Tablet 10 Mg PO DAILY LAST FILLED 08-22-2021 #90/90 DAY SUPPLY Spironolactone 25 Mg Tablet 25 Mg PO 1800 Omeprazole 20 Mg Tablet.dr 20 Mg PO DAILY Ramipril 5 Mg Capsule 5 Mg PO 1800 Allopurinol 300 Mg Tablet 300 Mg PO DAILY Potassium Chloride 10 Meq Capsule.er 10 Meq PO DAILY Furosemide 20 Mg Tablet 20 Mg PO DAILY Digox (Digoxin) 125 Mcg Tablet 125 Mcg PO 1800 Escitalopram Oxalate 10 Mg Tablet 10 Mg PO DAILY Assessment/Pt Instructions PCP 1 week Discharge Planning: <30 minutes discharge planning Discharge Instructions Discharge Diet: No Restrictions Discharge Physical Examination Vital Signs Vital Signs Date Time Temp Pulse Resp B/P (MAP) Pulse Ox O2 Delivery O2 Flow Rate FiO2 01/27/22 12:34 93 01/27/22 12:00 36.1 121/82 (95) 93 Nasal Cannula 2.00 01/27/22 06:00 11 01/25/22 17:54 21 General Appearance: No Apparent Distress, WD/WN, Chronically ill Allergies: Coded Allergies: No Known Drug Allergies (Unverified , 03/08/20) Discharge Summary Date of Admission Jan 25, 2022 at 14:37 Date of Discharge Discharge Date: Jan 27, 2022 Admission Diagnosis Assessment: Syncope NSTEMI Defib/Pacemaker in place CAD CABG Coronary stents HTN HLP Plan: Tely Monitor closely ASA Home meds Discharge Diagnosis Assessment: Syncope NSTEMI Bradycardia Defib/Pacemaker in place CAD CABG Coronary stents HTN HLP Plan: Tely Monitor closely ASA Home meds BRIDGER WHARTON DO Jan 27, 2022 15:25
--- NOTE | 2022-01-27 15:46 | Progress Note - Cardiology ---
Cardiology SOAP Progress Note Subjective: No syncope since admission No cp or palp No shortness of breath No n/v/d Wishes to go home Objective: I&O/Vital Signs 01/27/22 01/27/22 01/27/22 01/27/22 04:00 04:39 05:01 06:00 Temp 36.2 Pulse 66 77 63 Resp 12 14 11 B/P (MAP) 120/74 (89) 124/78 (93) 128/45 (72) Pulse Ox 92 93 94 O2 Delivery Nasal Cannula Room Air Nasal Cannula Nasal Cannula O2 Flow Rate 2.00 2.00 2.00 01/27/22 01/27/22 01/27/22 01/27/22 06:26 08:00 08:05 08:20 Temp 35.7 Pulse 55 90 B/P (MAP) 131/68 (89) Pulse Ox 92 O2 Delivery Nasal Cannula Room Air Room Air O2 Flow Rate 2.00 01/27/22 01/27/22 12:00 12:34 Temp 36.1 Pulse 95 93 B/P (MAP) 121/82 (95) Pulse Ox 93 O2 Delivery Nasal Cannula O2 Flow Rate 2.00 01/27/22 00:00 Intake Total 440 ml Balance 440 ml Weight (Pounds): 211 Weight (Ounces): 0.0 Weight (Calculated Kilograms): 95.962538 Constitutional: AAO x 3, well-developed, well-nourished Respiratory: No accessory muscle use, No respiratory distress; chest expansion is symmetric, chest is bilaterally symmetric, other (diminished RLL) Cardiovascular: irregularly irregular; No JVD Gastrointestional: No tender; soft, round, audible bowel sounds Extremities: no lower extremity edema bilateral Neurologic/Psychiatric: grossly intact (moves all extremities) Skin: other (bruises to right hand; dressing to left hand (not removed, D&I). Bruise to right side of forehead) Results/Procedures: Labs Laboratory Tests 01/27/22 05:32: White Blood Count 7.8, Red Blood Count 4.14L, Hemoglobin 13.7, Hematocrit 39L, Mean Corpuscular Volume 95, Mean Corpuscular Hemoglobin 33, Mean Corpuscular Hemoglobin Concent 35, Red Cell Distribution Width 13.2, Platelet Count 257, Mean Platelet Volume 10.1, Immature Granulocyte % (Auto) 0, Neutrophils (%) (Auto) 71, Lymphocytes (%) (Auto) 17, Monocytes (%) (Auto) 8, Eosinophils (%) (Auto) 3, Basophils (%) (Auto) 1, Neutrophils # (Auto) 5.5, Lymphocytes # (Auto) 1.3, Monocytes # (Auto) 0.6, Eosinophils # (Auto) 0.2, Basophils # (Auto) 0.1, Immature Granulocyte # (Auto) 0.0, Sodium Level 135, Potassium Level 3.9, Chloride Level 101, Carbon Dioxide Level 22, Anion Gap 12, Blood Urea Nitrogen 16, Creatinine 0.84, Estimat Glomerular Filtration Rate 85, BUN/Creatinine Ratio 19, Glucose Level 149H, Calcium Level 9.1, Corrected Calcium 9.6, Magnesium Level 1.6, Total Bilirubin 0.7, Aspartate Amino Transf (AST/SGOT) 33, Alanine Aminotransferase (ALT/SGPT) 53, Alkaline Phosphatase 59, Total Protein 6.4, Albumin 3.4 A/P: Assessment: Syncope of undetermined etiology - likely secondary to bradycardia - chronic a-fib with slow ventricular response - dig and diltiazem and sotalol stopped during this admission; rate has improved; no tachycardia has been observed Permanent atrial fibrillation with a slow vent response on ECG on 01-26-22 - continue OAC with Xarelto Pneumonia - management per medical services Shortness of breath on exertion - chronic History of elevated liver enzymes - remains elevated - not suitable candidate for statin Coronary artery disease - H/O angioplasty in 1989 (details unknown) - CABG 4 in 1997 - H/O stent in 2004 after a heart attack, had sudden during the procedure per Dr. Dominguez records - Most recent cardiac catheterization done in June 05, [address] Dominguez revealed 3 patent bypass grafts. Vein graft to the right coronary artery, vein graft to the diagonal artery, and CHRISTINA to LAD with excellent flow in the system. Totally occluded circumflex artery with no bypass to the obtuse marginal system. Receiving collaterals from the right coronary system EF 30 percent. - Stress test done in May 2017 and repeat stress test was done in November [address] Millering fixed defect involving the inferior wall and inferoapex and true apex, no change compared to the previous stress test, ejection fraction 27% ICM - LVEF 40-45% per echo in Mar [address] Dominguez - LVEF 27% per MPI of November [address] 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 Dominguez showing ejection fraction 40-45 percent, dilated left atrium measuring 4.92 cm, mild MR, mild AR, PA 30-35 mmHg. Peripheral edema - chronic, no change from baseline Hypertension Hyperlipidemia - previous liver enzyme elevation - statin stopped - restarted by Dr. Dominguez - liver enzymes are currently elevated - hold statin for now Carotid arterial dz - Mild bilateral nonobstructive carotid artery stenosis per carotid duplex done in March [address] Dominguez Diabetes mellitus - managed by PCP Arthritis Sleep apnea - on CPAP Plan: Syncope of undetermined etiology - possibly secondary to bradycardia - no further episodes following cessation of Dig, Sotalol and Cardizem - Sotalol was stopped because he remains in a fib despite sotalol therapy - have advised close outpt cardiac f/u with dr Dominguez Elevated liver enzymes of undetermined etiology - stop statin - management per medical services Continue OAC with Xarelto for stroke prophylaxis Mangement of ? pneumonia - per RONALD Yañez MD FACP FAC CCDS Jan 27, 2022 15:46
[2022-01-27] MEDS: cefTRIAXone 1 GM PRE-MIX 50 ML IV SCH (16:56)
== END 2022-01-27 17:10 | disposition home or self-care (01) ==
LOC: EDUNIT# 12:53 → ER 12:54 → CSD 14:37
PROVIDERS: ADMIT Internal Medicine; ATTEND Internal Medicine
DX: R55 Syncope and collapse (principal); J90 Pleural effusion, not elsewhere classified; I48.21 Permanent atrial fibrillation; I21.4 Non-ST elevation (NSTEMI) myocardial infarction; E78.5 Hyperlipidemia, unspecified; I25.5 Ischemic cardiomyopathy; I25.10 Atherosclerotic heart disease of native coronary artery without angina pectoris; I50.42 Chronic combined systolic (congestive) and diastolic (congestive) heart failure; I11.0 Hypertensive heart disease with heart failure; I65.23 Occlusion and stenosis of bilateral carotid arteries; E11.9 Type 2 diabetes mellitus without complications; M19.90 Unspecified osteoarthritis, unspecified site; G47.30 Sleep apnea, unspecified; Z99.89 Dependence on other enabling machines and devices; Z79.84 Long term (current) use of oral hypoglycemic drugs; Z87.891 Personal history of nicotine dependence; Z95.5 Presence of coronary angioplasty implant and graft; Z95.0 Presence of cardiac pacemaker
CPT/HCPCS: 36415; 70450; 71045; 80053; 80061; 83735; 84484; 85025; 85610; 93005; 94660; 94664; 96365; 96374; 96375; 96376

== ENCOUNTER 2022-02-05 20:19 | Outpatient (CLI) | payer MEDICARE, MEDICAID ==
[~2022-02-05 20:19] MED LIST changes: +ASPI81TA64 PO; +CEFD300C3 PO; +DILT-27 PO; +MULT-1136 PO; +RIVA20TA PO; +TMSL.4C PO
== END 2022-02-06 06:10 | disposition home or self-care (01) ==
LOC: SLEEP 20:19
PROVIDERS: ATTEND Otolaryngology Otolaryngology/Facial Plastic Surgery
DX: G47.33 Obstructive sleep apnea (adult) (pediatric) (principal)
CPT/HCPCS: 95811

== ENCOUNTER 2022-02-11 14:40 | Outpatient (RCR) | payer MEDICARE, MEDICAID, OTHER | END 2022-02-12 | disposition home or self-care (01) | LOC: CR 14:40 | PROVIDERS: ATTEND Internal Medicine Cardiovascular Disease | DX: Z29.8 Encounter for other specified prophylactic measures (principal); I48.91 Unspecified atrial fibrillation; I25.10 Atherosclerotic heart disease of native coronary artery without angina pectoris; I50.9 Heart failure, unspecified | CPT/HCPCS: 93798 ==

== ENCOUNTER 2022-02-25 08:07 | Outpatient (RCR) | payer MEDICARE, MEDICAID, OTHER | END 2022-03-15 | disposition home or self-care (01) | LOC: CR 08:07 | PROVIDERS: ATTEND Internal Medicine Cardiovascular Disease | DX: Z29.8 Encounter for other specified prophylactic measures (principal); I48.91 Unspecified atrial fibrillation; I25.10 Atherosclerotic heart disease of native coronary artery without angina pectoris; I50.9 Heart failure, unspecified | CPT/HCPCS: 93798 ==

== ENCOUNTER → 2022-05-04 | Outpatient (CLI) | payer MEDICARE, MEDICAID ==
[2022-05-04 08:29] LABS: ALBUMIN 3.6 GM/DL (3.2-4.5); BILIRUBIN,TOTAL 0.7 MG/DL (0.1-1.0); CALCIUM 8.8 MG/DL (8.5-10.1); CREATININE SERUM 0.83 MG/DL (0.60-1.30); POTASSIUM 3.7 MMOL/L (3.6-5.0); TOTAL PROTEIN 6.7 GM/DL (6.4-8.2)
== END ==
LOC: LAB 07:49
PROVIDERS: ATTEND Internal Medicine Cardiovascular Disease
DX: E78.2 Mixed hyperlipidemia (principal)
CPT/HCPCS: 36415; 80053; 80061

== ENCOUNTER 2022-05-26 11:59 | Inpatient (IN) | payer MEDICARE, MEDICAID ==
[~2022-05-26] VITALS: Ht 175 cm; Wt 81.2 kg
--- NOTE | 2022-05-26 12:40 | ED Respiratory ---
General Chief Complaint: Respiratory Problems Stated Complaint: SOA Nursing Triage Note: PT PRESENTS TO ED VIA POV ACCOMPANIED BY ADULT DAUGHTER WITH COMPLAINTS OF INCREASED SOA, LETHARGY, GENERALIZED WEAKNESS FOR A FEW DAYS. PT ALSO REPORTS HE RECENTLY BURNED THE TOP OF HIS PALATE WHEN EATING A HOT POTATO AND HE IS HAVING SOME PAIN RELATED TO THAT. Source: patient, family (daughter) Exam Limitations: no limitations History of Present Illness Date Seen by Provider: May 26, 2022 Time Seen by Provider: 12:30 Initial Comments Patient is an 86-year-old male with a history of extensive coronary artery disease who presents to the emergency department today with a chief complaint of shortness of breath over the last 2 to 3 days. He is also concerned about "burning" his mouth on some hot potatoes Wednesday evening or Wednesday morning. He states his mouth has been very sore. He occasionally misses medications and his daughter states from the way that he takes them "a handful at a time" some frequently fall in the floor. He denies swelling in his legs or cramping in his calves. He wears 3 L of oxygen at night. No chest pain, tightness or pressure. No nausea vomiting or diarrhea. He has had a little bit of decreased appetite over the last couple of days most likely due to to the extensive thrush identified in his mouth. No problems with bowel or bladder. He does feel generally weak. He slept about 14 hours total yesterday with multiple naps during the day. Lives at home with daughter. Does not check his blood sugars, is a known diabetic. She states they eat frequent "snacks". All other review of systems reviewed and negative except as stated. Timing/Duration: other (2-3 days) Associated Symptoms: shortness of breath Allergies and Home Medications Allergies Coded Allergies: No Known Drug Allergies (Unverified , 03/08/20) Patient Home Medication List Home Medication List Reviewed: Yes Allopurinol (Allopurinol) 300 Mg Tablet, 300 MG PO DAILY, (Reported) Entered as Reported by: ANTONI THOMPSON on 03/08/20 1159 Aspirin (Children's Aspirin) 81 Mg Tab.chew, 81 MG PO DAILY Prescribed by: BRIDGER WHARTON on 01/27/22 1543 Atorvastatin Calcium (Atorvastatin Calcium) 10 Mg Tablet, 10 MG PO DAILY, (Reported) Entered as Reported by: REYES ONTIVEROS on 05/15/20 0825 Cefdinir (Cefdinir) 300 Mg Capsule, 300 MG PO BID Prescribed by: BRIDGER WHARTON on 01/27/22 1543 Docusate Sodium (Colace) 100 Mg Capsule, 100 MG PO DAILY PRN for CONSTIPATION- 1ST LINE, (Reported) Entered as Reported by: REYES ONTIVEROS on 05/15/20 0825 Escitalopram Oxalate (Escitalopram Oxalate) 10 Mg Tablet, 10 MG PO DAILY, (Reported) Entered as Reported by: CALI TORRES on 06/05/15 1001 Furosemide (Furosemide) 20 Mg Tablet, 20 MG PO DAILY, (Reported) Entered as Reported by: EVELYNE CELESTE on 07/27/18 09 Metformin HCl (Metformin HCl) 500 Mg Tablet, 500 MG PO DAILY, (Reported) Entered as Reported by: YARELI GARCIA on 01/25/221948 Multivitamin (Multivitamin) 1 Each Tablet, 1 EACH PO DAILY, (Reported) Entered as Reported by: REYES ONTIVEROS on 01/26/22 1040 [place]-3 Acid Ethyl Esters (Lovaza) 1 Gm Capsule, 2 GM PO BID, (Reported) Entered as Reported by: REYES ONTIVEROS on 05/15/20 0828 Omeprazole (Omeprazole) 20 Mg Tablet.dr, 20 MG PO DAILY, (Reported) Entered as Reported by: ANTONI THOMPSON on 03/08/20 115 Potassium Chloride (Potassium Chloride) 10 Meq Capsule.er, 10 MEQ PO DAILY, (Reported) Entered as Reported by: EVELYNE CELESTE on 07/27/18 0920 Ramipril (Ramipril) 5 Mg Capsule, 5 MG PO 1800, (Reported) Entered as Reported by: ANTONI THOMPSON on 03/08/20 115 Rivaroxaban (Xarelto) 20 Mg Tablet, 20 MG PO 1800, (Reported) Entered as Reported by: YARELI GARCIA on 01/25/221950 Spironolactone (Spironolactone) 25 Mg Tablet, 25 MG PO 1800, (Reported) Entered as Reported by: ANTONI THOMPSON on 03/08/20 115 Tamsulosin HCl (Flomax) 0.4 Mg Cap, 0.4 MG PO 1800, (Reported) Entered as Reported by: YARELI GARCIA on 01/25/221947 Review of Systems Review of Systems Constitutional: see HPI EENTM: mouth pain Respiratory: short of breath Cardiovascular: no symptoms reported Gastrointestinal: no symptoms reported Genitourinary: no symptoms reported Musculoskeletal: no symptoms reported Skin: no symptoms reported Psychiatric/Neurological: No Symptoms Reported All Other Systems Reviewed Negative Unless Noted: Yes Past Smyemlh-Ekalin-Nnqczp Hx Patient Social History Tobacco Use?: No Substance use?: No Alcohol Use?: No Pt feels they are or have been: No Immunizations Up To Date Tetanus Booster (TDap): Unknown PED Vaccines UTD: No First/Initial COVID19 Vaccinat: 11/14/20 Second COVID19 Vaccination Sree: 12/2020 Third COVID19 Vaccination Date: 11/14/20 Seasonal Allergies Seasonal Allergies: Yes Past Medical History Surgery/Hospitalization HX: 4 VESSEL CABG 1998CODED DURING CARDIAC CATH AND STENT PLACEMENT 2004 AT [facility]/DEFIBRILLATOR IN PLACELEFT TOTAL KNEE REPLACEMENT, GRACIELA, STIFF LEG, PACER, DEFIB HTN, AFIB Surgeries: Yes (ICD ON 09-11-15, L TKR, R LEG X5, ) Cardiac, CABG, Coronary Stent, Defibrillator, Gallbladder, Joint Replacement, Orthopedic, Pacemaker Respiratory: Yes Sleep Apnea Currently Using CPAP: Yes Currently Using BIPAP: No Cardiac: Yes Atrial Fibrillation, Coronary Artery Disease, Congenital Heart Disease, Deep Vein Thrombosis, Heart Attack, High Cholesterol, Hypertension Neurological: No Reproductive Disorders: No Sexually Transmitted Disease: No HIV/AIDS: No Genitourinary: Yes Kidney Stones Gastrointestinal: Yes Gastroesophageal Reflux Musculoskeletal: Yes (LEFT TOTAL KNEE REPLACEMENT) Arthritis, Gout Endocrine: Yes Diabetes, Non-Insulin dep HEENT: Yes (GLASSES) Cataract Loss of Vision: Denies Hearing Impairment: Denies Cancer: Yes Skin Did You Recieve Any Treatments: Yes What Type of Treatment Did You: Surgical Intervention Psychosocial: No Integumentary: No Blood Disorders: No Adverse Reaction/Blood Tranf: No (N/A) Family Medical History Hypertension Not obtainable due to adoption No Pertinent Family Hx PSH: -RIGHT FEUMUR FRACTURE SURGERY X 5 -RIGHT KNEE PATELLAR TENDON REPAIR -LEFT KNEE REPLACEMENT -CARDIAC CATHS WITH STENT X 1 -5 VESSEL CABG Physical Exam Vital Signs - First Documented 05/26/22 12:09 Temp 36.9 Pulse 91 Resp 16 B/P (MAP) 128/78 (95) Pulse Ox 94 Capillary Refill : Less Than 3 Seconds Height: 5'9.00" Weight: 211lbs. 0.0oz. 95.377213wd; 28.00 BMI Method:Stated General Appearance: WD/WN, no apparent distress Eyes: Bilateral Eye Normal Inspection, Bilateral Eye PERRL, Bilateral Eye EOMI HEENT: other (significant plaques to the daron and hard palate - oral thrush, with a shallow ulcer on the roof of his mouth) Neck: normal inspection Respiratory: lungs clear, normal breath sounds, no respiratory distress, no accessory muscle use Cardiovascular: no murmur, irregularly irregular (80-90's) Gastrointestinal: normal bowel sounds, non tender, soft Extremities: normal range of motion, non-tender, normal inspection, no pedal edema, no calf tenderness Neurologic/Psychiatric: alert, normal mood/affect, oriented x 3 Skin: normal color, warm/dry Progress/Results/Core Measures Suspected Sepsis SIRS Temperature: Pulse: 91 Respiratory Rate: 16 Laboratory Tests 05/26/22 12:28: White Blood Count 7.3 Blood Pressure 128 /78 Mean: 95 Laboratory Tests 05/26/22 12:28: Creatinine 0.84, Platelet Count 189 Results/Orders Lab Results Laboratory Tests Test 05/26/22 12:28 Range/Units White Blood Count 7.3 4.3-11.0 10^3/uL Red Blood Count 4.16 L 4.30-5.52 10^6/uL Hemoglobin 13.2 L 13.3-17.7 g/dL Hematocrit 39 L 40-54 % Mean Corpuscular Volume 95 80-99 fL Mean Corpuscular Hemoglobin 32 25-34 pg Mean Corpuscular Hemoglobin Concent 34 32-36 g/dL Red Cell Distribution Width 14.5 10.0-14.5 % Platelet Count 189 130-400 10^3/uL Mean Platelet Volume 10.3 9.0-12.2 fL Immature Granulocyte % (Auto) 0 % Neutrophils (%) (Auto) 82 H 42-75 % Lymphocytes (%) (Auto) 9 L 12-44 % Monocytes (%) (Auto) 9 0-12 % Eosinophils (%) (Auto) 0 0-10 % Basophils (%) (Auto) 0 0-10 % Neutrophils # (Auto) 6.0 1.8-7.8 10^3/uL Lymphocytes # (Auto) 0.6 L 1.0-4.0 10^3/uL Monocytes # (Auto) 0.6 0.0-1.0 10^3/uL Eosinophils # (Auto) 0.0 0.0-0.3 10^3/uL Basophils # (Auto) 0.0 0.0-0.1 10^3/uL Immature Granulocyte # (Auto) 0.0 0.0-0.1 10^3/uL Sodium Level 137 135-145 MMOL/L Potassium Level 3.8 3.6-5.0 MMOL/L Chloride Level 102 98-107 MMOL/L Carbon Dioxide Level 26 21-32 MMOL/L Anion Gap 9 5-14 MMOL/L Blood Urea Nitrogen 17 7-18 MG/DL Creatinine 0.84 0.60-1.30 MG/DL Estimat Glomerular Filtration Rate 85 BUN/Creatinine Ratio 20 Glucose Level 91 70-105 MG/DL Calcium Level 8.7 8.5-10.1 MG/DL Troponin I < 0.028 <0.028 NG/ML B-Type Natriuretic Peptide 299.7 H <100.0 PG/ML My Orders Orders - KALPANA GAUTHIER MD Ekg Tracing (05/26/22 12:10) Ed Iv/Invasive Line Start (05/26/22 12:35) Cbc With Automated Diff (05/26/22 12:35) Basic Metabolic Panel (05/26/22 12:35) Chest 1 View, Ap/Pa Only (05/26/22 12:35) Troponin I [place] (05/26/22 12:35) Bnp [place] (05/26/22 12:35) Fluconazole Tablet (Diflucan Tablet) (05/26/22 12:45) Nystatin Oral Suspension (Mycostatin O (05/26/22 12:45) Ct Chest W (05/26/22 13:28) Ns Iv 1000 Ml (Sodium Chloride 0.9%) (05/26/22 13:30) Iohexol Injection (Omnipaque 350 Mg/Ml 1 (05/26/22 14:00) Received Contrast (Hold Metformin- Contr (05/26/22 14:00) Ns (Ivpb) (Sodium Chloride 0.9% Ivpb Bag (05/26/22 14:00) Sodium Chloride Flush (Catheter Flush Sy (05/26/22 14:00) Medications Given in ED Current Medications Medications Dose Ordered Sig/Devon Route Start Time Stop Time Status Last Admin Dose Admin Fluconazole 200 mg ONCE ONCE PO 05/26/22 12:45 05/26/22 12:46 DC 05/26/22 12:54 200 MG Iohexol 75 ml ONCE ONCE IV 05/26/22 14:00 05/26/22 14:01 DC 05/26/22 14:18 74 ML Nystatin 5 ml ONCE ONCE PO 05/26/22 12:45 05/26/22 12:46 DC 05/26/22 12:54 5 ML Sodium Chloride 10 ml NEEDED PRN IV 05/26/22 14:00 05/26/22 14:19 10 ML Sodium Chloride 100 ml ONCE ONCE IV 05/26/22 14:00 05/26/22 14:01 DC 05/26/22 14:19 80 ML Vital Signs/I&O 05/26/22 12:09 Temp 36.9 Pulse 91 Resp 16 B/P (MAP) 128/78 (95) Pulse Ox 94 Capillary Refill : Less Than 3 Seconds Blood Pressure Mean: 95 ECG Initial ECG Impression Date: May 26, 2022 Initial ECG Impression Time: 12:16 Initial ECG Rate: 97 Initial ECG Rhythm: A Fib/Flutter Initial ECG Impression: Nonspecific Changes Diagnostic Imaging Diagonstic Imaging: Xray Plain Films/CT/US/NM/MRI: chest Comments [facility] [place], [place] NAME: NOLBERTO ADAN [facility] REC#: [id number] PT STATUS: REG ER : 1935 PHYSICIAN: KALPANA GAUTHIER MD ADMIT DATE: 05/26/22/ER Draft Date of Exam:05/26/22 CHEST 1 VIEW, AP/PA ONLY INDICATION: Shortness of breath Frontal chest obtained at 1:12 p.m. and compared to 01/26/2022. There is poststernotomy change and cardiomegaly. There is central vascular congestion with perihilar infiltrates right worse than left. There is increasing right pleural fluid compared to the prior study. There is no pneumothorax. IMPRESSION: Cardiomegaly and postoperative changes. Central vascular congestion with increased perihilar infiltrates and increasing right pleural effusion compared to the previous study. Dictated on workstation # [id number] Dict: 05/26/22 1318 Trans: 05/26/22 1320 [facility] [id number] Interpreted by: HANY BLACKBURN MD Electronically signed by: Lazaro Imaging: CT Plain Films/CT/US/NM/MRI: chest Comments [facility], [place] NAME: NOLBERTO ADAN [facility] REC#: [id number] PT STATUS: REG ER : 1935 PHYSICIAN: KALPANA GAUTHIER MD ADMIT DATE: 05/26/22/ER Draft Date of Exam:05/26/22 CT CHEST W PROCEDURE: CT chest with contrast only. TECHNIQUE: Multiple contiguous axial images were obtained through the chest after administration of intravenous contrast. Auto Exposure Controls were utilized during the CT exam to meet ALARA standards for radiation dose reduction. INDICATION: Pleural effusion and possible lung mass. COMPARISON: No previous CT. FINDINGS: There are a tiny left and a [id number] right pleural effusions present. The portion of the right pleural fluid tracks intrafissurally, but showed no evidence for its loculation. It measures a maximal AP depth of 8 cm at the level of the logan. There is no pericardial effusion. The heart is mildly enlarged. There is thinning of the left ventricular apex which shows focal bulging, likely the sequelae of a remote infarct. No pericardial collection. There is coronary artery atherosclerosis and previous sternotomy without dehiscence. No acute chest wall pathology. There are atelectatic changes in the dependent lower lobes, greater right, adjacent to the pleural fluid. The lungs are otherwise clear and well expanded. There is no lung mass. There is no axillary, hilar, or mediastinal lymphadenopathy. The atherosclerotic aorta is patent, nonaneurysmal, and nonacute. There is a small hiatal hernia. Upper abdomen shows nonaneurysmal aortic atherosclerosis and previous cholecystectomy with no acute finding. IMPRESSION: Large right and small left pleural effusions without loculation and subjacent dependent bibasilar atelectasis, greater right. No evidence for pulmonary involvement by neoplasm or findings suggestive of pneumonia. No adenopathy. 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 Referrals: ARELIS LOPEZ MD (PCP/Family) Primary Care Physician KALPANA GAUTHIER MD May 26, 2022 12:40
[2022-05-26] MEDS ORDERED: fluCOnazole (DIFLUCAN) 100 MG TAB PO ONE (12:45)
[2022-05-26] MEDS ORDERED: NYSTATIN ORAL SUSP 5 ML UDC PO ONE (12:45)
[2022-05-26 12:47] LABS: CHLORIDE 102 MMOL/L (98-107); POTASSIUM 3.8 MMOL/L (3.6-5.0); SODIUM 137 MMOL/L (135-145)
[2022-05-26 12:48] LABS: BASOPHILS % (AUTO) 0 % (0-10); CALCIUM 8.7 MG/DL (8.5-10.1); EOSINOPHILS % (AUTO) 0 % (0-10); GLUCOSE 91 MG/DL (70-105); HEMATOCRIT 39 % (40-54); HEMOGLOBIN 13.2 g/dL (13.3-17.7); LYMPHOCYTES # (AUTO) 0.6 10^3/uL (1.0-4.0); LYMPHOCYTES % (AUTO) 9 % (12-44); MEAN CORPUSCULAR HEMOGLOBIN 32 pg (25-34); MEAN CORPUSCULAR HGB CONC 34 g/dL (32-36); MEAN CORPUSCULAR VOLUME 95 fL (80-99); MEAN PLATELET VOLUME 10.3 fL (9.0-12.2); MONOCYTES # (AUTO) 0.6 10^3/uL (0.0-1.0); MONOCYTES % (AUTO) 9 % (0-12); NEUTROPHILS % (AUTO) 82 % (42-75); PLATELET COUNT 189 10^3/uL (130-400); WHITE BLOOD COUNT 7.3 10^3/uL (4.3-11.0)
[2022-05-26 12:50] LABS: CARBON DIOXIDE 26 MMOL/L (21-32)
[2022-05-26 12:52] LABS: CREATININE SERUM 0.84 MG/DL (0.60-1.30); GFR ESTIMATED 85
[2022-05-26 12:53] LABS: BUN/CREATININE RATIO 20
--- NOTE | 2022-05-26 13:20 | Diagnostic Imaging Report ---
INDICATION: Shortness of breath Frontal chest obtained at 1:12 p.m. and compared to 01/26/2022. There is poststernotomy change and cardiomegaly. There is central vascular congestion with perihilar infiltrates right worse than left. There is increasing right pleural fluid compared to the prior study. There is no pneumothorax. IMPRESSION: Cardiomegaly and postoperative changes. Central vascular congestion with increased perihilar infiltrates and increasing right pleural effusion compared to the previous study. Dictated by: Dictated on workstation # [id number]
[2022-05-26] MEDS ORDERED: NS IV 1000 ML 1,000 ML IV SCH (13:30)
[2022-05-26] MEDS ORDERED: CATHETER FLUSH 10 ML SYR IV PRN (14:00)
[2022-05-26] MEDS ORDERED: NS 100 ML (IVPB) BAG IV ONE (14:00)
[2022-05-26] MEDS ORDERED: HOLD METFORMIN - RECEIVED CONTRAST 20 ML VIAL IV SCH (14:00)
[2022-05-26] MEDS ORDERED: IOHEXOL 350 MG/ML 100 ML (OMNIPAQUE 350) VIAL IV ONE (14:00)
--- NOTE | 2022-05-26 14:43 | Diagnostic Imaging Report ---
PROCEDURE: CT chest with contrast only. TECHNIQUE: Multiple contiguous axial images were obtained through the chest after administration of intravenous contrast. Auto Exposure Controls were utilized during the CT exam to meet ALARA standards for radiation dose reduction. INDICATION: Pleural effusion and possible lung mass. COMPARISON: No previous CT. FINDINGS: There are a tiny left and a fgtrtaxf-jh-lstis right pleural effusions present. The portion of the right pleural fluid tracks intrafissurally, but showed no evidence for its loculation. It measures a maximal AP depth of 8 cm at the level of the logan. There is no pericardial effusion. The heart is mildly enlarged. There is thinning of the left ventricular apex which shows focal bulging, likely the sequelae of a remote infarct. No pericardial collection. There is coronary artery atherosclerosis and previous sternotomy without dehiscence. No acute chest wall pathology. There are atelectatic changes in the dependent lower lobes, greater right, adjacent to the pleural fluid. The lungs are otherwise clear and well expanded. There is no lung mass. There is no axillary, hilar, or mediastinal lymphadenopathy. The atherosclerotic aorta is patent, nonaneurysmal, and nonacute. There is a small hiatal hernia. Upper abdomen shows nonaneurysmal aortic atherosclerosis and previous cholecystectomy with no acute finding. IMPRESSION: Large right and small left pleural effusions without loculation and subjacent dependent bibasilar atelectasis, greater right. No evidence for pulmonary involvement by neoplasm or findings suggestive of pneumonia. No adenopathy. Dictated by: Dictated on workstation # [id number]
--- NOTE | 2022-05-26 16:45 | Consultation - Surgery ---
CAMERON ALLAN 05/26/22 1645: History of Present Illness History of Present Illness Patient Consulted On(manju/time) 05/26/22 16:20 Date Seen by Provider: May 26, 2022 Time Seen by Provider: 16:35 Reason for Visit: SOB History of Present Illness 86 yo male with past medical hx of CAD and CHF of presents to ED with a chief complaint of SOB for the last couple days. Pt reports that he has been SOB and has felt weak. Pt denies any CP, tightness or pressure. Denies headache or dizziness. Allergies and Home Medications Allergies Coded Allergies: No Known Drug Allergies (Unverified , 03/08/20) Patient Home Medication List Home Medication List Reviewed: Yes Allopurinol (Allopurinol) 300 Mg Tablet, 300 MG PO DAILY, (Reported) Entered as Reported by: ANTONI THOMPSON on 03/08/20 1159 Aspirin (Children's Aspirin) 81 Mg Tab.chew, 81 MG PO DAILY Prescribed by: BRIDGER WHARTON on 01/27/22 1543 Atorvastatin Calcium (Atorvastatin Calcium) 10 Mg Tablet, 10 MG PO DAILY, (Reported) Entered as Reported by: REYES ONTIVEROS on 05/15/20 0825 Cefdinir (Cefdinir) 300 Mg Capsule, 300 MG PO BID Prescribed by: BRIDGER WHARTON on 01/27/22 1543 Docusate Sodium (Colace) 100 Mg Capsule, 100 MG PO DAILY PRN for CONSTIPATION- 1ST LINE, (Reported) Entered as Reported by: REYES ONTIVEROS on 05/15/20 0825 Escitalopram Oxalate (Escitalopram Oxalate) 10 Mg Tablet, 10 MG PO DAILY, (R eported) Entered as Reported by: CALI TORRES on 06/05/15 1001 Furosemide (Furosemide) 20 Mg Tablet, 20 MG PO DAILY, (Reported) Entered as Reported by: EVELYNE CELESTE on 07/27/18 0919 Metformin HCl (Metformin HCl) 500 Mg Tablet, 500 MG PO DAILY, (Reported) Entered as Reported by: YARELI GARCIA on 01/25/22 194 Multivitamin (Multivitamin) 1 Each Tablet, 1 EACH PO DAILY, (Reported) Entered as Reported by: REYES ONTIVEROS on 01/26/22 1040 [place]eret-3 Acid Ethyl Esters (Lovaza) 1 Gm Capsule, 2 GM PO BID, (Reported) Entered as Reported by: REYES ONTIVEROS on 05/15/20 0828 Omeprazole (Omeprazole) 20 Mg Tablet.dr, 20 MG PO DAILY, (Reported) Entered as Reported by: ANTONI THOMPSON on 03/08/20 115 Potassium Chloride (Potassium Chloride) 10 Meq Capsule.er, 10 MEQ PO DAILY, (Reported) Entered as Reported by: EVELYNE CELESTE on 07/27/18 0920 Ramipril (Ramipril) 5 Mg Capsule, 5 MG PO 1800, (Reported) Entered as Reported by: ANTONI THOMPSON on 03/08/20 115 Rivaroxaban (Xarelto) 20 Mg Tablet, 20 MG PO 1800, (Reported) Entered as Reported by: YARELI GARCIA on 01/25/221950 Spironolactone (Spironolactone) 25 Mg Tablet, 25 MG PO 1800, (Reported) Entered as Reported by: ANTONI THOMPSON on 03/08/20 115 Tamsulosin HCl (Flomax) 0.4 Mg Cap, 0.4 MG PO 1800, (Reported) Entered as Reported by: YARELI GARCIA on 01/25/22 194 Past Cysmnzr-Gigomx-Zjmqbd Hx Patient Social History Former Smoker, Quit: Jul 27, 1953 Type Used: Cigarettes 2nd Hand Smoke Exposure: No Recent Hopitalizations: No Alcohol Use?: No Immunizations Up To Date Tetanus Booster (TDap): Unknown PED Vaccines UTD: No Date of Pneumonia Vaccine: Jun 05, 2011 Date of Influenza Vaccine: May 08, 2020 Seasonal Allergies Seasonal Allergies: Yes Surgeries History of Surgeries: Yes (ICD ON 09-11-16, L TKR, R LEG X5, ) Surgeries: Cardiac, CABG, Coronary Stent, Defibrillator, Gallbladder, Joint Replacement, Orthopedic, Pacemaker Respiratory History of Respiratory Disorde: Yes Respiratory Disorders: Sleep Apnea Cardiovascular History of Cardiac Disorders: Yes Cardiac Disorders: Atrial Fibrillation, Coronary Artery Disease, Congenital Heart Disease, Deep Vein Thrombosis, Heart Attack, High Cholesterol, Hypertension Neurological History of Neurological Disord: No Reproductive System Hx Reproductive Disorders: No Sexually Transmitted Disease: No HIV/AIDS: No Genitourinary History of Genitourinary Disor: Yes Genitourinary Disorders: Kidney Stones Gastrointestinal History of Gastrointestinal Di: Yes Gastrointestinal Disorders: Gastroesophageal Reflux Musculoskeletal History of Musculoskeletal Dis: Yes (LEFT TOTAL KNEE REPLACEMENT) Musculoskeletal Disorders: Arthritis, Gout Endocrine History of Endocrine Disorders: Yes Endocrine Disorders: Diabetes, Non-Insulin dep HEENT History of HEENT Disorders: Yes (GLASSES) HEENT Disorders: Cataract Loss of Vision: Denies Hearing Impairment: Denies Cancer History of Cancer: Yes Cancer: Skin Psychosocial History of Psychiatric Problem: No Integumentary History of Skin or Integumenta: No Blood Transfusions History of Blood Disorders: No Adverse Reaction to a Blood Tr: No (N/A) Family Medical History Significant Family History: No Pertinent Family Hx Family Medial History: Hypertension Not obtainable due to adoption Review of Systems-General Constitutional: see HPI, weakness EENTM: other Respiratory: see HPI, short of breath Cardiovascular: no symptoms reported, Hx of Intervention Gastrointestinal: no symptoms reported Genitourinary: no symptoms reported Musculoskeletal: no symptoms reported Physical Exam-General Problems Physical Exam Vital Signs Vital Signs - First Documented 05/26/22 12:09 Temp 36.9 Pulse 91 Resp 16 B/P (MAP) 128/78 (95) Pulse Ox 94 Capillary Refill : Less Than 3 Seconds General Appearance: WD/WN, no apparent distress HEENT: other Respiratory: chest non-tender, lungs clear, decreased breath sounds Cardiovascular: no murmur, irregularly irregular Gastrointestinal: normal bowel sounds, non tender, soft Extremities: normal inspection, no pedal edema Neurologic/Psychiatric: oriented x 3 Skin: normal color, warm/dry Data Review Labs Laboratory Tests 05/26/22 12:28: White Blood Count 7.3, Red Blood Count 4.16L, Hemoglobin 13.2L, Hematocrit 39L, Mean Corpuscular Volume 95, Mean Corpuscular Hemoglobin 32, Mean Corpuscular Hemoglobin Concent 34, Red Cell Distribution Width 14.5, Platelet Count 189, Mean Platelet Volume 10.3, Immature Granulocyte % (Auto) 0, Neutrophils (%) (Auto) 82H, Lymphocytes (%) (Auto) 9L, Monocytes (%) (Auto) 9, Eosinophils (%) (Auto) 0, Basophils (%) (Auto) 0, Neutrophils # (Auto) 6.0, Lymphocytes # (Auto) 0.6L, Monocytes # (Auto) 0.6, Eosinophils # (Auto) 0.0, Basophils # (Auto) 0.0, Immature Granulocyte # (Auto) 0.0, Sodium Level 137, Potassium Level 3.8, Chloride Level 102, Carbon Dioxide Level 26, Anion Gap 9, Blood Urea Nitrogen 17, Creatinine 0.84, Estimat Glomerular Filtration Rate 85, BUN/Creatinine Ratio 20, Glucose Level 91, Calcium Level 8.7, Troponin I < 0.028, B-Type Natriuretic Peptide 299.7H Assessment/Plan Assessment/Plan Admission Diagonsis Pleural Effusion Assessment/Plan SOB secondary to Right Pleural Effusion Consulted by Dr. Fulton Hold Xarelto for at least 24hrs Thoracentesis in two days after holding Xarelto BROOK HIDALGOTT Alejandro DO 05/27/22 0807: History of Present Illness History of Present Illness History of Present Illness 86 year old male who has been having increasing shortness of breath over the last 2-3 days. Activity makes worse. Sitting still helps some. His O2 saturation has been in the upper 80's at times. Feels weak. Has heart history and is on aspirin and anticoagulation. Ct chest demonstrates: IMPRESSION: Large right and small left pleural effusions without loculation and subjacent dependent bibasilar atelectasis, greater right. No evidence for pulmonary involvement by neoplasm or findings suggestive of pneumonia. No adenopathy. Allergies and Home Medications Allergies Coded Allergies: No Known Drug Allergies (Unverified , 03/08/20) Patient Home Medication List Home Medication List Reviewed: Yes Allopurinol (Allopurinol) 300 Mg Tablet, 300 MG PO DAILY, (Reported) Entered as Reported by: ANTONI THOMPSON on 03/08/20 1159 Aspirin (Children's Aspirin) 81 Mg Tab.chew, 81 MG PO DAILY Prescribed by: BRIDGER WHARTON on 01/27/22 1543 Atorvastatin Calcium (Atorvastatin Calcium) 10 Mg Tablet, 10 MG PO DAILY, (Reported) Entered as Reported by: REYES ONTIVEROS on 05/15/20 0825 Cefdinir (Cefdinir) 300 Mg Capsule, 300 MG PO BID Prescribed by: BRIDGER WHARTON on 01/27/22 154 Docusate Sodium (Colace) 100 Mg Capsule, 100 MG PO DAILY PRN for CONSTIPATION- 1ST LINE, (Reported) Entered as Reported by: REYES ONTIVEROS on 05/15/20 0825 Escitalopram Oxalate (Escitalopram Oxalate) 10 Mg Tablet, 10 MG PO DAILY, (Reported) Entered as Reported by: CALI TORRES on 06/05/15 1001 Furosemide (Furosemide) 20 Mg Tablet, 20 MG PO DAILY, (Reported) Entered as Reported by: EVELYNE CELESTE on 07/27/18 0919 Metformin HCl (Metformin HCl) 500 Mg Tablet, 500 MG PO DAILY, (Reported) Entered as Reported by: YARELI GARCIA on 01/25/221948 Multivitamin (Multivitamin) 1 Each Tablet, 1 EACH PO DAILY, (Reported) Entered as Reported by: REYES ONTIVEROS on 01/26/22 1040 [place]-3 Acid Ethyl Esters (Lovaza) 1 Gm Capsule, 2 GM PO BID, (Reported) Entered as Reported by: REYES ONTIVEROS on 05/15/20 0828 Omeprazole (Omeprazole) 20 Mg Tablet.dr, 20 MG PO DAILY, (Reported) Entered as Reported by: ANTONI THOMPSON on 03/08/20 115 Potassium Chloride (Potassium Chloride) 10 Meq Capsule.er, 10 MEQ PO DAILY, (Reported) Entered as Reported by: EVELYNE CELESTE on 07/27/18 0920 Ramipril (Ramipril) 5 Mg Capsule, 5 MG PO 1800, (Reported) Entered as Reported by: ANTONI THOMPSON on 03/08/20 115 Rivaroxaban (Xarelto) 20 Mg Tablet, 20 MG PO 1800, (Reported) Entered as Reported by: YARELI GARCIA on 01/25/221950 Spironolactone (Spironolactone) 25 Mg Tablet, 25 MG PO 1800, (Reported) Entered as Reported by: ANTONI THOMPSON on 03/08/20 115 Tamsulosin HCl (Flomax) 0.4 Mg Cap, 0.4 MG PO 1800, (Reported) Entered as Reported by: YARELI GARCIA on 01/25/221947 Past Gvtyyhf-Cwvkmw-Rghqvn Hx Family Medical History Family Medial History: Hypertension Not obtainable due to adoption Review of Systems-General Constitutional: No diaphoresis; weakness EENTM: No blurred vision, No double vision Respiratory: No cough; dyspnea on exertion, short of breath Cardiovascular: No chest pain; Hx of Intervention; No palpitations Gastrointestinal: No abdominal pain, No nausea, No vomiting Genitourinary: No decreased output, No discharge Musculoskeletal: No back pain, No joint pain Skin: No change in color, No change in hair/nails Psychiatric/Neurological: Denies Anxiety, Denies Depressed, Denies Emotional Problems All Other Systems Reviewed Negative Unless Noted: Yes (Negative excepted noted.) Physical Exam-General Problems Physical Exam General Appearance: WD/WN, no apparent distress HEENT: PERRL/EOMI, normal ENT inspection Neck: non-tender, supple Respiratory: chest non-tender, lungs clear, decreased breath sounds Cardiovascular: no JVD, irregularly irregular Gastrointestinal: non tender, soft Rectal: deferred Back: normal inspection, no CVA tenderness Extremities: non-tender, no calf tenderness Neurologic/Psychiatric: alert, normal mood/affect, oriented x 3 Skin: normal color, warm/dry Lymphatic: no adenopathy Assessment/Plan Assessment/Plan Assessment/Plan b/l pleural effusion left greater than right hypoxia improved at this time anticoagulation/antiplatelet detention history of cardiac bypass discussed large right pleural effusion and need thoracentesis will hold anticoagulation he understands risks and benefits would prefer to hold anticoagulation 2 doses last taken last night, so likely drain but if worsening would do earlier just higher risk. Supervisory-Addendum Brief Verification & Attestation Participated in pt care: history, MDM, physical Personally performed: exam, history, MDM, supervision of care Care discussed with: Medical Student Procedures: n/a Results interpretation: Verified all documentation Verification and Attestation of Medical Student E/M Service A medical student performed and documented this service in my presence. I reviewed and verified all information documented by the medical student and made modifications to such information, when appropriate. I personally performed the physical exam and medical decision making. Roberta iHdalgo, May 26, 2022,18:08 CAMERON ALLAN May 26, 2022 16:45 ROBERTA HIDALGO DO May 27, 2022 08:07
[2022-05-26] MEDS ORDERED: PATIENT MAY USE OWN MEDS, ALL PO SCH (17:30)
[2022-05-26 18:04] VITALS: BP 133/61
[2022-05-26] MEDS: NYSTATIN ORAL SUSP 5 ML UDC PO SCH (18:12)
[2022-05-26] MEDS ORDERED: FLU QUAD HIGH DOSE 240 MCG/0.7 ML 2022-23 (FLUZONE) IM ONE (18:45)
[2022-05-26 19:31] VITALS: BP 131/63
[2022-05-26] MEDS: inSUlin ASPART (NovoLOG) 1 UNIT/0.01 ML (CHARGE PER UNIT) SC SCH (20:28)
[2022-05-26 23:56] VITALS: BP 121/75
[2022-05-27] MEDS: NYSTATIN ORAL SUSP 5 ML UDC PO SCH ×5 (00:42→22:56)
[2022-05-27 03:57] VITALS: BP 133/81
[2022-05-27] MEDS ORDERED: AMIODARONE (Pyxis Kit Only) DRIP 450 MG/9 ML VIAL IV ONE (05:27)
[2022-05-27] MEDS ORDERED: AMIODARONE (Pyxis Kit Only) BOLUS 150 MG/3 ML IV ONE (05:27)
[2022-05-27] MEDS ORDERED: D5W IV SOLUTION (EXCEL) 250 ML IV ONE (05:29)
[2022-05-27] MEDS ORDERED: D5W 100 ML IVPB 100 ML IV ONE (05:29)
[2022-05-27] MEDS ORDERED: AMIODARONE FOR BOLUS 150 MG in NS (IVPB) 100 ML IV ONE (05:30)
[2022-05-27] MEDS ORDERED: AMIODARONE INJECTION 450 MG in NORMAL SALINE 250 ML IV SCH (05:30)
[2022-05-27 05:45] LABS: HEMATOCRIT 39 % (40-54); HEMOGLOBIN 13.1 g/dL (13.3-17.7); MEAN CORPUSCULAR HEMOGLOBIN 32 pg (25-34); MEAN CORPUSCULAR HGB CONC 34 g/dL (32-36); MEAN CORPUSCULAR VOLUME 94 fL (80-99); MEAN PLATELET VOLUME 10.9 fL (9.0-12.2); PLATELET COUNT 171 10^3/uL (130-400); WHITE BLOOD COUNT 7.4 10^3/uL (4.3-11.0)
[2022-05-27] MEDS: inSUlin ASPART (NovoLOG) 1 UNIT/0.01 ML (CHARGE PER UNIT) SC SCH ×4 (05:55→20:49)
[2022-05-27 06:07] LABS: ALBUMIN 3.4 GM/DL (3.2-4.5); CALCIUM 8.6 MG/DL (8.5-10.1); CREATININE SERUM 0.82 MG/DL (0.60-1.30); POTASSIUM 3.6 MMOL/L (3.6-5.0); TOTAL PROTEIN 6.9 GM/DL (6.4-8.2)
[2022-05-27] MEDS ORDERED: POTASSIUM CL 10MEQ/50ML IVPB 100 ML IV ONE (06:22)
[2022-05-27] MEDS ORDERED: NS IV 500 ML 500 ML ONE (06:24)
[2022-05-27] MEDS: NS IV 500 ML 500 ML IV PRN (06:28)
[2022-05-27] MEDS: POTASSIUM CL 10MEQ/50ML IVPB 50 ML IV SCH ×2 (06:35→08:00)
[2022-05-27] MEDS ORDERED: MAGNESIUM 1 GM/100 ML IVPB 200 ML IV ONE (06:40)
[2022-05-27] MEDS: MAGNESIUM 1 GM/100 ML IVPB 100 ML IV SCH ×2 (06:42→08:00)
--- NOTE | 2022-05-27 07:29 | Progress Note - Surgery ---
JERRELLCAMERON Jose Carlos 05/27/22 0729: Subjective Date Seen by a Provider: May 27, 2022 Time Seen by a Provider: 07:24 Subjective/Events-last exam 86 yo male admitted here for SOB secondary to right pleural effusion. Pt was moved to ICU due to continuous episodes of Vtach last night. Pt has not had an episode of v-tach since. Denies any nausea, vomiting, and chest pain. Pt is on 3L and was started on amiodarone drip. Review of Systems General: Fatigue Neurological: Weakness Focused Exam Respiratory: Chest Non Tender Cardiovascular: Irregularly Irregular Capillary Refill: Less Than 3 Seconds Skin: normal color, warm/dry Objective Exam Vital Signs Date Time Temp Pulse Resp B/P (MAP) Pulse Ox O2 Delivery O2 Flow Rate FiO2 05/27/22 06:45 74 32 113/65 (91) 96 Nasal Cannula 3.00 05/27/22 06:30 81 33 117/67 (86) 96 Nasal Cannula 3.00 05/27/22 06:15 83 30 123/67 (86) 97 Nasal Cannula 3.00 05/27/22 06:00 82 113/66 (81) 95 Nasal Cannula 3.00 05/27/22 05:45 75 39 122/68 (83) 95 Nasal Cannula 3.00 05/27/22 05:35 85 121/69 05/27/22 05:30 79 33 121/69 (95) 95 Nasal Cannula 3.00 05/27/22 05:19 93 133/85 (106) 96 Nasal Cannula 3.00 05/27/22 04:52 70 05/27/22 04:43 183 05/27/22 03:57 36.7 86 20 133/81 (98) 95 Nasal Cannula 3.50 05/27/22 01:50 72 05/27/22 01:45 176 05/27/22 01:00 74 05/26/22 23:56 36.7 84 20 121/75 (90) 96 Nasal Cannula 3.50 05/26/22 19:55 Room Air 05/26/22 19:31 36.9 85 20 131/63 (85) 94 Room Air 05/26/22 19:00 92 05/26/22 18:30 Room Air 05/26/22 18:04 36.2 80 17 133/61 (85) 94 Room Air 05/26/22 17:34 75 18 96/66 98 05/26/22 12:09 36.9 91 16 128/78 (95) 94 I & O 05/27/22 07:00 Intake Total 303 ml Balance 303 ml Capillary Refill : Less Than 3 Seconds Cardiovascular: Irregularly Irregular Gastrointestinal: normal bowel sounds, non tender, soft Results Lab Laboratory Tests 05/26/22 12:28: White Blood Count 7.3, Red Blood Count 4.16L, Hemoglobin 13.2L, Hematocrit 39L, Mean Corpuscular Volume 95, Mean Corpuscular Hemoglobin 32, Mean Corpuscular Hemoglobin Concent 34, Red Cell Distribution Width 14.5, Platelet Count 189, Mean Platelet Volume 10.3, Immature Granulocyte % (Auto) 0, Neutrophils (%) (Auto) 82H, Lymphocytes (%) (Auto) 9L, Monocytes (%) (Auto) 9, Eosinophils (%) (Auto) 0, Basophils (%) (Auto) 0, Neutrophils # (Auto) 6.0, Lymphocytes # (Auto) 0.6L, Monocytes # (Auto) 0.6, Eosinophils # (Auto) 0.0, Basophils # (Auto) 0.0, Immature Granulocyte # (Auto) 0.0, Sodium Level 137, Potassium Level 3.8, Chloride Level 102, Carbon Dioxide Level 26, Anion Gap 9, Blood Urea Nitrogen 17, Creatinine 0.84, Estimat Glomerular Filtration Rate 85, BUN/Creatinine Ratio 20, Glucose Level 91, Calcium Level 8.7, Troponin I < 0.028, B-Type Natriuretic Peptide 299.7H 05/26/22 20:27: Glucometer 113H 05/27/22 05:04: Glucometer 134H 05/27/22 05:10: Magnesium Level 1.6 05/27/22 05:25: White Blood Count 7.4, Red Blood Count 4.16L, Hemoglobin 13.1L, Hematocrit 39L, Mean Corpuscular Volume 94, Mean Corpuscular Hemoglobin 32, Mean Corpuscular Hemoglobin Concent 34, Red Cell Distribution Width 14.2, Platelet Count 171, Me an Platelet Volume 10.9, Sodium Level 136, Potassium Level 3.6, Chloride Level 103, Carbon Dioxide Level 20L, Anion Gap 13, Blood Urea Nitrogen 15, Creatinine 0.82, Estimat Glomerular Filtration Rate 86, BUN/Creatinine Ratio 18, Glucose Level 134H, Calcium Level 8.6, Corrected Calcium 9.1, Total Bilirubin 1.0, Aspartate Amino Transf (AST/SGOT) 39H, Alanine Aminotransferase (ALT/SGPT) 36, Alkaline Phosphatase 70, Total Protein 6.9, Albumin 3.4 Assessment/Plan Assessment/Plan Assessment/Plan SOB secondary to Right Pleural Effusion Consulted by Dr. Fulton Hold Xarelto for at least 24hrs Thoracentesis in two days after holding Xarelto ROBERTA BRENNER DO 05/27/22 1326: Subjective Subjective/Events-last exam Transferred to ICU due to vtach last night. Breathing about the same. Using NC O2 and maintaining good oxygen saturation. No abdominal pain or new complaints. Deneis n/v fever sweats chills shortness of breath or chest pain. Objective Exam General Appearance: No Apparent Distress, WD/WN HEENT: PERRL/EOMI, Normal ENT Inspection Neck: Normal Inspection, Non Tender Respiratory: Chest Non Tender, No Accessory Muscle Use, No Respiratory Distress Cardiovascular: No JVD, Irregularly Irregular Gastrointestinal: non tender, soft Neurologic/Psychiatric: Alert, Oriented x3 Skin: Normal Color, Warm/Dry Lymphatic: No Adenopathy Assessment/Plan Assessment/Plan Assessment/Plan vtrach b/l pleural effusion left greater than right hypoxia improved at this time anticoagulation/antiplatelet usp history of cardiac bypass discussed large right pleural effusion and need thoracentesis will hold anticoagulation he understands risks and benefits would prefer to hold anticoagulation 2 doses last taken last night, so likely drain but if worsening would do earlier just higher risk. icu monitoring Supervisory-Addendum Brief Verification & Attestation Participated in pt care: history, MDM, physical Personally performed: exam, history, MDM, supervision of care Care discussed with: Medical Student Procedures: n/a Results interpretation: Verified all documentation Verification and Attestation of Medical Student E/M Service A medical student performed and documented this service in my presence. I reviewed and verified all information documented by the medical student and made modifications to such information, when appropriate. I personally performed the physical exam and medical decision making. Roberta Brenner, May 27, 2022,13:26 CAMERON ALLAN May 27, 2022 07:29 ROBERTA BRENNER DO May 27, 2022 13:26
[2022-05-27] MEDS ORDERED: BISA5TAB8 PO (11:20)
[2022-05-27] MEDS ORDERED: ACET-2650 PO (11:20)
[2022-05-27] MEDS ORDERED: MTP100TCR PO (11:20)
[2022-05-27] MEDS ORDERED: OMEG-33 PO (11:20)
[2022-05-27] MEDS ORDERED: OMEP20CA18 PO (11:20)
[2022-05-27] MEDS ORDERED: ASPI-999 PO (11:20)
--- NOTE | 2022-05-27 11:25 | Consultation-Cardiology ---
HPI-Cardiology Cardiology Consultation Date of Consultation 05/27/22 Date of Admission Time Seen by Provider: 07:24 Indication: SOB Home Medications & Allergies Allergies: Coded Allergies: No Known Drug Allergies (Unverified , 03/08/20) EEP-Rgswfj-Gejdzw Hx Patient Social History Smoking Status: Former Smoker Former smoker/When Quit: Sep 11, 1965 Type Used: Cigarettes 2nd Hand Smoke Exposure: No Recent Hopitalizations: No Have you traveled recently?: No Alcohol Use?: No Immunizations Up To Date Tetanus Booster (TDap): Unknown Date of Pneumonia Vaccine: Jun 05, 2011 Date of Influenza Vaccine: May 08, 2020 Family Medical History Significant Family History: No Pertinent Family Hx Family History: Hypertension Not obtainable due to adoption Review of Systems-General Review of Systems Constitutional: No diaphoresis; weakness EENTM: No blurred vision, No double vision Respiratory: No cough; dyspnea on exertion, short of breath Cardiovascular: No chest pain; Hx of Intervention; No palpitations Gastrointestinal: No abdominal pain, No nausea, No vomiting Genitourinary: No decreased output, No discharge Musculoskeletal: No back pain, No joint pain Skin: No change in color, No change in hair/nails Psychiatric/Neurological: Denies Anxiety, Denies Depressed, Denies Emotional Problems All Other Systems Reviewed Negative Unless Noted: Yes (Negative excepted noted.) Physical Exam Physical Exam Vital Signs Vital Signs - First Documented Capillary Refill : Less Than 3 Seconds Height, Weight, BMI Height: 5'9.00" Weight: 211lbs. 0.0oz. [id number]; 28.93 BMI Method:Stated Eyes: Bilateral Eye Normal Inspection, Bilateral Eye PERRL, Bilateral Eye EOMI Respiratory: Chest Non Tender Cardiovascular: Irregularly Irregular A/P-Cardiology Assessment/Plan Dyspnea, pleural effusion VT, Permanent atrial fibrillation with rate control. Was in the hospital with syncope and bradycardia. Diltiazem and Digoxin discontinued. Currently on Toprol XL 100mg daily. I will continue to monitor. Shortness of breath on exertion, reporting improvement. History of elevated liver enzymes, improved after stopping Lipitor and amiodarone. [id number] score of 6, yearly risk of stroke without oral anticoagulation is 9.8 percent. Maintained on Eliquis 5 mg twice daily and tolerating it well. I will change to Xarelto for cost purposes Coronary artery disease, history of 2 heart attacks in the past, had angioplasty in 1989, CABG 4 in 1997, stent in 2004 after a heart attack, had sudden during the procedure. Most recent cardiac catheterization done in June 05, 2015 revealed 3 patent bypass grafts. Vein graft to the right coronary artery, vein graft to the diagonal artery, and CHRISTINA to LAD with excellent flow in the system. Totally occluded circumflex artery with no bypass to the obtuse marginal system. Receiving collaterals from the right coronary system EF 30 percent. Stress test done in November 2020 showing fixed defect involving the inferior wall and inferoapex and true apex, no change compared to the previous stress test, ejection fraction 27%. Patient is asymptomatic. Continue to monitor Congestive heart failure, left ventricular systolic dysfunction with EF 30-35 percent, repeat echocardiogram done in March 2018 showing ejection fraction 40- 45 percent, dilated left atrium measuring 4.92 cm, mild MR, mild AR, PA 30-35 mmHg. I will reevaluate echo Last stress test showed ejection fraction 27% in December 04. Asymptomatic. Continue to monitor Peripheral edema, chronic, no change from baseline, maintained on Lasix 20 mg daily, I instructed him to take additional tablet of Lasix as needed Status post single-chamber ICD implantation, using [employer] device Evera XT, last pacemaker interrogation was done March 2022 showing good sensing and capture activity Hypertension, controlled on the current medications, continue to monitor Hyperlipidemia, Lipitor was restarted, lipid profile done on June 26, 2020 showing total cholesterol 113, triglyceride 161, HDL 26, LDL 62. Liver enzymes were normal. I will evaluate lipid profile and metabolic profile Mild bilateral nonobstructive carotid artery stenosis per carotid duplex done in March 2021 Diabetes mellitus, followed and managed by Dr. Zheng Arthritis, maintained on allopurinol. History of sleep apnea on CPAP JACQUELINE DONOHUE May 27, 2022 11:25
[2022-05-27] MEDS ORDERED: DOCUSATE SODIUM 100 MG (COLACE) CAP PO PRN (12:00)
[2022-05-27] MEDS ORDERED: BISACODYL 5 MG (DULCOLAX) TABLET PO PRN (12:00)
[2022-05-27] MEDS ORDERED: ACETAMINOPHEN ER 650 MG (TYLENOL ARTHRITIS) PO PRN (12:00)
--- NOTE | 2022-05-27 12:35 | Tele-ICU Consult ---
History of Present Illness History of Present Illness Date Seen by Provider: May 27, 2022 Time Seen by Provider: 12:34 Date of Admission (Tele-ICU Physician , consultation) Available chart/ vitals / labs / Images reviewed H&P is from ER notes Patient's information available about PMH, Shx, Fhx allergy reviewed inEMR. ROS as per chart and RN report Now in ICU, hemodynamically stable Video assessment done using teleICU camera, rest of exam as per RN Discussed with RN. Consultants: Hospital course: (05/26) 86M Admitted for right pleural effusion and oral thrush--plan thoracentesis (05/27) TX to ICU for possible run Vtach while on commode. Asymptomatic. Electrolytes covered. A/P Vtach suspected 05/27 -- single-chamber ICD in place - review/w/up amd plans as per cardiology Bilateral plural effusions by CT R>>L - thoracentes on right planned for 05/28 ( with holding AC) CAD - complex history ( cabg/ stenting ) , as per cards ICM -Status post single-chamber ICD -LVEF 40-45% ,mild MR, mild AR, PA 30-35 mmHg AFIB , permanent - AC xarelto - on HOLD History of elevated liver enzymes Elevated liver enzymes of undetermined etiology - remains elevated DM - ISS ADELE /CSA ( AHI 59, with AutoPAP AHI 34) ) - s/p titration PSG 01/2022 - CSA AI 38 on bipap 07/23 --> ASV titrated ( final ASV titration: EPAP min 4cm -EPAP max 15cm PS 0-20cm rate auto , max pressure 25 Lines : , (Central Line Necessity Reviewed) Dunbar: void OG: Nutrition: Analgesia: Anxiety/ delirium VTE Prophylaxis: xarelto on hold , scd - refusion Stress Ulcer Prophylaxis: Plans in collaboration with bedside consultants and IM MDs. Discussed with RN to reach out if any questions or concerns A total of 32 minutes of critical care time was devoted to this patient today, required to treat and/or prevent further deterioration of critical care condition ( as above ) . Reason for Visit: SOB Allergies and Home Medications Allergies Coded Allergies: No Known Drug Allergies (Unverified , 03/08/20) Home Medications Acetaminophen 650 Mg Tablet.er, 650-1,300 MG PO Q8H PRN for PAIN-MILD (1-4), (Reported) Allopurinol 300 Mg Tablet, 300 MG PO DAILY, (Reported) Aspirin 81 Mg Tab.chew, 81 MG PO DAILY PRN for CHEST PAIN (ANGINA), (Reported) Atorvastatin Calcium 10 Mg Tablet, 10 MG PO DAILY, (Reported) Bisacodyl 5 Mg Tablet.dr, 5 MG PO DAILY PRN for CONSTIPATION-4TH LINE, (Reported) Docusate Sodium 100 Mg Capsule, 100 MG PO DAILY PRN for CONSTIPATION-1ST LINE, (Reported) Escitalopram Oxalate 10 Mg Tablet, 10 MG PO DAILY, (Reported) Furosemide 20 Mg Tablet, 20 MG PO DAILY, (Reported) Metformin HCl 500 Mg Tablet, 500 MG PO DAILY, (Reported) Metoprolol Succinate 100 Mg Tab.er.24h, 100 MG PO DAILY, (Reported) [place]-3 Acid Ethyl Esters 1 Gm Capsule, 2 GM PO BID, (Reported) TAKES 2 (1GM) CAPS [place]-3/Dha/Epa/Fish Oil 60 Mg-90 Mg-500 Mg Capsule, 2 EACH PO BID, (Reported) Omeprazole 20 Mg Capsule.dr, 20 MG PO DAILY, (Reported) Potassium Chloride 10 Meq Capsule.er, 10 MEQ PO DAILY, (Reported) Ramipril 5 Mg Capsule, 5 MG PO 1800, (Reported) Rivaroxaban 20 Mg Tablet, 20 MG PO 1800, (Reported) Spironolactone 25 Mg Tablet, 25 MG PO 1800, (Reported) Tamsulosin HCl 0.4 Mg Cap, 0.4 MG PO 1800, (Reported) Past Medical/Social/Family Hx Patient Social History Tobacco Use?: Yes Smoking Status: Former Smoker Use of E-Cig and/or Vaping dev: No Substance use?: No Alcohol Use?: No Pt stated abuse/neglect: No Immunizations Up To Date Influenza Vaccine Up-to-Date: No; Not Current First/Initial COVID19 Vaccinat: 11/14/20 Second COVID19 Vaccination Sree: 12/2020 Tetanus Booster (TDap): Unknown TB Skin Test: Negative Date of Pneumonia Vaccine: Jun 05, 2011 Current Status Advance Directives: Yes Advance Directive Location: Unable to obtain copy Communicates: Verbally Primary Language: Frisian Preferred Spoken Language: Frisian Sensory deficits: Vision impairment, Hearing impairment Implanted or Applied Medical D: Orthopedic hardware, Pacemaker, Stents Family Medical History Family Hx: PSH: -RIGHT FEUMUR FRACTURE SURGERY X 5 -RIGHT KNEE PATELLAR TENDON REPAIR -LEFT KNEE REPLACEMENT -CARDIAC CATHS WITH STENT X 1 -5 VESSEL CABG Review of Systems Constitutional: no symptoms reported Focused Exam Height, Weight, BMI Height: 5'9.00" Weight: 211lbs. 0.0oz. 95.249215pt; 28.93 BMI Method:Stated Exam Exam Patient acknowledged, consented, and participated in this virtual visit which was conducted using real time audio/video Vital Signs Date Time Temp Pulse Resp B/P (MAP) Pulse Ox O2 Delivery O2 Flow Rate FiO2 05/27/22 09:00 73 14 108/61 (77) 95 Nasal Cannula 3.00 05/27/22 08:00 78 45 113/64 (80) 96 Nasal Cannula 3.00 05/27/22 07:14 85 05/27/22 07:00 81 38 120/69 (86) 96 Nasal Cannula 3.00 05/27/22 06:45 74 32 113/65 (91) 96 Nasal Cannula 3.00 05/27/22 06:30 81 33 117/67 (86) 96 Nasal Cannula 3.00 05/27/22 06:15 83 30 123/67 (86) 97 Nasal Cannula 3.00 05/27/22 06:00 82 113/66 (81) 95 Nasal Cannula 3.00 05/27/22 05:45 75 39 122/68 (83) 95 Nasal Cannula 3.00 05/27/22 05:35 85 121/69 05/27/22 05:30 79 33 121/69 (95) 95 Nasal Cannula 3.00 05/27/22 05:19 93 133/85 (106) 96 Nasal Cannula 3.00 05/27/22 04:52 70 05/27/22 04:43 183 05/27/22 03:57 36.7 86 20 133/81 (98) 95 Nasal Cannula 3.50 05/27/22 01:50 72 05/27/22 01:45 176 05/27/22 01:00 74 05/26/22 23:56 36.7 84 20 121/75 (90) 96 Nasal Cannula 3.50 05/26/22 19:55 Room Air 05/26/22 19:31 36.9 85 20 131/63 (85) 94 Room Air 05/26/22 19:00 92 05/26/22 18:30 Room Air 05/26/22 18:04 36.2 80 17 133/61 (85) 94 Room Air 05/26/22 17:34 75 18 96/66 98 I & O 05/27/22 07:00 Intake Total 303 ml Balance 303 ml Height & Weight Height: 5'9.00" Weight: 211lbs. 0.0oz. 95.536516uq; 28.93 BMI Method:Stated General Appearance: No Apparent Distress Respiratory: Chest Non Tender Cardiovascular: Irregularly Irregular Capillary Refill: Less Than 3 Seconds Gastrointestinal: non tender, soft Results Lab Laboratory Tests 05/26/22 12:28 05/27/22 05:25 Assessment/Plan Assessment/Plan 1 VALERIO MANLEY MD May 27, 2022 12:35
--- NOTE | 2022-05-27 13:14 | Consultation-Cardiology ---
HPI-Cardiology Cardiology Consultation Date of Consultation 05/27/22 Date of Admission Time Seen by Provider: 12:34 Indication: SOB HPI 86-year-old gentleman with extensive cardiac history with congestive heart failure, paroxysmal atrial fibrillation and coronary artery disease. Came in to the emergency room for burning in his mouth, he had some hot potato earlier on Wednesday and had burning and continue to have runny mouth and sore throat. He denied any chest pain but was having dyspnea on exertion, uses oxygen at home. Patient was admitted for congestive heart failure. During the hospital stay he had multiple episodes of wide-complex tachycardia lasted for about 9 minutes. No chest pain was reported during the episode but felt lightheaded and had palpitation. Home Medications & Allergies Allergies: Coded Allergies: No Known Drug Allergies (Unverified , 03/08/20) Home Medication List Reviewed: Yes ZAS-Ibknnn-Boormu Hx Patient Social History Marital Status: , Employed/Student: retired Smoking Status: Former Smoker Former smoker/When Quit: Sep 11, 1965 Type Used: Cigarettes 2nd Hand Smoke Exposure: No Recent Hopitalizations: No Have you traveled recently?: No Alcohol Use?: No Immunizations Up To Date Tetanus Booster (TDap): Unknown Date of Pneumonia Vaccine: Jun 05, 2011 Date of Influenza Vaccine: May 08, 2020 Past Medical History Discussed below Family Medical History Significant Family History: No Pertinent Family Hx Family Medical Hx Noncontributory Family History: Hypertension Not obtainable due to adoption Review of Systems-General Review of Systems Constitutional: no symptoms reported, see HPI, malaise EENTM: see HPI, mouth pain, throat pain; No blurred vision, No double vision Respiratory: see HPI; No cough; dyspnea on exertion, short of breath Cardiovascular: see HPI; No chest pain; Hx of Intervention, palpitations Gastrointestinal: see HPI; No abdominal pain, No nausea, No vomiting Genitourinary: see HPI; No decreased output, No discharge Musculoskeletal: see HPI; No back pain, No joint pain Skin: see HPI; No change in color, No change in hair/nails Psychiatric/Neurological: See HPI; Denies Anxiety, Denies Depressed, Denies Emotional Problems All Other Systems Reviewed Negative Unless Noted: Yes (Negative excepted noted.) Reviewed Test Results Reviewed Test Results Lab Laboratory Tests Test 05/26/22 20:27 05/27/22 05:04 05/27/22 05:10 05/27/22 05:25 Range/Units Glucometer 113 H 134 H 70-110 MG/DL Magnesium Level 1.6 1.6-2.4 MG/DL White Blood Count 7.4 4.3-11.0 10^3/uL Red Blood Count 4.16 L 4.30-5.52 10^6/uL Hemoglobin 13.1 L 13.3-17.7 g/dL Hematocrit 39 L 40-54 % Mean Corpuscular Volume 94 80-99 fL Mean Corpuscular Hemoglobin 32 25-34 pg Mean Corpuscular Hemoglobin Concent 34 32-36 g/dL Red Cell Distribution Width 14.2 10.0-14.5 % Platelet Count 171 130-400 10^3/uL Mean Platelet Volume 10.9 9.0-12.2 fL Sodium Level 136 135-145 MMOL/L Potassium Level 3.6 3.6-5.0 MMOL/L Chloride Level 103 98-107 MMOL/L Carbon Dioxide Level 20 L 21-32 MMOL/L Anion Gap 13 5-14 MMOL/L Blood Urea Nitrogen 15 7-18 MG/DL Creatinine 0.82 0.60-1.30 MG/DL Estimat Glomerular Filtration Rate 86 BUN/Creatinine Ratio 18 Glucose Level 134 H 70-105 MG/DL Calcium Level 8.6 8.5-10.1 MG/DL Corrected Calcium 9.1 8.5-10.1 MG/DL Total Bilirubin 1.0 0.1-1.0 MG/DL Aspartate Amino Transf (AST/SGOT) 39 H 5-34 U/L Alanine Aminotransferase (ALT/SGPT) 36 0-55 U/L Alkaline Phosphatase 70 40-136 U/L Total Protein 6.9 6.4-8.2 GM/DL Albumin 3.4 3.2-4.5 GM/DL Test 05/27/22 11:16 Range/Units Glucometer 130 H 70-110 MG/DL Physical Exam Physical Exam Vital Signs Vital Signs - First Documented 05/26/22 05/26/22 05/26/22 12:09 18:04 23:56 Temp 36.9 Pulse 91 Resp 16 B/P (MAP) 128/78 (95) Pulse Ox 94 O2 Delivery Room Air O2 Flow Rate 3.50 Capillary Refill : Less Than 3 Seconds Height, Weight, BMI Height: 5'9.00" Weight: 211lbs. 0.0oz. 95.534237jm; 28.93 BMI Method:Stated General Appearance: No Apparent Distress Eyes: Bilateral Eye Normal Inspection, Bilateral Eye PERRL, Bilateral Eye EOMI HEENT: PERRL/EOMI, TMs Normal, Normal ENT Inspection, Pharynx Normal, Moist Mucous Membranes Neck: Full Range of Motion, Normal Inspection, Non Tender, Supple, Carotid Bruit Respiratory: Chest Non Tender, Crackles, Decreased Breath Sounds Cardiovascular: Systolic Murmur, Irregularly Irregular Gastrointestinal: Normal Bowel Sounds, No Organomegaly, No Pulsatile Mass, Non Tender, Soft Back: Normal Inspection, No CVA Tenderness, No Vertebral Tenderness Extremity: Normal Capillary Refill, Normal Inspection, Normal Range of Motion, Non Tender, No Calf Tenderness, No Pedal Edema Neurologic/Psychiatric: Alert, Oriented x3, No Motor/Sensory Deficits, Normal Mood/Affect Skin: Normal Color, Warm/Dry Lymphatic: No Adenopathy A/P-Cardiology Admission Diagnosis Dyspnea Pleural effusion Congestive heart failure, acute on chronic left ventricular systolic dysfunction Sustained ventricular tachycardia Assessment/Plan Dyspnea, pleural effusion, started on diuretics. Continue to monitor Sore throat, probably laceration from hot food. Reporting improvement. Continue to monitor Multiple episodes of wide-complex tachycardia, could be secondary to sustained ventricular tachycardia versus atrial fibrillation with rapid ventricular response. Patient was started on amiodarone overnight. I will start him on oral amiodarone and continue on his beta-blockers and monitor tolerance and response Congestive heart failure, acute on chronic left ventricular systolic dysfunction, ischemic cardiomyopathy. Ejection fraction 30%. NYHA class II-III Continue with aggressive diuresis and monitor tolerance and response Permanent atrial fibrillation with rate control. Was in the hospital with syncope and bradycardia. Diltiazem and Digoxin discontinued. Currently on Toprol XL 100mg daily. Adding amiodarone and monitor tolerance and response Shortness of breath, pleural effusion, Responding well to diuretics. Continue to monitor History of elevated liver enzymes, improved after stopping Lipitor and amiodarone. Restarting amiodarone and monitor tolerance and response [id number] score of 6, yearly risk of stroke without oral anticoagulation is 9.8 percent. Maintained on Xarelto, continue to monitor Coronary artery disease, history of 2 heart attacks in the past, had angioplasty in 1989, CABG 4 in 1997, stent in 2004 after a heart attack, had sudden during the procedure. Most recent cardiac catheterization done in June 05, 2015 revealed 3 patent bypass grafts. Vein graft to the right coronary artery, vein graft to the diagonal artery, and CHRISTINA to LAD with excellent flow in the system. Totally occluded circumflex artery with no bypass to the obtuse marginal system. Receiving collaterals from the right coronary system EF 30 percent. Stress test done in November 2020 showing fixed defect involving the inferior wall and inferoapex and true apex, no change compared to the previous stress test, ejection fraction 27%. Patient is asymptomatic. Continue to monitor Peripheral edema, chronic, Started on diuretics, monitor Status post single-chamber ICD implantation, using [employer] device Evera XT, last pacemaker interrogation was done March 2022 showing good sensing and capture activity. Will interrogate ICD during this admission Hypertension, controlled on the current medications, continue to monitor Hyperlipidemia, Lipitor was restarted, monitor lipid profile and liver enzymes Mild bilateral nonobstructive carotid artery stenosis per carotid duplex done in March 2021 Diabetes mellitus, followed and managed by Dr. Zheng Arthritis, maintained on allopurinol. History of sleep apnea on CPAP JONO WASHINGTON MD May 27, 2022 13:14
[2022-05-27] MEDS ORDERED: ASPIRIN 81 MG CHEW (CHILDREN'S ASA) PO PRN (13:15)
--- NOTE | 2022-05-27 13:54 | History & Physical ---
CRISTIAN PERAZA Alexis 05/27/22 1354: HPI History of Present Illness: Waleska Turpin, 86 yo M, with a past medical history of CAD, A. fib/flutter, HTN, DE, and DM II, admitted to after arrival to the ED yesterday afternoon with shortness of breath and lethargy. Chest x-ray and CT performed in ED indicated pleural effusion and patient was admitted med surg floor. After admit, patient began having symptomatic ventricular tachycardia which warranted transfer to the ICU and amiodarone drip. Today Mr. Turpin is alert and being helped to the toilet. His daughter and son are with him. They state he started to become increasingly short of breath and has had a racing heart for about 2-3 weeks and it has only gotten worse up to this point. Family prompted him to come to the hospital. He is alright when sitting down but his breathing becomes labored upon ambulation. Wears 3L of oxygen at home only at night. He has been coughing up phlegm but is unable to describe. He denies any pain at this time. Does report a burning sensation in his mouth which has been there for a while. Mr. Turpin lives with his son and sometimes uses a cane to ambulate but says he usually gets around just fine. Normally follows with Dr. Dominguez for Cardiology. ROS: Pos: cough, shortness of breath, lethargy, diarrhea; Neg: chest pain, nausea, vomiting, constipation, headache Meds: see chart All: NKDA PMH: Coronary Artery Dz, Atrial fib/flutter, Hypertension, Myocardial Infarction, and DM II PSH: CABG, Stent placement in 2004, cardioversions, defibrillator in place, total left knee replacement FamHx: pt states he is adopted but mother and father had heart disease SocHx: Former smoker 56 yrs ago; Denies alcohol or illicit drug use Source: patient, family (Patient's son and daughter) Exam Limitations: no limitations Date seen by provider: May 27, 2022 Time Seen by Provider: 09:05 Attending Physician Ren Watson MD PCP Admitting Physician: Shalom Portillo MD Attending Physician: Shalom Portillo MD Consult Date of Admission May 27, 2022 at 09:16 Home Medications Home Medications Reviewed patient Home Medication Reconciliation performed by pharmacy medication reconciliations airdrop systems technician and/or nursing. Patients Allergies have been reviewed. Allergies Coded Allergies: No Known Drug Allergies (Unverified , 03/08/20) VVA-Zrdrne-Udwrdu Hx Patient Social History Marrital Status: , Employed/Student: retired Smoking Status: Former Smoker (quit 56 years ago) Former smoker/When Quit: Sep 11, 1965 2nd Hand Smoke Exposure: No Recent Hopitalizations: No Alcohol Use?: No Have you traveled recently?: No Immunizations Up To Date Tetanus Booster (TDap): Unknown Influenza Vaccine Up-to-Date: No; Not Current First/Initial COVID19 Vaccinat: 11/14/20 Second COVID19 Vaccination Sree: 12/2020 Third COVID19 Vaccination Date: 11/14/20 Past Medical History PMH: Coronary Artery Dz Atrial fib/flutter Hypertension Myocardial Infarction DM II PSH: CABG Stent placement in 2004 Cardioversions Defibrillator placement Total left knee replacement Family Medical History Significant Family History: No Pertinent Family Hx Family History: Hypertension Not obtainable due to adoption Review of Systems ([facility]) Constitutional: see HPI Respiratory: see HPI, cough, dyspnea on exertion, phlegm, short of breath Cardiovascular: Hx of Intervention, vascular heart diseas Gastrointestinal: no symptoms reported Psychiatric/Neurological: No Symptoms Reported Reviewed Test Results Reviewed Test Results Lab Laboratory Tests Test 05/26/22 12:28 05/26/22 20:27 05/27/22 05:04 05/27/22 05:10 Range/Units White Blood Count 7.3 4.3-11.0 10^3/uL Red Blood Count 4.16 L 4.30-5.52 10^6/uL Hemoglobin 13.2 L 13.3-17.7 g/dL Hematocrit 39 L 40-54 % Mean Corpuscular Volume 95 80-99 fL Mean Corpuscular Hemoglobin 32 25-34 pg Mean Corpuscular Hemoglobin Concent 34 32-36 g/dL Red Cell Distribution Width 14.5 10.0-14.5 % Platelet Count 189 130-400 10^3/uL Mean Platelet Volume 10.3 9.0-12.2 fL Immature Granulocyte % (Auto) 0 % Neutrophils (%) (Auto) 82 H 42-75 % Lymphocytes (%) (Auto) 9 L 12-44 % Monocytes (%) (Auto) 9 0-12 % Eosinophils (%) (Auto) 0 0-10 % Basophils (%) (Auto) 0 0-10 % Neutrophils # (Auto) 6.0 1.8-7.8 10^3/uL Lymphocytes # (Auto) 0.6 L 1.0-4.0 10^3/uL Monocytes # (Auto) 0.6 0.0-1.0 10^3/uL Eosinophils # (Auto) 0.0 0.0-0.3 10^3/uL Basophils # (Auto) 0.0 0.0-0.1 10^3/uL Immature Granulocyte # (Auto) 0.0 0.0-0.1 10^3/uL Sodium Level 137 135-145 MMOL/L Potassium Level 3.8 3.6-5.0 MMOL/L Chloride Level 102 98-107 MMOL/L Carbon Dioxide Level 26 21-32 MMOL/L Anion Gap 9 5-14 MMOL/L Blood Urea Nitrogen 17 7-18 MG/DL Creatinine 0.84 0.60-1.30 MG/DL Estimat Glomerular Filtration Rate 85 BUN/Creatinine Ratio 20 Glucose Level 91 70-105 MG/DL Calcium Level 8.7 8.5-10.1 MG/DL Troponin I < 0.028 <0.028 NG/ML B-Type Natriuretic Peptide 299.7 H <100.0 PG/ML Glucometer 113 H 134 H 70-110 MG/DL Magnesium Level 1.6 1.6-2.4 MG/DL Test 05/27/22 05:25 05/27/22 11:16 Range/Units White Blood Count 7.4 4.3-11.0 10^3/uL Red Blood Count 4.16 L 4.30-5.52 10^6/uL Hemoglobin 13.1 L 13.3-17.7 g/dL Hematocrit 39 L 40-54 % Mean Corpuscular Volume 94 80-99 fL Mean Corpuscular Hemoglobin 32 25-34 pg Mean Corpuscular Hemoglobin Concent 34 32-36 g/dL Red Cell Distribution Width 14.2 10.0-14.5 % Platelet Count 171 130-400 10^3/uL Mean Platelet Volume 10.9 9.0-12.2 fL Sodium Level 136 135-145 MMOL/L Potassium Level 3.6 3.6-5.0 MMOL/L Chloride Level 103 98-107 MMOL/L Carbon Dioxide Level 20 L 21-32 MMOL/L Anion Gap 13 5-14 MMOL/L Blood Urea Nitrogen 15 7-18 MG/DL Creatinine 0.82 0.60-1.30 MG/DL Estimat Glomerular Filtration Rate 86 BUN/Creatinine Ratio 18 Glucose Level 134 H 70-105 MG/DL Calcium Level 8.6 8.5-10.1 MG/DL Corrected Calcium 9.1 8.5-10.1 MG/DL Total Bilirubin 1.0 0.1-1.0 MG/DL Aspartate Amino Transf (AST/SGOT) 39 H 5-34 U/L Alanine Aminotransferase (ALT/SGPT) 36 0-55 U/L Alkaline Phosphatase 70 40-136 U/L Total Protein 6.9 6.4-8.2 GM/DL Albumin 3.4 3.2-4.5 GM/DL Glucometer 130 H 70-110 MG/DL Radiology CHEST 1 VIEW, AP/PA ONLY 05/26/22 IMPRESSION: Cardiomegaly and postoperative changes. Central vascular congestion with increased perihilar infiltrates and increasing right pleural effusion compared to the previous study. CT CHEST W 05/26/22 IMPRESSION: Large right and small left pleural effusions without loculation and subjacent dependent bibasilar atelectasis, greater right. No evidence for pulmonary involvement by neoplasm or findings suggestive of pneumonia. No adenopathy. Physical Exam-([facility]) Physical Exam Vital Signs VS - Last 72 Hours, by Label 05/26/22 05/26/22 05/26/22 05/26/22 12:09 17:34 18:04 18:30 Temp 36.9 36.2 Pulse 91 75 80 Resp 16 18 17 B/P (MAP) 128/78 (95) 96/66 133/61 (85) Pulse Ox 94 98 94 O2 Delivery Room Air Room Air 05/26/22 05/26/22 05/26/22 05/26/22 19:00 19:31 19:55 23:56 Temp 36.9 36.7 Pulse 92 85 84 Resp 20 20 B/P (MAP) 131/63 (85) 121/75 (90) Pulse Ox 94 96 O2 Delivery Room Air Room Air Nasal Cannula O2 Flow Rate 3.50 05/27/22 05/27/22 05/27/22 05/27/22 01:00 01:45 01:50 03:57 Temp 36.7 Pulse 74 176 72 86 Resp 20 B/P (MAP) 133/81 (98) Pulse Ox 95 O2 Delivery Nasal Cannula O2 Flow Rate 3.50 05/27/22 05/27/22 05/27/22 05/27/22 04:43 04:52 05:19 05:30 Pulse 183 70 93 79 Resp 33 B/P (MAP) 133/85 (106) 121/69 (95) Pulse Ox 96 95 O2 Delivery Nasal Cannula Nasal Cannula O2 Flow Rate 3.00 3.00 05/27/22 05/27/22 05/27/22 05/27/22 05:35 05:45 06:00 06:15 Pulse 85 75 82 83 Resp 39 30 B/P (MAP) 121/69 122/68 (83) 113/66 (81) 123/67 (86) Pulse Ox 95 95 97 O2 Delivery Nasal Cannula Nasal Cannula Nasal Cannula O2 Flow Rate 3.00 3.00 3.00 05/27/22 05/27/22 05/27/22 05/27/22 06:30 06:45 07:00 07:14 Pulse 81 74 81 85 Resp 33 32 38 B/P (MAP) 117/67 (86) 113/65 (91) 120/69 (86) Pulse Ox 96 96 96 O2 Delivery Nasal Cannula Nasal Cannula Nasal Cannula O2 Flow Rate 3.00 3.00 3.00 05/27/22 05/27/22 05/27/22 05/27/22 08:00 08:00 09:00 12:00 Pulse 78 73 Resp 45 14 B/P (MAP) 113/64 (80) 108/61 (77) Pulse Ox 96 95 O2 Delivery Nasal Cannula Nasal Cannula Nasal Cannula Nasal Cannula O2 Flow Rate 3.00 3.00 3.00 3.00 05/27/22 05/27/22 05/27/22 05/27/22 12:00 12:29 13:00 14:00 Temp 36.4 Pulse 74 83 88 Resp 42 38 B/P (MAP) 96/86 (89) 127/94 (105) Pulse Ox 96 94 O2 Delivery Nasal Cannula Nasal Cannula O2 Flow Rate 3.00 3.00 05/27/22 05/27/22 05/27/22 05/27/22 15:00 15:30 15:47 15:47 Pulse 97 Resp 44 40 B/P (MAP) 115/68 (84) Pulse Ox 92 98 O2 Delivery Nasal Cannula NIV Bilevel Nasal Cannula O2 Flow Rate 3.00 40.00 40.00 3.00 05/27/22 05/27/22 05/27/22 05/27/22 16:00 17:00 18:00 18:17 Pulse 91 93 96 Resp 25 36 37 40 B/P (MAP) 91/67 (75) 144/77 (99) 110/87 (95) Pulse Ox 97 96 96 98 O2 Delivery NIV Bilevel NIV Bilevel NIV Bilevel O2 Flow Rate 40.00 40.00 40.00 40.00 05/27/22 05/27/22 05/27/22 05/27/22 19:00 19:01 20:00 20:00 Pulse 98 97 92 Resp 18 20 B/P (MAP) 121/67 (85) 104/73 (83) Pulse Ox 97 98 O2 Delivery NIV Bilevel NIV CPAP NIV Bilevel O2 Flow Rate 40.00 40.00 05/27/22 05/27/22 05/27/22 05/27/22 20:00 21:00 22:00 23:00 Temp 37.2 Pulse 92 96 106 Resp 21 13 11 B/P (MAP) 115/73 (87) 125/67 (86) 120/65 (83) Pulse Ox 92 92 93 O2 Delivery NIV Bilevel NIV Bilevel NIV CPAP O2 Flow Rate 40.00 40.00 40.00 05/28/22 05/28/22 05/28/22 05/28/22 00:00 00:00 00:00 00:00 Temp 36.8 36.5 Pulse 85 Resp 20 B/P (MAP) 122/77 (92) Pulse Ox 95 O2 Delivery NIV CPAP NIV CPAP NIV CPAP NIV CPAP O2 Flow Rate 40.00 40.00 05/28/22 05/28/22 05/28/22 05/28/22 01:00 01:03 02:00 03:00 Pulse 96 90 71 71 Resp 20 22 20 B/P (MAP) 121/68 (85) 124/70 (88) 117/64 (81) Pulse Ox 92 94 91 O2 Delivery NIV CPAP NIV CPAP NIV CPAP O2 Flow Rate 40.00 40.00 40.00 05/28/22 05/28/22 05/28/22/13/22 04:00 04:00 04:31 05:00 Temp 36.4 Pulse 86 78 Resp 21 22 B/P (MAP) 117/67 (84) 127/77 (94) Pulse Ox 90 94 O2 Delivery NIV CPAP NIV CPAP NIV CPAP NIV CPAP O2 Flow Rate 40.00 40.00 40.00 05/28/22 05/28/22 05/28/22 05/28/22 06:00 07:00 07:00 07:46 Temp 36.0 Pulse 65 73 71 Resp 22 31 B/P (MAP) 124/62 (82) 111/66 (81) Pulse Ox 96 92 O2 Delivery NIV CPAP NIV CPAP O2 Flow Rate 40.00 40.00 05/28/22 05/28/22 05/28/22 05/28/22 08:00 08:00 08:30 09:00 Pulse 76 80 Resp 28 22 B/P (MAP) 85/72 (76) 117/66 (83) Pulse Ox 91 93 94 O2 Delivery Nasal Cannula NIV CPAP Nasal Cannula Nasal Cannula O2 Flow Rate 5.00 40.00 4.00 4.00 05/28/22 05/28/22 10:00 11:00 Pulse 77 92 Resp 25 25 B/P (MAP) 123/68 (86) 107/71 (83) Pulse Ox 97 90 O2 Delivery Nasal Cannula Nasal Cannula O2 Flow Rate 4.00 4.00 Capillary Refill : Less Than 3 Seconds General Appearance: WD/WN, no apparent distress Eyes: Bilateral Eye PERRL, Bilateral Eye EOMI HEENT: PERRL/EOMI, other (white curd-like patches of growth on tongue and palate) Respiratory: decreased breath sounds Cardiovascular: normal peripheral pulses Peripheral Pulses: 2+ Dorsalis Pedis (R), 2+ Left Dors-Pedis (L), 2+ Radial Pulses (R), 2+ Radial Pulses (L) Gastrointestinal: normal bowel sounds, non tender, soft Extremities: non-tender, no pedal edema Neurologic/Psychiatric: alert, normal mood/affect, oriented x 3 Skin: normal color, warm/dry Assessment/Plan Assessment/Plan Admission Dx Pleural Effusion (1) Ventricular tachycardia Status: Acute Assessment & Plan: Monitor patient in the ICU with cardiac telemetry. Amiodarone drip. Consult cardiology. (2) Pleural effusion Status: Acute Assessment & Plan: Obtain thoracentesis. Surgery consulted. Hold anticoagulation. Supplement O2 with nasal canula. (3) Thrush, oral Status: Acute Assessment & Plan: Continue nystatin oral suspension (4) Chronic atrial fibrillation Status: Chronic Assessment & Plan: Cardiac telemetry. Continue rate control meds. (5) Diabetes Status: Chronic Assessment & Plan: Monitor glucose. ADA diet. 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 (6) Chronic anticoagulation Status: Chronic Assessment & Plan: Currently hold anticoagulants until thoracentesis performed (7) Congestive heart failure Status: Chronic Assessment & Plan: Diuretics and continue home meds Qualifiers: Qualified Codes: I50.23 - Acute on chronic systolic (congestive) heart failure Supervisory-Addendum Brief Verification & Attestation Participated in pt care: history, physical Personally performed: supervision of care Care discussed with: Medical Student Procedures: supervised SHALOM PORTILLO MD 05/28/22 1207: Home Medications Allergies Coded Allergies: No Known Drug Allergies (Unverified , 03/08/20) HIC-Ickmpk-Cziavi Hx Family Medical History Family History: Hypertension Not obtainable due to adoption Physical Exam-([facility]) Physical Exam General Appearance: WD/WN, no apparent distress Respiratory: decreased breath sounds (essentially absent on right, absent left base) Gastrointestinal: normal bowel sounds, non tender, soft Extremities: no pedal edema Neurologic/Psychiatric: alert, normal mood/affect, oriented x 3 Skin: normal color, warm/dry Assessment/Plan Assessment/Plan Admission Status: Inpatient Order (span 2 midnights) Reason for Inpatient Admission: V tach requiring amiodarone drip with underlying CHF and large pleural effusion Supervisory-Addendum Brief Verification & Attestation I personally have seen and evaluated the patient and performed my own history and exam (see my exam findings). I directed the plan of care and agree with the documentation of history by the medical student. CRISTIAN PERAZA May 27, 2022 13:54 SHALOM PORTILLO MD May 28, 2022 12:07
[2022-05-27] MEDS: AMIODARONE INJECTION 450 MG in NORMAL SALINE 250 ML IV SCH (14:34)
[2022-05-27] MEDS ORDERED: LIDOCAINE UROJET 2% GEL 10 ML PKG ONE (15:06)
[2022-05-27] MEDS ORDERED: LORazepam 0.5 MG (ATIVAN) TABLET PO NR (16:00)
[2022-05-27] MEDS: FUROSEMIDE 40 MG/4 ML INJ (LASIX) IVP SCH (16:52)
[2022-05-27 18:17] VITALS: BP 110/87
[2022-05-27] MEDS: SPIRONOLACTONE 25 MG (ALDACTONE) TAB PO SCH (19:04)
[2022-05-27] MEDS: TAMSULOSIN 0.4 MG (FLOMAX) CAP PO SCH (19:04)
[2022-05-27] MEDS ORDERED: meTOprolol TARTRATE 50 MG (LOPRESSOR) TAB ONE (21:23)
[2022-05-27] MEDS ORDERED: meTOprolol SUCCINATE 100 MG (TOPROL XL) TAB PO ONE ×2 (22:45→22:53)
[2022-05-28] MEDS: AMIODARONE INJECTION 450 MG in NORMAL SALINE 250 ML IV SCH (04:37)
[2022-05-28 05:17] LABS: BASOPHILS % (AUTO) 0 % (0-10); EOSINOPHILS % (AUTO) 0 % (0-10); HEMATOCRIT 39 % (40-54); HEMOGLOBIN 13.2 g/dL (13.3-17.7); LYMPHOCYTES # (AUTO) 0.7 10^3/uL (1.0-4.0); LYMPHOCYTES % (AUTO) 11 % (12-44); MEAN CORPUSCULAR HEMOGLOBIN 31 pg (25-34); MEAN CORPUSCULAR HGB CONC 34 g/dL (32-36); MEAN CORPUSCULAR VOLUME 93 fL (80-99); MEAN PLATELET VOLUME 10.5 fL (9.0-12.2); MONOCYTES # (AUTO) 0.5 10^3/uL (0.0-1.0); MONOCYTES % (AUTO) 7 % (0-12); NEUTROPHILS # (AUTO) 5.3 10^3/uL (1.8-7.8); NEUTROPHILS % (AUTO) 81 % (42-75); PLATELET COUNT 157 10^3/uL (130-400); WHITE BLOOD COUNT 6.6 10^3/uL (4.3-11.0)
[2022-05-28] MEDS: NYSTATIN ORAL SUSP 5 ML UDC PO SCH ×4 (05:24→17:33)
[2022-05-28 05:34] LABS: ALBUMIN 3.5 GM/DL (3.2-4.5); POTASSIUM 3.3 MMOL/L (3.6-5.0)
[2022-05-28 05:35] LABS: CALCIUM 8.6 MG/DL (8.5-10.1)
[2022-05-28 05:38] LABS: BILIRUBIN,TOTAL 1.6 MG/DL (0.1-1.0)
[2022-05-28 05:40] LABS: CREATININE SERUM 0.75 MG/DL (0.60-1.30)
[2022-05-28 05:43] LABS: MAGNESIUM 2.1 MG/DL (1.6-2.4)
[2022-05-28] MEDS: MAGNESIUM 1 GM/100 ML IVPB 100 ML IV SCH (06:00)
[2022-05-28] MEDS: KCL 20 MEQ TAB (K-DUR) PO SCH (06:00)
[2022-05-28] MEDS: POTASSIUM CL 10MEQ/50ML IVPB 50 ML IV SCH ×5 (06:00→09:07)
[2022-05-28] MEDS: inSUlin ASPART (NovoLOG) 1 UNIT/0.01 ML (CHARGE PER UNIT) SC SCH ×4 (06:00→20:22)
[2022-05-28] MEDS ORDERED: POTASSIUM CL 10MEQ/50ML IVPB 200 ML IV ONE (06:03)
[2022-05-28] MEDS: FUROSEMIDE 40 MG/4 ML INJ (LASIX) IVP SCH ×2 (06:04→17:24)
--- NOTE | 2022-05-28 07:10 | Progress Note - Surgery ---
CAMERON ALLAN 05/28/22 0710: Subjective Date Seen by a Provider: May 28, 2022 Time Seen by a Provider: 07:09 Subjective/Events-last exam Continued monitoring in ICU due to previous episodes due to vtach 2 nights ago. Has not had any more episodes of vtach. Using at home CPAP machine and maintai norman good saturation. Received metoprolol last night and continued amiodorone drip. No abdominal pain or new complaints. Deneis n/v fever sweats chills shortness of breath or chest pain. Focused Exam Cardiovascular: Irregularly Irregular Skin: normal color, warm/dry Objective Exam Vital Signs Date Time Temp Pulse Resp B/P (MAP) Pulse Ox O2 Delivery O2 Flow Rate FiO2 05/28/22 06:00 65 22 124/62 (82) 96 NIV CPAP 40.00 05/28/22 05:00 78 22 127/77 (94) 94 NIV CPAP 40.00 05/28/22 04:31 36.4 NIV CPAP 40.00 05/28/22 04:00 NIV CPAP 05/28/22 04:00 86 21 117/67 (84) 90 NIV CPAP 40.00 05/28/22 03:00 71 20 117/64 (81) 91 NIV CPAP 40.00 05/28/22 02:00 71 22 124/70 (88) 94 NIV CPAP 40.00 05/28/22 01:03 90 05/28/22 01:00 96 20 121/68 (85) 92 NIV CPAP 40.00 05/28/22 00:00 NIV CPAP 05/28/22 00:00 36.5 NIV CPAP 40.00 05/28/22 00:00 36.8 NIV CPAP 05/28/22 00:00 85 20 122/77 (92) 95 NIV CPAP 40.00 05/27/22 23:00 106 11 120/65 (83) 93 NIV CPAP 40.00 05/27/22 22:00 96 13 125/67 (86) 92 NIV Bilevel 40.00 05/27/22 21:00 92 21 115/73 (87) 92 NIV Bilevel 40.00 05/27/22 20:00 37.2 05/27/22 20:00 92 20 104/73 (83) 98 NIV Bilevel 40.00 05/27/22 20:00 NIV CPAP 05/27/22 19:01 97 05/27/22 19:00 98 18 121/67 (85) 97 NIV Bilevel 40.00 05/27/22 18:17 40 98 40.00 05/27/22 18:00 96 37 110/87 (95) 96 NIV Bilevel 40.00 05/27/22 17:00 93 36 144/77 (99) 96 NIV Bilevel 40.00 05/27/22 16:00 91 25 91/67 (75) 97 NIV Bilevel 40.00 05/27/22 15:47 Nasal Cannula 3.00 05/27/22 15:47 NIV Bilevel 40.00 05/27/22 15:30 40 98 40.00 05/27/22 15:00 97 44 115/68 (84) 92 Nasal Cannula 3.00 05/27/22 14:00 88 38 127/94 (105) 94 Nasal Cannula 3.00 05/27/22 13:00 83 42 96/86 (89) 96 Nasal Cannula 3.00 05/27/22 12:29 74 05/27/22 12:00 36.4 05/27/22 12:00 Nasal Cannula 3.00 05/27/22 09:00 73 14 108/61 (77) 95 Nasal Cannula 3.00 05/27/22 08:00 Nasal Cannula 3.00 05/27/22 08:00 78 45 113/64 (80) 96 Nasal Cannula 3.00 05/27/22 07:14 85 I & O 05/28/22 07:00 Intake Total 1339 ml Output Total 1725 ml Balance -386 ml Capillary Refill : Less Than 3 Seconds General Appearance: No Apparent Distress, WD/WN HEENT: PERRL/EOMI, Normal ENT Inspection Neck: Normal Inspection, Non Tender Respiratory: Chest Non Tender, No Accessory Muscle Use, No Respiratory Distress Cardiovascular: No JVD, Irregularly Irregular Peripheral Pulses: 2+ Dorsalis Pedis (R), 2+ Left Dors-Pedis (L), 2+ Radial Pulses (R), 2+ Radial Pulses (L) Gastrointestinal: normal bowel sounds, non tender, soft Extremity: Normal Capillary Refill, Normal Inspection, Normal Range of Motion, Non Tender, No Calf Tenderness, No Pedal Edema Neurologic/Psychiatric: Alert, Oriented x3 Skin: Normal Color, Warm/Dry Lymphatic: No Adenopathy Results Lab Laboratory Tests 05/27/22 11:16: Glucometer 130H 05/27/22 15:51: Glucometer 137H 05/27/22 20:01: Glucometer 130H 05/27/22 20:26: Glucometer 130H 05/28/22 05:03: White Blood Count 6.6, Red Blood Count 4.20L, Hemoglobin 13.2L, Hematocrit 39L, Mean Corpuscular Volume 93, Mean Corpuscular Hemoglobin 31, Mean Corpuscular Hemoglobin Concent 34, Red Cell Distribution Width 14.2, Platelet Count 157, Mean Platelet Volume 10.5, Immature Granulocyte % (Auto) 0, Neutrophils (%) (Auto) 81H, Lymphocytes (%) (Auto) 11L, Monocytes (%) (Auto) 7, Eosinophils (%) (Auto) 0, Basophils (%) (Auto) 0, Neutrophils # (Auto) 5.3, Lymphocytes # (Auto) 0.7L, Monocytes # (Auto) 0.5, Eosinophils # (Auto) 0.0, Basophils # (Auto) 0.0, Immature Granulocyte # (Auto) 0.0, Sodium Level 135, Potassium Level 3.3L, Chloride Level 102, Carbon Dioxide Level 23, Anion Gap 10, Blood Urea Nitrogen 14, Creatinine 0.75, Estimat Glomerular Filtration Rate 88, BUN/Creatinine Ratio 19, Glucose Level 110H, Calcium Level 8.6, Corrected Calcium 9.0, Phosphorus Level 3.0, Magnesium Level 2.1, Total Bilirubin 1.6H, Aspartate Amino Transf (AST/SGOT) 39H, Alanine Aminotransferase (ALT/SGPT) 42, Alkaline Phosphatase 69, Total Protein 7.0, Albumin 3.5 Assessment/Plan Assessment/Plan Assessment/Plan vtrach b/l pleural effusion left greater than right hypoxia improved at this time anticoagulation/antiplatelet fpc history of cardiac bypass discussed large right pleural effusion and need thoracentesis will hold anticoagulation he understands risks and benefits drain pleural effusion today ROBERTA BRENNER DO 05/28/22 2365: Subjective Subjective/Events-last exam Patient using O2. No new issues. On amiodorone drip. Denies any new complaints. Ready for thoracentesis today. Denies n/v fever sweats chills chest pain. Objective Exam General Appearance: No Apparent Distress, WD/WN HEENT: PERRL/EOMI, Normal ENT Inspection Neck: Normal Inspection, Non Tender Respiratory: Chest Non Tender, No Accessory Muscle Use, No Respiratory Distress Cardiovascular: No JVD, Irregularly Irregular Gastrointestinal: non tender, soft Extremity: Non Tender, No Calf Tenderness Neurologic/Psychiatric: Alert, Oriented x3 Skin: Normal Color, Warm/Dry Lymphatic: No Adenopathy Assessment/Plan Assessment/Plan Assessment/Plan vtach b/l pleural effusion left greater than right hypoxia improved at this time anticoagulation/antiplatelet fpc history of cardiac bypass discussed large right pleural effusion and need thoracentesis will hold anticoagulation he understands risks and benefits drain pleural effusion today all questions answered and patient ready to have done. Supervisory-Addendum Brief Verification & Attestation Participated in pt care: history, MDM, physical Personally performed: exam, history, MDM, supervision of care Care discussed with: Medical Student Procedures: n/a Results interpretation: Verified all documentation Verification and Attestation of Medical Student E/M Service A medical student performed and documented this service in my presence. I reviewed and verified all information documented by the medical student and made modifications to such information, when appropriate. I personally performed the physical exam and medical decision making. Roberta Brenner, May 28, 2022,12:55 CAMERON ALLAN May 28, 2022 07:10 ROBERTA BRENNER DO May 28, 2022 14:55
--- NOTE | 2022-05-28 08:12 | Cardiology Progress Note ---
Subjective Date Seen by Provider: May 28, 2022 Time Seen by Provider: 08:11 Subjective/Events-last exam Patient was seen at bedside, laying down comfortably Feeling better, possible thoracentesis today. Review of Systems General: No Chills, No Night Sweats; Fatigue; No Malaise, No Appetite, No Other HEENT: No Head Aches, No Visual Changes, No Eye Pain, No Ear Pain, No Dysphasia, No Sinus Congestion, No Post Nasal Drip, No Sore Throat, No Other Pulmonary: Dyspnea; No Cough, No Pleuritic Chest Pain, No Other Cardiovascular: Edema; No: Chest Pain, Palpitations, Orthopnea, Paroxysmal Noc. Dyspnea, Lt Headedness, Other Objective-Cardiology Exam Last Set of Vital Signs Vital Signs 05/28/22 05/28/22 06:00 07:46 Temp 36.0 Pulse 65 Resp 22 B/P (MAP) 124/62 (82) Pulse Ox 96 O2 Delivery NIV CPAP O2 Flow Rate 40.00 I&O Intake and Output 05/28/22 00:00 Intake Total 1262 ml Output Total 1300 ml Balance -38 ml Intake Oral 600 ml IV Total 662 ml Output Urine Total 1300 ml # Voids 4 # Bowel Movements 4 General: Alert, Oriented X3, Cooperative HEENT: Atraumatic, PERRLA Neck: Supple, No JVD, No Thyromegaly Lungs: Normal Air Movement, Other (Bilateral rhonchi) Heart: Regular Rate, Normal S1, Normal S2, Other (Systolic murmur) Abdomen: Normal Bowel Sounds, Soft, No Tenderness, No Hepatosplenomegaly, No Masses Extremities: No Clubbing, No Cyanosis, Normal Pulses, No Tenderness/Swelling, Other (Peripheral edema) Skin: No Rashes, No Breakdown, No Significant Lesion Neuro: Normal Speech, Normal Tone, Sensation Intact Psych/Mental Status: Mental Status NL, Mood NL Results Lab Laboratory Tests 05/28/22 05:03 A/P-Cardiology Admission Diagnosis Dyspnea Pleural effusion Congestive heart failure, acute on chronic left ventricular systolic dysfunction Sustained ventricular tachycardia Assessment/Plan Dyspnea, pleural effusion Receiving diuretics, responding well Possible thoracentesis today. Sore throat, probably laceration from hot food. Reporting improvement. Continue to monitor Multiple episodes of wide-complex tachycardia, could be secondary to sustained ventricular tachycardia versus atrial fibrillation with rapid ventricular response. Patient was started on amiodarone bolus and a drip, I will start oral amiodarone today Monitor liver enzymes closely. Previously had elevation in liver enzymes while on amiodarone Congestive heart failure, acute on chronic left ventricular systolic dysfunction, ischemic cardiomyopathy. Ejection fraction 30%. NYHA class II-III Continue with aggressive diuresis and monitor tolerance and response Permanent atrial fibrillation with rate control. Was in the hospital with syncope and bradycardia. Diltiazem and Digoxin discontinued. Currently on Toprol XL 100mg daily. Adding amiodarone and monitor tolerance and response History of elevated liver enzymes, improved after stopping Lipitor and amiodarone. Restarting amiodarone and monitor tolerance and response [id number] score of 6, yearly risk of stroke without oral anticoagulation is 9.8 percent. Maintained on Xarelto, continue to monitor Coronary artery disease, history of 2 heart attacks in the past, had angioplasty in 1989, CABG 4 in 1997, stent in 2004 after a heart attack, had sudden during the procedure. Most recent cardiac catheterization done in June 05, 2015 revealed 3 patent bypass grafts. Vein graft to the right coronary artery, vein graft to the diagonal artery, and CHRISTINA to LAD with excellent flow in the system. Totally occluded circumflex artery with no bypass to the obtuse marginal system. Receiving collaterals from the right coronary system EF 30 percent. Stress test done in November 2020 showing fixed defect involving the inferior wall and inferoapex and true apex, no change compared to the previous stress test, ejection fraction 27%. Patient is asymptomatic. Continue to monitor Peripheral edema, chronic, Started on diuretics, monitor Status post single-chamber ICD implantation, using Medtronic device Evera XT, last pacemaker interrogation was done March 2022 showing good sensing and capture activity. Will interrogate ICD during this admission Hypertension, controlled on the current medications, continue to monitor Hyperlipidemia, Lipitor was restarted, monitor lipid profile and liver enzymes Mild bilateral nonobstructive carotid artery stenosis per carotid duplex done in March 2021 Diabetes mellitus, followed and managed by Dr. Zheng Arthritis, maintained on allopurinol. History of sleep apnea on CPAP JONO WASHINGTON MD May 28, 2022 08:12
[2022-05-28] MEDS ORDERED: FUROSEMIDE 20 MG (LASIX) TAB PO SCH (09:00)
[2022-05-28] MEDS ORDERED: NON-FORMULARY MEDICATION 1 EA EA (Escitalopram Oxalate 10 MG) PO SCH (09:00)
[2022-05-28] MEDS ORDERED: OMEPRAZOLE 20 MG (PriLOSEC) CAP NON-FORMULARY PO SCH (09:00)
[2022-05-28] MEDS: ALLOPURINOL 300 MG (ZYLOPRIM) TAB PO SCH (09:07)
[2022-05-28] MEDS: PANTOPRAZOLE 20 MG TABLET (PROTONIX) PO SCH (09:07)
[2022-05-28] MEDS: meTOprolol SUCCINATE 100 MG (TOPROL XL) TAB PO SCH (09:07)
[2022-05-28] MEDS: AMIODARONE 200 MG (CORDARONE) TAB PO SCH ×2 (09:07→20:21)
[2022-05-28] MEDS: AtorvaSTATin TABLET 10 MG TABLET PO SCH (09:08)
--- NOTE | 2022-05-28 09:43 | Tele-ICU Progress Note ---
Subjective Date Seen by a Provider: May 28, 2022 Time Seen by a Provider: 09:42 Subjective/Events-last exam . (Tele-ICU Physician , Progress Note ) Available chart/ vitals / labs / Images reviewed Video assessment done using teleICU camera, rest of exam as per RN Discussed with RN Events overnight : Afebrile hemodynamically stable Respiratory - I/O = Drips: Pressors- no Consultants: Hospital course: (05/26) 86M Admitted for right pleural effusion and oral thrush--plan thoracentesis (05/27) TX to ICU for possible run Vtach while on commode. Asymptomatic. Electrolytes covered. A/P Sustained ventricular tachycardia 05/27 versus atrial fibrillation with rapid ventricular response. -- single-chamber ICD in place - review/w/up amd plans as per cardiology - amio gtt to change to po Acute new resp distress after get up to bathroom -05/27 - placed on bipap - responded to lasix and NIPPV - Bilateral plural effusions by CT R>>L - thoracentes on right planned for 05/28 ( with holding AC) CAD - complex history ( cabg/ stenting ) , as per cards ICM -Status post single-chamber ICD -ECHO 05/27/22 - EF 25 % RVSP 60 mmHg ( previous LVEF 40-45% ,mild MR, mild AR, PA 30-35 mmHg) AFIB , permanent - AC xarelto - on HOLD History of elevated liver enzymes Elevated liver enzymes of undetermined etiology - ? amio related Pulm HTN ECHO 05/27/22 - RVSP 60 mmHg DM - ISS ADELE /CSA- COMPLIANT AT HOME ( AHI 59, with AutoPAP AHI 34) ) - s/p titration PSG 01/2022 - CSA AI 38 on bipap 07/23 --> ASV titrated ( final ASV titration: EPAP min 4cm -EPAP max 15cm PS 0-20cm rate auto , max pressure 25 Lines : , (Central Line Necessity Reviewed) Dunbar: void OG: Nutrition: Analgesia: Anxiety/ delirium VTE Prophylaxis: xarelto on hold , scd - refusion Stress Ulcer Prophylaxis: Plans in collaboration with bedside consultants and IM MDs. Discussed with RN to reach out if any questions or concerns A total of 32 minutes of critical care time was devoted to this patient today, required to treat and/or prevent further deterioration of critical care condition ( as above ) . . Sepsis Event Evaluation Height, Weight, BMI Height: 5'9.00" Weight: 211lbs. 0.0oz. 95.913932lm; 27.62 BMI Method:Stated Exam Exam Patient acknowledged, consented, and participated in this virtual visit which wa s conducted using real time audio/video Vital Signs Date Time Temp Pulse Resp B/P (MAP) Pulse Ox O2 Delivery O2 Flow Rate FiO2 05/28/22 09:00 80 22 117/66 (83) 94 Nasal Cannula 4.00 05/28/22 08:30 Nasal Cannula 4.00 05/28/22 08:00 76 28 85/72 (76) 93 NIV CPAP 40.00 05/28/22 07:46 36.0 05/28/22 07:00 71 05/28/22 07:00 73 31 111/66 (81) 92 NIV CPAP 40.00 05/28/22 06:00 65 22 124/62 (82) 96 NIV CPAP 40.00 05/28/22 05:00 78 22 127/77 (94) 94 NIV CPAP 40.00 05/28/22 04:31 36.4 NIV CPAP 40.00 05/28/22 04:00 NIV CPAP 05/28/22 04:00 86 21 117/67 (84) 90 NIV CPAP 40.00 05/28/22 03:00 71 20 117/64 (81) 91 NIV CPAP 40.00 05/28/22 02:00 71 22 124/70 (88) 94 NIV CPAP 40.00 05/28/22 01:03 90 05/28/22 01:00 96 20 121/68 (85) 92 NIV CPAP 40.00 05/28/22 00:00 NIV CPAP 05/28/22 00:00 36.5 NIV CPAP 40.00 05/28/22 00:00 36.8 NIV CPAP 05/28/22 00:00 85 20 122/77 (92) 95 NIV CPAP 40.00 05/27/22 23:00 106 11 120/65 (83) 93 NIV CPAP 40.00 05/27/22 22:00 96 13 125/67 (86) 92 NIV Bilevel 40.00 05/27/22 21:00 92 21 115/73 (87) 92 NIV Bilevel 40.00 05/27/22 20:00 37.2 05/27/22 20:00 92 20 104/73 (83) 98 NIV Bilevel 40.00 05/27/22 20:00 NIV CPAP 05/27/22 19:01 97 05/27/22 19:00 98 18 121/67 (85) 97 NIV Bilevel 40.00 05/27/22 18:17 40 98 40.00 05/27/22 18:00 96 37 110/87 (95) 96 NIV Bilevel 40.00 05/27/22 17:00 93 36 144/77 (99) 96 NIV Bilevel 40.00 05/27/22 16:00 91 25 91/67 (75) 97 NIV Bilevel 40.00 05/27/22 15:47 Nasal Cannula 3.00 05/27/22 15:47 NIV Bilevel 40.00 05/27/22 15:30 40 98 40.00 05/27/22 15:00 97 44 115/68 (84) 92 Nasal Cannula 3.00 05/27/22 14:00 88 38 127/94 (105) 94 Nasal Cannula 3.00 05/27/22 13:00 83 42 96/86 (89) 96 Nasal Cannula 3.00 05/27/22 12:29 74 05/27/22 12:00 36.4 05/27/22 12:00 Nasal Cannula 3.00 I & O 05/28/22 07:00 Intake Total 1339 ml Output Total 1725 ml Balance -386 ml Height & Weight Height: 5'9.00" Weight: 211lbs. 0.0oz. 95.828993td; 27.62 BMI Method:Stated General Appearance: No Apparent Distress, WD/WN HEENT: PERRL/EOMI, Normal ENT Inspection Neck: Normal Inspection, Non Tender Respiratory: Chest Non Tender, No Accessory Muscle Use, No Respiratory Distress Cardiovascular: No JVD, Irregularly Irregular Capillary Refill: Less Than 3 Seconds Peripheral Pulses: 2+ Dorsalis Pedis (R), 2+ Left Dors-Pedis (L), 2+ Radial Pulses (R), 2+ Radial Pulses (L) Gastrointestinal: normal bowel sounds, non tender, soft Extremity: Normal Capillary Refill, Normal Inspection, Normal Range of Motion, Non Tender, No Calf Tenderness, No Pedal Edema Neurologic/Psychiatric: Alert, Oriented x3 Skin: Normal Color, Warm/Dry Lymphatic: No Adenopathy Results Lab Laboratory Tests 05/26/22 12:28 05/27/22 05:25 05/28/22 05:03 Assessment/Plan Assessment/Plan 1 VALERIO MANLEY MD May 28, 2022 09:43
--- NOTE | 2022-05-28 11:15 | Progress Note ---
KARMENCRISTIAN Alexis 05/28/22 1115: Subjective Subjective/Events-last exam Our patient is an 86 yo M admitted to with chief complaint of shortness of breath found to be pleural effuasion on CXR and CT. Later moved to ICU for symptomatic V-tach and amiodarone drip started. Today Mr. Turpin states he is feeling fine. His breathing has been okay. He sits in bed wearing 4L O2 nasal cannula and has not been ambulating about the room. Notes he has been coughing up much phlegm and there are a pile of used tissues sitting next to him. Mentions he slept great last night but cannot really eat due to his mouth being sore. States mouth does feel a little better than yesterday but still has burning sensation. Pt reports that he had hie ECHO and is waiting for his thoracentesis at some point today. ROS: Pos: shortness of breath, pain in mouth/throat, cough; Neg: chest pain, palpitations, fever, diaphoresis, swelling in hands/feet Review of Systems HEENT: Sore Throat Pulmonary: Dyspnea, Cough Musculoskeletal: other (mouth pain) Objective Exam Last Set of Vital Signs Vital Signs Date Time Temp Pulse Resp B/P (MAP) Pulse Ox O2 Delivery O2 Flow Rate FiO2 05/28/22 11:00 92 25 107/71 (83) 90 Nasal Cannula 4.00 05/28/22 07:46 36.0 Capillary Refill : Less Than 3 Seconds I&O Intake and Output 05/28/22 00:00 Intake Total 1262 ml Output Total 1300 ml Balance -38 ml Intake Oral 600 ml IV Total 662 ml Output Urine Total 1300 ml # Voids 4 # Bowel Movements 4 General: Alert, Oriented X3, Cooperative HEENT: PERRLA, EOMI, Mucous Memb Moist/[place], Other (curdlike growths on tongue and palate / erythematous lesions on palate and back of throat suspicious for herpangina) Lungs: Other (Decreased air movement / Rales heard at bilateral bases of lungs) Heart: Normal S1, Normal S2, No Murmurs Abdomen: Normal Bowel Sounds, Soft, No Tenderness Extremities: No Edema, Normal Pulses (2+ bilateral radial and dorsails pedis pulses), No Tenderness/Swelling Neuro: Normal Speech, Strength at 5/5 X4 Ext Results/Procedures Lab pLaboratory Tests 05/27/22 11:16: Glucometer 130H 05/27/22 15:51: Glucometer 137H 05/27/22 20:01: Glucometer 130H 05/27/22 20:26: Glucometer 130H 05/28/22 05:03: White Blood Count 6.6, Red Blood Count 4.20L, Hemoglobin 13.2L, Hematocrit 39L, Mean Corpuscular Volume 93, Mean Corpuscular Hemoglobin 31, Mean Corpuscular Hemoglobin Concent 34, Red Cell Distribution Width 14.2, Platelet Count 157, Mean Platelet Volume 10.5, Immature Granulocyte % (Auto) 0, Neutrophils (%) (Auto) 81H, Lymphocytes (%) (Auto) 11L, Monocytes (%) (Auto) 7, Eosinophils (%) (Auto) 0, Basophils (%) (Auto) 0, Neutrophils # (Auto) 5.3, Lymphocytes # (Auto) 0.7L, Monocytes # (Auto) 0.5, Eosinophils # (Auto) 0.0, Basophils # (Auto) 0.0, Immature Granulocyte # (Auto) 0.0, Sodium Level 135, Potassium Level 3.3L, Chloride Level 102, Carbon Dioxide Level 23, Anion Gap 10, Blood Urea Nitrogen 14, Creatinine 0.75, Estimat Glomerular Filtration Rate 88, BUN/Creatinine Ratio 19, Glucose Level 110H, Calcium Level 8.6, Corrected Calcium 9.0, Phosphorus Level 3.0, Magnesium Level 2.1, Total Bilirubin 1.6H, Aspartate Amino Transf (AST/SGOT) 39H, Alanine Aminotransferase (ALT/SGPT) 42, Alkaline Phosphatase 69, Total Protein 7.0, Albumin 3.5 05/28/22 10:47: Glucometer 128H Microbiology 05/27/22 MRSA Screen - Final, Complete MRSA not isolated Laboratory Tests Test 05/27/22 15:51 05/27/22 20:01 05/27/22 20:26 05/28/22 05:03 Range/Units Glucometer 137 H 130 H 130 H 70-110 MG/DL White Blood Count 6.6 4.3-11.0 10^3/uL Red Blood Count 4.20 L 4.30-5.52 10^6/uL Hemoglobin 13.2 L 13.3-17.7 g/dL Hematocrit 39 L 40-54 % Mean Corpuscular Volume 93 80-99 fL Mean Corpuscular Hemoglobin 31 25-34 pg Mean Corpuscular Hemoglobin Concent 34 32-36 g/dL Red Cell Distribution Width 14.2 10.0-14.5 % Platelet Count 157 130-400 10^3/uL Mean Platelet Volume 10.5 9.0-12.2 fL Immature Granulocyte % (Auto) 0 % Neutrophils (%) (Auto) 81 H 42-75 % Lymphocytes (%) (Auto) 11 L 12-44 % Monocytes (%) (Auto) 7 0-12 % Eosinophils (%) (Auto) 0 0-10 % Basophils (%) (Auto) 0 0-10 % Neutrophils # (Auto) 5.3 1.8-7.8 10^3/uL Lymphocytes # (Auto) 0.7 L 1.0-4.0 10^3/uL Monocytes # (Auto) 0.5 0.0-1.0 10^3/uL Eosinophils # (Auto) 0.0 0.0-0.3 10^3/uL Basophils # (Auto) 0.0 0.0-0.1 10^3/uL Immature Granulocyte # (Auto) 0.0 0.0-0.1 10^3/uL Sodium Level 135 135-145 MMOL/L Potassium Level 3.3 L 3.6-5.0 MMOL/L Chloride Level 102 98-107 MMOL/L Carbon Dioxide Level 23 21-32 MMOL/L Anion Gap 10 5-14 MMOL/L Blood Urea Nitrogen 14 7-18 MG/DL Creatinine 0.75 0.60-1.30 MG/DL Estimat Glomerular Filtration Rate 88 BUN/Creatinine Ratio 19 Glucose Level 110 H 70-105 MG/DL Calcium Level 8.6 8.5-10.1 MG/DL Corrected Calcium 9.0 8.5-10.1 MG/DL Phosphorus Level 3.0 2.3-4.7 MG/DL Magnesium Level 2.1 1.6-2.4 MG/DL Total Bilirubin 1.6 H 0.1-1.0 MG/DL Aspartate Amino Transf (AST/SGOT) 39 H 5-34 U/L Alanine Aminotransferase (ALT/SGPT) 42 0-55 U/L Alkaline Phosphatase 69 40-136 U/L Total Protein 7.0 6.4-8.2 GM/DL Albumin 3.5 3.2-4.5 GM/DL Test 05/28/22 10:47 Range/Units Glucometer 128 H 70-110 MG/DL Radiology CHEST 1 VIEW, AP/PA ONLY 05/26/22 IMPRESSION: Cardiomegaly and postoperative changes. Central vascular congestion with increased perihilar infiltrates and increasing right pleural effusion compared to the previous study. CT CHEST W 05/26/22 IMPRESSION: Large right and small left pleural effusions without loculation and subjacent dependent bibasilar atelectasis, greater right. No evidence for pulmonary involvement by neoplasm or findings suggestive of pneumonia. No adenopathy. Procedures ECHO on 05/27/22 noted Left ventricular cavity size mildly increased. Normal wall thickness. Estimated EF 25-30%. Severe diffuse hypokinesis. Left atrium moderately dilated Right ventricle cavity size normal. Wall thickness normal. Moderately reduced systolic function. Right atrium is dilated. Assessment/Plan Assessment/Plan Admission Dx Pleural Effusion (1) Ventricular tachycardia Status: Acute Assessment & Plan: Monitor patient in the ICU with cardiac telemetry. Amiodarone drip. Consult cardiology. 05/27: Continue cardiac telemetry. Dr. Dominguez starting Amiodarone oral. Monitor patient's liver enzymes. (2) Pleural effusion Status: Acute Assessment & Plan: Obtain thoracentesis. Surgery consulted. Hold anticoagulation. Supplement O2 with nasal cannula. 05/27: Thoracentesis being performed today. Continue diuretics to reduce fluid load. (3) Thrush, oral Status: Acute Assessment & Plan: Continue nystatin oral suspension. 05/27: Consider adding fluconazole (4) Chronic atrial fibrillation Status: Chronic Assessment & Plan: Cardiac telemetry. Continue rate control meds. (5) Diabetes Status: Chronic Assessment & Plan: Monitor glucose. ADA diet. 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 Supervisory-Addendum Brief Verification & Attestation Participated in pt care: history, physical Personally performed: supervision of care Care discussed with: Medical Student Procedures: supervised SHALOM PORTILLO MD 05/28/22 1212: Objective Exam General: Alert, Oriented X3 HEENT: Other (whitish plaque on tongue and sides of tongue, rodriguez/white ulcerated appearing 2-3 mm lesions on palate with severe surrounding erythema) Lungs: Other (rales at left base, essentially absent air movement right lung field lower 2/3) Heart: Other (irregularly irregular) Abdomen: Normal Bowel Sounds, Soft, No Tenderness Extremities: No Edema Neuro: Normal Speech Psych/Mental Status: Mental Status NL, Mood NL Supervisory-Addendum Brief Verification & Attestation I personally saw and examined patient and did my own history and exam ( see my exam findings). I directed the plan of care as documented by the medical student. Suspect his oral lesions are herpangina, but he does also have some white coating on tongue suspicious for thrush as well, will continue Nystatin, supportive care for herpangina. Note he has acute on chronic systolic CHF, appreciate Cardiology recommendations. CRISTIAN PERAZA May 28, 2022 11:15 SHALOM PORTILLO MD May 28, 2022 12:12
[2022-05-28] MEDS ORDERED: LIDOCAINE 1% INJ 20 ML VIAL ONE (11:56)
[2022-05-28] MEDS ORDERED: LIDOCAINE 1% INJ 20 ML VIAL INJ ONE (12:00)
--- NOTE | 2022-05-28 13:19 | Diagnostic Imaging Report ---
INDICATION: Right-sided pleural effusion. FINDINGS: Sonographic interrogation of the right posterior thorax shows a large right pleural effusion. Marking was provided for performance of thoracentesis. IMPRESSION: Large right pleural effusion. Dictated by: Dictated on workstation # [id number]
[2022-05-28 13:46] LABS: BODY FLUID RBC COUNT 0.001 10^6/uL; BODY FLUID WBC TOTAL COUNT 1.092 10^3/uL
[2022-05-28 14:04] LABS: GLUCOSE,BODY FLUID 119 MG/DL; TOTAL PROTEIN,BODY FLUID 2.9 G/DL
--- NOTE | 2022-05-28 14:10 | Diagnostic Imaging Report ---
EXAMINATION: Chest 1 view HISTORY: Post thoracentesis. COMPARISON: 05/26/2022. FINDINGS: Heart size and pulmonary vasculature are stable with surgical changes from median sternotomy and cardiac device placement. There are mild interstitial opacities within the lower lungs. There is a right apical pneumothorax with 2.4 cm of pleural separation. The right pleural effusion has nearly completely resolved. The osseous structures are intact. IMPRESSION: 1. Right apical pneumothorax status post thoracentesis. 2. Resolution of the right pleural effusion. Persistent mild interstitial opacities in the lung bases. CRITICAL FINDING Report given to [place] ICU nurse (Magda) at 2:09 PM 05/28/2022/liliana Dictated by: Dictated on workstation # [id number]
[2022-05-28 16:28] LABS: BODY FLUID COLOR YELLOW
[2022-05-28 16:29] LABS: BODY FLUID APPEARENCE CLEAR; BODY FLUID SOURCE PLEURAL
[2022-05-28] MEDS: SPIRONOLACTONE 25 MG (ALDACTONE) TAB PO SCH (17:24)
[2022-05-28] MEDS: TAMSULOSIN 0.4 MG (FLOMAX) CAP PO SCH (17:24)
--- NOTE | 2022-05-28 19:19 | Diagnostic Imaging Report ---
EXAMINATION: Chest 1 view HISTORY: Pneumothorax COMPARISON: 05/28/2022 FINDINGS: Stable surgical changes from CABG and cardiac device placement. Stable right apical pneumothorax with 2.5 cm of pleural separation. Increasing right basilar atelectasis. No significant pleural effusion. The osseous structures are intact. IMPRESSION: 1. Stable right apical pneumothorax with right basilar atelectasis. Dictated by: Dictated on workstation # [id number]
[2022-05-29] MEDS: NYSTATIN ORAL SUSP 5 ML UDC PO SCH ×4 (00:51→18:06)
--- NOTE | 2022-05-29 01:01 | OPERATIVE REPORT ---
DATE OF SERVICE: 05/28/2022 PREOPERATIVE DIAGNOSIS: Right pleural effusion. POSTOPERATIVE DIAGNOSIS: Right pleural effusion. PROCEDURE: Ultrasound-guided right thoracentesis. SURGEON: Roberta Brenner DO ANESTHESIA: 1% lidocaine. ESTIMATED BLOOD LOSS: Minimal. COMPLICATIONS: None. INDICATIONS: The patient is an 86-year-old female with a right large pleural effusion. He understands risks and benefits of procedure and wishes to proceed. Consent was signed in the chart. DESCRIPTION OF PROCEDURE: The patient was in sitting position. Timeout was performed. Ultrasound was used to isolate the largest pocket of the right chest. Once this was located, the area was prepped and draped in sterile fashion. Local anesthetic was infiltrated. A #11 blade scalpel was used to make a small skin incision and [id number] needle and catheter were advanced through the chest wall until straw-colored fluid was withdrawn. The catheter was then advanced and the needle was removed. The catheter was then hooked to a vacuum suction with 2600 mL of straw-colored fluid withdrawn. Once this was done, the catheter was removed and sterile bandage was applied. The patient tolerated the procedure well without any complications. Chest x-ray pending. Job ID: [id number] DocumentID: [id number] Dictated Date: 05/28/2022 14:57:18 Toy Mechanic Date: 05/29/2022 01:00:32 Dictated By: ROBERTA BRENNER DO
[2022-05-29 05:25] LABS: BASOPHILS % (AUTO) 0 % (0-10); EOSINOPHILS % (AUTO) 0 % (0-10); HEMATOCRIT 37 % (40-54); HEMOGLOBIN 12.3 g/dL (13.3-17.7); LYMPHOCYTES # (AUTO) 0.9 10^3/uL (1.0-4.0); LYMPHOCYTES % (AUTO) 11 % (12-44); MEAN CORPUSCULAR HEMOGLOBIN 31 pg (25-34); MEAN CORPUSCULAR HGB CONC 34 g/dL (32-36); MEAN CORPUSCULAR VOLUME 93 fL (80-99); MEAN PLATELET VOLUME 10.7 fL (9.0-12.2); MONOCYTES # (AUTO) 0.5 10^3/uL (0.0-1.0); MONOCYTES % (AUTO) 7 % (0-12); NEUTROPHILS # (AUTO) 6.6 10^3/uL (1.8-7.8); NEUTROPHILS % (AUTO) 82 % (42-75); PLATELET COUNT 163 10^3/uL (130-400)
[2022-05-29 05:38] LABS: ALBUMIN 3.1 GM/DL (3.2-4.5); POTASSIUM 3.4 MMOL/L (3.6-5.0)
[2022-05-29 05:40] LABS: CALCIUM 8.5 MG/DL (8.5-10.1)
[2022-05-29 05:41] LABS: TOTAL PROTEIN 6.4 GM/DL (6.4-8.2)
[2022-05-29 05:43] LABS: BILIRUBIN,TOTAL 1.8 MG/DL (0.1-1.0)
[2022-05-29 05:44] LABS: PHOSPHORUS 3.1 MG/DL (2.3-4.7)
[2022-05-29 05:45] LABS: CREATININE SERUM 0.9 MG/DL (0.60-1.30)
[2022-05-29] MEDS: inSUlin ASPART (NovoLOG) 1 UNIT/0.01 ML (CHARGE PER UNIT) SC SCH ×4 (06:07→21:38)
[2022-05-29] MEDS: MAGNESIUM 1 GM/100 ML IVPB 100 ML IV SCH (06:07)
[2022-05-29] MEDS: KCL 20 MEQ TAB (K-DUR) PO SCH (06:07)
[2022-05-29] MEDS: POTASSIUM CL 10MEQ/50ML IVPB 50 ML IV SCH ×3 (06:41→07:53)
[2022-05-29] MEDS: FUROSEMIDE 40 MG/4 ML INJ (LASIX) IVP SCH ×2 (06:41→18:04)
[2022-05-29] MEDS: NS IV 500 ML 500 ML IV PRN (06:42)
[2022-05-29] MEDS: PANTOPRAZOLE 20 MG TABLET (PROTONIX) PO SCH (08:21)
[2022-05-29] MEDS: AtorvaSTATin TABLET 10 MG TABLET PO SCH (08:21)
[2022-05-29] MEDS: AMIODARONE 200 MG (CORDARONE) TAB PO SCH ×2 (08:21→21:37)
[2022-05-29] MEDS: meTOprolol SUCCINATE 100 MG (TOPROL XL) TAB PO SCH (08:21)
[2022-05-29] MEDS: ALLOPURINOL 300 MG (ZYLOPRIM) TAB PO SCH (08:22)
--- NOTE | 2022-05-29 08:26 | Diagnostic Imaging Report ---
Indication: Follow-up right-sided pneumothorax COMPARISON: 05/28/2022 FINDINGS: Single frontal radiograph view of the chest was obtained and demonstrates interval decrease in size of small right apical pneumothorax estimated approximately 10%. There is no pneumothorax on the left. Lungs otherwise show low inspiratory volumes. Small bibasilar effusions may be present. Cardiac silhouette is mildly prominent. Pulmonary vasculature is within normal limits. Sternotomy wires and left-sided AICD are noted. Osseous structures are unchanged. IMPRESSION: 1. Interval decrease in small right apical pneumothorax. 2. Mild cardiomegaly. 3. Possible small bibasilar effusions. Dictated by: Dictated on workstation # [id number]
--- NOTE | 2022-05-29 08:39 | Progress Note - Surgery ---
CAMERON ALLAN 05/29/22 0839: Subjective Date Seen by a Provider: May 29, 2022 Time Seen by a Provider: 08:33 Subjective/Events-last exam Performed thoracentesis for right pleural effusion on 05/28 without complications. 2600mL of straw-colored fluid withdrawn and pleural fluid sent for gram stain and culture pending results. Pt reports feeling better with improved breathing. Pt is week and has not been able to ambulate. Pt on 3L O2 via NC. Pt switched over to oral amiodarone. Pt not restarted on anticoag. No abdominal pain or new complaints. Denies n/v fever sweats chills shortness of breath or chest pain. Chest x-ray performed 05/28 post thoracentesis - Right apical pneumothorax status post thoracentesis. Resolution of the right pleural effusion. Persistent mild. interstitial opacities in the lung bases. Repeat Chest x-ray 05/28 - Stable right apical pneumothorax with right basilar atelectasis. Chest x-ray 05/29 - Interval decrease in small right apical pneumothorax Focused Exam Respiratory: Chest Non Tender Cardiovascular: No JVD, Irregularly Irregular Skin: normal color, warm/dry Objective Exam Vital Signs Date Time Temp Pulse Resp B/P (MAP) Pulse Ox O2 Delivery O2 Flow Rate FiO2 05/29/22 08:00 35.8 05/29/22 08:00 81 26 108/68 (81) 94 NIV CPAP 5.00 05/29/22 07:00 71 26 102/58 (73) 95 NIV CPAP 5.00 05/29/22 07:00 79 05/29/22 06:00 73 22 106/55 (72) 93 NIV CPAP 5.00 05/29/22 05:00 65 17 102/61 (75) 94 NIV CPAP 5.00 05/29/22 04:00 91 Nasal Cannula 5.00 05/29/22 04:00 72 14 117/63 (81) 96 NIV CPAP 5.00 05/29/22 03:00 75 14 99/60 (73) 93 NIV CPAP 5.00 05/29/22 02:00 71 14 106/62 (77) 92 NIV CPAP 5.00 05/29/22 01:00 84 14 110/58 (75) 96 NIV CPAP 5.00 05/29/22 00:54 86 05/29/22 00:00 91 Nasal Cannula 5.00 05/29/22 00:00 90 20 98/66 (77) 92 NIV CPAP 5.00 05/28/22 23:00 86 21 109/60 (76) 92 NIV CPAP 5.00 05/28/22 22:00 90 32 101/58 (72) 100 NIV CPAP 5.00 05/28/22 21:00 88 22 99/54 (69) 100 NIV CPAP 5.00 05/28/22 20:18 109/48 (68) 05/28/22 20:00 88 21 94 NIV CPAP 5.00 05/28/22 20:00 91 Nasal Cannula 5.00 05/28/22 19:31 NIV CPAP 5.00 05/28/22 19:00 89 21 95 Nasal Cannula 4.00 05/28/22 19:00 89 05/28/22 18:00 84 11 112/66 (81) 96 Nasal Cannula 4.00 05/28/22 17:00 85 27 120/67 (84) 91 Nasal Cannula 4.00 05/28/22 16:30 37.4 05/28/22 16:00 87 26 122/90 (101) 100 Nasal Cannula 4.00 05/28/22 16:00 91 Nasal Cannula 5.00 05/28/22 15:00 84 18 110/68 (82) 93 Nasal Cannula 4.00 05/28/22 14:00 86 12 116/65 (82) 95 Nasal Cannula 4.00 05/28/22 13:00 96 05/28/22 13:00 87 23 126/115 (119) 98 Nasal Cannula 4.00 05/28/22 12:00 88 26 132/70 (90) 99 Nasal Cannula 4.00 05/28/22 12:00 91 Nasal Cannula 5.00 05/28/22 11:58 36.8 05/28/22 11:00 92 25 107/71 (83) 90 Nasal Cannula 4.00 05/28/22 10:00 77 25 123/68 (86) 97 Nasal Cannula 4.00 05/28/22 09:00 80 22 117/66 (83) 94 Nasal Cannula 4.00 I & O 05/29/22 07:00 Intake Total 1290 ml Output Total 4485 ml Balance -3195 ml Capillary Refill : Less Than 3 Seconds General Appearance: No Apparent Distress, WD/WN HEENT: PERRL/EOMI, Normal ENT Inspection Neck: Normal Inspection, Non Tender Respiratory: Chest Non Tender, No Accessory Muscle Use, No Respiratory Distress Cardiovascular: No JVD, Irregularly Irregular Peripheral Pulses: 2+ Dorsalis Pedis (R), 2+ Left Dors-Pedis (L), 2+ Radial Pulses (R), 2+ Radial Pulses (L) Gastrointestinal: non tender, soft Extremity: Non Tender, No Calf Tenderness Neurologic/Psychiatric: Alert, Oriented x3 Skin: Normal Color, Warm/Dry Lymphatic: No Adenopathy Results Lab Laboratory Tests 05/28/22 10:47: Glucometer 128H 05/28/22 12:55: Body Fluid Source PLEURAL, Body Fluid Color YELLOW, Body Fluid Appearance CLEAR, Body Fluid WBC 1.092, Body Fluid RBC 0.001, Body Fl Polynuclear WBCs (%)(Auto) 0.8, Body Fluid Mononuclear Cells % Auto 99.2, Body Fluid Slide Review Yes, Body Fluid Glucose 119, Body Fluid Total Protein 2.9, Body Fluid Lactate Dehydrogenase 54 05/28/22 17:01: Glucometer 139H 05/28/22 20:21: Glucometer 120H 05/29/22 05:05: White Blood Count 8.0, Red Blood Count 3.92L, Hemoglobin 12.3L, Hematocrit 37L, Mean Corpuscular Volume 93, Mean Corpuscular Hemoglobin 31, Mean Corpuscular Hemoglobin Concent 34, Red Cell Distribution Width 14.0, Platelet Count 163, Mean Platelet Volume 10.7, Immature Granulocyte % (Auto) 1, Neutrophils (%) (Auto) 82H, Lymphocytes (%) (Auto) 11L, Monocytes (%) (Auto) 7, Eosinophils (%) (Auto) 0, Basophils (%) (Auto) 0, Neutrophils # (Auto) 6.6, Lymphocytes # (Auto) 0.9L, Monocytes # (Auto) 0.5, Eosinophils # (Auto) 0.0, Basophils # (Auto) 0.0, Immature Granulocyte # (Auto) 0.0, Sodium Level 133L, Potassium Level 3.4L, Chloride Level 98, Carbon Dioxide Level 24, Anion Gap 11, Blood Urea Nitrogen 24H, Creatinine 0.90, Estimat Glomerular Filtration Rate 83, BUN/Creatinine Ratio 27, Glucose Level 113H, Calcium Level 8.5, Corrected Calcium 9.2, Phosphorus Level 3.1, Magnesium Level 2.0, Total Bilirubin 1.8H, Aspartate Amino Transf (AST/SGOT) 39H, Alanine Aminotransferase (ALT/SGPT) 46, Alkaline Phosphatase 76, Total Protein 6.4, Albumin 3.1L Microbiology 05/28/22 Gram Stain, Resulted Pending 05/28/22 Body Fluid Culture - Preliminary, Resulted 05/27/22 MRSA Screen - Final, Complete MRSA not isolated Assessment/Plan Assessment/Plan Assessment/Plan vtach b/l pleural effusion right greater than left hypoxia improved at this time anticoagulation/antiplatelet snf history of cardiac bypass Thoracentesis for right pleural effusion performed yesterday without complications Monitor pt for pneumothorax Restart anticoagulation medication ROBERTA BRENNER DO 05/29/22 1609: Subjective Subjective/Events-last exam Patient breathing a little easier today. On 3 L NC. No new complaints. Denies n/v fever sweats chills or chest pain. Chest x ray reviewed, right pneumo less in size. Objective Exam General Appearance: No Apparent Distress, WD/WN HEENT: PERRL/EOMI, Normal ENT Inspection Neck: Normal Inspection, Non Tender Respiratory: Chest Non Tender, No Accessory Muscle Use, No Respiratory Distress Cardiovascular: No JVD, Irregularly Irregular Gastrointestinal: non tender, soft Extremity: Non Tender, No Calf Tenderness Neurologic/Psychiatric: Alert, Oriented x3 Skin: Normal Color, Warm/Dry Lymphatic: No Adenopathy Assessment/Plan Assessment/Plan Assessment/Plan vtach b/l pleural effusion right greater than left hypoxia improved at this time anticoagulation/antiplatelet snf history of cardiac bypass Thoracentesis for right pleural effusion performed yesterday without complications Monitor pt for pneumothorax its small and i think from removing fluid not injury to lung, repeat x ray in am or if more difficulty breathing. May restart anticoagulation Supervisory-Addendum Brief Verification & Attestation Participated in pt care: history, MDM, physical Personally performed: exam, history, MDM, supervision of care Care discussed with: Medical Student Procedures: n/a Results interpretation: Verified all documentation Verification and Attestation of Medical Student E/M Service A medical student performed and documented this service in my presence. I reviewed and verified all information documented by the medical student and made modifications to such information, when appropriate. I personally performed the physical exam and medical decision making. Roberta Brenner, May 29, 2022,16:09 CAMERON ALLAN May 29, 2022 08:39 ROBERTA BRENNER DO May 29, 2022 16:09
--- NOTE | 2022-05-29 09:08 | Progress Note ---
CRISTIAN PERAZA 05/29/22 0908: Subjective Subjective/Events-last exam Our patient is an 86 yo M who had a thoracentesis on 05/28 due to pleural effusion. CXR post procedure notes a right apical pneumothorax. Pt is sitting in bed this morning eating breakfast. He has only taken a few bites. States that his mouth is still bothering him. He says his thoracentesis went well and he is doing fine. Denies any pain. Mr. Turpin feels that he is feeling stronger and is i nterested in physical therapy with goals of independent ambulation. Denies concerns at this time. ROS: Pos: cough, mild shortness of breath (pt on 3L O2); Neg: chest pain, palpitations, nausea, vomiting, fever, chills, pain at catheter insertion site Review of Systems Pulmonary: Dyspnea, Cough Objective Exam Last Set of Vital Signs Vital Signs Date Time Temp Pulse Resp B/P (MAP) Pulse Ox O2 Delivery O2 Flow Rate FiO2 05/29/22 08:00 35.8 05/29/22 08:00 81 26 108/68 (81) 94 NIV CPAP 5.00 Capillary Refill : Less Than 3 Seconds I&O Intake and Output 05/29/22 00:00 Intake Total 1570 ml Output Total 4560 ml Balance -2990 ml Intake Oral 1120 ml IV Total 450 ml Output Urine Total 1950 ml Stool Total 10 ml Other 2600 ml # Bowel Movements 2 General: Alert, Oriented X3, Cooperative, No Acute Distress HEENT: PERRLA, EOMI, Mucous Memb Moist/[place] Heart: Regular Rate, No Murmurs, Other (Regularly irregular rhythm) Abdomen: Normal Bowel Sounds, Soft, No Tenderness Extremities: No Edema, Normal Pulses, No Tenderness/Swelling Neuro: Normal Speech Results/Procedures Lab Laboratory Tests 05/28/22 10:47: Glucometer 128H 05/28/22 12:55: Body Fluid Source PLEURAL, Body Fluid Color YELLOW, Body Fluid Appearance CLEAR, Body Fluid WBC 1.092, Body Fluid RBC 0.001, Body Fl Polynuclear WBCs (%)(Auto) 0.8, Body Fluid Mononuclear Cells % Auto 99.2, Body Fluid Slide Review Yes, Body Fluid Glucose 119, Body Fluid Total Protein 2.9, Body Fluid Lactate Dehydrogenase 54 05/28/22 17:01: Glucometer 139H 05/28/22 20:21: Glucometer 120H 05/29/22 05:05: White Blood Count 8.0, Red Blood Count 3.92L, Hemoglobin 12.3L, Hematocrit 37L, Mean Corpuscular Volume 93, Mean Corpuscular Hemoglobin 31, Mean Corpuscular Hemoglobin Concent 34, Red Cell Distribution Width 14.0, Platelet Count 163, Mean Platelet Volume 10.7, Immature Granulocyte % (Auto) 1, Neutrophils (%) (Aut o) 82H, Lymphocytes (%) (Auto) 11L, Monocytes (%) (Auto) 7, Eosinophils (%) (Auto) 0, Basophils (%) (Auto) 0, Neutrophils # (Auto) 6.6, Lymphocytes # (Auto) 0.9L, Monocytes # (Auto) 0.5, Eosinophils # (Auto) 0.0, Basophils # (Auto) 0.0, Immature Granulocyte # (Auto) 0.0, Sodium Level 133L, Potassium Level 3.4L, Chloride Level 98, Carbon Dioxide Level 24, Anion Gap 11, Blood Urea Nitrogen 24H, Creatinine 0.90, Estimat Glomerular Filtration Rate 83, BUN/Creatinine Ratio 27, Glucose Level 113H, Calcium Level 8.5, Corrected Calcium 9.2, Phosphorus Level 3.1, Magnesium Level 2.0, Total Bilirubin 1.8H, Aspartate Amino Transf (AST/SGOT) 39H, Alanine Aminotransferase (ALT/SGPT) 46, Alkaline Phosphatase 76, Total Protein 6.4, Albumin 3.1L Microbiology 05/28/22 Gram Stain, Resulted Pending 05/28/22 Body Fluid Culture - Preliminary, Resulted 05/27/22 MRSA Screen - Final, Complete MRSA not isolated Laboratory Tests Test 05/28/22 10:47 05/28/22 12:55 05/28/22 17:01 05/28/22 20:21 Range/Units Glucometer 128 H 139 H 120 H 70-110 MG/DL Body Fluid Source PLEURAL Body Fluid Color YELLOW Body Fluid Appearance CLEAR Body Fluid WBC 1.092 10^3/uL Body Fluid RBC 0.001 10^6/uL Body Fl Polynuclear WBCs (%)(Auto) 0.8 % Body Fluid Mononuclear Cells % Auto 99.2 % Body Fluid Slide Review Yes Body Fluid Glucose 119 MG/DL Body Fluid Total Protein 2.9 G/DL Body Fluid Lactate Dehydrogenase 54 U/L Test 05/29/22 05:05 Range/Units White Blood Count 8.0 4.3-11.0 10^3/uL Red Blood Count 3.92 L 4.30-5.52 10^6/uL Hemoglobin 12.3 L 13.3-17.7 g/dL Hematocrit 37 L 40-54 % Mean Corpuscular Volume 93 80-99 fL Mean Corpuscular Hemoglobin 31 25-34 pg Mean Corpuscular Hemoglobin Concent 34 32-36 g/dL Red Cell Distribution Width 14.0 10.0-14.5 % Platelet Count 163 130-400 10^3/uL Mean Platelet Volume 10.7 9.0-12.2 fL Immature Granulocyte % (Auto) 1 % Neutrophils (%) (Auto) 82 H 42-75 % Lymphocytes (%) (Auto) 11 L 12-44 % Monocytes (%) (Auto) 7 0-12 % Eosinophils (%) (Auto) 0 0-10 % Basophils (%) (Auto) 0 0-10 % Neutrophils # (Auto) 6.6 1.8-7.8 10^3/uL Lymphocytes # (Auto) 0.9 L 1.0-4.0 10^3/uL Monocytes # (Auto) 0.5 0.0-1.0 10^3/uL Eosinophils # (Auto) 0.0 0.0-0.3 10^3/uL Basophils # (Auto) 0.0 0.0-0.1 10^3/uL Immature Granulocyte # (Auto) 0.0 0.0-0.1 10^3/uL Sodium Level 133 L 135-145 MMOL/L Potassium Level 3.4 L 3.6-5.0 MMOL/L Chloride Level 98 98-107 MMOL/L Carbon Dioxide Level 24 21-32 MMOL/L Anion Gap 11 5-14 MMOL/L Blood Urea Nitrogen 24 H 7-18 MG/DL Creatinine 0.90 0.60-1.30 MG/DL Estimat Glomerular Filtration Rate 83 BUN/Creatinine Ratio 27 Glucose Level 113 H 70-105 MG/DL Calcium Level 8.5 8.5-10.1 MG/DL Corrected Calcium 9.2 8.5-10.1 MG/DL Phosphorus Level 3.1 2.3-4.7 MG/DL Magnesium Level 2.0 1.6-2.4 MG/DL Total Bilirubin 1.8 H 0.1-1.0 MG/DL Aspartate Amino Transf (AST/SGOT) 39 H 5-34 U/L Alanine Aminotransferase (ALT/SGPT) 46 0-55 U/L Alkaline Phosphatase 76 40-136 U/L Total Protein 6.4 6.4-8.2 GM/DL Albumin 3.1 L 3.2-4.5 GM/DL Radiology CHEST 1 VIEW, AP/PA ONLY 05/26/22 IMPRESSION: Cardiomegaly and postoperative changes. Central vascular congestion with increased perihilar infiltrates and increasing right pleural effusion compared to the previous study. CT CHEST W 05/26/22 IMPRESSION: Large right and small left pleural effusions without loculation and subjacent dependent bibasilar atelectasis, greater right. No evidence for pulmonary involvement by neoplasm or findings suggestive of pneumonia. No adenopathy. CHEST 1 VIEW, AP/PA ONLY Post-thoracentesis on 05/28/22 @1300 FINDINGS: Heart size and pulmonary vasculature are stable with surgical changes from median sternotomy and cardiac device placement. There are mild interstitial opacities within the lower lungs. There is a right apical pneumothorax with 2.4 cm of pleural separation. The right pleural effusion has nearly completely resolved. The osseous structures are intact. IMPRESSION: 1. Right apical pneumothorax status post thoracentesis. 2. Resolution of the right pleural effusion. Persistent mild interstitial opacities in the lung bases. CHEST 1 VIEW, AP/PA ONLY on 05/28/22 @1900 FINDINGS: Stable surgical changes from CABG and cardiac device placement. Stable right apical pneumothorax with 2.5 cm of pleural separation. Increasing right basilar atelectasis. No significant pleural effusion. The osseous structures are intact. IMPRESSION: 1. Stable right apical pneumothorax with right basilar atelectasis. CHEST 1 VIEW, AP/PA ONLY on 05/29/22 @ 0600 FINDINGS: Single frontal radiograph view of the chest was obtained and demonstrates interval decrease in size of small right apical pneumothorax estimated approximately 10%. There is no pneumothorax on the left. Lungs otherwise show low inspiratory volumes. Small bibasilar effusions may be present. Cardiac silhouette is mildly prominent. Pulmonary vasculature is within normal limits. Sternotomy wires and left-sided AICD are noted. Osseous structures are unchanged. IMPRESSION: 1. Interval decrease in small right apical pneumothorax. 2. Mild cardiomegaly. 3. Possible small bibasilar effusions. Procedures ECHO on 05/27/22 noted Left ventricular cavity size mildly increased. Normal wall thickness. Estimated EF 25-30%. Severe diffuse hypokinesis. Left atrium moderately dilated Right ventricle cavity size normal. Wall thickness normal. Moderately reduced systolic function. Right atrium is dilated. Assessment/Plan Assessment/Plan Admission Dx Pleural Effusion (1) Ventricular tachycardia Status: Acute Assessment & Plan: Monitor patient in the ICU with cardiac telemetry. Amiodarone drip. Consult cardiology. 05/29: Continue cardiac telemetry. DC Amio drip and continue Amiodarone PO. (2) Pleural effusion Status: Acute Assessment & Plan: Obtain thoracentesis. Surgery consulted. Hold anticoagulation. Supplement O2 with nasal cannula. 05/29: Thoracentesis completed. Continue diueresis with spironolactone and IV Lasix. (3) Thrush, oral Status: Acute Assessment & Plan: Continue nystatin oral suspension 05/29: Add Magic Mouthwash to nystatin oral suspension (4) Chronic atrial fibrillation Status: Chronic Assessment & Plan: Cardiac telemetry. Continue rate control meds. (5) Diabetes Status: Resolved Assessment & Plan: Monitor glucose. ADA diet. 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 Restart anticoagulation. (7) Congestive heart failure Status: Chronic Assessment & Plan: Diuretics and continue home meds Qualifiers: Qualified Codes: I50.23 - Acute on chronic systolic (congestive) heart failure (8) Pneumothorax on right Status: Acute Assessment & Plan: Continue with nasal cannula and monitoring O2 sats with goal above 93%. Perform daily chest xrays Supervisory-Addendum Brief Verification & Attestation Participated in pt care: history, physical Personally performed: supervision of care Care discussed with: Medical Student Procedures: supervised SHALOM PORTILLO MD 05/29/22 1328: Supervisory-Addendum Brief Verification & Attestation I personally saw and examined patient and repeated my own history and physical exam which confirmed that documented by the medical student. I directed the plan of care as documented. CRISTIAN PERAZA May 29, 2022 09:08 SHALOM PORTILLO MD May 29, 2022 13:28
--- NOTE | 2022-05-29 11:06 | Cardiology Progress Note ---
Subjective Date Seen by Provider: May 29, 2022 Time Seen by Provider: 11:05 Subjective/Events-last exam Patient was seen at bedside, laying down comfortably, feeling better. Review of Systems General: No Chills, No Night Sweats, No Fatigue, No Malaise, No Appetite, No Other HEENT: No Head Aches, No Visual Changes, No Eye Pain, No Ear Pain, No Dysphasia, No Sinus Congestion, No Post Nasal Drip, No Sore Throat, No Other Pulmonary: Dyspnea; No Cough, No Pleuritic Chest Pain, No Other Cardiovascular: No: Chest Pain, Palpitations, Orthopnea, Paroxysmal Noc. Dyspnea, Edema, Lt Headedness, Other Objective-Cardiology Exam Last Set of Vital Signs Vital Signs 05/29/22 10:00 Pulse 68 Resp 20 B/P (MAP) 105/89 (94) Pulse Ox 94 O2 Delivery NIV CPAP O2 Flow Rate 5.00 I&O Intake and Output 05/29/22 00:00 Intake Total 1570 ml Output Total 4560 ml Balance -2990 ml Intake Oral 1120 ml IV Total 450 ml Output Urine Total 1950 ml Stool Total 10 ml Other 2600 ml # Bowel Movements 2 General: Alert, Oriented X3, Cooperative, No Acute Distress HEENT: PERRLA, EOMI, Mucous Memb Moist/[place] Neck: Supple, No JVD, No Thyromegaly Lungs: Other (rales at left base, essentially absent air movement right lung field lower 2/3) Heart: Normal S1, Normal S2, No Murmurs Abdomen: Normal Bowel Sounds, Soft, No Tenderness Extremities: No Clubbing, No Cyanosis, No Edema, Normal Pulses Skin: No Rashes, No Breakdown, No Significant Lesion Neuro: Normal Speech Psych/Mental Status: Mental Status NL, Mood NL Results Lab Laboratory Tests 05/29/22 05:05 A/P-Cardiology Admission Diagnosis Dyspnea Pleural effusion Congestive heart failure, acute on chronic left ventricular systolic dysfunction Sustained ventricular tachycardia Assessment/Plan Dyspnea, pleural effusion Feeling better, responded well to diuretics and thoracentesis Continue to monitor Sore throat, oral thrush, managed by medical team. Multiple episodes of wide-complex tachycardia, could be secondary to sustained ventricular tachycardia versus atrial fibrillation with rapid ventricular response. Responded well to amiodarone. Continue to monitor liver enzymes. Congestive heart failure, acute on chronic left ventricular systolic dysfunction, ischemic cardiomyopathy. Ejection fraction 30%. NYHA class II-III Continue with aggressive diuresis and monitor tolerance and response Permanent atrial fibrillation with rate control. Was in the hospital with syncope and bradycardia. Diltiazem and Digoxin discontinued. Currently on Toprol XL 100mg daily. Adding amiodarone and monitor tolerance and response History of elevated liver enzymes, improved after stopping Lipitor and amiodarone. Restarting amiodarone and monitor tolerance and response [id number] score of 6, yearly risk of stroke without oral anticoagulation is 9.8 percent. Maintained on Xarelto, continue to monitor Coronary artery disease, history of 2 heart attacks in the past, had angioplasty in 1989, CABG 4 in 1997, stent in 2004 after a heart attack, had sudden during the procedure. Most recent cardiac catheterization done in June 05, 2015 revealed 3 patent bypass grafts. Vein graft to the right coronary artery, vein graft to the diagonal artery, and CHRISTINA to LAD with excellent flow in the system. Totally occluded circumflex artery with no bypass to the obtuse marginal system. Receiving collaterals from the right coronary system EF 30 percent. Stress test done in November 2020 showing fixed defect involving the inferior wall and inferoapex and true apex, no change compared to the previous stress test, ejection fraction 27%. Patient is asymptomatic. Continue to monitor Peripheral edema, chronic, Responding well to diuretics Status post single-chamber ICD implantation, using [employer] device Evera XT, last pacemaker interrogation was done March 2022 showing good sensing and capture activity. Will interrogate ICD during this admission Hypertension, controlled on the current medications, continue to monitor Hyperlipidemia, Lipitor was restarted, monitor lipid profile and liver enzymes Mild bilateral nonobstructive carotid artery stenosis per carotid duplex done in March 2021 Diabetes mellitus, followed and managed by Dr. Zheng Arthritis, maintained on allopurinol. History of sleep apnea on CPAP JONO WASHINGTON MD May 29, 2022 11:06
--- NOTE | 2022-05-29 11:59 | Tele-ICU Progress Note ---
Subjective Date Seen by a Provider: May 29, 2022 Time Seen by a Provider: 11:58 Subjective/Events-last exam . (Tele-ICU Physician , Progress Note ) Available chart/ vitals / labs / Images reviewed Video assessment done using teleICU camera, rest of exam as per RN Discussed with RN Events overnight : Afebrile hemodynamically stable Respiratory - I/O = Drips: Pressors- no Consultants: Hospital course: (05/26) 86M Admitted for right pleural effusion and oral thrush--plan thoracentesis (05/27) TX to ICU for possible run Vtach while on commode. Asymptomatic. Electrolytes covered. A/P Sustained ventricular tachycardia 05/27 versus atrial fibrillation with rapid ventricular response. -- single-chamber ICD in place - review/w/up amd plans as per cardiology - amio gtt to change to po Acute new resp distress after get up to bathroom -05/27 - placed on bipap - responded to lasix and NIPPV - on 3 L Bilateral plural effusions by CT R>>L - thoracentes on right 05/28 ( with holding AC) -2600 ml PTX, post thora , small right apical 05/28 - stble this am - keep on O2 - follow CAD - complex history ( cabg/ stenting ) , as per cards ICM -Status post single-chamber ICD -ECHO 05/27/22 - EF 25 % RVSP 60 mmHg ( previous LVEF 40-45% ,mild MR, mild AR, PA 30-35 mmHg) AFIB , permanent - AC xarelto - on HOLD - to resume as per cards and sx History of elevated liver enzymes Elevated liver enzymes of undetermined etiology - ? amio related Pulm HTN ECHO 05/27/22 - RVSP 60 mmHg DM - ISS ADELE /CSA- COMPLIANT AT HOME ( AHI 59, with AutoPAP AHI 34) ) - s/p titration PSG 01/2022 - CSA AI 38 on bipap 07/23 --> ASV titrated ( final ASV titration: EPAP min 4cm -EPAP max 15cm PS 0-20cm rate auto , max pressure 25 Lines : periph , (Central Line Necessity Reviewed) Dunbar: + OG: Nutrition: po Analgesia: Anxiety/ delirium VTE Prophylaxis: xarelto on hold , scd - refusion Stress Ulcer Prophylaxis: Plans in collaboration with bedside consultants and IM MDs. Discussed with RN to reach out if any questions or concerns A total of 25 minutes of critical care time was devoted to this patient today, required to treat and/or prevent further deterioration of critical care condition ( as above ) . . Sepsis Event Evaluation Height, Weight, BMI Height: 5'9.00" Weight: 211lbs. 0.0oz. [id number]; 27.62 BMI Method:Stated Exam Exam Patient acknowledged, consented, and participated in this virtual visit which was conducted using real time audio/video Vital Signs Date Time Temp Pulse Resp B/P (MAP) Pulse Ox O2 Delivery O2 Flow Rate FiO2 05/29/22 11:00 78 24 102/72 (82) 96 NIV CPAP 5.00 05/29/22 10:00 68 20 105/89 (94) 94 NIV CPAP 5.00 05/29/22 09:00 84 31 99/86 (90) 95 NIV CPAP 5.00 05/29/22 08:00 35.8 05/29/22 08:00 96 Nasal Cannula 3.00 05/29/22 08:00 81 26 108/68 (81) 94 NIV CPAP 5.00 05/29/22 07:00 71 26 102/58 (73) 95 NIV CPAP 5.00 05/29/22 07:00 79 05/29/22 06:00 73 22 106/55 (72) 93 NIV CPAP 5.00 05/29/22 05:00 65 17 102/61 (75) 94 NIV CPAP 5.00 05/29/22 04:00 91 Nasal Cannula 5.00 05/29/22 04:00 72 14 117/63 (81) 96 NIV CPAP 5.00 05/29/22 03:00 75 14 99/60 (73) 93 NIV CPAP 5.00 05/29/22 02:00 71 14 106/62 (77) 92 NIV CPAP 5.00 05/29/22 01:00 84 14 110/58 (75) 96 NIV CPAP 5.00 05/29/22 00:54 86 05/29/22 00:00 91 Nasal Cannula 5.00 05/29/22 00:00 90 20 98/66 (77) 92 NIV CPAP 5.00 05/28/22 23:00 86 21 109/60 (76) 92 NIV CPAP 5.00 05/28/22 22:00 90 32 101/58 (72) 100 NIV CPAP 5.00 05/28/22 21:00 88 22 99/54 (69) 100 NIV CPAP 5.00 05/28/22 20:18 109/48 (68) 05/28/22 20:00 88 21 94 NIV CPAP 5.00 05/28/22 20:00 91 Nasal Cannula 5.00 05/28/22 19:31 NIV CPAP 5.00 05/28/22 19:00 89 21 95 Nasal Cannula 4.00 05/28/22 19:00 89 05/28/22 18:00 84 11 112/66 (81) 96 Nasal Cannula 4.00 05/28/22 17:00 85 27 120/67 (84) 91 Nasal Cannula 4.00 05/28/22 16:30 37.4 05/28/22 16:00 87 26 122/90 (101) 100 Nasal Cannula 4.00 05/28/22 16:00 91 Nasal Cannula 5.00 05/28/22 15:00 84 18 110/68 (82) 93 Nasal Cannula 4.00 05/28/22 14:00 86 12 116/65 (82) 95 Nasal Cannula 4.00 05/28/22 13:00 96 05/28/22 13:00 87 23 126/115 (119) 98 Nasal Cannula 4.00 05/28/22 12:00 88 26 132/70 (90) 99 Nasal Cannula 4.00 05/28/22 12:00 91 Nasal Cannula 5.00 I & O 05/29/22 07:00 Intake Total 1290 ml Output Total 4485 ml Balance -3195 ml Height & Weight Height: 5'9.00" Weight: 211lbs. 0.0oz. 95.878580np; 27.62 BMI Method:Stated General Appearance: No Apparent Distress, WD/WN HEENT: PERRL/EOMI, Normal ENT Inspection Neck: Normal Inspection, Non Tender Respiratory: Chest Non Tender, No Accessory Muscle Use, No Respiratory Distress Cardiovascular: No JVD, Irregularly Irregular Capillary Refill: Less Than 3 Seconds Peripheral Pulses: 2+ Dorsalis Pedis (R), 2+ Left Dors-Pedis (L), 2+ Radial Pulses (R), 2+ Radial Pulses (L) Gastrointestinal: non tender, soft Extremity: Non Tender, No Calf Tenderness Neurologic/Psychiatric: Alert, Oriented x3 Skin: Normal Color, Warm/Dry Lymphatic: No Adenopathy Results Lab Laboratory Tests 05/28/22 05:03 05/29/22 05:05 Assessment/Plan Assessment/Plan 1 VALERIO MANLEY MD May 29, 2022 11:59
[2022-05-29] MEDS ORDERED: MAGIC MOUTHWASH, ADULT 155 ML BOTTLE PO SCH (13:00)
--- NOTE | 2022-05-29 13:57 | Occupational Therapy Eval ---
OT Evaluation-General/PLF Medical Diagnosis Admission Date May 27, 2022 at 09:16 Medical Diagnosis: Oral thrush, pleural effusion Onset Date: Jun 12, 2022 Therapy Diagnosis Therapy Diagnosis: reduced adl status Height/Weight Height (Feet): 5 Height (Inches): 9.00 Weight (Pounds): 211 Weight (Ounces): 0.0 Precautions Precautions/Isolations: Fall Prevention, Standard Precautions Referral Referral Reason: Evaluation/Treatment Medical History Pertinent Medical History: Atrial Fib, CAD, DM, HTN, [place] Current History Pt arrived to ER with SOB and lethargy. S/p thoracentesis for R pleural effusion on 05/28. Per patient, he lives with his son in a single story home. He reports being indep with adls and his son completes all the iadls. Pt uses a cane at baseline. R knee remains in extension (fused) secondary to old injury. Reviewed History: Yes Social History Home: Single Level Current Living Status: Children ADL-Prior Level of Function SCALE: Activities may be completed with or without assistive devices. 3-Mibxqnywgj-rbohzrz completes the activity by him/herself with no assistance from a helper. 5-Set-up or Clean-up Assistance-helper sets up or cleans up; patient completes activity. Plato assists only prior to or following the activity. 4-Supervision or Touching Assistance-helper provides verbal cues and/or touching/steadying and/or contact guard assistance as patient completes activity. Assistance may be provided throughout the activity or intermittently. 3-Partial/Moderate Assistance-helper does LESS THAN HALF the effort. Plato lifts, holds or supports trunk or limbs, but provides less than half the effort. 2-Substantial/Maximal Assistance-helper does MORE THAN HALF the effort. Plato lifts or holds trunk or limbs and provides more than half the effort. 4-Kbtjaokku-qpusjt does ALL the effort. Patient does none of the effort to complete the activity. Or, the assistance of 2 or more helpers is required for the patient to complete the activity. If activity was not attempted, code reason: 7-Patient Refused. 9-Not Applicable-not attempted and the patient did not perform the activity before the current illness, exacerbation or injury. 10-Not Attempted due to Environmental Limitations-(lack of equipment, weather restraints, etc.). 88-Not Attempted due to Medical Conditions or Safety Concerns. Self Care: Independent Functional Cognition: Independent DME/Equipment: Shower Drive Self: Yes OT Current Status Subjective Pt denies pain, agreeable to evaluation. Appearance Pt left sitting in chair at OT departure, all needs within reach. Mental Status/Objective Patient Orientation: Person, Place Current Hand Dominance: Right Upper Extremity ROM Bilateral shoulder: ~150 degrees Upper Extremity Strength 3+/5 throughout ADL-Treatment On/Off Footwear (QC): 3 Toileting Hygiene (QC): 1 (white catheter) Pt able to don/doff L sock by utilizing cross over method. He reports that he can normally get R sock off by bringing leg onto side of bed or chair. (R knee remains in extension). Despite extra time given, pt unable to demonstrate ability to complete this date. He stood from chair with CGA and extra time. At this time, pt requires BUE support on walker and thus would require assistance with all functional tasks such as clothing management. He fatigues easily and demonstrates SOB after minimal activity. Education OT Patient Education: Correct positioning, Purpose of tx/functional activities, Reviewed precautions, Rehab process, Safety issues, Transfer techniques Teaching Recipient: Patient Teaching Methods: Discussion Response to Teaching: Verbalize Understanding, Return Demonstration, Reinforcement Needed OT Half-Way Goals Loan Processing Supervisor Goals Time Frame: Jun 12, 2022 Eating (QC): 5 Oral Hygiene (QC): 5 Toileting Hygiene (QC): 4 Shower/Bathe Self (QC): 4 Upper Body Dressing (QC): 4 Lower Body Dressing (QC): 4 On/Off Footwear (QC): 4 1=Demonstrate adherence to instructed precautions during ADL tasks. 2=Patient will verbalize/demonstrate understanding of assistive devices/modifications for ADL. 3=Patient will improve strength/tolerance for activity to enable patient to perform ADL's. OT Education/Plan Problem List/Assessment Assessment: Decreased Activ Tolerance, Decreased Safety Aware, Decreased UE Strength, Impaired Funct Balance, Impaired Self-Care Skills, Restricted Funct UE ROM Discharge Recommendations Plan/Recommendations: Continue POC Therapy Discharge Recommendati: Post Acute OT (Home health pending progress) Treatment Plan/Plan of Care Treatment,Training & Education: Yes Patient would benefit from OT for education, treatment and training to promote independence in ADL's, mobility, safety and/or upper extremity function for ADL's. Plan of Care: ADL Retraining, Functional Mobility, Group Exercise/Act as Ind, U E Funct Exercise/Act Treatment Duration: Jun 12, 2022 Frequency: 3 times per week (3-5x/week) Estimated Hrs Per Day: .25 hour per day Agreement: Yes Rehab Potential: Fair Time/GCodes Start Time: 13:39 Stop Time: 13:51 Total Time Billed (hr/min): 12 Billed Treatment Time 1 visit Linda Landry OT May 29, 2022 13:57
--- NOTE | 2022-05-29 14:00 | Physical Therapy Evaluation ---
PT Evaluation-General Medical Diagnosis Admission Date May 27, 2022 at 09:16 Medical Diagnosis: oral thrush/pleural effusion Onset Date: May 27, 2022 Therapy Diagnosis Therapy Diagnosis: debility/weakness Height/Weight Height (Feet): 5 Height (Inches): 9.00 Weight (Pounds): 211 Weight (Ounces): 0.0 Precautions Precautions/Isolations: Fall Prevention, Standard Precautions Weight Bear Status Right Lower Extremity: Right Weight Bearing/Tolerated Left Lower Extremity: Left Weight Bearing/Tolerated Referral Physician: Jesus Reason for Referral: Evaluation/Treatment Medical History Pertinent Medical History: Atrial Fib, CABG, CAD, DM, HTN, [place] Current History ER secondary to lethargy, weakness/SOA for a few days Reviewed History: Yes Social History Current Living Status: Children Entry Into Home: Level Entry Prior Prior Level of Function SCALE: Activities may be completed with or without assistive devices. 3-Moinltdsnz-ouufysk completes the activity by him/herself with no assistance from a helper. 5-Set-up or Clean-up Assistance-helper sets up or cleans up; patient completes activity. Hibbs assists only prior to or following the activity. 4-Supervision or Touching Assistance-helper provides verbal cues and/or touching/steadying and/or contact guard assistance as patient completes activity. Assistance may be provided throughout the activity or intermittently. 3-Partial/Moderate Assistance-helper does LESS THAN HALF the effort. Hibbs lifts, holds or supports trunk or limbs, but provides less than half the effort. 2-Substantial/Maximal Assistance-helper does MORE THAN HALF the effort. Hibbs lifts or holds trunk or limbs and provides more than half the effort. 1-Bdxqgjxgs-jwujyx does ALL the effort. Patient does none of the effort to complete the activity. Or, the assistance of 2 or more helpers is required for the patient to complete the activity. If activity was not attempted, code reason: 7-Patient Refused. 9-Not Applicable-not attempted and the patient did not perform the activity before the current illness, exacerbation or injury. 10-Not Attempted due to Environmental Limitations-(lack of equipment, weather restraints, etc.). 88-Not Attempted due to Medical Conditions or Safety Concerns. Bed Mobility: 6 Transfers (B,C,W/C): 6 Gait: 6 Indoor Mobility (Ambulation): Independent Prior Devices Use: Other-see list below Prior Device Use: cane PT Evaluation-Current Subjective Patient agrees to PT. Objective Patient Orientation: Normal For Age Attachments: Oxygen, Dunbar Catheter ROM/Strength ROM Lower Extremities right knee fused/left LE WFL Strength Lower Extremities right LE 4-/5 hip flexion/left LE 4-/5 grossly Integumentary/Posture Bladder Incontinence: Dunbar Cath Posture WFL Neuromuscular (Tone, Coordination, Reflexes) grossly intact Sensory Vision: Functional Hearing: Functional Transfers Lying to Sitting/Side of Bed(Q: 4 Sit to Stand (QC): 4 Chair/Pqa-ng-Dlhxf Xfer(QC): 4 Gait Mode of Locomotion: Walk Anticipated Mode of Locomotion: Walk Walk 10 feet (QC): 4 Walk 50 ft with 2 Turns(QC): 7 Walk 150 ft (QC): 7 Distance: 10' Gait Assistive Device: FWW Comments/Gait Description functional gait sequence/fused right LE Balance Sitting Static: Normal Sitting Dynamic: Normal Standing Static: Fair Standing Dynamic: Fair Assessment/Needs Patient is currently CGA with all mobility and declined to ambulate a distance on this date. Patient would benefit from skilled PT to address functional strength and mobility to improve current LOF to safely return to home with family at maximum LOF. Rehab Potential: Fair PT Senior Market Research Analyst Goals Senior Market Research Analyst Goals PT Detention Goals Time Frame: Jun 06, 2022 Roll Left & Right (QC): 6 Sit to Lying (QC): 6 Lying-Sitting on Side/Bed(QC): 6 Sit to Stand (QC): 6 Chair/Quy-jk-Groow Xfer(QC): 6 Toilet Transfer (QC): 6 Walk 10 feet (QC): 6 Walk 50ft with 2 Turns (QC): 6 Walk 150 ft (QC): 6 PT Plan Problem List Problem List: Activity Tolerance, Functional Strength, Safety, Balance, Gait, Transfer, Bed Mobility Treatment/Plan Treatment Plan: Continue Plan of Care Treatment Plan: Bed Mobility, Education, Functional Activity Ashwini, Functional Strength, Gait, Safety, Therapeutic Exercise, Transfers Treatment Duration: Jun 06, 2022 Frequency: 6 times per week Estimated Hrs Per Day: .25 hour per day Patient and/or Family Agrees t: Yes Time/GCodes Time In: 1330 Time Out: 1344 Total Billed Treatment Time: 14 Total Billed Treatment 1 visit EVMod 14 min HUGO DONIS PT May 29, 2022 14:00
[2022-05-29] MEDS: MAGIC MOUTHWASH (ADULT) PO SCH ×12 (14:12→21:39)
--- NOTE | 2022-05-29 15:09 | Physician Query Clarification ---
Physician Query-General Query to Physician: The medical record reflects the following clinical evidence: Clinical Indicators: SOA at rest in the ER, RR 30"s sometimes even 40 on day of admission, was on 3.5 L up to 40% on day of admission, has been continuously on O2 since admission, Risk Factor(s): Pleural effusions, Advanced age, does wear oxygen at home at 3 L at night Treatment: Supplement 02 higher than baseline up to 40%, Bipap, Thoracentesis, 1. Acute and chronic respiratory failure, with hypoxia, present on admission 2. Other explanation of clinical findings 3. Unable to determine (no explanation for clinical findings) Please clarify and document your clinical opinion in the progress notes and discharge summary including the definitive and/or presumptive diagnosis, (suspected or probable), related to the above clinical findings. Please include clinical findings supporting your diagnosis. Elida Zaman RN, MSN Clinical Senior Corporate Strategy Manager [phone] [email or web address] PHYSICIAN RESPONSE: Based on the clinical findings in the record, please respond to the query above on this document as an addendum. Physician Response: Physician Response inquire with dr connell I just took over her care wednesday at noon If you have questions please contact: Catalogue Illustrator: Ext: Thank you for your time and cooperation. Clinical Senior Corporate Strategy Manager/Catalogue Illustrator This is a permanent part of the medical record ELIDA ZAMAN May 29, 2022 15:09 BRIDGER WHARTON DO May 29, 2022 20:53
[2022-05-29] MEDS: TAMSULOSIN 0.4 MG (FLOMAX) CAP PO SCH (18:03)
[2022-05-29] MEDS: SPIRONOLACTONE 25 MG (ALDACTONE) TAB PO SCH (18:04)
[2022-05-29] MEDS: RIVAROXABAN 20 MG TABLET (XARELTO) PO SCH (18:04)
[2022-05-30] MEDS ORDERED: meTOprolol 5 MG/5 ML (LOPRESSOR) VIAL ONE (01:03)
[2022-05-30] MEDS ORDERED: meTOprolol 5 MG/5 ML (LOPRESSOR) VIAL IV ONE (01:15)
[2022-05-30 03:57] LABS: BASOPHILS % (AUTO) 0 % (0-10); EOSINOPHILS % (AUTO) 1 % (0-10); HEMATOCRIT 38 % (40-54); HEMOGLOBIN 13.2 g/dL (13.3-17.7); LYMPHOCYTES # (AUTO) 0.7 10^3/uL (1.0-4.0); LYMPHOCYTES % (AUTO) 7 % (12-44); MEAN CORPUSCULAR HEMOGLOBIN 31 pg (25-34); MEAN CORPUSCULAR HGB CONC 35 g/dL (32-36); MEAN CORPUSCULAR VOLUME 91 fL (80-99); MONOCYTES # (AUTO) 0.5 10^3/uL (0.0-1.0); MONOCYTES % (AUTO) 6 % (0-12); NEUTROPHILS # (AUTO) 7.6 10^3/uL (1.8-7.8); NEUTROPHILS % (AUTO) 86 % (42-75); PLATELET COUNT 211 10^3/uL (130-400); WHITE BLOOD COUNT 8.9 10^3/uL (4.3-11.0)
[2022-05-30 04:17] LABS: ALBUMIN 3.2 GM/DL (3.2-4.5); BILIRUBIN,TOTAL 1.5 MG/DL (0.1-1.0); CREATININE SERUM 0.87 MG/DL (0.60-1.30); MAGNESIUM 1.7 MG/DL (1.6-2.4); PHOSPHORUS 3.4 MG/DL (2.3-4.7); POTASSIUM 3.5 MMOL/L (3.6-5.0); TOTAL PROTEIN 6.9 GM/DL (6.4-8.2)
[2022-05-30 04:18] LABS: EOSINOPHILS % (MANUAL) 1 %; LYMPHOCYTES % (MANUAL) 5 %; MONOCYTES % (MANUAL) 6 %; NEUTROPHILS % (MANUAL) 87 %; RBC MORPH NORMAL
[2022-05-30] MEDS: NYSTATIN ORAL SUSP 5 ML UDC PO SCH ×4 (06:15→17:07)
[2022-05-30] MEDS: KCL 20 MEQ TAB (K-DUR) PO SCH (06:15)
[2022-05-30] MEDS: MAGNESIUM 1 GM/100 ML IVPB 100 ML IV SCH ×3 (06:15→07:39)
[2022-05-30] MEDS: inSUlin ASPART (NovoLOG) 1 UNIT/0.01 ML (CHARGE PER UNIT) SC SCH ×4 (06:15→20:01)
[2022-05-30] MEDS: POTASSIUM CL 10MEQ/50ML IVPB 50 ML IV SCH ×3 (06:15→07:40)
--- NOTE | 2022-05-30 06:16 | Progress Note - Hospitalist ---
Subjective HPI/CC On Admission Date Seen by Provider: May 30, 2022 Time Seen by Provider: 08:45 Subjective/Events-last exam Patient doing well Vtach prompted Cardiology consult Monitor closely Improved dyspnea No falls Eating well Review of Systems General: Fatigue, Malaise Pulmonary: Dyspnea Objective Exam Vital Signs Vital Signs Date Time Temp Pulse Resp B/P (MAP) Pulse Ox O2 Delivery O2 Flow Rate FiO2 05/30/22 19:44 36.6 05/30/22 18:51 Nasal Cannula 2.00 05/30/22 17:05 80 41 109/74 (86) 95 Capillary Refill : Less Than 3 Seconds General Appearance: No Apparent Distress, WD/WN, Chronically ill Respiratory: Lungs Clear, Normal Breath Sounds, Decreased Breath Sounds Cardiovascular: Regular Rate, Rhythm Neurologic/Psychiatric: Alert, Oriented x3, No Motor/Sensory Deficits, Normal Mood/Affect Results/Procedures Lab Laboratory Tests 05/30/22 03:44 Patient resulted labs reviewed. Assessment/Plan Assessment and Plan Assess & Plan/Chief Complaint (1) Ventricular tachycardia Status: Acute Assessment & Plan: Monitor patient in the ICU with cardiac telemetry. Amiodarone drip. Consult cardiology. 05/29: Continue cardiac telemetry. DC Amio drip and continue Amiodarone PO. (2) Pleural effusion Status: Acute Assessment & Plan: Obtain thoracentesis. Surgery consulted. Hold anticoagulation. Supplement O2 with nasal cannula. 05/29: Thoracentesis completed. Continue diueresis with spironolactone and IV Lasix. (3) Thrush, oral Status: Acute Assessment & Plan: Continue nystatin oral suspension 05/29: Add Magic Mouthwash to nystatin oral suspension (4) Chronic atrial fibrillation Status: Chronic Assessment & Plan: Cardiac telemetry. Continue rate control meds. (5) Diabetes Status: Resolved Assessment & Plan: Monitor glucose. ADA diet. 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 Restart anticoagulation. (7) Congestive heart failure Status: Chronic Assessment & Plan: Diuretics and continue home meds Qualifiers: Qualified Codes: I50.23 - Acute on chronic systolic (congestive) heart failure (8) Pneumothorax on right Status: Acute Assessment & Plan: Continue with nasal cannula and monitoring O2 sats with goal above 93%. Perform daily chest xrays BRIDGER WHARTON DO May 30, 2022 06:16
[2022-05-30] MEDS: FUROSEMIDE 40 MG/4 ML INJ (LASIX) IVP SCH ×2 (06:34→17:06)
--- NOTE | 2022-05-30 08:01 | Diagnostic Imaging Report ---
EXAMINATION: Chest, 1 view. HISTORY: Followup. Pneumonia. COMPARISON: 05/29/2022. FINDINGS: Interval increase in a small right-sided pleural effusion with slight increase in right basilar opacities. Stable small right apical pneumothorax. Stable prominent cardiac silhouette with stable left pectoral ICD. There is calcified aortic atherosclerotic plaque. IMPRESSION: 1. Stable right apical pneumothorax with increasing right-sided pleural effusion and increased right basilar opacities, concerning for infection. 2. Stable cardiomegaly. Dictated by: Dictated on workstation # [id number]
[2022-05-30] MEDS: MAGIC MOUTHWASH (ADULT) PO SCH ×16 (08:50→20:00)
[2022-05-30] MEDS: AtorvaSTATin TABLET 10 MG TABLET PO SCH (08:55)
[2022-05-30] MEDS: AMIODARONE 200 MG (CORDARONE) TAB PO SCH ×2 (08:55→20:00)
[2022-05-30] MEDS: PANTOPRAZOLE 20 MG TABLET (PROTONIX) PO SCH (08:56)
[2022-05-30] MEDS: meTOprolol SUCCINATE 100 MG (TOPROL XL) TAB PO SCH (08:56)
[2022-05-30] MEDS: ALLOPURINOL 300 MG (ZYLOPRIM) TAB PO SCH (08:56)
--- NOTE | 2022-05-30 09:18 | Cardiology Progress Note ---
Subjective Date Seen by Provider: May 30, 2022 Time Seen by Provider: 09:15 Subjective/Events-last exam Patient was seen at bedside, sitting comfortably in a chair Had an episode of atrial fibrillation with rapid ventricular response last night. Improving slowly Review of Systems General: No Chills, No Night Sweats; Fatigue; No Malaise, No Appetite, No Other HEENT: No Head Aches, No Visual Changes, No Eye Pain, No Ear Pain, No Dysphasia, No Sinus Congestion, No Post Nasal Drip, No Sore Throat, No Other Pulmonary: Dyspnea; No Cough, No Pleuritic Chest Pain, No Other Cardiovascular: No: Chest Pain, Palpitations, Orthopnea, Paroxysmal Noc. Dyspnea, Edema, Lt Headedness, Other Objective-Cardiology Exam Last Set of Vital Signs Vital Signs 05/30/22 05/30/22 05/30/22 07:54 08:00 08:53 Temp 36.0 Pulse 82 Resp 18 B/P (MAP) 109/67 (81) Pulse Ox 96 O2 Delivery NIV CPAP O2 Flow Rate 5.00 I&O Intake and Output 05/30/22 00:00 Intake Total 1450 ml Output Total 1650 ml Balance -200 ml Intake Oral 1350 ml IV Total 100 ml Output Urine Total 1650 ml General: Alert, Oriented X3, Cooperative, No Acute Distress HEENT: PERRLA, EOMI, Mucous Memb Moist/[place] Neck: Supple, No JVD, No Thyromegaly Lungs: Other (rales at left base, essentially absent air movement right lung field lower 2/3) Heart: Normal S1, Normal S2, Other (Regularly irregular rhythm, systolic murmur) Abdomen: Normal Bowel Sounds, Soft, No Tenderness Extremities: No Edema, Normal Pulses, No Tenderness/Swelling Skin: No Rashes, No Breakdown, No Significant Lesion Neuro: Normal Speech Psych/Mental Status: Mental Status NL, Mood NL Results Lab Laboratory Tests 05/30/22 03:44 A/P-Cardiology Admission Diagnosis Dyspnea Pleural effusion Congestive heart failure, acute on chronic left ventricular systolic dysfunction Sustained ventricular tachycardia Assessment/Plan Dyspnea, pleural effusion Feeling better, responded well to diuretics and thoracentesis Continue on diuretics and monitor Sore throat, oral thrush, managed by medical team. Multiple episodes of wide-complex tachycardia, could be secondary to sustained ventricular tachycardia versus atrial fibrillation with rapid ventricular response. Responded well to amiodarone. Continue to monitor liver enzymes. Congestive heart failure, acute on chronic left ventricular systolic dysfunction, ischemic cardiomyopathy. Ejection fraction 30%. NYHA class II-III Continue with aggressive diuresis and monitor tolerance and response Permanent atrial fibrillation with rate control. Was in the hospital with syncope and bradycardia. Diltiazem and Digoxin discontinued. Currently on Toprol XL 100mg daily. I will restart low-dose diltiazem and continue on amiodarone History of elevated liver enzymes, improved after stopping Lipitor and amiodarone. Restarting amiodarone and monitor tolerance and response [id number] score of 6, yearly risk of stroke without oral anticoagulation is 9.8 percent. Maintained on Xarelto, continue to monitor Coronary artery disease, history of 2 heart attacks in the past, had angioplasty in 1989, CABG 4 in 1997, stent in 2004 after a heart attack, had sudden during the procedure. Most recent cardiac catheterization done in June 05, 2015 revealed 3 patent bypass grafts. Vein graft to the right coronary artery, vein graft to the diagonal artery, and CHRISTINA to LAD with excellent flow in the system. Totally occluded circumflex artery with no bypass to the obtuse marginal system. Receiving collaterals from the right coronary system EF 30 percent. Stress test done in November 2020 showing fixed defect involving the inferior wall and inferoapex and true apex, no change compared to the previous stress test, ejection fraction 27%. Patient is asymptomatic. Continue to monitor Peripheral edema, chronic, Responding well to diuretics Status post single-chamber ICD implantation, using [employer] device Evera XT, last pacemaker interrogation was done March 2022 showing good sensing and capture activity. Will interrogate ICD during this admission Hypertension, controlled on the current medications, continue to monitor Hyperlipidemia, Lipitor was restarted, monitor lipid profile and liver enzymes Mild bilateral nonobstructive carotid artery stenosis per carotid duplex done in March 2021 Diabetes mellitus, followed and managed by Dr. Zheng Arthritis, maintained on allopurinol. History of sleep apnea on CPAP JONO WAHSINGTON MD May 30, 2022 09:18
--- NOTE | 2022-05-30 09:28 | Tele-ICU Progress Note ---
Subjective Date Seen by a Provider: May 30, 2022 Time Seen by a Provider: 09:27 Subjective/Events-last exam Tele-ICU Physician , Progress Note ) Available chart/ vitals / labs / Images reviewed Video assessment done using teleICU camera, rest of exam as per RN Discussed with RN Events overnight : developed afib with rvr responded to metoprolol and diltiazem Afebrile hemodynamically stable but fluctuating Respiratory - I/O = Drips: Pressors- no Consultants: Hospital course:, A/P CVS/HTN afib, and paroxysmal nsvt Cards on the case Rhythem afib, s/p ppm Echo Respiratory System. o2 with n/c, cpap at night will continue GI Kidneys. low k being replaced per protocol . 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 Discussed with RN to reach out if any questions or concerns Sepsis Event Evaluation Height, Weight, BMI Height: 5'9.00" Weight: 211lbs. 0.0oz. [id number]; 27.62 BMI Method:Stated Exam Exam Patient acknowledged, consented, and participated in this virtual visit which was conducted using real time audio/video Vital Signs Date Time Temp Pulse Resp B/P (MAP) Pulse Ox O2 Delivery O2 Flow Rate FiO2 05/30/22 08:53 82 109/67 (81) 96 NIV CPAP 5.00 05/30/22 08:00 84 18 111/73 (86) 95 NIV CPAP 5.00 05/30/22 07:54 36.0 05/30/22 07:41 95 Nasal Cannula 5.00 05/30/22 07:00 85 14 117/76 (88) 96 NIV CPAP 5.00 05/30/22 07:00 85 05/30/22 06:51 81 11 93 05/30/22 06:36 80 14 98 05/30/22 06:30 79 9 115/73 (91) 96 05/30/22 06:00 78 12 97/74 (82) 94 NIV CPAP 5.00 05/30/22 06:00 84 13 121/72 (78) 94 05/30/22 05:51 86 22 95 05/30/22 05:45 82 25 107/82 (94) 97 05/30/22 05:36 77 10 93 05/30/22 05:30 81 15 114/92 (102) 95 05/30/22 05:21 85 22 96 05/30/22 05:06 82 11 94 05/30/22 05:00 82 19 107/82 (90) 93 NIV CPAP 5.00 05/30/22 04:51 84 29 97 05/30/22 04:36 82 15 96 05/30/22 04:30 86 31 112/77 (85) 96 05/30/22 04:21 84 22 95 05/30/22 04:06 85 29 95 05/30/22 04:00 91 12 91/63 (74) 05/30/22 04:00 91 Nasal Cannula 5.00 05/30/22 04:00 96 23 123/63 (83) 96 NIV CPAP 5.00 05/30/22 03:51 92 25 97 05/30/22 03:36 89 32 95 05/30/22 03:00 97 23 95/71 (79) 96 NIV CPAP 5.00 05/30/22 02:00 93 30 93/74 (80) 97 NIV CPAP 5.00 05/30/22 01:00 98 28 104/70 (81) 98 NIV CPAP 5.00 05/30/22 01:00 86 05/30/22 00:00 84 24 109/66 (80) 94 NIV CPAP 5.00 05/30/22 00:00 91 Nasal Cannula 5.00 05/29/22 23:00 89 22 105/81 (89) 99 NIV CPAP 5.00 05/29/22 22:00 103 26 115/58 (77) 100 NIV CPAP 5.00 05/29/22 21:00 81 12 110/71 (84) 96 NIV CPAP 5.00 05/29/22 20:00 36.9 05/29/22 20:00 91 Nasal Cannula 5.00 05/29/22 20:00 86 26 110/58 (75) 99 NIV CPAP 5.00 05/29/22 19:00 101 23 124/83 (97) 88 NIV CPAP 5.00 05/29/22 18:04 36.1 05/29/22 18:00 75 23 108/75 (86) 96 NIV CPAP 5.00 05/29/22 17:00 78 22 121/54 (76) 99 NIV CPAP 5.00 05/29/22 16:00 81 15 115/61 (79) 97 NIV CPAP 5.00 05/29/22 16:00 93 Nasal Cannula 3.00 05/29/22 16:00 36.1 05/29/22 15:00 79 26 105/67 (80) 97 NIV CPAP 5.00 05/29/22 14:00 80 107/70 (82) 97 NIV CPAP 5.00 05/29/22 13:00 82 30 111/75 (87) 96 NIV CPAP 5.00 05/29/22 12:55 81 05/29/22 12:00 36.0 05/29/22 12:00 76 19 83/64 (70) 93 NIV CPAP 5.00 05/29/22 12:00 93 Nasal Cannula 3.00 05/29/22 11:00 78 24 102/72 (82) 96 NIV CPAP 5.00 05/29/22 10:00 68 20 105/89 (94) 94 NIV CPAP 5.00 I & O 05/30/22 07:00 Intake Total 1600 ml Output Total 1575 ml Balance 25 ml Height & Weight Height: 5'9.00" Weight: 211lbs. 0.0oz. [id number]; 27.62 BMI Method:Stated General Appearance: No Apparent Distress, WD/WN HEENT: PERRL/EOMI, Normal ENT Inspection Neck: Normal Inspection, Non Tender Respiratory: Chest Non Tender, No Accessory Muscle Use, No Respiratory Distress Cardiovascular: No JVD, Irregularly Irregular Capillary Refill: Less Than 3 Seconds Peripheral Pulses: 2+ Dorsalis Pedis (R), 2+ Left Dors-Pedis (L), 2+ Radial Pulses (R), 2+ Radial Pulses (L) Gastrointestinal: non tender, soft Extremity: Non Tender, No Calf Tenderness Neurologic/Psychiatric: Alert, Oriented x3 Skin: Normal Color, Warm/Dry Lymphatic: No Adenopathy Results Lab Laboratory Tests 05/29/22 05:05 05/30/22 03:44 Assessment/Plan Assessment/Plan as above Critical Care: Critically Ill Patient Time spent with patient (mins): 15 JESUS STEWARD MD May 30, 2022 09:28
--- NOTE | 2022-05-30 09:28 | Progress Note - Surgery ---
CAMERON ALLAN 05/30/22 0928: Subjective Date Seen by a Provider: May 30, 2022 Time Seen by a Provider: 09:27 Subjective/Events-last exam Patient breathing a little easier today. On 5 L NC. Pt restarted anticoag. No new complaints. Denies n/v fever sweats chills or chest pain. Chest x ray reviewed, right pneumo less in size. Chest x-ray 05/30 - Stable right apical pneumothorax with increasing right-sided pleural effusion Chest x-ray 05/29 - Interval decrease in small right apical pneumothorax Repeat Chest x-ray 05/28 - Stable right apical pneumothorax with right basilar atelectasis. Chest x-ray performed 05/28 post thoracentesis - Right apical pneumothorax status post thoracentesis. Resolution of the right pleural effusion. Persistent mild. interstitial opacities in the lung bases. Focused Exam Respiratory: Chest Non Tender Cardiovascular: No JVD, Irregularly Irregular Skin: normal color, warm/dry Objective Exam Vital Signs Date Time Temp Pulse Resp B/P (MAP) Pulse Ox O2 Delivery O2 Flow Rate FiO2 05/30/22 08:53 82 109/67 (81) 96 NIV CPAP 5.00 05/30/22 08:00 84 18 111/73 (86) 95 NIV CPAP 5.00 05/30/22 07:54 36.0 05/30/22 07:41 95 Nasal Cannula 5.00 05/30/22 07:00 85 14 117/76 (88) 96 NIV CPAP 5.00 05/30/22 07:00 85 05/30/22 06:51 81 11 93 05/30/22 06:36 80 14 98 05/30/22 06:30 79 9 115/73 (91) 96 05/30/22 06:00 78 12 97/74 (82) 94 NIV CPAP 5.00 05/30/22 06:00 84 13 121/72 (78) 94 05/30/22 05:51 86 22 95 05/30/22 05:45 82 25 107/82 (94) 97 05/30/22 05:36 77 10 93 05/30/22 05:30 81 15 114/92 (102) 95 05/30/22 05:21 85 22 96 05/30/22 05:06 82 11 94 05/30/22 05:00 82 19 107/82 (90) 93 NIV CPAP 5.00 05/30/22 04:51 84 29 97 05/30/22 04:36 82 15 96 05/30/22 04:30 86 31 112/77 (85) 96 05/30/22 04:21 84 22 95 05/30/22 04:06 85 29 95 05/30/22 04:00 91 12 91/63 (74) 05/30/22 04:00 91 Nasal Cannula 5.00 05/30/22 04:00 96 23 123/63 (83) 96 NIV CPAP 5.00 05/30/22 03:51 92 25 97 05/30/22 03:36 89 32 95 05/30/22 03:00 97 23 95/71 (79) 96 NIV CPAP 5.00 05/30/22 02:00 93 30 93/74 (80) 97 NIV CPAP 5.00 05/30/22 01:00 98 28 104/70 (81) 98 NIV CPAP 5.00 05/30/22 01:00 86 05/30/22 00:00 84 24 109/66 (80) 94 NIV CPAP 5.00 05/30/22 00:00 91 Nasal Cannula 5.00 05/29/22 23:00 89 22 105/81 (89) 99 NIV CPAP 5.00 05/29/22 22:00 103 26 115/58 (77) 100 NIV CPAP 5.00 05/29/22 21:00 81 12 110/71 (84) 96 NIV CPAP 5.00 05/29/22 20:00 36.9 05/29/22 20:00 91 Nasal Cannula 5.00 05/29/22 20:00 86 26 110/58 (75) 99 NIV CPAP 5.00 05/29/22 19:00 101 23 124/83 (97) 88 NIV CPAP 5.00 05/29/22 18:04 36.1 05/29/22 18:00 75 23 108/75 (86) 96 NIV CPAP 5.00 05/29/22 17:00 78 22 121/54 (76) 99 NIV CPAP 5.00 05/29/22 16:00 81 15 115/61 (79) 97 NIV CPAP 5.00 05/29/22 16:00 93 Nasal Cannula 3.00 05/29/22 16:00 36.1 05/29/22 15:00 79 26 105/67 (80) 97 NIV CPAP 5.00 05/29/22 14:00 80 107/70 (82) 97 NIV CPAP 5.00 05/29/22 13:00 82 30 111/75 (87) 96 NIV CPAP 5.00 05/29/22 12:55 81 05/29/22 12:00 36.0 05/29/22 12:00 76 19 83/64 (70) 93 NIV CPAP 5.00 05/29/22 12:00 93 Nasal Cannula 3.00 05/29/22 11:00 78 24 102/72 (82) 96 NIV CPAP 5.00 05/29/22 10:00 68 20 105/89 (94) 94 NIV CPAP 5.00 I & O 05/30/22 07:00 Intake Total 1600 ml Output Total 1575 ml Balance 25 ml Capillary Refill : Less Than 3 Seconds General Appearance: No Apparent Distress, WD/WN HEENT: PERRL/EOMI, Normal ENT Inspection Neck: Normal Inspection, Non Tender Respiratory: Chest Non Tender, No Accessory Muscle Use, No Respiratory Distress Cardiovascular: No JVD, Irregularly Irregular Peripheral Pulses: 2+ Dorsalis Pedis (R), 2+ Left Dors-Pedis (L), 2+ Radial Pulses (R), 2+ Radial Pulses (L) Gastrointestinal: non tender, soft Extremity: Non Tender, No Calf Tenderness Neurologic/Psychiatric: Alert, Oriented x3 Skin: Normal Color, Warm/Dry Lymphatic: No Adenopathy Results Lab Laboratory Tests 05/29/22 11:46: Glucometer 108 05/29/22 17:30: Glucometer 96 05/29/22 20:59: Glucometer 149H 05/30/22 03:44: White Blood Count 8.9, Red Blood Count 4.20L, Hemoglobin 13.2L, Hematocrit 38L, Mean Corpuscular Volume 91, Mean Corpuscular Hemoglobin 31, Mean Corpuscular Hemoglobin Concent 35, Red Cell Distribution Width 13.8, Platelet Count 211, Mean Platelet Volume 11.0, Immature Granulocyte % (Auto) 0, Neutrophils (%) (Auto) 86H, Lymphocytes (%) (Auto) 7L, Monocytes (%) (Auto) 6, Eosinophils (%) (Auto) 1, Basophils (%) (Auto) 0, Neutrophils # (Auto) 7.6, Lymphocytes # (Auto) 0.7L, Monocytes # (Auto) 0.5, Eosinophils # (Auto) 0.0, Basophils # (Auto) 0.0, Immature Granulocyte # (Auto) 0.0, Neutrophils % (Manual) 87, Lymphocytes % (Manual) 5, Monocytes % (Manual) 6, Eosinophils % (Manual) 1, Blood Morphology Comment NORMAL, Sodium Level 135, Potassium Level 3.5L, Chloride Level 98, Carbon Dioxide Level 22, Anion Gap 15H, Blood Urea Nitrogen 27H, Creatinine 0.87, Estimat Glomerular Filtration Rate 84, BUN/Creatinine Ratio 31, Glucose Level 116H, Calcium Level 9.0, Corrected Calcium 9.6, Phosphorus Level 3.4, Magnesium Level 1.7, Total Bilirubin 1.5H, Aspartate Amino Transf (AST/SGOT) 57H , Alanine Aminotransferase (ALT/SGPT) 62H, Alkaline Phosphatase 93, Total Protein 6.9, Albumin 3.2 Microbiology 05/28/22 Gram Stain - Final, Resulted 05/28/22 Body Fluid Culture - Preliminary, Resulted No growth 05/27/22 MRSA Screen - Final, Complete MRSA not isolated Assessment/Plan Assessment/Plan Assessment/Plan vtach b/l pleural effusion right greater than left hypoxia improved at this time anticoagulation/antiplatelet custodial history of cardiac bypass Continue to monitor pt for pneumothorax its small and i think from removing fluid not injury to lung, repeat x ray in am or sooner if more difficulty breathing. Continue anticoagulation and O2 therapy ROBERTA BRENNER DO 05/30/22 1205: Subjective Subjective/Events-last exam Patient states breathing improving. No chest pain. Still on NC at 5 L. Chest x ray showing stable apical right pneumothorax increasing effusion. Denies n/v fever sweats chills shortness of breath or chest pain at this time. Objective Exam General Appearance: No Apparent Distress, WD/WN HEENT: PERRL/EOMI, Normal ENT Inspection Neck: Normal Inspection, Non Tender Respiratory: Chest Non Tender, No Accessory Muscle Use, No Respiratory Distress Cardiovascular: No JVD, Irregularly Irregular Gastrointestinal: non tender, soft Extremity: Non Tender, No Calf Tenderness Neurologic/Psychiatric: Alert, Oriented x3 Skin: Normal Color, Warm/Dry Lymphatic: No Adenopathy Assessment/Plan Assessment/Plan Assessment/Plan vtach b/l pleural effusion right greater than left s/p thoracentesis right apical pneumorthorax hypoxia improved at this time anticoagulation/antiplatelet custodial history of cardiac bypass Continue to monitor pt for pneumothorax its small and i think from removing fluid not injury to lung, repeat x ray in am or sooner if more difficulty breathing. increasing effusion will monitor Continue anticoagulation Wean O2 as tolerates. Supervisory-Addendum Brief Verification & Attestation Participated in pt care: history, MDM, physical Personally performed: exam, history, MDM, supervision of care Care discussed with: Medical Student Procedures: n/a Results interpretation: Verified all documentation Verification and Attestation of Medical Student E/M Service A medical student performed and documented this service in my presence. I review ed and verified all information documented by the medical student and made modifications to such information, when appropriate. I personally performed the physical exam and medical decision making. Roberta Brenner, May 30, 2022,12:04 CAMERON ALLAN May 30, 2022 09:28 ROBERTA BRENNER DO May 30, 2022 12:05
[2022-05-30] MEDS: dilTIAZem120 MG (CARDIZEM CD) CAP PO SCH (09:38)
[2022-05-30] MEDS: RIVAROXABAN 20 MG TABLET (XARELTO) PO SCH (17:06)
[2022-05-30] MEDS: SPIRONOLACTONE 25 MG (ALDACTONE) TAB PO SCH (17:06)
[2022-05-30] MEDS: TAMSULOSIN 0.4 MG (FLOMAX) CAP PO SCH (17:07)
[2022-05-31] MEDS: NYSTATIN ORAL SUSP 5 ML UDC PO SCH ×5 (00:13→23:39)
[2022-05-31 05:13] LABS: BASOPHILS % (AUTO) 0 % (0-10); EOSINOPHILS # (AUTO) 0.2 10^3/uL (0.0-0.3); EOSINOPHILS % (AUTO) 2 % (0-10); HEMATOCRIT 39 % (40-54); HEMOGLOBIN 13.4 g/dL (13.3-17.7); LYMPHOCYTES # (AUTO) 0.6 10^3/uL (1.0-4.0); LYMPHOCYTES % (AUTO) 6 % (12-44); MEAN CORPUSCULAR HEMOGLOBIN 32 pg (25-34); MEAN CORPUSCULAR HGB CONC 35 g/dL (32-36); MEAN CORPUSCULAR VOLUME 91 fL (80-99); MEAN PLATELET VOLUME 11.1 fL (9.0-12.2); MONOCYTES # (AUTO) 0.6 10^3/uL (0.0-1.0); MONOCYTES % (AUTO) 6 % (0-12); NEUTROPHILS % (AUTO) 85 % (42-75); PLATELET COUNT 246 10^3/uL (130-400); WHITE BLOOD COUNT 9.4 10^3/uL (4.3-11.0)
[2022-05-31 05:27] LABS: ALBUMIN 3.3 GM/DL (3.2-4.5)
[2022-05-31 05:28] LABS: POTASSIUM 3.3 MMOL/L (3.6-5.0)
[2022-05-31 05:29] LABS: CALCIUM 8.8 MG/DL (8.5-10.1)
[2022-05-31 05:30] LABS: TOTAL PROTEIN 7.2 GM/DL (6.4-8.2)
[2022-05-31 05:32] LABS: BILIRUBIN,TOTAL 1.7 MG/DL (0.1-1.0)
[2022-05-31 05:33] LABS: PHOSPHORUS 3.6 MG/DL (2.3-4.7)
[2022-05-31 05:34] LABS: CREATININE SERUM 0.87 MG/DL (0.60-1.30)
[2022-05-31 05:37] LABS: MAGNESIUM 2.1 MG/DL (1.6-2.4)
[2022-05-31] MEDS: MAGNESIUM 1 GM/100 ML IVPB 100 ML IV SCH (05:59)
[2022-05-31] MEDS: KCL 20 MEQ TAB (K-DUR) PO SCH (05:59)
[2022-05-31] MEDS: POTASSIUM CL 10MEQ/50ML IVPB 50 ML IV SCH (05:59)
[2022-05-31] MEDS ORDERED: KCL 20 MEQ TAB (K-DUR) PO ONE ×2 (06:00→08:00)
[2022-05-31] MEDS: inSUlin ASPART (NovoLOG) 1 UNIT/0.01 ML (CHARGE PER UNIT) SC SCH ×4 (06:00→21:17)
[2022-05-31] MEDS: FUROSEMIDE 40 MG/4 ML INJ (LASIX) IVP SCH ×2 (06:07→16:58)
--- NOTE | 2022-05-31 07:23 | Progress Note - Surgery ---
CAMERON ALLAN 05/31/22 0723: Subjective Date Seen by a Provider: May 31, 2022 Time Seen by a Provider: 07:20 Subjective/Events-last exam Patient breathing a little easier today. On 5 L NC. Pt restarted anticoag. No new complaints. Denies n/v fever sweats chills or chest pain. Chest x ray reviewed, results pending, right pneumo less in size, mild right- sided pleural effusion. Chest x-ray 05/30 - Stable right apical pneumothorax with increasing right-sided pleural effusion Chest x-ray 05/29 - Interval decrease in small right apical pneumothorax Repeat Chest x-ray 05/28 - Stable right apical pneumothorax with right basilar atelectasis. Chest x-ray performed 05/28 post thoracentesis - Right apical pneumothorax status post thoracentesis. Resolution of the right pleural effusion. Persistent mild. interstitial opacities in the lung bases. Focused Exam Respiratory: Chest Non Tender, Lungs Clear, No Accessory Muscle Use, No Respiratory Distress Cardiovascular: Regular Rate, Rhythm, No JVD; No Irregularly Irregular Skin: normal color, warm/dry Objective Exam Vital Signs Date Time Temp Pulse Resp B/P (MAP) Pulse Ox O2 Delivery O2 Flow Rate FiO2 05/31/22 06:00 82 16 112/67 (82) 99 NIV CPAP 2.00 05/31/22 05:00 81 19 109/69 (82) 100 NIV CPAP 2.00 05/31/22 04:00 93 18 121/77 (92) 97 NIV CPAP 2.00 05/31/22 04:00 36.0 05/31/22 04:00 97 NIV CPAP 05/31/22 03:00 85 28 111/90 (97) 98 NIV CPAP 2.00 05/31/22 02:00 86 23 113/74 (87) 100 NIV CPAP 2.00 05/31/22 01:00 90 05/31/22 01:00 78 27 96/62 (73) 98 NIV CPAP 2.00 05/31/22 00:00 36.3 05/31/22 00:00 74 19 99/70 (80) 98 NIV CPAP 2.00 05/30/22 23:59 96 NIV CPAP 05/30/22 23:00 81 24 112/83 (93) 96 NIV CPAP 2.00 05/30/22 22:00 76 29 107/70 (82) 100 NIV CPAP 2.00 05/30/22 21:00 89 29 106/63 (77) 98 NIV CPAP 2.00 05/30/22 20:15 NIV CPAP 2.00 05/30/22 20:00 81 25 113/87 (96) 99 Nasal Cannula 2.00 05/30/22 20:00 99 Nasal Cannula 2.00 05/30/22 19:44 36.6 05/30/22 19:00 93 18 96 Nasal Cannula 2.00 05/30/22 19:00 100 05/30/22 19:00 36.6 05/30/22 18:51 Nasal Cannula 2.00 05/30/22 18:00 36.5 05/30/22 17:05 80 41 109/74 (86) 95 Nasal Cannula 2.00 05/30/22 16:04 95 Nasal Cannula 2.00 05/30/22 16:00 70 26 123/61 (81) 95 Nasal Cannula 2.00 05/30/22 15:56 36.4 05/30/22 15:00 77 29 107/64 (78) 95 Nasal Cannula 2.00 05/30/22 14:57 73 30 96 Nasal Cannula 2.00 05/30/22 14:00 83 26 101/64 (76) 95 Nasal Cannula 2.00 05/30/22 13:00 76 26 108/55 (72) 97 Nasal Cannula 2.00 05/30/22 12:48 77 05/30/22 12:27 95 Nasal Cannula 2.00 05/30/22 12:00 80 11 100/68 (79) 96 Nasal Cannula 2.00 05/30/22 11:00 43 18 92/45 (61) 100 Nasal Cannula 2.00 05/30/22 10:21 77 23 97 Nasal Cannula 2.00 05/30/22 10:15 75 15 102/58 (78) 99 Nasal Cannula 2.00 05/30/22 10:06 78 14 97 Nasal Cannula 2.00 05/30/22 10:02 81 8 114/100 (106) 100 Nasal Cannula 2.00 05/30/22 10:00 96 12 110/78 (89) 100 NIV CPAP 5.00 05/30/22 09:51 86 31 100 05/30/22 09:45 79 40 78/72 (73) 97 05/30/22 09:38 90 110/78 (89) 05/30/22 09:36 84 18 100 05/30/22 09:35 105 28 110/78 (92) 94 05/30/22 09:21 81 16 99 05/30/22 09:15 86 32 130/68 (78) 100 05/30/22 08:53 82 109/67 (81) 96 NIV CPAP 5.00 05/30/22 08:51 96 19 80 05/30/22 08:45 89 38 111/34 (49) 92 05/30/22 08:36 81 27 95 05/30/22 08:30 80 24 87/78 (79) 93 05/30/22 08:21 87 29 94 05/30/22 08:15 83 28 111/73 (89) 95 05/30/22 08:00 86 13 118/77 (96) 94 05/30/22 08:00 84 18 111/73 (86) 95 NIV CPAP 5.00 05/30/22 07:54 36.0 05/30/22 07:41 95 Nasal Cannula 5.00 05/30/22 07:30 78 25 115/99 (106) 97 05/30/22 07:21 85 28 98 I & O 05/31/22 07:00 Intake Total 1380 ml Output Total 1925 ml Balance -545 ml Capillary Refill : Less Than 3 Seconds General Appearance: No Apparent Distress, WD/WN, Chronically ill HEENT: PERRL/EOMI, Normal ENT Inspection Neck: Normal Inspection, Non Tender Respiratory: Lungs Clear, Normal Breath Sounds, Decreased Breath Sounds Cardiovascular: Regular Rate, Rhythm Peripheral Pulses: 2+ Dorsalis Pedis (R), 2+ Left Dors-Pedis (L), 2+ Radial Pulses (R), 2+ Radial Pulses (L) Gastrointestinal: non tender, soft Extremity: Non Tender, No Calf Tenderness Neurologic/Psychiatric: Alert, Oriented x3, No Motor/Sensory Deficits, Normal Mood/Affect Skin: Normal Color, Warm/Dry Lymphatic: No Adenopathy Results Lab Laboratory Tests 05/30/22 11:02: Glucometer 172H 05/30/22 15:15: Glucometer 109 05/30/22 20:01: Glucometer 193H 05/31/22 05:03: White Blood Count 9.4, Red Blood Count 4.24L, Hemoglobin 13.4, Hematocrit 39L, Mean Corpuscular Volume 91, Mean Corpuscular Hemoglobin 32, Mean Corpuscular Hemoglobin Concent 35, Red Cell Distribution Width 13.7, Platelet Count 246, Mean Platelet Volume 11.1, Immature Granulocyte % (Auto) 0, Neutrophils (%) (A uto) 85H, Lymphocytes (%) (Auto) 6L, Monocytes (%) (Auto) 6, Eosinophils (%) (Auto) 2, Basophils (%) (Auto) 0, Neutrophils # (Auto) 8.0H, Lymphocytes # (Auto) 0.6L, Monocytes # (Auto) 0.6, Eosinophils # (Auto) 0.2, Basophils # (Auto) 0.0, Immature Granulocyte # (Auto) 0.0, Sodium Level 133L, Potassium Level 3.3L, Chloride Level 95L, Carbon Dioxide Level 25, Anion Gap 13, Blood Urea Nitrogen 28H, Creatinine 0.87, Estimat Glomerular Filtration Rate 84, BUN/Creatinine Ratio 32, Glucose Level 128H, Calcium Level 8.8, Corrected Calcium 9.4, Phosphorus Level 3.6, Magnesium Level 2.1, Total Bilirubin 1.7H, Aspartate Amino Transf (AST/SGOT) 63H, Alanine Aminotransferase (ALT/SGPT) 72H, Alkaline Phosphatase 124, Total Protein 7.2, Albumin 3.3 Microbiology 05/28/22 Gram Stain - Final, Resulted 05/28/22 Body Fluid Culture - Preliminary, Resulted No growth 05/27/22 MRSA Screen - Final, Complete MRSA not isolated Assessment/Plan Assessment/Plan Assessment/Plan vtach b/l pleural effusion right greater than left s/p thoracentesis right apical pneumorthorax hypoxia improved at this time anticoagulation/antiplatelet alf history of cardiac bypass Continue to monitor pt for pneumothorax its small and i think from removing fluid not injury to lung, repeat x ray in am or sooner if more difficulty breathing. increasing effusion will monitor Continue anticoagulation Wean O2 as tolerates. ROBERTA BRENNER DO 05/31/22 1342: Subjective Subjective/Events-last exam Patient feeling well. His breathing still easier. He is not on any nasal cannula at the time of me being here. He satting 97%. Patient has no complaints at this time. Denies any nausea vomiting fever sweats chills shortness of breath or chest pain at this time. Patient chest x-ray showing small right pneumothorax Objective Exam General Appearance: No Apparent Distress, Chronically ill HEENT: PERRL/EOMI, Normal ENT Inspection Neck: Normal Inspection, Non Tender Respiratory: Chest Non Tender, No Accessory Muscle Use, No Respiratory Distress Cardiovascular: Regular Rate, Rhythm, No JVD Gastrointestinal: non tender, soft Extremity: Non Tender, No Calf Tenderness Neurologic/Psychiatric: Alert, Oriented x3, No Motor/Sensory Deficits, Normal Mood/Affect Skin: Normal Color, Warm/Dry Lymphatic: No Adenopathy Assessment/Plan Assessment/Plan Assessment/Plan vtach b/l pleural effusion right greater than left s/p thoracentesis right apical pneumorthorax hypoxia improved at this time anticoagulation/antiplatelet alf history of cardiac bypass Continue to monitor pt for pneumothorax its small and stable repeat x ray in am or sooner if more difficulty breathing. increasing effusion will monitor Continue anticoagulation Wean O2 as tolerates. Supervisory-Addendum Brief Verification & Attestation Participated in pt care: history, MDM, physical Personally performed: exam, history, MDM, supervision of care Care discussed with: Medical Student Procedures: n/a Results interpretation: Verified all documentation Verification and Attestation of Medical Student E/M Service A medical student performed and documented this service in my presence. I reviewed and verified all information documented by the medical student and made modifications to such information, when appropriate. I personally performed the physical exam and medical decision making. Roberta Brenner, May 31, 2022,13:41 CAMERON ALLAN May 31, 2022 07:23 ROBERTA BRENNER DO May 31, 2022 13:42
--- NOTE | 2022-05-31 07:46 | Progress Note - Hospitalist ---
Subjective HPI/CC On Admission Date Seen by Provider: May 31, 2022 Time Seen by Provider: 10:30 Subjective/Events-last exam Much improved status No falls DC catheter Move to 4th floor Monitor closely Review of Systems General: Fatigue Objective Exam Vital Signs Vital Signs Date Time Temp Pulse Resp B/P (MAP) Pulse Ox O2 Delivery O2 Flow Rate FiO2 05/31/22 15:18 36.3 83 19 118/64 (82) 94 Room Air 05/31/22 10:00 2.00 Capillary Refill : Less Than 3 Seconds General Appearance: No Apparent Distress, WD/WN, Chronically ill Respiratory: Lungs Clear, Normal Breath Sounds, Decreased Breath Sounds Cardiovascular: Regular Rate, Rhythm Neurologic/Psychiatric: Alert, Oriented x3 Results/Procedures Lab Laboratory Tests 05/31/22 05:03 Patient resulted labs reviewed. Assessment/Plan Assessment and Plan Assess & Plan/Chief Complaint (1) Ventricular tachycardia Status: Acute Assessment & Plan: Monitor patient in the ICU with cardiac telemetry. Amiodarone drip. Consult cardiology. 05/29: Continue cardiac telemetry. DC Amio drip and continue Amiodarone PO. (2) Pleural effusion Status: Acute Assessment & Plan: Obtain thoracentesis. Surgery consulted. Hold anticoagulation. Supplement O2 with nasal cannula. 05/29: Thoracentesis completed. Continue diueresis with spironolactone and IV Lasix. (3) Thrush, oral Status: Acute Assessment & Plan: Continue nystatin oral suspension 05/29: Add Magic Mouthwash to nystatin oral suspension (4) Chronic atrial fibrillation Status: Chronic Assessment & Plan: Cardiac telemetry. Continue rate control meds. (5) Diabetes Status: Resolved Assessment & Plan: Monitor glucose. ADA diet. 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 Restart anticoagulation. (7) Congestive heart failure Status: Chronic Assessment & Plan: Diuretics and continue home meds Qualifiers: Qualified Codes: I50.23 - Acute on chronic systolic (congestive) heart fail ure (8) Pneumothorax on right Status: Acute Assessment & Plan: Continue with nasal cannula and monitoring O2 sats with goal above 93%. Perform daily chest xrays BRIDGER WHARTON DO May 31, 2022 07:46
--- NOTE | 2022-05-31 08:11 | Diagnostic Imaging Report ---
EXAMINATION: Chest radiograph, portable AP view. DATE: 05/31/2022 2:50 AM. INDICATION: 86-year-old male, shortness of breath. Right-sided pneumothorax. COMPARISON: May 30, 2022. FINDINGS: There is a right-sided pneumothorax which measures approximately 2.2 cm from the right lung apex. This previously measured roughly 1.8 cm from the lung apex. There is a gradient of attenuation overlying the right mid and lower lung zone. There is a left-sided cardiac assist device. There are median sternotomy wires. Heart size and mediastinal contours are unchanged. There is no identified left-sided pneumothorax. There are bilateral glenohumeral degenerative changes. IMPRESSION: 1. Small right-sided pneumothorax which is mildly increased in size since comparison study. 2. Interval increase in right middle and lower lung zone consolidation which may reflect pleural effusion, alveolar consolidative process, and/or atelectasis. Dictated by: Dictated on workstation # [id number]
[2022-05-31] MEDS: ALLOPURINOL 300 MG (ZYLOPRIM) TAB PO SCH (08:17)
[2022-05-31] MEDS: AMIODARONE 200 MG (CORDARONE) TAB PO SCH ×2 (08:17→19:36)
[2022-05-31] MEDS: dilTIAZem120 MG (CARDIZEM CD) CAP PO SCH (08:17)
[2022-05-31] MEDS: PANTOPRAZOLE 20 MG TABLET (PROTONIX) PO SCH (08:17)
[2022-05-31] MEDS: meTOprolol SUCCINATE 100 MG (TOPROL XL) TAB PO SCH (08:17)
[2022-05-31] MEDS: AtorvaSTATin TABLET 10 MG TABLET PO SCH (08:18)
[2022-05-31] MEDS: MAGIC MOUTHWASH (ADULT) PO SCH ×16 (08:22→19:36)
--- NOTE | 2022-05-31 09:37 | Cardiology Progress Note ---
Subjective Date Seen by Provider: May 31, 2022 Time Seen by Provider: 09:36 Subjective/Events-last exam Patient was seen at bedside, laying down comfortably, feeling better. No new complaint Review of Systems General: No Chills, No Night Sweats, No Fatigue, No Malaise, No Appetite, No Other HEENT: No Head Aches, No Visual Changes, No Eye Pain, No Ear Pain, No Dysph vignesh, No Sinus Congestion, No Post Nasal Drip, No Sore Throat, No Other Pulmonary: No Dyspnea, No Cough, No Pleuritic Chest Pain, No Other Cardiovascular: No: Chest Pain, Palpitations, Orthopnea, Paroxysmal Noc. Dyspnea, Edema, Lt Headedness, Other Objective-Cardiology Exam Last Set of Vital Signs Vital Signs 05/31/22 05/31/22 05/31/22 07:57 08:00 08:35 Temp 36.0 Pulse 83 Resp 26 B/P (MAP) 106/73 (84) Pulse Ox 95 O2 Delivery Room Air O2 Flow Rate 2.00 I&O Intake and Output 05/31/22 00:00 Intake Total 1090 ml Output Total 1600 ml Balance -510 ml Intake Oral 1090 ml Output Urine Total 1600 ml # Bowel Movements 1 General: Alert, Oriented X3, Cooperative, No Acute Distress HEENT: PERRLA, EOMI, Mucous Memb Moist/[place] Neck: Supple, No JVD, No Thyromegaly Lungs: Other (rales at left base, essentially absent air movement right lung field lower 2/3) Heart: Normal S1, Normal S2, Other (Regularly irregular rhythm, systolic murmur) Abdomen: Normal Bowel Sounds, Soft, No Tenderness Extremities: No Edema, Normal Pulses, No Tenderness/Swelling Skin: No Rashes, No Breakdown, No Significant Lesion Neuro: Normal Speech Psych/Mental Status: Mental Status NL, Mood NL Results Lab Laboratory Tests 05/31/22 05:03 A/P-Cardiology Admission Diagnosis Dyspnea Pleural effusion Congestive heart failure, acute on chronic left ventricular systolic dysfunction Sustained ventricular tachycardia Assessment/Plan Dyspnea, pleural effusion Feeling better, responded well to diuretics and thoracentesis Continue on diuretics and monitor Sore throat, oral thrush, managed by medical team. Multiple episodes of wide-complex tachycardia, could be secondary to sustained ventricular tachycardia versus atrial fibrillation with rapid ventricular response. Responded well to amiodarone. Continue to monitor liver enzymes. Congestive heart failure, acute on chronic left ventricular systolic dysfunction, ischemic cardiomyopathy. Ejection fraction 30%. NYHA class II-III Continue with aggressive diuresis and monitor tolerance and response Permanent atrial fibrillation with rate control. Was in the hospital with syncope and bradycardia. Diltiazem and Digoxin discontinued. Currently on Toprol XL 100mg daily. I will restart low-dose diltiazem and continue on amiodarone History of elevated liver enzymes, improved after stopping Lipitor and amiodarone. Restarting amiodarone and monitor tolerance and response [id number] score of 6, yearly risk of stroke without oral anticoagulation is 9.8 percent. Maintained on Xarelto, continue to monitor Coronary artery disease, history of 2 heart attacks in the past, had angioplasty in 1989, CABG 4 in 1997, stent in 2004 after a heart attack, had sudden during the procedure. Most recent cardiac catheterization done in June 05, 2015 revealed 3 patent bypass grafts. Vein graft to the right coronary artery, vein graft to the diagonal artery, and CHRISTINA to LAD with excellent flow in the system. Totally occluded circumflex artery with no bypass to the obtuse marginal system. Receiving collaterals from the right coronary system EF 30 percent. Stress test done in November 2020 showing fixed defect involving the inferior wall and inferoapex and true apex, no change compared to the previous stress test, ejection fraction 27%. Patient is asymptomatic. Continue to monitor Peripheral edema, chronic, Responding well to diuretics Status post single-chamber ICD implantation, using [employer] device Evera XT, last pacemaker interrogation was done March 2022 showing good sensing and capture activity. Will interrogate ICD during this admission Hypertension, controlled on the current medications, continue to monitor Hyperlipidemia, Lipitor was restarted, monitor lipid profile and liver enzymes Mild bilateral nonobstructive carotid artery stenosis per carotid duplex done in March 2021 Diabetes mellitus, followed and managed by Dr. Zheng Arthritis, maintained on allopurinol. History of sleep apnea on CPAP JONO WASHINGTON MD May 31, 2022 09:37
[2022-05-31] MEDS: RIVAROXABAN 20 MG TABLET (XARELTO) PO SCH (16:59)
[2022-05-31] MEDS: TAMSULOSIN 0.4 MG (FLOMAX) CAP PO SCH (16:59)
[2022-05-31] MEDS: SPIRONOLACTONE 25 MG (ALDACTONE) TAB PO SCH (16:59)
[2022-05-31 20:00] VITALS: BP 113/67
[2022-06-01] VITALS (9 sets, daily range): BP systolic 110–127; BP diastolic 61–74
[2022-06-01 05:47] LABS: BASOPHILS % (AUTO) 0 % (0-10); EOSINOPHILS # (AUTO) 0.3 10^3/uL (0.0-0.3); EOSINOPHILS % (AUTO) 3 % (0-10); HEMATOCRIT 39 % (40-54); HEMOGLOBIN 13.7 g/dL (13.3-17.7); LYMPHOCYTES # (AUTO) 0.6 10^3/uL (1.0-4.0); LYMPHOCYTES % (AUTO) 6 % (12-44); MEAN CORPUSCULAR HEMOGLOBIN 32 pg (25-34); MEAN CORPUSCULAR HGB CONC 35 g/dL (32-36); MEAN CORPUSCULAR VOLUME 90 fL (80-99); MEAN PLATELET VOLUME 11.1 fL (9.0-12.2); MONOCYTES # (AUTO) 0.6 10^3/uL (0.0-1.0); MONOCYTES % (AUTO) 7 % (0-12); NEUTROPHILS # (AUTO) 7.6 10^3/uL (1.8-7.8); NEUTROPHILS % (AUTO) 83 % (42-75); PLATELET COUNT 281 10^3/uL (130-400); WHITE BLOOD COUNT 9.1 10^3/uL (4.3-11.0)
[2022-06-01] MEDS: FUROSEMIDE 40 MG/4 ML INJ (LASIX) IVP SCH ×2 (06:06→17:53)
[2022-06-01] MEDS: NYSTATIN ORAL SUSP 5 ML UDC PO SCH ×4 (06:06→23:50)
[2022-06-01 06:15] LABS: ALBUMIN 3.2 GM/DL (3.2-4.5); POTASSIUM 3.5 MMOL/L (3.6-5.0)
[2022-06-01 06:17] LABS: CALCIUM 8.8 MG/DL (8.5-10.1)
[2022-06-01 06:20] LABS: BILIRUBIN,TOTAL 1.7 MG/DL (0.1-1.0)
[2022-06-01 06:21] LABS: CREATININE SERUM 0.8 MG/DL (0.60-1.30)
[2022-06-01] MEDS: inSUlin ASPART (NovoLOG) 1 UNIT/0.01 ML (CHARGE PER UNIT) SC SCH ×4 (06:21→21:50)
[2022-06-01 06:24] LABS: MAGNESIUM 1.9 MG/DL (1.6-2.4)
--- NOTE | 2022-06-01 07:29 | Progress Note - Surgery ---
CAMERON ALLAN 06/01/22 0729: Subjective Date Seen by a Provider: Jun 01, 2022 Time Seen by a Provider: 07:25 Subjective/Events-last exam Patient breathing a little easier today. Pt no longer on O2. No new complaints. Denies n/v fever sweats chills or chest pain. Chest x ray reviewed, results pending. 05/31 - Small right-sided pneumothorax which is mildly increased in size since comparison study. Interval increase in right middle and lower lung zone consolidation which may reflect pleural effusion, alveolar consolidative process, and/or atelectasis. Chest x-ray 05/30 - Stable right apical pneumothorax with increasing right-sided pleural effusion Chest x-ray 05/29 - Interval decrease in small right apical pneumothorax Repeat Chest x-ray 05/28 - Stable right apical pneumothorax with right basilar atelectasis. Chest x-ray performed 05/28 post thoracentesis - Right apical pneumothorax status post thoracentesis. Resolution of the right pleural effusion. Persistent mild. interstitial opacities in the lung bases. Focused Exam Skin: normal color, warm/dry Objective Exam Vital Signs Date Time Temp Pulse Resp B/P (MAP) Pulse Ox O2 Delivery O2 Flow Rate FiO2 06/01/22 03:50 36.0 86 16 116/67 (83) 95 Room Air 06/01/22 01:00 81 06/01/22 00:04 36.4 70 18 115/61 (79) 95 Room Air 05/31/22 20:00 36.4 83 22 113/67 (82) 92 Room Air 05/31/22 19:40 Room Air 05/31/22 19:00 80 05/31/22 15:18 36.3 83 19 118/64 (82) 94 Room Air 05/31/22 12:43 36.6 80 20 107/60 (76) 94 Room Air 05/31/22 12:41 73 05/31/22 11:51 36.0 05/31/22 10:00 80 30 104/76 (85) 99 NIV CPAP 2.00 05/31/22 09:59 98 Room Air 0.00 05/31/22 09:00 101 20 113/97 (102) 99 NIV CPAP 2.00 05/31/22 08:35 95 Room Air 05/31/22 08:00 83 26 106/73 (84) 94 NIV CPAP 2.00 05/31/22 07:57 36.0 I & O 06/01/22 07:00 Intake Total 1010 ml Output Total 1700 ml Balance -690 ml Capillary Refill : Less Than 3 Seconds General Appearance: No Apparent Distress, WD/WN, Chronically ill HEENT: PERRL/EOMI, Normal ENT Inspection Neck: Normal Inspection, Non Tender Respiratory: Lungs Clear, Normal Breath Sounds, Decreased Breath Sounds Cardiovascular: Regular Rate, Rhythm Peripheral Pulses: 2+ Dorsalis Pedis (R), 2+ Left Dors-Pedis (L), 2+ Radial Pulses (R), 2+ Radial Pulses (L) Gastrointestinal: non tender, soft Extremity: Non Tender, No Calf Tenderness Neurologic/Psychiatric: Alert, Oriented x3 Skin: Normal Color, Warm/Dry Lymphatic: No Adenopathy Results Lab Laboratory Tests 05/31/22 10:51: Glucometer 146H 05/31/22 15:15: Glucometer 123H 05/31/22 20:11: Glucometer 140H 06/01/22 05:38: White Blood Count 9.1, Red Blood Count 4.35, Hemoglobin 13.7, Hematocrit 39L, Mean Corpuscular Volume 90, Mean Corpuscular Hemoglobin 32, Mean Corpuscular Hemoglobin Concent 35, Red Cell Distribution Width 13.6, Platelet Count 281, Mean Platelet Volume 11.1, Immature Granulocyte % (Auto) 1, Neutrophils (%) (Auto) 83H, Lymphocytes (%) (Auto) 6L, Monocytes (%) (Auto) 7, Eosinophils (%) (Auto) 3, Basophils (%) (Auto) 0, Neutrophils # (Auto) 7.6, Lymphocytes # (Auto) 0.6L, Monocytes # (Auto) 0.6, Eosinophils # (Auto) 0.3, Basophils # (Auto) 0.0, Immature Granulocyte # (Auto) 0.1, Sodium Level 132L, Potassium Level 3.5L, Chloride Level 97L, Carbon Dioxide Level 24, Anion Gap 11, Blood Urea Nitrogen 27H, Creatinine 0.80, Estimat Glomerular Filtration Rate 86, BUN/Creatinine Ratio 34, Glucose Level 124H, Calcium Level 8.8, Corrected Calcium 9.4, Magnesium Level 1.9, Total Bilirubin 1.7H, Aspartate Amino Transf (AST/SGOT) 65H , Alanine Aminotransferase (ALT/SGPT) 79H, Alkaline Phosphatase 146H, Total Protein 7.0, Albumin 3.2 Microbiology 05/28/22 Gram Stain - Final, Complete 05/28/22 Body Fluid Culture - Final, Complete No growth 05/27/22 MRSA Screen - Final, Complete MRSA not isolated Assessment/Plan Assessment/Plan Assessment/Plan vtach b/l pleural effusion right greater than left s/p thoracentesis right apical pneumorthorax hypoxia improved at this time anticoagulation/antiplatelet senior care history of cardiac bypass Continue to monitor pt for pneumothorax its small and stable repeat x ray in am or sooner if more difficulty breathing. increasing effusion will monitor Continue anticoagulation Wean O2 as tolerate. ROBERTA BRENNER DO 06/01/22 1311: Subjective Subjective/Events-last exam Patient breathing okay. Sitting in chair. No new complaints at this time. Chest x ray stable pneumothorax and slight increase in consolidation/effusion Objective Exam General Appearance: No Apparent Distress, Chronically ill HEENT: PERRL/EOMI, Normal ENT Inspection Neck: Normal Inspection, Non Tender Respiratory: Chest Non Tender, No Accessory Muscle Use, No Respiratory Distress Cardiovascular: No JVD, Irregularly Irregular Gastrointestinal: non tender, soft Extremity: Non Tender, No Calf Tenderness Neurologic/Psychiatric: Alert, Oriented x3 Skin: Normal Color, Warm/Dry Lymphatic: No Adenopathy Assessment/Plan Assessment/Plan Assessment/Plan vtach b/l pleural effusion right greater than left s/p thoracentesis right apical pneumorthorax hypoxia improved at this time anticoagulation/antiplatelet senior care history of cardiac bypass Continue to monitor pt for pneumothorax its small and stable repeat x ray in am or sooner if more difficulty breathing. increasing effusion will monitor Continue anticoagulation Wean O2 as tolerate. Medical management Supervisory-Addendum Brief Verification & Attestation Participated in pt care: history, MDM, physical Personally performed: exam, history, MDM, supervision of care Care discussed with: Medical Student Procedures: n/a Results interpretation: Verified all documentation Verification and Attestation of Medical Student E/M Service A medical student performed and documented this service in my presence. I reviewed and verified all information documented by the medical student and made modifications to such information, when appropriate. I personally performed the physical exam and medical decision making. Roberta Brenner, Jun 01, 2022,08:42 CAMERON ALLAN Jun 01, 2022 07:29 ROBERTA BRENNER DO Jun 01, 2022 13:11
[2022-06-01] MEDS: AtorvaSTATin TABLET 10 MG TABLET PO SCH (07:55)
[2022-06-01] MEDS: meTOprolol SUCCINATE 100 MG (TOPROL XL) TAB PO SCH (07:55)
[2022-06-01] MEDS: ALLOPURINOL 300 MG (ZYLOPRIM) TAB PO SCH (07:55)
[2022-06-01] MEDS: PANTOPRAZOLE 20 MG TABLET (PROTONIX) PO SCH (07:55)
[2022-06-01] MEDS: MAGIC MOUTHWASH (ADULT) PO SCH ×16 (07:56→20:12)
[2022-06-01] MEDS: dilTIAZem120 MG (CARDIZEM CD) CAP PO SCH (08:05)
--- NOTE | 2022-06-01 08:14 | Diagnostic Imaging Report ---
Indication: Pneumothorax. Study compared 05/31. Findings: Small right apical pneumothorax unchanged. There is progressive right basilar consolidation and increased right basilar pleural fluid however the left chest stable and negative. Given rotation, sternal wires and cardiac conduction device unchanged. Impression: Unchanged right apical pneumothorax but progressive right basilar consolidation and pleural fluid. Dictated by: Dictated on workstation # [id number]
--- NOTE | 2022-06-01 09:19 | Cardiology Progress Note ---
Subjective Date Seen by Provider: Jun 01, 2022 Time Seen by Provider: 09:15 Subjective/Events-last exam Patient had episode of orthostatic hypotension when working with PT with morning with SBP 80, currently feeling improved. Denies any chest pain or dyspnea. Objective-Cardiology Exam Last Set of Vital Signs Vital Signs 06/03/22 06/03/22 12:00 12:30 Pulse 46 Resp 16 B/P (MAP) 116/95 (102) Pulse Ox 99 O2 Delivery NIV CPAP O2 Flow Rate 3.00 I&O Intake and Output 06/03/22 00:00 Intake Total 1975 ml Output Total 1850 ml Balance 125 ml Intake Oral 1975 ml Output Urine Total 1850 ml # Bowel Movements 2 General: Alert, Oriented X3, Cooperative, No Acute Distress HEENT: PERRLA, EOMI, Mucous Memb Moist/[place] Neck: Supple, No JVD, No Thyromegaly Lungs: Other (rales at left base, essentially absent air movement right lung field lower 2/3) Heart: Normal S1, Normal S2, Other (Regularly irregular rhythm, systolic murmur) Abdomen: Normal Bowel Sounds, Soft, No Tenderness Extremities: No Edema, Normal Pulses, No Tenderness/Swelling Skin: No Rashes, No Breakdown, No Significant Lesion Neuro: Normal Speech Psych/Mental Status: Mental Status NL, Mood NL Results Lab Laboratory Tests 06/03/22 05:00 A/P-Cardiology Admission Diagnosis Dyspnea Pleural effusion Congestive heart failure, acute on chronic left ventricular systolic dysfunction Sustained ventricular tachycardia Assessment/Plan Dyspnea, pleural effusion Feeling better, responded well to diuretics and thoracentesis. I will decrease Lasix to 40mg daily Continue on diuretics and monitor Sore throat, oral thrush, managed by medical team. Multiple episodes of wide-complex tachycardia, could be secondary to sustained ventricular tachycardia versus atrial fibrillation with rapid ventricular response. Responded well to amiodarone. Currently off Amiodarone d/t elevated LFTs Congestive heart failure, acute on chronic left ventricular systolic dysfunction, ischemic cardiomyopathy. Ejection fraction 30%. NYHA class II-III Continue with diuresis and monitor tolerance and response Permanent atrial fibrillation with rate control. Was in the hospital with syncope and bradycardia. Diltiazem and Digoxin discontinued. Currently on Toprol XL 100mg daily. Diltiazem restarted, continue to monitor. History of elevated liver enzymes, improved after stopping Lipitor and amiodarone. Amiodarone again discontinued on this hospitalization d/t elevated LFTs [id number] score of 6, yearly risk of stroke without oral anticoagulation is 9.8 percent. Maintained on Xarelto, continue to monitor Coronary artery disease, history of 2 heart attacks in the past, had angioplasty in 1989, CABG 4 in 1997, stent in 2004 after a heart attack, had sudden during the procedure. Most recent cardiac catheterization done in June 05, 2015 revealed 3 patent bypass grafts. Vein graft to the right coronary artery, vein graft to the diagonal artery, and CHRISTINA to LAD with excellent flow in the system. Totally occluded circumflex artery with no bypass to the obtuse marginal system. Receiving collaterals from the right coronary system EF 30 percent. Stress test done in November 2020 showing fixed defect involving the inferior wall and inferoapex and true apex, no change compared to the previous stress test, ejection fraction 27%. Patient is asymptomatic. Continue to monitor Peripheral edema, chronic, Responding well to diuretics Status post single-chamber ICD implantation, using Medtronic device Evera XT, last pacemaker interrogation was done March 2022 showing good sensing and capture activity. Will interrogate ICD during this admission Hypertension, had episode of hypotension this morning. I will change Toprol XL to be given in the evening, decrease Lasix to daily and continue to monitor. Hyperlipidemia, intolerant to Liptior d/t elevated LFTs Mild bilateral nonobstructive carotid artery stenosis per carotid duplex done in March 2021 Diabetes mellitus, followed and managed by Dr. Zheng Arthritis, maintained on allopurinol. History of sleep apnea on CPAP Supervisory-Addendum Brief Supervisory Addendum Participated in pt care: history, MDM, physical Personally performed: exam, history, MDM Care discussed with: SUSIE Results interpretation: Verified all documentation Notes: Patient was seen and evaluated with Jacqueline, examination performed, management plan was discussed, agree with the current scribed note, I made few changes to the note using Italic font JACQUELINE DONOHUE Jun 01, 2022 09:19 JONO WASHINGTON MD Jun 03, 2022 14:25
[2022-06-01] MEDS ORDERED: MIDAZOLAM 5 MG/5 ML (VERSED) VIAL IVP PRN (09:45)
[2022-06-01] MEDS ORDERED: MIDAZOLAM 5 MG/5 ML (VERSED) VIAL ONE (09:48)
[2022-06-01] MEDS ORDERED: NS IV 1000 ML 1,000 ML ONE (09:50)
--- NOTE | 2022-06-01 10:02 | Occ Therapy Progress Note ---
Therapy Progress Note Pt on hold per RN due to V LISS Valdez Jun 01, 2022 10:02
[2022-06-01] MEDS: MIDAZOLAM 2 MG/2 ML (VERSED) VIAL IVP ONE ×2 (10:14→10:54)
--- NOTE | 2022-06-01 10:29 | Occ Therapy Progress Note ---
Therapy Progress Note Due to decline in medical status, OT to discharge pt. Pt will need new orders. LISS LEIJA Jun 01, 2022 10:29
--- NOTE | 2022-06-01 10:33 | Physical Therapy Daily Note ---
PT Daily Note-Current Subjective Patient agrees to PT. Pain Section J - Health Conditions 1. Rarely or not at all 2. Occasionally 3. Frequently 4. Almost constantly 8. Unable to answer Pain Effect on Sleep: 1 Pain Interference with Therapy: 1 Pain Interference w/Day-to-Day: 1 Mental Status Patient Orientation: Normal For Age Transfers SCALE: Activities may be completed with or without assistive devices. 8-Smdvajvbyv-ytcqhzw completes the activity by him/herself with no assistance from a helper. 5-Set-up or Clean-up Assistance-helper sets up or cleans up; patient completes activity. Ducor assists only prior to or following the activity. 4-Supervision or Touching Assistance-helper provides verbal cues and/or touching/steadying and/or contact guard assistance as patient completes activity. Assistance may be provided throughout the activity or intermittently. 3-Partial/Moderate Assistance-helper does LESS THAN HALF the effort. Ducor lifts, holds or supports trunk or limbs, but provides less than half the effort. 2-Substantial/Maximal Assistance-helper does MORE THAN HALF the effort. Ducor lifts or holds trunk or limbs and provides more than half the effort. 2-Vwcyfevka-hbifmb does ALL the effort. Patient does none of the effort to complete the activity. Or, the assistance of 2 or more helpers is required for the patient to complete the activity. If activity was not attempted, code reason: 7-Patient Refused. 9-Not Applicable-not attempted and the patient did not perform the activity before the current illness, exacerbation or injury. 10-Not Attempted due to Environmental Limitations-(lack of equipment, weather restraints, etc.). 88-Not Attempted due to Medical Conditions or Safety Concerns. Lying to Sitting/Side of Bed(Q: 4 Sit to Stand (QC): 3 Chair/Bmc-zx-Ojmzu Xfer(QC): 3 Weight Bearing Right Lower Extremity: Right Weight Bearing/Tolerated Left Lower Extremity: Left Weight Bearing/Tolerated Gait Training Distance: 20' x 2 Walk 10 feet (QC): 3 Gait Assistive Device: FWW fused right knee/functional gait sequence Assessment During session, patient had episode of orthostatic hypotension. RN and PA present to assess. Patient returned to recliner with needs met. Patient is alert and cooperative with therapy. ~ 1 hour After therapy session a Rapid response was called to patient's room. Patient transferred to ICU. PT will require new orders when patient is deemed medically stable. PT Snf Goals Wildlife Photographer Goals PT Snf Goals Time Frame: Jun 06, 2022 Roll Left & Right (QC): 6 Sit to Lying (QC): 6 Lying-Sitting on Side/Bed(QC): 6 Sit to Stand (QC): 6 Chair/Iop-xj-Ulzzn Xfer(QC): 6 Toilet Transfer (QC): 6 Walk 10 feet (QC): 6 Walk 50ft with 2 Turns (QC): 6 Walk 150 ft (QC): 6 PT Plan Treatment/Plan Treatment Plan: Discontinue PT Treatment Plan: Bed Mobility, Education, Functional Activity Ashwini, Functional Strength, Gait, Safety, Therapeutic Exercise, Transfers Treatment Duration: Jun 06, 2022 Frequency: 6 times per week Estimated Hrs Per Day: .25 hour per day Patient and/or Family Agrees t: Yes Time/GCodes Time In: 835 Time Out: 854 Total Billed Treatment Time: 19 Total Billed Treatment 1 visit FA 19 min HUGO DONIS PT Jun 01, 2022 10:33
[2022-06-01] MEDS: SOTALOL 80 MG (BETAPACE) TAB PO SCH ×2 (11:27→20:06)
--- NOTE | 2022-06-01 11:49 | Physician Query Clarification ---
Physician Query-General Query to Physician: The medical record reflects the following clinical evidence: Clinical Indicators: SOA at rest in the ER, RR 30"s sometimes even 40 on day of admission, was on 3.5 L up to 40% on day of admission, has been continuously on O2 since admission, Risk Factor(s): Pleural effusions, Advanced age, does wear oxygen at home at 3 L at night Treatment: Supplement 02 higher than baseline up to 40%, Bipap, Thoracentesis, 1. Acute and chronic respiratory failure, with hypoxia, present on admission 2. Other explanation of clinical findings 3. Unable to determine (no explanation for clinical findings) Please clarify and document your clinical opinion in the progress notes and discharge summary including the definitive and/or presumptive diagnosis, (suspected or probable), related to the above clinical findings. Please include clinical findings supporting your diagnosis. Elida Foster RN, MSN Clinical Coating Inspector [phone] [email or web address] PHYSICIAN RESPONSE: Based on the clinical findings in the record, please respond to the query above on this document as an addendum. Physician Response: Physician Response 1 If you have questions please contact: Cemetery Manager: Ext: Thank you for your time and cooperation. Clinical Coating Inspector/Cemetery Manager This is a permanent part of the medical record ELIDA FOSTER Jun 01, 2022 11:49 SHALOM PORTILLO MD Jun 01, 2022 15:08
--- NOTE | 2022-06-01 11:58 | Progress Note - Hospitalist ---
BALDEMAR JONES 06/01/22 1158: Subjective HPI/CC On Admission Date Seen by Provider: Jun 01, 2022 Time Seen by Provider: 10:05 Subjective/Events-last exam Pt had an episode of orthostatic hypotension (85/52) during his morning PT, although once back in the room his BP improved to 100/70. Pt reported when walking he felt dizzy, but then returned to baseline. Reports he is continent of urine and stool. At 0929 pt went into V-tach, was hypotensive, and O2 of 95%. Dr. Dominguez ordered EKG and 4mg of Versed. He was cadioverted back to sinus rhythm and moved to ICU. He was placed on 3L O2, HR 67, BP 124/71. He has a hx of sleep apnea, will place on BIPAP. Review of Systems General: No Chills, No Night Sweats Pulmonary: Dyspnea Cardiovascular: Other (episode of Vtach); No: Chest Pain Gastrointestinal: No: Nausea, Vomiting, Abdominal Pain Genitourinary: No Dysuria Neurological: No: Confusion Objective Exam Vital Signs Vital Signs Date Time Temp Pulse Resp B/P (MAP) Pulse Ox O2 Delivery O2 Flow Rate FiO2 06/01/22 11:00 69 18 97/69 (78) 98 Room Air 06/01/22 10:25 30.00 06/01/22 10:05 36.3 Capillary Refill : Less Than 3 Seconds General Appearance: Moderate Distress, Other (pt sedated ) HEENT: PERRL/EOMI, Moist Mucous Membranes Neck: Non Tender, Supple Respiratory: Chest Non Tender, No Accessory Muscle Use, No Respiratory Distress, Decreased Breath Sounds (significantly decreased air movement R>L) Cardiovascular: No Gallop, No JVD, No Murmur, Normal Peripheral Pulses, Other (Episode of Vtach but cardioverted back to sinus rhythm) Gastrointestinal: Normal Bowel Sounds, Non Tender, Soft Back: No CVA Tenderness Extremity: Non Tender, No Calf Tenderness, No Pedal Edema Neurologic/Psychiatric: Other (sedated at this time. Prior to sedation he was alert and oriented x 3 ) Skin: Normal Color, Warm/Dry Lymphatic: No Adenopathy Results/Procedures Lab Laboratory Tests 06/01/22 05:38 Patient resulted labs reviewed. Radiology NAME: [facility] REC#: [id number] PT STATUS: ADM IN : 1935 PHYSICIAN: ROBERTA HIDALGO DO ADMIT DATE: 05/27/22/ICU Signed Date of Exam:06/01/22 CHEST 1 VIEW, AP/PA ONLY Indication: Pneumothorax. Study compared 05/31. Findings: Small right apical pneumothorax unchanged. There is progressive right basilar consolidation and increased right basilar pleural fluid however the left chest stable and negative. Given rotation, sternal wires and cardiac conduction device unchanged. Impression: Unchanged right apical pneumothorax but progressive right basilar consolidation and pleural fluid. Dictated by: Dictated on workstation # [id number] Dict: 06/01/22 0809 Trans: 06/01/22 1036 CVB [id number] Interpreted by: SAÚL ROY Electronically signed by: SAÚL ROY 06/01/22 1036 Assessment/Plan Assessment and Plan Assess & Plan/Chief Complaint Assessment: Ventricular tachycardia - had another episode at 0929. Dr. Dominguez ordered EKG and versed. He subsequently cardioverted back to sinus rhythm. Bilateral pleural effusions - thoracentesis on 05/29. Serial chest xrays for monitoring - CXR 06/01 shows unchanged right apical PTX but progressive R basilar consolidation and pleural fluid Right apical Pneumothorax - unchanged from 05/31 - goal to maintain O2 above 93% Afib with RVR Diabetes - Type 2 Oral Thrush - nystatin and magic mouth wash Anticoagulation - xarelto HTN HLD Plan: Moved to ICU, will monitor very closely. Place on BIPAP while sleeping to keep O2 up. Surgery consulted for monitoring pleural effusions. SONAM WHARTON DO 06/02/22 0532: Subjective Subjective/Events-last exam Patient experienced V tach episode so Dr Dominguez moved him to ICU Currently sedated Review of Systems General: Fatigue, Malaise Objective Exam General Appearance: No Apparent Distress, WD/WN, Chronically ill Respiratory: Decreased Breath Sounds (significantly decreased air movement R>L) Cardiovascular: Regular Rate, Rhythm, Tachycardia Assessment/Plan Assessment and Plan Assess & Plan/Chief Complaint V tach episode Appreciated Dr Dominguez help Supervisory-Addendum Brief Verification & Attestation Participated in pt care: history, MDM, physical Personally performed: exam, history, MDM, supervision of care Care discussed with: Medical Student Procedures: n/a Results interpretation: Verified all documentation Verification and Attestation of Medical Student E/M Service A medical student performed and documented this service in my presence. I reviewed and verified all information documented by the medical student and made modifications to such information, when appropriate. I personally performed the physical exam and medical decision making. Sonam Wharton, Jun 02, 2022,05:31 BALDEMAR JONES Jun 01, 2022 11:58 SONAM WHARTON DO Jun 02, 2022 05:32
--- NOTE | 2022-06-01 12:09 | Cardioversion ---
Cardioversion PROCEDURE PHYSICIAN: Jono Dominguez DATE OF PROCEDURE: 06/01/22 DIRECT EXTERNAL ELECTRICAL CARDIOVERSION: Indications: Ventricular tachycardia Preoperative diagnoses: Ventricular tachycardia Postoperative diagnosis: Sinus rhythm, Successful Electrical Cardioversion Anesthesia: By Anesthesia services Complications: None Specimen: None Contrast: 0 Flouroscopy: none Procedure Details: Patient was in ventricular tachycardia, sustained, he was awake and comfortable but hypotensive. I decided to proceed with emergency cardioversion. I gave him 4 mg of Versed which helped relaxing and then 200 J shock were delivered and it was successful in terminating ventricular tachycardia Conclusions: Successful electrical cardioversion for ventricular tachycardia JONO DOMINGUEZ MD Jun 01, 2022 12:09
--- NOTE | 2022-06-01 13:15 | Tele-ICU Progress Note ---
Subjective Time Seen by a Provider: 13:14 Subjective/Events-last exam (Tele-ICU Physician , Progress Note ) Available chart/ vitals / labs / Images reviewed Video assessment done using teleICU camera, rest of exam as per RN Discussed with RN Events overnight : Afebrile hemodynamically stable Respiratory - I/O = Drips: Pressors- no Consultants: Hospital course: (05/26) 86M Admitted for right pleural effusion and oral thrush--plan thoracentesis (05/27) TX to ICU for possible run Vtach while on commode. Asymptomatic. Electrolytes covered. (05/30 stable small right apical pneumothorax after 2600 thora (06/01) readmit for VT cardioverted on floor A/P (06/01) readmit for VT cardioverted on floor Sustained ventricular tachycardia 05/27 versus atrial fibrillation with rapid ventricular response. -- single-chamber ICD in place - review/w/up amd plans as per cardiology Acute new resp distress - follow closely , on NIPPV Bilateral plural effusions by CT R>>L - thoracentes on right 05/28 ( with holding AC) -2600 ml - xrelto resumed - SLOWLY INCREASING EFFUSION AND ATELECTASIS ON RIGHT PTX, post thora , small right apical 05/28 - stble this am - keep on O2 - follow CAD - complex history ( cabg/ stenting ) , as per cards ICM -Status post single-chamber ICD -ECHO 05/27/22 - EF 25 % RVSP 60 mmHg ( previous LVEF 40-45% ,mild MR, mild AR, PA 30-35 mmHg) AFIB , permanent - AC xarelto - as per cards History of elevated liver enzymes Elevated liver enzymes of undetermined etiology - ? amio related Pulm HTN ECHO 05/27/22 - RVSP 60 mmHg DM - ISS ADELE /CSA- COMPLIANT AT HOME ( AHI 59, with AutoPAP AHI 34) ) - s/p titration PSG 01/2022 - CSA AI 38 on bipap 07/23 --> ASV titrated ( final ASV titration: EPAP min 4cm -EPAP max 15cm PS 0-20cm rate auto , max pressure 25 Lines : periph , (Central Line Necessity Reviewed) Dunbar: + OG: Nutrition: po Analgesia: Anxiety/ delirium VTE Prophylaxis: xarelto on hold , scd - refusion Stress Ulcer Prophylaxis: Plans in collaboration with bedside consultants and IM MDs. Discussed with RN to reach out if any questions or concerns A total of 25 minutes of critical care time was devoted to this patient today, required to treat and/or prevent further deterioration of critical care condition ( as above ) . Sepsis Event Evaluation Height, Weight, BMI Height: 5'9.00" Weight: 211lbs. 0.0oz. 95.295321gp; 27.33 BMI Method:Stated Exam Exam Patient acknowledged, consented, and participated in this virtual visit which was conducted using real time audio/video Vital Signs Date Time Temp Pulse Resp B/P (MAP) Pulse Ox O2 Delivery O2 Flow Rate FiO2 06/01/22 11:00 69 18 97/69 (78) 98 Room Air 06/01/22 10:25 30 96 30.00 06/01/22 10:24 70 30 124/71 (88) 98 NIV Bilevel 30.00 06/01/22 10:15 71 42 124/71 (81) 98 06/01/22 10:15 Room Air 06/01/22 10:10 67 41 118/68 (84) 97 06/01/22 10:05 36.3 67 44 117/66 (89) 99 06/01/22 10:01 118/71 (94) 06/01/22 09:50 Nasal Cannula 2.00 06/01/22 09:47 144 06/01/22 08:17 36.4 90 18 114/63 (80) 93 Room Air 06/01/22 08:00 Room Air 06/01/22 07:00 83 06/01/22 03:50 36.0 86 16 116/67 (83) 95 Room Air 06/01/22 01:00 81 06/01/22 00:04 36.4 70 18 115/61 (79) 95 Room Air 05/31/22 20:00 36.4 83 22 113/67 (82) 92 Room Air 05/31/22 19:40 Room Air 05/31/22 19:00 80 05/31/22 15:18 36.3 83 19 118/64 (82) 94 Room Air I & O 06/01/22 07:00 Intake Total 1010 ml Output Total 1700 ml Balance -690 ml Height & Weight Height: 5'9.00" Weight: 211lbs. 0.0oz. 95.215582aq; 27.33 BMI Method:Stated General Appearance: No Apparent Distress, Chronically ill HEENT: PERRL/EOMI, Normal ENT Inspection Neck: Normal Inspection, Non Tender Respiratory: Chest Non Tender, No Accessory Muscle Use, No Respiratory Distress Cardiovascular: No JVD, Irregularly Irregular Capillary Refill: Less Than 3 Seconds Peripheral Pulses: 2+ Dorsalis Pedis (R), 2+ Left Dors-Pedis (L), 2+ Radial Pulses (R), 2+ Radial Pulses (L) Gastrointestinal: non tender, soft Extremity: Non Tender, No Calf Tenderness Neurologic/Psychiatric: Alert, Oriented x3 Skin: Normal Color, Warm/Dry Lymphatic: No Adenopathy Results Lab Laboratory Tests 05/31/22 05:03 06/01/22 05:38 Assessment/Plan Assessment/Plan 1 VALERIO MANLEY MD Jun 01, 2022 13:15
[2022-06-01] MEDS: SPIRONOLACTONE 25 MG (ALDACTONE) TAB PO SCH (17:53)
[2022-06-01] MEDS: TAMSULOSIN 0.4 MG (FLOMAX) CAP PO SCH (17:53)
[2022-06-01] MEDS: RIVAROXABAN 20 MG TABLET (XARELTO) PO SCH (17:53)
[2022-06-02 05:30] LABS: BASOPHILS % (AUTO) 0 % (0-10); EOSINOPHILS # (AUTO) 0.6 10^3/uL (0.0-0.3); EOSINOPHILS % (AUTO) 6 % (0-10); HEMATOCRIT 36 % (40-54); HEMOGLOBIN 12.7 g/dL (13.3-17.7); LYMPHOCYTES # (AUTO) 0.8 10^3/uL (1.0-4.0); LYMPHOCYTES % (AUTO) 8 % (12-44); MEAN CORPUSCULAR HEMOGLOBIN 31 pg (25-34); MEAN CORPUSCULAR HGB CONC 35 g/dL (32-36); MEAN CORPUSCULAR VOLUME 90 fL (80-99); MONOCYTES # (AUTO) 0.7 10^3/uL (0.0-1.0); MONOCYTES % (AUTO) 8 % (0-12); NEUTROPHILS # (AUTO) 7.5 10^3/uL (1.8-7.8); NEUTROPHILS % (AUTO) 77 % (42-75); PLATELET COUNT 310 10^3/uL (130-400); WHITE BLOOD COUNT 9.8 10^3/uL (4.3-11.0)
[2022-06-02 05:53] LABS: POTASSIUM 3.2 MMOL/L (3.6-5.0)
[2022-06-02 05:54] LABS: CALCIUM 8.7 MG/DL (8.5-10.1)
[2022-06-02 05:55] LABS: TOTAL PROTEIN 6.7 GM/DL (6.4-8.2)
[2022-06-02 05:57] LABS: BILIRUBIN,TOTAL 1.3 MG/DL (0.1-1.0)
[2022-06-02 05:59] LABS: CREATININE SERUM 0.82 MG/DL (0.60-1.30)
[2022-06-02] MEDS: inSUlin ASPART (NovoLOG) 1 UNIT/0.01 ML (CHARGE PER UNIT) SC SCH ×4 (05:59→21:37)
[2022-06-02] MEDS ORDERED: NS IV 500 ML 500 ML IV PRN (06:00)
[2022-06-02 06:02] LABS: MAGNESIUM 1.9 MG/DL (1.6-2.4)
[2022-06-02] MEDS: MAGNESIUM 1 GM/100 ML IVPB 100 ML IV SCH (06:06)
[2022-06-02] MEDS: POTASSIUM CL 10MEQ/50ML IVPB 50 ML IV SCH (06:25)
[2022-06-02] MEDS: KCL 20 MEQ TAB (K-DUR) PO SCH (06:26)
[2022-06-02] MEDS: NYSTATIN ORAL SUSP 5 ML UDC PO SCH ×4 (06:26→23:55)
[2022-06-02] MEDS: FUROSEMIDE 40 MG/4 ML INJ (LASIX) IVP SCH ×2 (06:26→17:40)
--- NOTE | 2022-06-02 06:53 | Progress Note - Surgery ---
CAMERON ALLAN 06/02/22 0653: Subjective Date Seen by a Provider: Jun 02, 2022 Time Seen by a Provider: 07:39 Subjective/Events-last exam Pt had episode of orthostatic hypotension and vtach yesterday. Hasn't had an episode since. Pt ICD monitor adjusted to 140 and started on sotalol BID. Pt stable at this time. Pt moved to ICU. Continue to monitor pleural effusion. No new chest x-ray ordered. Denies any chest pain, SOB, N/V/D 05/31 - Small right-sided pneumothorax which is mildly increased in size since comparison study. Interval increase in right middle and lower lung zone consolidation which may reflect pleural effusion, alveolar consolidative process, and/or atelectasis. Chest x-ray 05/30 - Stable right apical pneumothorax with increasing right-sided pleural effusion Chest x-ray 05/29 - Interval decrease in small right apical pneumothorax Repeat Chest x-ray 05/28 - Stable right apical pneumothorax with right basilar atelectasis. Chest x-ray performed 05/28 post thoracentesis - Right apical pneumothorax status post thoracentesis. Resolution of the right pleural effusion. Persistent mild. interstitial opacities in the lung bases. Objective Exam Vital Signs Date Time Temp Pulse Resp B/P (MAP) Pulse Ox O2 Delivery O2 Flow Rate FiO2 06/02/22 06:00 53 8 115/76 (89) NIV CPAP 3.00 06/02/22 05:00 56 27 116/76 (92) 93 NIV CPAP 3.00 06/02/22 04:38 94 NIV CPAP 3.00 06/02/22 04:00 57 21 121/77 (102) 94 NIV CPAP 3.00 06/02/22 03:00 52 97/40 (49) 98 NIV CPAP 3.00 06/02/22 02:00 52 32 103/69 (77) 97 NIV CPAP 3.00 06/02/22 01:00 50 06/02/22 01:00 50 21 113/62 (92) 97 NIV CPAP 3.00 06/02/22 00:22 98 NIV CPAP 3.00 06/02/22 00:00 52 26 106/65 (84) 98 NIV CPAP 3.00 06/01/22 23:00 51 10 107/83 (90) 97 NIV CPAP 3.00 06/01/22 22:06 51 06/01/22 22:00 50 22 111/80 (86) 96 NIV CPAP 3.00 06/01/22 21:00 56 18 115/77 (87) 96 Room Air 06/01/22 20:00 62 20 116/93 (105) 94 Room Air 06/01/22 20:00 94 Room Air 06/01/22 20:00 36.4 06/01/22 19:00 60 110/65 (98) 97 Room Air 06/01/22 19:00 60 06/01/22 18:00 60 19 117/84 (95) 99 Room Air 06/01/22 17:00 56 23 117/89 (98) 98 Room Air 06/01/22 16:24 Room Air 06/01/22 16:00 60 31 108/64 (79) 90 Room Air 06/01/22 16:00 36.0 06/01/22 15:00 55 26 101/59 (73) 95 Room Air 06/01/22 14:15 60 26 114/79 (91) 94 Room Air 06/01/22 14:00 55 15 107/64 (78) 97 Room Air 06/01/22 13:45 55 06/01/22 13:27 52 06/01/22 13:00 53 15 103/93 (96) 96 Room Air 06/01/22 12:00 Room Air 06/01/22 12:00 59 13 118/60 (79) 93 Room Air 06/01/22 12:00 36.4 06/01/22 11:00 69 18 97/69 (78) 98 Room Air 06/01/22 10:25 30 96 30.00 06/01/22 10:24 70 30 124/71 (88) 98 NIV Bilevel 30.00 06/01/22 10:15 71 42 124/71 (81) 98 06/01/22 10:15 Room Air 06/01/22 10:10 67 41 118/68 (84) 97 06/01/22 10:05 36.3 67 44 117/66 (89) 99 06/01/22 10:01 118/71 (94) 06/01/22 09:50 Nasal Cannula 2.00 06/01/22 09:47 144 06/01/22 08:17 36.4 90 18 114/63 (80) 93 Room Air 06/01/22 08:00 Room Air 06/01/22 07:00 83 I & O 06/02/22 07:00 Intake Total 1650 ml Output Total 825 ml Balance 825 ml Capillary Refill : Less Than 3 Seconds General Appearance: No Apparent Distress, WD/WN, Chronically ill HEENT: PERRL/EOMI, Normal ENT Inspection Neck: Normal Inspection, Non Tender Respiratory: Decreased Breath Sounds (significantly decreased air movement R>L) Cardiovascular: Regular Rate, Rhythm, Tachycardia Peripheral Pulses: 2+ Dorsalis Pedis (R), 2+ Left Dors-Pedis (L), 2+ Radial Pulses (R), 2+ Radial Pulses (L) Gastrointestinal: non tender, soft Extremity: Non Tender, No Calf Tenderness Neurologic/Psychiatric: Alert, Oriented x3 Skin: Normal Color, Warm/Dry Lymphatic: No Adenopathy Results Lab Laboratory Tests 06/01/22 12:14: Glucometer 157H 06/01/22 15:53: Glucometer 130H 06/01/22 20:47: Glucometer 207H 06/02/22 05:05: White Blood Count 9.8, Red Blood Count 4.04L, Hemoglobin 12.7L, Hematocrit 36L, Mean Corpuscular Volume 90, Mean Corpuscular Hemoglobin 31, Mean Corpuscular Hemoglobin Concent 35, Red Cell Distribution Width 13.7, Platelet Count 310, Mean Platelet Volume 11.0, Immature Granulocyte % (Auto) 1, Neutrophils (%) (Auto) 77H, Lymphocytes (%) (Auto) 8L, Monocytes (%) (Auto) 8, Eosinophils (%) (Auto) 6, Basophils (%) (Auto) 0, Neutrophils # (Auto) 7.5, Lymphocytes # (Auto) 0.8L, Monocytes # (Auto) 0.7, Eosinophils # (Auto) 0.6H, Basophils # (Auto) 0.0, Immature Granulocyte # (Auto) 0.1, Sodium Level 128L, Potassium Level 3.2L, Chloride Level 94L, Carbon Dioxide Level 23, Anion Gap 11, Blood Urea Nitrogen 32H, Creatinine 0.82, Estimat Glomerular Filtration Rate 86, BUN/Creatinine Ratio 39, Glucose Level 137H, Calcium Level 8.7, Corrected Calcium 9.5, Magnesium Level 1.9, Total Bilirubin 1.3H, Aspartate Amino Transf (AST/SGOT) 54H , Alanine Aminotransferase (ALT/SGPT) 74H, Alkaline Phosphatase 138H, Total Protein 6.7, Albumin 3.0L Microbiology 05/28/22 Gram Stain - Final, Complete 05/28/22 Body Fluid Culture - Final, Complete No growth 05/27/22 MRSA Screen - Final, Complete MRSA not isolated Assessment/Plan Assessment/Plan Assessment/Plan vtach b/l pleural effusion right greater than left s/p thoracentesis right apical pneumorthorax hypoxia improved at this time anticoagulation/antiplatelet prison history of cardiac bypass Continue to monitor pt for pneumothorax its small and stable repeat x ray in am or sooner if more difficulty breathing. increasing effusion will monitor Continue anticoagulation O2 prn. CPAP at night Medical management BROOK BRENENRTT Alejandro DO 06/02/222103: Subjective Subjective/Events-last exam Patient is doing well today he states. His breathing is okay. He has had episodes of V. tach and some orthostatic hypotension. Patient has no pneumothorax on chest x-ray but small pleural effusion. Patient not symptomatic from this at this time. Patient states he is going to have a heart cath tomorrow. He currently denies any nausea vomiting fever sweats chills shortness of breath or chest pain. Objective Exam General Appearance: No Apparent Distress, Chronically ill HEENT: PERRL/EOMI, Normal ENT Inspection Neck: Normal Inspection, Non Tender Respiratory: Chest Non Tender, No Accessory Muscle Use, No Respiratory Distress Cardiovascular: Irregularly Irregular, Tachycardia Gastrointestinal: non tender, soft Extremity: Non Tender, No Calf Tenderness Neurologic/Psychiatric: Alert, Oriented x3 Skin: Normal Color, Warm/Dry Lymphatic: No Adenopathy Assessment/Plan Assessment/Plan Assessment/Plan vtach b/l pleural effusion right greater than left s/p thoracentesis right apical pneumorthorax-resolved hypoxia improved at this time anticoagulation/antiplatelet prison history of cardiac bypass Pneumothorax resolved, not having symptomatic breathing at this time. Continue anticoagulation O2 prn. CPAP at night Medical management Will sign off, call if needed. Supervisory-Addendum Brief Verification & Attestation Participated in pt care: history, MDM, physical Personally performed: exam, history, MDM, supervision of care Care discussed with: Medical Student Procedures: n/a Results interpretation: Verified all documentation Verification and Attestation of Medical Student E/M Service A medical student performed and documented this service in my presence. I reviewed and verified all information documented by the medical student and made modifications to such information, when appropriate. I personally performed the physical exam and medical decision making. Roberta Brenner, Jun 02, 2022,21:03 CAMERON ALLAN Jun 02, 2022 06:53 ROBERTA BRENNER DO Jun 02, 2022 21:04
[2022-06-02] MEDS ORDERED: KCL 20 MEQ TAB (K-DUR) PO ONE (07:00)
--- NOTE | 2022-06-02 07:16 | Physical Therapy Progress Note ---
Therapy Progress Note PT will require new orders due to ICU transfer. HUGO DONIS PT Jun 02, 2022 07:16
--- NOTE | 2022-06-02 08:58 | Cardiology Progress Note ---
Subjective Date Seen by Provider: Jun 02, 2022 Time Seen by Provider: 08:56 Subjective/Events-last exam Patient was seen at bedside, laying down comfortably. No new complaint. Review of Systems General: No Chills, No Night Sweats; Fatigue; No Malaise, No Appetite, No Other HEENT: No Head Aches, No Visual Changes, No Eye Pain, No Ear Pain, No Dysphasia, No Sinus Congestion, No Post Nasal Drip, No Sore Throat, No Other Pulmonary: No Dyspnea, No Cough, No Pleuritic Chest Pain, No Other Cardiovascular: No: Chest Pain, Palpitations, Orthopnea, Paroxysmal Noc. Dyspnea, Edema, Lt Headedness, Other Objective-Cardiology Exam Last Set of Vital Signs Vital Signs 06/02/22 06/02/22 06/02/22 06/02/22 06:00 07:19 07:28 08:00 Temp 36.0 Pulse 50 Resp 8 B/P (MAP) 115/76 (89) Pulse Ox 93 O2 Delivery NIV CPAP O2 Flow Rate 3.00 I&O Intake and Output 06/02/22 00:00 Intake Total 800 ml Output Total 1050 ml Balance -250 ml Intake Oral 800 ml Output Urine Total 1050 ml # Voids 2 # Bowel Movements 1 General: Alert, Oriented X3, Cooperative, No Acute Distress HEENT: PERRLA, EOMI, Mucous Memb Moist/[place] Neck: Supple, No JVD, No Thyromegaly Lungs: Other (rales at left base, essentially absent air movement right lung field lower 2/3) Heart: Normal S1, Normal S2, Other (Regularly irregular rhythm, systolic murmur) Abdomen: Normal Bowel Sounds, Soft, No Tenderness Extremities: No Edema, Normal Pulses, No Tenderness/Swelling Skin: No Rashes, No Breakdown, No Significant Lesion Neuro: Normal Speech Psych/Mental Status: Mental Status NL, Mood NL Results Lab Laboratory Tests 06/02/22 05:05 A/P-Cardiology Admission Diagnosis Dyspnea Pleural effusion Congestive heart failure, acute on chronic left ventricular systolic dysfunction Sustained ventricular tachycardia Assessment/Plan Dyspnea, pleural effusion Feeling better, responded well to diuretics and thoracentesis. Continue on diuretics and monitor Sore throat, oral thrush, managed by medical team. Multiple episodes of wide-complex tachycardia, could be secondary to sustained v entricular tachycardia versus atrial fibrillation with rapid ventricular response. Responded well to amiodarone. Unable to tolerate amiodarone due to elevated liver enzymes It was discontinued and we will try sotalol at noon dose initially and planning to escalate to 120 if patient can tolerate it Congestive heart failure, acute on chronic left ventricular systolic dysfunction, ischemic cardiomyopathy. Ejection fraction 30%. NYHA class II-III Continue with diuresis and monitor tolerance and response Permanent atrial fibrillation with rate control. Was in the hospital with syncope and bradycardia. Diltiazem and Digoxin discontinued. Currently on Toprol XL 100mg daily. Diltiazem restarted, continue to monitor. History of elevated liver enzymes, improved after stopping Lipitor and amio darone. Amiodarone again discontinued on this hospitalization d/t elevated LFTs [id number] score of 6, yearly risk of stroke without oral anticoagulation is 9.8 percent. Maintained on Xarelto, continue to monitor Coronary artery disease, history of 2 heart attacks in the past, had angioplasty in 1989, CABG 4 in 1997, stent in 2004 after a heart attack, had sudden during the procedure. Most recent cardiac catheterization done in June 05, 2015 revealed 3 patent bypass grafts. Vein graft to the right coronary artery, vein graft to the diago nal artery, and CHRISTINA to LAD with excellent flow in the system. Totally occluded circumflex artery with no bypass to the obtuse marginal system. Receiving collaterals from the right coronary system EF 30 percent. Stress test done in November 2020 showing fixed defect involving the inferior wall and inferoapex and true apex, no change compared to the previous stress test, ejection fraction 27%. Patient is asymptomatic. Continue to monitor Peripheral edema, chronic, Responding well to diuretics Status post single-chamber ICD implantation, using [employer] device Evera XT, last pacemaker interrogation was done March 2022 showing good sensing and capture activity. Will interrogate ICD during this admission Hypertension, had episode of hypotension this morning. I will change Toprol XL to be given in the evening, decrease Lasix to daily and continue to monitor. Hyperlipidemia, intolerant to Liptior d/t elevated LFTs Mild bilateral nonobstructive carotid artery stenosis per carotid duplex done in March 2021 Diabetes mellitus, followed and managed by Dr. Zhegn Arthritis, maintained on allopurinol. History of sleep apnea on CPAP JONO WASHINGTON MD Jun 02, 2022 08:58
--- NOTE | 2022-06-02 09:07 | Diagnostic Imaging Report ---
EXAMINATION: Chest 1 view HISTORY: Follow-up pleural effusion. COMPARISON: 06/01/2022. FINDINGS: Stable moderate right pleural effusion with right basilar opacities. No pneumothorax. Stable cardiac silhouette with stable left pectoral ICD. Calcified aortic atherosclerotic plaque is present. IMPRESSION: 1. Unchanged moderate right pleural effusion with right basilar opacities. Dictated by: Dictated on workstation # [id number]
[2022-06-02] MEDS: ALLOPURINOL 300 MG (ZYLOPRIM) TAB PO SCH (09:44)
[2022-06-02] MEDS: dilTIAZem120 MG (CARDIZEM CD) CAP PO SCH (09:44)
[2022-06-02] MEDS: SOTALOL 80 MG (BETAPACE) TAB PO SCH ×2 (09:44→21:17)
[2022-06-02] MEDS: AtorvaSTATin TABLET 10 MG TABLET PO SCH (09:44)
[2022-06-02] MEDS: PANTOPRAZOLE 20 MG TABLET (PROTONIX) PO SCH (09:44)
[2022-06-02] MEDS: MAGIC MOUTHWASH (ADULT) PO SCH ×16 (09:49→21:17)
--- NOTE | 2022-06-02 09:52 | Tele-ICU Progress Note ---
Subjective Date Seen by a Provider: Jun 02, 2022 Time Seen by a Provider: 09:52 Subjective/Events-last exam (Tele-ICU Physician , Progress Note ) Available chart/ vitals / labs / Images reviewed Video assessment done using teleICU camera, rest of exam as per RN Discussed with RN Events overnight : Afebrile hemodynamically stable Respiratory - 3l I/O = neg 200 Drips: Pressors- no Hospital course: (05/26) 86M Admitted for right pleural effusion and oral thrush--plan thoracentesis (05/27) TX to ICU for possible run Vtach while on commode. Asymptomatic. Electrolytes covered. (05/30 stable small right apical pneumothorax after 2600 thora (06/01) readmit for VT cardioverted on floor A/P (06/01) readmit for VT cardioverted on floor Sustained ventricular tachycardia 05/27 versus atrial fibrillation with rapid ventricular response. -- single-chamber ICD in place - review/w/up amd plans as per cardiology - ( reprogrammed to 130 now ) Acute new resp distress - follow closely , onASV ( home equipment ) while sleeps Bilateral plural effusions by CT R>>L - thoracentes on right 05/28 ( with holding AC) -2600 ml - xrelto resumed - SLOWLY INCREASING EFFUSION AND ATELECTASIS ON RIGHT PTX, post thora , small right apical 05/28 - stble this am - keep on O2 - follow on diuretics CAD - complex history ( cabg/ stenting ) , as per cards ICM -Status post single-chamber ICD -ECHO 05/27/22 - EF 25 % RVSP 60 mmHg ( previous LVEF 40-45% ,mild MR, mild AR, PA 30-35 mmHg) AFIB , permanent - AC xarelto - as per cards History of elevated liver enzymes Elevated liver enzymes of undetermined etiology - ? amio related Pulm HTN ECHO 05/27/22 - RVSP 60 mmHg - diuresis DM - ISS ADELE /CSA- COMPLIANT AT HOME ( AHI 59, with AutoPAP AHI 34) ) - s/p titration PSG 01/2022 - CSA AI 38 on bipap 07/23 --> ASV titrated ( final ASV titration: EPAP min 4cm -EPAP max 15cm PS 0-20cm rate auto , max pressure 25 Lines : periph , (Central Line Necessity Reviewed) Dunbar: + OG: Nutrition: po Analgesia: Anxiety/ delirium VTE Prophylaxis: xarelto on hold , scd - refusion Stress Ulcer Prophylaxis: Plans in collaboration with bedside consultants and IM MDs. Discussed with RN to reach out if any questions or concerns A total of 25 minutes of critical care time was devoted to this patient today, required to treat and/or prevent further deterioration of critical care condition ( as above ) . Sepsis Event Evaluation Height, Weight, BMI Height: 5'9.00" Weight: 211lbs. 0.0oz. 95.333838wm; 27.78 BMI Method:Stated Exam Exam Patient acknowledged, consented, and participated in this virtual visit which was conducted using real time audio/video Vital Signs Date Time Temp Pulse Resp B/P (MAP) Pulse Ox O2 Delivery O2 Flow Rate FiO2 06/02/22 09:00 55 12 105/72 (83) 99 NIV CPAP 3.00 06/02/22 08:00 50 32 116/70 (85) 95 NIV CPAP 3.00 06/02/22 08:00 36.0 06/02/22 07:28 93 NIV CPAP 3.00 06/02/22 07:19 50 06/02/22 07:00 49 27 121/64 (83) NIV CPAP 3.00 06/02/22 06:00 53 8 115/76 (89) NIV CPAP 3.00 06/02/22 05:00 56 27 116/76 (92) 93 NIV CPAP 3.00 06/02/22 04:38 94 NIV CPAP 3.00 06/02/22 04:00 57 21 121/77 (102) 94 NIV CPAP 3.00 06/02/22 03:00 52 97/40 (49) 98 NIV CPAP 3.00 06/02/22 02:00 52 32 103/69 (77) 97 NIV CPAP 3.00 06/02/22 01:00 50 06/02/22 01:00 50 21 113/62 (92) 97 NIV CPAP 3.00 06/02/22 00:22 98 NIV CPAP 3.00 06/02/22 00:00 52 26 106/65 (84) 98 NIV CPAP 3.00 06/01/22 23:00 51 10 107/83 (90) 97 NIV CPAP 3.00 06/01/22 22:06 51 06/01/22 22:00 50 22 111/80 (86) 96 NIV CPAP 3.00 06/01/22 21:00 56 18 115/77 (87) 96 Room Air 06/01/22 20:00 62 20 116/93 (105) 94 Room Air 06/01/22 20:00 94 Room Air 06/01/22 20:00 36.4 06/01/22 19:00 60 110/65 (98) 97 Room Air 06/01/22 19:00 60 06/01/22 18:00 60 19 117/84 (95) 99 Room Air 06/01/22 17:00 56 23 117/89 (98) 98 Room Air 06/01/22 16:24 Room Air 06/01/22 16:00 60 31 108/64 (79) 90 Room Air 06/01/22 16:00 36.0 06/01/22 15:00 55 26 101/59 (73) 95 Room Air 06/01/22 14:15 60 26 114/79 (91) 94 Room Air 06/01/22 14:00 55 15 107/64 (78) 97 Room Air 06/01/22 13:45 55 06/01/22 13:27 52 06/01/22 13:00 53 15 103/93 (96) 96 Room Air 06/01/22 12:00 Room Air 06/01/22 12:00 59 13 118/60 (79) 93 Room Air 06/01/22 12:00 36.4 06/01/22 11:00 69 18 97/69 (78) 98 Room Air 06/01/22 10:25 30 96 30.00 06/01/22 10:24 70 30 124/71 (88) 98 NIV Bilevel 30.00 06/01/22 10:15 71 42 124/71 (81) 98 06/01/22 10:15 Room Air 06/01/22 10:10 67 41 118/68 (84) 97 06/01/22 10:05 36.3 67 44 117/66 (89) 99 06/01/22 10:01 118/71 (94) I & O 06/02/22 07:00 Intake Total 1650 ml Output Total 825 ml Balance 825 ml Height & Weight Height: 5'9.00" Weight: 211lbs. 0.0oz. 95.740559gk; 27.78 BMI Method:Stated General Appearance: No Apparent Distress, WD/WN, Chronically ill HEENT: PERRL/EOMI, Normal ENT Inspection Neck: Normal Inspection, Non Tender Respiratory: Decreased Breath Sounds (significantly decreased air movement R>L) Cardiovascular: Regular Rate, Rhythm, Tachycardia Capillary Refill: Less Than 3 Seconds Peripheral Pulses: 2+ Dorsalis Pedis (R), 2+ Left Dors-Pedis (L), 2+ Radial Pulses (R), 2+ Radial Pulses (L) Gastrointestinal: non tender, soft Extremity: Non Tender, No Calf Tenderness Neurologic/Psychiatric: Alert, Oriented x3 Skin: Normal Color, Warm/Dry Lymphatic: No Adenopathy Results Lab Laboratory Tests 06/01/22 05:38 06/02/22 05:05 Assessment/Plan Assessment/Plan 1 VALERIO MANLEY MD Jun 02, 2022 09:52
--- NOTE | 2022-06-02 10:13 | Progress Note - Hospitalist ---
BALDEMAR JONES 06/02/22 1013: Subjective HPI/CC On Admission Date Seen by Provider: Jun 02, 2022 Time Seen by Provider: 08:40 Subjective/Events-last exam Pt states he is doing slightly better today. He sleeps with CPAP 3L, but during the day he is normally mid to upper 90s on RA. Cardiology lowered his ICD from 160 to 130 because when he went into V-tach yesterday his rate was 141-144. He will also be started on sotolol with escalation to 120mg if tolerated. BP improved. He is eating and drinking normally, with one bowel movement this morning. No CP, SOB, N/V/D, or abdominal pain. Review of Systems General: No Fatigue, No Appetite HEENT: No Head Aches, No Visual Changes Pulmonary: No Dyspnea, No Cough Cardiovascular: No: Chest Pain, Palpitations Gastrointestinal: No: Nausea, Vomiting, Abdominal Pain, Diarrhea Genitourinary: No Dysuria, No Frequency Neurological: No: Numbness, Confusion Objective Exam Vital Signs Vital Signs Date Time Temp Pulse Resp B/P (MAP) Pulse Ox O2 Delivery O2 Flow Rate FiO2 06/02/22 09:00 55 12 105/72 (83) 99 NIV CPAP 3.00 06/02/22 08:00 36.0 Capillary Refill : Less Than 3 Seconds General Appearance: No Apparent Distress, Chronically ill HEENT: PERRL/EOMI, Pharynx Normal, Moist Mucous Membranes Neck: Non Tender, Supple Respiratory: Lungs Clear, No Accessory Muscle Use, No Respiratory Distress, Decreased Breath Sounds (worse on R than left ) Cardiovascular: Regular Rate, Rhythm, No Edema, No Gallop, No JVD, No Murmur, Normal Peripheral Pulses Gastrointestinal: Normal Bowel Sounds, Non Tender, Soft Back: No CVA Tenderness Extremity: Non Tender, No Calf Tenderness, No Pedal Edema Neurologic/Psychiatric: Alert, Oriented x3, Normal Mood/Affect Skin: Normal Color, Warm/Dry Lymphatic: No Adenopathy Results/Procedures Lab Laboratory Tests 06/02/22 05:05 Patient resulted labs reviewed. Radiology NAME: NOLBERTO ADAN [facility] REC#: [id number] PT STATUS: ADM IN : 1935 PHYSICIAN: SONAM WHARTON DO ADMIT DATE: 05/27/22/ICU Signed Date of Exam:06/02/22 CHEST 1 VIEW, AP/PA ONLY EXAMINATION: Chest 1 view HISTORY: Follow-up pleural effusion. COMPARISON: 06/01/2022. FINDINGS: Stable moderate right pleural effusion with right basilar opacities. No pneumothorax. Stable cardiac silhouette with stable left pectoral ICD. Calcified aortic atherosclerotic plaque is present. IMPRESSION: 1. Unchanged moderate right pleural effusion with right basilar opacities. Dictated by: Dictated on workstation # [id number] Dict: 06/02/22904 Trans: 06/02/22 09 [id number] Interpreted by: SAI GAITAN DO Electronically signed by: SAI GAITAN DO 06/02/22910 Assessment/Plan Assessment and Plan Assess & Plan/Chief Complaint Assessment: Ventricular tachycardia - had another episode of V-Tach on 06/01/22. Dr. Dominguez ordered EKG and versed. He subsequently cardioverted back to sinus rhythm. - 06/02/22 - remains in sinus rhythm Bilateral pleural effusions - thoracentesis on 05/29. Serial chest xrays for monitoring - CXR 06/01 shows unchanged right apical PTX but progressive R basilar consol idation and pleural fluid - CXR 06/02 shows Unchanged moderate right pleural effusion with right b asilar opacities. Right apical Pneumothorax - unchanged from 05/31 - goal to maintain O2 above 93% - CXR 06/02 indicates no PTX Afib with RVR Diabetes - Type 2 Oral Thrush - nystatin and magic mouth wash Anticoagulation - xarelto HTN HLD Plan: Continue supportive care and close monitoring. Continue CPAP while sleeping to keep O2 up. Cardiology appreciated for cardiac drugs. SONAM WHARTON DO 06/03/22 0543: Subjective Subjective/Events-last exam Patient doing little better Supportive care continues Sotalol infusion will be given Prognosis poor at this time Objective Exam General Appearance: No Apparent Distress, WD/WN, Chronically ill Respiratory: Decreased Breath Sounds (worse on R than left ) Cardiovascular: Regular Rate, Rhythm Assessment/Plan Assessment and Plan Assess & Plan/Chief Complaint Sotalol infusion Supervisory-Addendum Brief Verification & Attestation Participated in pt care: history, MDM, physical Personally performed: exam, history, MDM, supervision of care Care discussed with: Medical Student Procedures: n/a Results interpretation: Verified all documentation Verification and Attestation of Medical Student E/M Service A medical student performed and documented this service in my presence. I reviewed and verified all information documented by the medical student and made modifications to such information, when appropriate. I personally performed the physical exam and medical decision making. Sonam Wharton, Jun 03, 2022,05:41 BALDEMAR JONES Jun 02, 2022 10:13 SONAM WHARTON DO Jun 03, 2022 05:43
[2022-06-02] MEDS: RIVAROXABAN 20 MG TABLET (XARELTO) PO SCH (17:41)
[2022-06-02] MEDS: SPIRONOLACTONE 25 MG (ALDACTONE) TAB PO SCH (17:41)
[2022-06-02] MEDS: TAMSULOSIN 0.4 MG (FLOMAX) CAP PO SCH (17:41)
[2022-06-03 05:26] LABS: BASOPHILS % (AUTO) 0 % (0-10); EOSINOPHILS # (AUTO) 0.5 10^3/uL (0.0-0.3); EOSINOPHILS % (AUTO) 5 % (0-10); HEMATOCRIT 39 % (40-54); HEMOGLOBIN 13.5 g/dL (13.3-17.7); LYMPHOCYTES # (AUTO) 0.7 10^3/uL (1.0-4.0); LYMPHOCYTES % (AUTO) 8 % (12-44); MEAN CORPUSCULAR HEMOGLOBIN 31 pg (25-34); MEAN CORPUSCULAR HGB CONC 34 g/dL (32-36); MEAN CORPUSCULAR VOLUME 91 fL (80-99); MEAN PLATELET VOLUME 10.9 fL (9.0-12.2); MONOCYTES # (AUTO) 0.8 10^3/uL (0.0-1.0); MONOCYTES % (AUTO) 8 % (0-12); NEUTROPHILS # (AUTO) 7.5 10^3/uL (1.8-7.8); NEUTROPHILS % (AUTO) 78 % (42-75); PLATELET COUNT 364 10^3/uL (130-400); WHITE BLOOD COUNT 9.7 10^3/uL (4.3-11.0)
[2022-06-03 05:58] LABS: ALBUMIN 3.1 GM/DL (3.2-4.5); BILIRUBIN,TOTAL 1.5 MG/DL (0.1-1.0); CALCIUM 9.1 MG/DL (8.5-10.1); CREATININE SERUM 0.94 MG/DL (0.60-1.30); MAGNESIUM 1.8 MG/DL (1.6-2.4); POTASSIUM 3.8 MMOL/L (3.6-5.0); TOTAL PROTEIN 7.2 GM/DL (6.4-8.2)
[2022-06-03] MEDS: POTASSIUM CL 10MEQ/50ML IVPB 50 ML IV SCH (06:01)
[2022-06-03] MEDS: KCL 20 MEQ TAB (K-DUR) PO SCH (06:01)
[2022-06-03] MEDS: MAGNESIUM 1 GM/100 ML IVPB 100 ML IV SCH (06:01)
[2022-06-03] MEDS: inSUlin ASPART (NovoLOG) 1 UNIT/0.01 ML (CHARGE PER UNIT) SC SCH ×4 (06:01→20:57)
[2022-06-03] MEDS: FUROSEMIDE 40 MG/4 ML INJ (LASIX) IVP SCH ×2 (06:05→17:23)
[2022-06-03] MEDS: NYSTATIN ORAL SUSP 5 ML UDC PO SCH ×3 (06:05→17:23)
--- NOTE | 2022-06-03 07:58 | Physical Therapy Progress Note ---
Therapy Progress Note PT will require new orders due to ICU transfer. CARMEN VARMA PT Jun 03, 2022 07:58
[2022-06-03] MEDS ORDERED: LIDOCAINE 1% INJ 30 ML (XYLOCAINE) VIAL ONE (08:07)
[2022-06-03] MEDS ORDERED: HEParin (CATH LAB) 1,000 ML IV ONE (08:08)
[2022-06-03] MEDS ORDERED: NS IV 1000 ML 1,000 ML ONE (08:08)
[2022-06-03] MEDS: ALLOPURINOL 300 MG (ZYLOPRIM) TAB PO SCH (08:26)
[2022-06-03] MEDS: dilTIAZem120 MG (CARDIZEM CD) CAP PO SCH (08:27)
[2022-06-03] MEDS: MAGIC MOUTHWASH (ADULT) PO SCH ×16 (08:27→20:58)
[2022-06-03] MEDS: PANTOPRAZOLE 20 MG TABLET (PROTONIX) PO SCH (08:27)
[2022-06-03] MEDS: AtorvaSTATin TABLET 10 MG TABLET PO SCH (08:27)
[2022-06-03] MEDS: SOTALOL 80 MG (BETAPACE) TAB PO SCH ×2 (08:32→20:56)
--- NOTE | 2022-06-03 09:07 | Cardiology Progress Note ---
Subjective Date Seen by Provider: Jun 03, 2022 Time Seen by Provider: 09:05 Subjective/Events-last exam Patient was seen at bedside, laying down comfortably No new complaint. Review of Systems General: No Chills, No Night Sweats; Fatigue; No Malaise, No Appetite, No Other HEENT: No Head Aches, No Visual Changes, No Eye Pain, No Ear Pain, No Dysphasia, No Sinus Congestion, No Post Nasal Drip, No Sore Throat, No Other Pulmonary: No Dyspnea, No Cough, No Pleuritic Chest Pain, No Other Cardiovascular: No: Chest Pain, Palpitations, Orthopnea, Paroxysmal Noc. Dyspnea, Edema, Lt Headedness, Other Objective-Cardiology Exam Last Set of Vital Signs Vital Signs 06/03/22 06/03/22 06/03/22 06:00 08:00 08:32 Temp 35.8 Pulse 46 Resp 30 B/P (MAP) 115/90 (98) Pulse Ox 98 O2 Delivery NIV CPAP O2 Flow Rate 3.00 I&O Intake and Output 06/03/22 00:00 Intake Total 1975 ml Output Total 1850 ml Balance 125 ml Intake Oral 1975 ml Output Urine Total 1850 ml # Bowel Movements 2 General: Alert, Oriented X3, Cooperative, No Acute Distress HEENT: PERRLA, EOMI, Mucous Memb Moist/[place] Neck: Supple, No JVD, No Thyromegaly Lungs: Other (rales at left base, essentially absent air movement right lung field lower 2/3) Heart: Normal S1, Normal S2, Other (Regularly irregular rhythm, systolic murmur) Abdomen: Normal Bowel Sounds, Soft, No Tenderness Extremities: No Edema, Normal Pulses, No Tenderness/Swelling Skin: No Rashes, No Breakdown, No Significant Lesion Neuro: Normal Speech Psych/Mental Status: Mental Status NL, Mood NL Results Lab Laboratory Tests 06/03/22 05:00 A/P-Cardiology Admission Diagnosis Dyspnea Pleural effusion Congestive heart failure, acute on chronic left ventricular systolic dysfunction Sustained ventricular tachycardia Assessment/Plan Dyspnea, pleural effusion Feeling better, responded well to diuretics and thoracentesis. Continue on diuretics and monitor Multiple episodes of wide-complex tachycardia, could be secondary to sustained ventricular tachycardia vs atrial fibrillation with rapid ventricular response. Responded well to amiodarone. Unable to tolerate amiodarone due to elevated liver enzymes It was discontinued and we will try sotalol at noon dose initially and planning to escalate to 120 if patient can tolerate it Congestive heart failure, acute on chronic left ventricular systolic dysfunction, ischemic cardiomyopathy. Ejection fraction 30%. NYHA class II-III Continue with diuresis and monitor tolerance and response Permanent atrial fibrillation with rate control. Was in the hospital with syncope and bradycardia. Diltiazem and Digoxin discontinued. Currently on Toprol XL 100mg daily. Diltiazem restarted, continue to monitor. History of elevated liver enzymes, improved after stopping Lipitor and amiodarone. Amiodarone again discontinued on this hospitalization d/t elevated LFTs [id number] score of 6, yearly risk of stroke without oral anticoagulation is 9.8 percent. Maintained on Xarelto, continue to monitor Coronary artery disease, history of 2 heart attacks in the past, had angioplasty in 1989, CABG 4 in 1997, stent in 2004 after a heart attack, had sudden during the procedure. Most recent cardiac catheterization done in June 05, 2015 revealed 3 patent bypass grafts. Vein graft to the right coronary artery, vein graft to the diagonal artery, and CHRISTINA to LAD with excellent flow in the system. Totally occluded circumflex artery with no bypass to the obtuse marginal system. Receiving collaterals from the right coronary system EF 30 percent. Stress test done in November 2020 showing fixed defect involving the inferior wall and inferoapex and true apex, no change compared to the previous stress test, ejection fraction 27%. Patient is asymptomatic. Due to the recurrent ventricular tachycardia I am planning to proceed with cardiac catheterization possible PTCA Peripheral edema, chronic, Responding well to diuretics Status post single-chamber ICD implantation, using Med[employer]onic device Evera XT, l ast pacemaker interrogation was done March 2022 showing good sensing and capture activity. Will interrogate ICD during this admission Hypertension, had episode of hypotension this morning. I will change Toprol XL to be given in the evening, decrease Lasix to daily and continue to monitor. Hyperlipidemia, intolerant to Liptior d/t elevated LFTs Mild bilateral nonobstructive carotid artery stenosis per carotid duplex done in March 2021 Diabetes mellitus, followed and managed by Dr. Zheng Arthritis, maintained on allopurinol. History of sleep apnea on CPAP JONO WASHINGTON MD Jun 03, 2022 09:07
--- NOTE | 2022-06-03 09:07 | Cardiac Procedure Note-CS/ASA ---
Pre-Procedure Note Pre-Op Procedure Note Date of Available H&P: Jun 03, 2022 Date H&P Reviewed: Jun 03, 2022 Time H&P Reviewed: 09:07 History & Physical: H&P Reviewed, Patient Examed, No changes noted Pre-Operative Diagnosis: Congestive heart failure Conscious Sedation Pre-Proced Time 09:07 ASA Score 3 For ASA 3 and 4: Consider anesthesia and medical clearance. Also, for patients with a history of failed moderate sedation consider anesthesia. Airway Lungs Heart ASA score ASA 1: a normal healthy patient ASA 2: a patient with a mild systemic disease (mid diabetes, controlled hypertension, obesity ASA 3: a patient with a severe systemic disease that limits activity (angina, COPD, prior Myocardial infarction) ASA 4: a patient with an incapacitating disease that is a constant threat to life (CHF, renal failure) ASA 5: a moribund patient not expected to survive 24 hrs. (ruptured aneurysm) ASA 6: a declared brain- patient whose organs are being harvested. For emergent operations, add the letter E after the classification Mallampati Classification Grade 3 Sedation Plan Analgesia, Amnesia, Plan communicated to team members, Discussed options with patient/fam, Discussed risks with patient/fam The patient is an appropriate candidate to undergo the planned procedure, sedation, and anesthesia. The patient immediately re-assessed prior to indication. JONO WASHINGTON MD Jun 03, 2022 09:07
--- NOTE | 2022-06-03 10:02 | Progress Note - Surgery ---
Subjective Date Seen by a Provider: Jun 03, 2022 Time Seen by a Provider: 08:55 Objective Exam Vital Signs Date Time Temp Pulse Resp B/P (MAP) Pulse Ox O2 Delivery O2 Flow Rate FiO2 06/03/22 09:00 49 25 128/107 (114) 100 NIV CPAP 3.00 06/03/22 08:32 46 06/03/22 08:00 35.8 06/03/22 08:00 45 9 116/83 (94) 100 NIV CPAP 3.00 06/03/22 07:04 49 06/03/22 07:00 49 20 133/71 (91) 99 NIV CPAP 3.00 06/03/22 06:00 66 30 115/90 (98) 98 NIV CPAP 3.00 06/03/22 05:00 50 10 130/65 (86) 100 NIV CPAP 3.00 06/03/22 04:00 36.0 06/03/22 04:00 54 25 124/67 (86) 99 NIV CPAP 3.00 06/03/22 04:00 99 NIV CPAP 3.00 06/03/22 03:00 51 28 96 NIV CPAP 3.00 06/03/22 02:00 52 24 129/83 (98) 100 NIV CPAP 3.00 06/03/22 01:00 48 06/03/22 01:00 48 27 107/91 (96) 96 NIV CPAP 3.00 06/03/22 00:03 100 NIV CPAP 3.00 06/03/22 00:00 47 17 122/79 (93) 100 NIV CPAP 3.00 06/02/22 23:17 47 06/02/22 23:00 49 30 119/70 (86) 100 NIV CPAP 3.00 06/02/22 22:00 50 26 106/64 (78) 97 NIV CPAP 3.00 06/02/22 21:00 9 100 NIV CPAP 3.00 06/02/22 20:00 36.2 06/02/22 20:00 99 NIV CPAP 3.00 06/02/22 20:00 55 21 113/55 (74) 100 NIV CPAP 3.00 06/02/22 19:00 51 12 121/66 (84) 99 NIV CPAP 3.00 06/02/22 19:00 51 06/02/22 18:00 52 30 124/72 (89) 100 NIV CPAP 3.00 06/02/22 17:00 52 24 123/85 (98) 100 NIV CPAP 3.00 06/02/22 16:00 97 NIV CPAP 3.00 06/02/22 16:00 51 19 109/81 (90) 99 NIV CPAP 3.00 06/02/22 15:00 50 14 99/62 (74) 100 NIV CPAP 3.00 06/02/22 14:00 52 11 96/62 (73) 100 NIV CPAP 3.00 06/02/22 13:12 50 06/02/22 13:10 50 06/02/22 13:00 50 40 109/59 (76) 91 NIV CPAP 3.00 06/02/22 12:00 36.0 06/02/22 12:00 50 12 113/63 (80) 100 NIV CPAP 3.00 06/02/22 12:00 95 Room Air 06/02/22 11:00 50 25 109/71 (84) 100 NIV CPAP 3.00 06/02/22 10:00 53 17 108/87 (94) 99 NIV CPAP 3.00 I & O 06/03/22 07:00 Intake Total 1125 ml Output Total 1750 ml Balance -625 ml Capillary Refill : Less Than 3 Seconds General Appearance: No Apparent Distress, WD/WN, Chronically ill HEENT: PERRL/EOMI, Normal ENT Inspection Neck: Normal Inspection, Non Tender Respiratory: Decreased Breath Sounds (worse on R than left ) Cardiovascular: Regular Rate, Rhythm Peripheral Pulses: 2+ Dorsalis Pedis (R), 2+ Left Dors-Pedis (L), 2+ Radial Pulses (R), 2+ Radial Pulses (L) Gastrointestinal: non tender, soft Extremity: Non Tender, No Calf Tenderness Neurologic/Psychiatric: Alert, Oriented x3 Skin: Normal Color, Warm/Dry Lymphatic: No Adenopathy Results Lab Laboratory Tests 06/02/22 11:17: Glucometer 136H 06/02/22 17:31: Glucometer 153H 06/02/22 21:13: Glucometer 106 06/03/22 05:00: White Blood Count 9.7, Red Blood Count 4.31, Hemoglobin 13.5, Hematocrit 39L, Mean Corpuscular Volume 91, Mean Corpuscular Hemoglobin 31, Mean Corpuscular Hemoglobin Concent 34, Red Cell Distribution Width 13.6, Platelet Count 364, Mean Platelet Volume 10.9, Immature Granulocyte % (Auto) 1, Neutrophils (%) (Auto) 78H, Lymphocytes (%) (Auto) 8L, Monocytes (%) (Auto) 8, Eosinophils (%) (Auto) 5, Basophils (%) (Auto) 0, Neutrophils # (Auto) 7.5, Lymphocytes # (Auto) 0.7L, Monocytes # (Auto) 0.8, Eosinophils # (Auto) 0.5H, Basophils # (Auto) 0.0, Immature Granulocyte # (Auto) 0.1, Sodium Level 133L, Potassium Level 3.8, Chloride Level 96L, Carbon Dioxide Level 25, Anion Gap 12, Blood Urea Nitrogen 32H, Creatinine 0.94, Estimat Glomerular Filtration Rate 79, BUN/Creatinine Ratio 34, Glucose Level 115H, Calcium Level 9.1, Corrected Calcium 9.8, Magnesium Level 1.8, Total Bilirubin 1.5H, Aspartate Amino Transf (AST/SGOT) 66H , Alanine Aminotransferase (ALT/SGPT) 81H, Alkaline Phosphatase 150H, Total Protein 7.2, Albumin 3.1L Microbiology 05/28/22 Gram Stain - Final, Complete 05/28/22 Body Fluid Culture - Final, Complete No growth 05/27/22 MRSA Screen - Final, Complete MRSA not isolated Assessment/Plan Assessment/Plan Assessment/Plan vtach b/l pleural effusion right greater than left s/p thoracentesis right apical pneumorthorax-resolved hypoxia improved at this time anticoagulation/antiplatelet senior care history of cardiac bypass Pneumothorax resolved, not having symptomatic breathing at this time. Continue anticoagulation O2 prn. CPAP at night Medical management Will sign off, call if needed. BALDEMAR JONES Jun 03, 2022 10:02
--- NOTE | 2022-06-03 10:40 | Progress Note - Hospitalist ---
BALDEMAR JONES 06/03/22 1040: Subjective HPI/CC On Admission Date Seen by Provider: Jun 03, 2022 Time Seen by Provider: 08:55 Subjective/Events-last exam Pt resting comfortably on CPAP. Received sotolol tablet (80mg BID) today, tolerating well Going to label machine operator today, on clear diet at this time Denies CP, shortness of breath, fever, chills, N/V/D Review of Systems General: No Chills, No Night Sweats HEENT: No Visual Changes, No Eye Pain Pulmonary: No Dyspnea, No Cough Cardiovascular: No: Chest Pain, Palpitations Gastrointestinal: No: Nausea, Vomiting, Diarrhea Genitourinary: No Dysuria, No Retention Neurological: No: Change in speech, Confusion Objective Exam Vital Signs Vital Signs Date Time Temp Pulse Resp B/P (MAP) Pulse Ox O2 Delivery O2 Flow Rate FiO2 06/03/22 09:00 49 25 128/107 (114) 100 NIV CPAP 3.00 06/03/22 08:00 35.8 Capillary Refill : Less Than 3 Seconds General Appearance: No Apparent Distress, Chronically ill HEENT: PERRL/EOMI, Moist Mucous Membranes Neck: Non Tender, Supple Respiratory: Lungs Clear, No Accessory Muscle Use, No Respiratory Distress, Decreased Breath Sounds (right worse than left ) Cardiovascular: Regular Rate, Rhythm, No Edema, No Gallop, No JVD, No Murmur, Normal Peripheral Pulses Gastrointestinal: Normal Bowel Sounds, Non Tender, Soft Back: No CVA Tenderness Extremity: Non Tender, No Calf Tenderness, No Pedal Edema Neurologic/Psychiatric: Alert, Oriented x3, Normal Mood/Affect Skin: Normal Color, Warm/Dry Lymphatic: No Adenopathy Results/Procedures Lab Laboratory Tests 06/03/22 05:00 Patient resulted labs reviewed. Assessment/Plan Assessment and Plan Assess & Plan/Chief Complaint Assessment: Ventricular tachycardia - had another episode of V-Tach on 06/01/22. Dr. Dominguez ordered EKG and versed. He subsequently cardioverted back to sinus rhythm. - 06/02/22 - remains in sinus rhythm - 06/03/22 - in sinus rhythm. Dr. Dominguez is taking to label machine operator today Bilateral pleural effusions - thoracentesis on 05/29. Serial chest xrays for monitoring - CXR 06/01 shows unchanged right apical PTX but progressive R basilar consolidation and pleural fluid - CXR 06/02 shows Unchanged moderate right pleural effusion with right basilar opacities. Right apical Pneumothorax - unchanged from 05/31 - goal to maintain O2 above 93% - CXR 06/02 indicates no PTX Afib with RVR Diabetes - Type 2 Oral Thrush - nystatin and magic mouth wash Anticoagulation - xarelto HTN HLD Plan: Pt tolerated sotolol tablet (80mg BID). Dr. Dominguez is taking him to label machine operator toda y. Continue supportive care and close monitoring. CPAP while sleeping to keep O2 up. SONAM CHATMAN DO 06/03/222050: Assessment/Plan Assessment and Plan Assess & Plan/Chief Complaint cath today Guarded prognosis Supervisory-Addendum Brief Verification & Attestation Participated in pt care: history, MDM, physical Personally performed: exam, history, MDM, supervision of care Care discussed with: Medical Student Procedures: n/a Results interpretation: Verified all documentation Verification and Attestation of Medical Student E/M Service A medical student performed and documented this service in my presence. I reviewed and verified all information documented by the medical student and made modifications to such information, when appropriate. I personally performed the physical exam and medical decision making. Sonam Chatman, Jun 03, 2022,20:51 BALDEMAR JONES Jun 03, 2022 10:40 SONAM CHATMAN DO Jun 03, 2022 20:51
--- NOTE | 2022-06-03 12:12 | Tele-ICU Progress Note ---
Subjective Date Seen by a Provider: Jun 03, 2022 Time Seen by a Provider: 12:11 Subjective/Events-last exam ` (Tele-ICU Physician , Progress Note ) Available chart/ vitals / labs / Images reviewed Video assessment done using teleICU camera, rest of exam as per RN Discussed with RN Events overnight : Afebrile hemodynamically stable Respiratory - 3l I/O = even Drips: Pressors- no Hospital course: (05/26) 86M Admitted for right pleural effusion and oral thrush--plan thoracentesis (05/27) TX to ICU for possible run Vtach while on commode. Asymptomatic. Electrolytes covered. (05/30 stable small right apical pneumothorax after 2600 thora (06/01) readmit for VT cardioverted on floor A/P (06/01) readmit for VT cardioverted on floor Sustained ventricular tachycardia 05/27 versus atrial fibrillation with rapid ventricular response. -- single-chamber ICD in place - review/w/up amd plans as per cardiology - ( reprogrammed to 130 now ) Acute new resp distress - follow closely , onASV ( home equipment ) while sleeps Bilateral plural effusions by CT R>>L - thoracentes on right 05/28 ( with holding AC) -2600 ml - xrelto resumed - SLOWLY INCREASING EFFUSION AND ATELECTASIS ON RIGHT - follow on diuretics PTX, post thora , small right apical 05/28 - resolved CAD - complex history ( cabg/ stenting ) , as per cards ICM -Status post single-chamber ICD -ECHO 05/27/22 - EF 25 % RVSP 60 mmHg ( previous LVEF 40-45% ,mild MR, mild AR, PA 30-35 mmHg) AFIB , permanent - AC xarelto - as per cards History of elevated liver enzymes Elevated liver enzymes of undetermined etiology - ? amio related Pulm HTN ECHO 05/27/22 - RVSP 60 mmHg - diuresis DM - ISS ADELE /CSA- COMPLIANT AT HOME ( AHI 59, with AutoPAP AHI 34) ) - s/p titration PSG 01/2022 - CSA AI 38 on bipap 07/23 --> ASV titrated ( final ASV titration: EPAP min 4cm -EPAP max 15cm PS 0-20cm rate auto , max pressure 25 Lines : periph , (Central Line Necessity Reviewed) Dunbar: void OG: Nutrition: po Analgesia: Anxiety/ delirium VTE Prophylaxis: xarelto Stress Ulcer Prophylaxis: Plans in collaboration with bedside consultants and IM MDs. Discussed with RN to reach out if any questions or concerns A total of 25 minutes of critical care time was devoted to this patient today, required to treat and/or prevent further deterioration of critical care condition ( as above ) . Sepsis Event Evaluation Height, Weight, BMI Height: 5'9.00" Weight: 211lbs. 0.0oz. 95.053804cn; 27.36 BMI Method:Stated Exam Exam Patient acknowledged, consented, and participated in this virtual visit which was conducted using real time audio/video Vital Signs Date Time Temp Pulse Resp B/P (MAP) Pulse Ox O2 Delivery O2 Flow Rate FiO2 06/03/22 10:00 49 30 129/68 (88) 99 NIV CPAP 3.00 06/03/22 09:00 49 25 128/107 (114) 100 NIV CPAP 3.00 06/03/22 08:32 46 06/03/22 08:00 35.8 06/03/22 08:00 45 9 116/83 (94) 100 NIV CPAP 3.00 06/03/22 08:00 99 NIV CPAP 3.00 06/03/22 07:04 49 06/03/22 07:00 49 20 133/71 (91) 99 NIV CPAP 3.00 06/03/22 06:00 66 30 115/90 (98) 98 NIV CPAP 3.00 06/03/22 05:00 50 10 130/65 (86) 100 NIV CPAP 3.00 06/03/22 04:00 36.0 06/03/22 04:00 54 25 124/67 (86) 99 NIV CPAP 3.00 06/03/22 04:00 99 NIV CPAP 3.00 06/03/22 03:00 51 28 96 NIV CPAP 3.00 06/03/22 02:00 52 24 129/83 (98) 100 NIV CPAP 3.00 06/03/22 01:00 48 06/03/22 01:00 48 27 107/91 (96) 96 NIV CPAP 3.00 06/03/22 00:03 100 NIV CPAP 3.00 06/03/22 00:00 47 17 122/79 (93) 100 NIV CPAP 3.00 06/02/22 23:17 47 06/02/22 23:00 49 30 119/70 (86) 100 NIV CPAP 3.00 06/02/22 22:00 50 26 106/64 (78) 97 NIV CPAP 3.00 06/02/22 21:00 9 100 NIV CPAP 3.00 06/02/22 20:00 36.2 06/02/22 20:00 99 NIV CPAP 3.00 06/02/22 20:00 55 21 113/55 (74) 100 NIV CPAP 3.00 06/02/22 19:00 51 12 121/66 (84) 99 NIV CPAP 3.00 06/02/22 19:00 51 06/02/22 18:00 52 30 124/72 (89) 100 NIV CPAP 3.00 06/02/22 17:00 52 24 123/85 (98) 100 NIV CPAP 3.00 06/02/22 16:00 97 NIV CPAP 3.00 06/02/22 16:00 51 19 109/81 (90) 99 NIV CPAP 3.00 06/02/22 15:00 50 14 99/62 (74) 100 NIV CPAP 3.00 06/02/22 14:00 52 11 96/62 (73) 100 NIV CPAP 3.00 06/02/22 13:12 50 06/02/22 13:10 50 06/02/22 13:00 50 40 109/59 (76) 91 NIV CPAP 3.00 I & O 06/03/22 07:00 Intake Total 1125 ml Output Total 1750 ml Balance -625 ml Height & Weight Height: 5'9.00" Weight: 211lbs. 0.0oz. 95.812720tr; 27.36 BMI Method:Stated General Appearance: No Apparent Distress, Chronically ill HEENT: PERRL/EOMI, Moist Mucous Membranes Neck: Non Tender, Supple Respiratory: Lungs Clear, No Accessory Muscle Use, No Respiratory Distress, Decreased Breath Sounds (right worse than left ) Cardiovascular: Regular Rate, Rhythm, No Edema, No Gallop, No JVD, No Murmur, Normal Peripheral Pulses Capillary Refill: Less Than 3 Seconds Peripheral Pulses: 2+ Dorsalis Pedis (R), 2+ Left Dors-Pedis (L), 2+ Radial Pulses (R), 2+ Radial Pulses (L) Gastrointestinal: non tender, soft Extremity: Non Tender, No Calf Tenderness, No Pedal Edema Neurologic/Psychiatric: Alert, Oriented x3, Normal Mood/Affect Skin: Normal Color, Warm/Dry Lymphatic: No Adenopathy Results Lab Laboratory Tests 06/02/22 05:05 06/03/22 05:00 Assessment/Plan Assessment/Plan 1 VALERIO MANLEY MD Jun 03, 2022 12:12
[2022-06-03] MEDS ORDERED: MIDAZOLAM 2 MG/2 ML (VERSED) VIAL ONE (13:45)
[2022-06-03] MEDS ORDERED: fentaNYL INJ 100 MCG/2 ML AMP ONE (13:45)
--- NOTE | 2022-06-03 14:29 | Cardiac Cath Report ---
Cardiac Cath Report Physician (s)/Welding Manager (s) Physician JONO WASHINGTON MD Pre-Procedure Diagnosis Pre-Procedure Diagnosis: Congestive heart failure Post-Procedure Note Procedure Start Date: Jun 03, 2022 Name of Procedure: Left heart catheterization Vein graft angiogram CHRISTINA angiogram Findings/Procedure Note PROCEDURE NOTE: 86 years old gentleman with history of coronary artery disease, CABG, congestive heart failure, cardiomyopathy, sustained ventricular tachycardia. Scheduled for cardiac catheterization. After explaining the procedure to the patient, all pros and cons were explained, all questions were answered. The patient signed the consent and then he was placed on the cardiac catheterization laboratory. Groin was prepped SL fashion local anesthesia was used. Sheath placed in the artery. Shaila right and left catheter were used to access the coronary system.Vein Graft evaluated. CHRISTINA evaluated. Did not cross the aortic valve. At the end of the procedure the sheath was removed. Closure device was deployed FINDINGS: Hemodynamics LV pressure was not measured Aorta 133/62 mean of 65 ANATOMY: Left Main is free of obstructive disease Left Anterior Descending has severe disease proximally, CHRISTINA to LAD is patent and vein graft to the proximal LAD is patent Left Circumflex is occluded that is not bypassed Right Coronary Artery is occluded at the midportion with occluded vein graft to the right coronary artery CHRISTINA to LAD is patent with small vessel disease distally Vein Graft evaluation showed markers of 2 vein grafts Vein graft is to the proximal LAD/diagonal artery that is patent with good flow distally Vein graft to the right coronary artery is occluded CONCLUSION: 1. Patent CHRISTINA to LAD and vein graft to the proximal LAD/diagonal artery with good flow in the LAD system 2. Occluded right coronary artery and vein graft to the right coronary artery which is a new finding compared to the previous study in 2016 3. Occluded circumflex artery that is not bypassed DISCUSSION AND RECOMMENDATION: Patient is known to have infarcted inferior wall with minimal nixon-infarct reversibility. The artery appeared to be chronically occluded. Conservative management is recommended Anesthesia Type: Conscious Sedation Estimated blood loss (mL): 15 ml Contrast Amount: 47 ml Total Radiation Dose: 425 mGy Post-Procedure Diagnosis Post-operative diagnosis: Coronary artery disease Congestive heart failure, chronic left ventricular systolic dysfunction, ischemic cardiomyopathy Paroxysmal atrial fibrillation Sustained ventricular tachycardia JONO WASHINGTON MD Jun 03, 2022 14:29
[2022-06-03] MEDS ORDERED: PATIENT MAY USE OWN MEDS, ALL PO SCH (14:30)
[2022-06-03] MEDS: NS IV 1000 ML 1,000 ML IV SCH (14:57)
[2022-06-03] MEDS: RIVAROXABAN 20 MG TABLET (XARELTO) PO SCH (16:48)
[2022-06-03] MEDS: SPIRONOLACTONE 25 MG (ALDACTONE) TAB PO SCH (17:23)
[2022-06-03] MEDS: TAMSULOSIN 0.4 MG (FLOMAX) CAP PO SCH (17:23)
[2022-06-04] MEDS: NYSTATIN ORAL SUSP 5 ML UDC PO SCH ×4 (00:26→17:29)
[2022-06-04] MEDS: NS IV 1000 ML 1,000 ML IV SCH ×3 (01:36→21:47)
[2022-06-04 05:13] LABS: BASOPHILS # (AUTO) 0.1 10^3/uL (0.0-0.1); BASOPHILS % (AUTO) 1 % (0-10); EOSINOPHILS # (AUTO) 0.4 10^3/uL (0.0-0.3); EOSINOPHILS % (AUTO) 4 % (0-10); HEMATOCRIT 40 % (40-54); HEMOGLOBIN 13.6 g/dL (13.3-17.7); LYMPHOCYTES # (AUTO) 0.6 10^3/uL (1.0-4.0); LYMPHOCYTES % (AUTO) 6 % (12-44); MEAN CORPUSCULAR HEMOGLOBIN 31 pg (25-34); MEAN CORPUSCULAR HGB CONC 34 g/dL (32-36); MEAN CORPUSCULAR VOLUME 93 fL (80-99); MEAN PLATELET VOLUME 10.8 fL (9.0-12.2); MONOCYTES # (AUTO) 0.8 10^3/uL (0.0-1.0); MONOCYTES % (AUTO) 8 % (0-12); NEUTROPHILS # (AUTO) 7.5 10^3/uL (1.8-7.8); NEUTROPHILS % (AUTO) 80 % (42-75); PLATELET COUNT 427 10^3/uL (130-400); WHITE BLOOD COUNT 9.4 10^3/uL (4.3-11.0)
[2022-06-04 05:41] LABS: ALBUMIN 3.1 GM/DL (3.2-4.5); BILIRUBIN,TOTAL 1.4 MG/DL (0.1-1.0); CALCIUM 9.1 MG/DL (8.5-10.1); CREATININE SERUM 0.89 MG/DL (0.60-1.30); MAGNESIUM 1.9 MG/DL (1.6-2.4); POTASSIUM 3.7 MMOL/L (3.6-5.0); TOTAL PROTEIN 7.3 GM/DL (6.4-8.2)
[2022-06-04] MEDS: POTASSIUM CL 10MEQ/50ML IVPB 50 ML IV SCH (06:06)
[2022-06-04] MEDS: KCL 20 MEQ TAB (K-DUR) PO SCH (06:06)
[2022-06-04] MEDS: MAGNESIUM 1 GM/100 ML IVPB 100 ML IV SCH (06:06)
[2022-06-04] MEDS: inSUlin ASPART (NovoLOG) 1 UNIT/0.01 ML (CHARGE PER UNIT) SC SCH ×4 (06:07→21:47)
[2022-06-04 06:10] LABS: EOSINOPHILS % (MANUAL) 3 %; LYMPHOCYTES % (MANUAL) 5 %; MONOCYTES % (MANUAL) 5 %; NEUTROPHILS % (MANUAL) 86 %; RBC MORPH NORMAL; REACTIVE LYMPHOCYTES 1 %
[2022-06-04] MEDS: FUROSEMIDE 40 MG/4 ML INJ (LASIX) IVP SCH ×2 (06:34→17:29)
--- NOTE | 2022-06-04 07:29 | Physical Therapy Progress Note ---
Therapy Progress Note PT will require new orders due to ICU transfer. HUGO DONIS PT Jun 04, 2022 07:29
[2022-06-04] MEDS: ALLOPURINOL 300 MG (ZYLOPRIM) TAB PO SCH (08:13)
[2022-06-04] MEDS: dilTIAZem120 MG (CARDIZEM CD) CAP PO SCH (08:13)
[2022-06-04] MEDS: PANTOPRAZOLE 20 MG TABLET (PROTONIX) PO SCH (08:13)
[2022-06-04] MEDS: AtorvaSTATin TABLET 10 MG TABLET PO SCH (08:13)
--- NOTE | 2022-06-04 08:29 | Diagnostic Imaging Report ---
INDICATION: Respiratory failure, pleural effusion. Frontal chest obtained at 0311 a.m. and compared with 06/02/2022. There is poststernotomy change with borderline heart size and unchanged pacemaker device. Opacity over the right chest is noted which may represent posterior layering pleural fluid, this appears to be mildly decreased compared to the prior study. The left lung is clear. There is no pneumothorax. IMPRESSION: Probable posterior layering right pleural fluid with mild decrease compared to the prior study. No pneumothorax. No left-sided pleural fluid. Postoperative findings as above. Dictated by: Dictated on workstation # [id number]
--- NOTE | 2022-06-04 08:54 | Cardiology Progress Note ---
Subjective Date Seen by Provider: Jun 04, 2022 Time Seen by Provider: 08:52 Subjective/Events-last exam Patient was seen at bedside, laying down comfortably, feeling well. Review of Systems General: No Chills, No Night Sweats, No Fatigue, No Malaise, No Appetite, No Other HEENT: No Head Aches, No Visual Changes, No Eye Pain, No Ear Pain, No Dysphasia, No Sinus Congestion, No Post Nasal Drip, No Sore Throat, No Other Pulmonary: No Dyspnea, No Cough, No Pleuritic Chest Pain, No Other Cardiovascular: No: Chest Pain, Palpitations, Orthopnea, Paroxysmal Noc. Dyspnea, Edema, Lt Headedness, Other Objective-Cardiology Exam Last Set of Vital Signs Vital Signs 06/03/22 06/04/22 06/04/22 20:00 06:00 08:00 Temp 36.2 Pulse 47 Resp 14 B/P (MAP) 111/84 (93) Pulse Ox 98 O2 Delivery NIV CPAP O2 Flow Rate 3.00 I&O Intake and Output 06/04/22 00:00 Intake Total 1075 ml Output Total 1750 ml Balance -675 ml Intake Oral 1075 ml Output Urine Total 1750 ml # Bowel Movements 1 General: Alert, Oriented X3, Cooperative, No Acute Distress HEENT: PERRLA, EOMI, Mucous Memb Moist/[place] Neck: Supple, No JVD, No Thyromegaly Lungs: Other (rales at left base, essentially absent air movement right lung field lower 2/3) Heart: Normal S1, Normal S2, Other (Regularly irregular rhythm, systolic murmur) Abdomen: Normal Bowel Sounds, Soft, No Tenderness Extremities: No Edema, Normal Pulses, No Tenderness/Swelling Skin: No Rashes, No Breakdown, No Significant Lesion Neuro: Normal Speech Psych/Mental Status: Mental Status NL, Mood NL Results Lab Laboratory Tests 06/04/22 04:45 A/P-Cardiology Admission Diagnosis Dyspnea Pleural effusion Congestive heart failure, acute on chronic left ventricular systolic dysfunction Sustained ventricular tachycardia Assessment/Plan Dyspnea, pleural effusion Feeling better, responded well to diuretics and thoracentesis. Continue to monitor Multiple episodes of wide-complex tachycardia, could be secondary to sustained ventricular tachycardia vs atrial fibrillation with rapid ventricular response. Responded well to amiodarone. Unable to tolerate amiodarone due to elevated liver enzymes It was discontinued and we started him on sotalol 80 mg twice daily, and plan to increase to 120 mg twice daily but hesitant to do it at this time due to borderline QTC and to the fact that he received amiodarone bolus last week Congestive heart failure, acute on chronic left ventricular systolic dysfunction, ischemic cardiomyopathy. Ejection fraction 30%. NYHA class II-III Continue with diuresis and monitor tolerance and response Permanent atrial fibrillation with rate control. Was in the hospital with syncope and bradycardia. Diltiazem and Digoxin discontinued. Currently on Toprol XL 100mg daily. Diltiazem restarted, continue to monitor. History of elevated liver enzymes, improved after stopping Lipitor and am iodarone. Amiodarone again discontinued on this hospitalization d/t elevated LFTs [id number] score of 6, yearly risk of stroke without oral anticoagulation is 9.8 percent. Maintained on Xarelto, continue to monitor Coronary artery disease, history of 2 heart attacks in the past, had angioplasty in 1989, CABG 4 in 1997, stent in 2004 after a heart attack, had sudden during the procedure. Most recent cardiac catheterization done in June 05, 2015 revealed 3 patent bypass grafts. Vein graft to the right coronary artery, vein graft to the james gonal artery, and CHRISTINA to LAD with excellent flow in the system. Totally occluded circumflex artery with no bypass to the obtuse marginal system. Receiving collaterals from the right coronary system EF 30 percent. Stress test done in November 2020 showing fixed defect involving the inferior wall and inferoapex and true apex, no change compared to the previous stress test, ejection fraction 27%. Patient is asymptomatic. Cardiac catheterization was carried out on June 03, 2022 showing total occlusion of the right coronary artery and the vein graft to the right coronary artery, total occlusion of the circumflex artery, severe stenosis in the LAD with occlusion distally, patent vein graft to the diagonal/LAD and patent CHRISTINA to LAD Peripheral edema, chronic, Responding well to diuretics Status post single-chamber ICD implantation, using Medtronic device Evera XT, last pacemaker interrogation was done March 2022 showing good sensing and capture activity. Will interrogate ICD during this admission Hypertension, had episode of hypotension this morning. I will change Toprol XL to be given in the evening, decrease Lasix to daily and continue to monitor. Hyperlipidemia, intolerant to Liptior d/t elevated LFTs Mild bilateral nonobstructive carotid artery stenosis per carotid duplex done in March 2021 Diabetes mellitus, followed and managed by Dr. Zheng Arthritis, maintained on allopurinol. History of sleep apnea on CPAP JONO WASHINGTON MD Jun 04, 2022 08:54
[2022-06-04] MEDS: SOTALOL 80 MG (BETAPACE) TAB PO SCH ×2 (09:00→20:44)
[2022-06-04] MEDS: MAGIC MOUTHWASH (ADULT) PO SCH ×16 (09:07→21:00)
--- NOTE | 2022-06-04 09:45 | Tele-ICU Progress Note ---
Subjective Date Seen by a Provider: Jun 04, 2022 Time Seen by a Provider: 09:44 Subjective/Events-last exam ` (Tele-ICU Physician , Progress Note ) Available chart/ vitals / labs / Images reviewed Video assessment done using teleICU camera, rest of exam as per RN Discussed with RN Events overnight : Afebrile hemodynamically stable Respiratory - 3l I/O = even Drips: Pressors- no Hospital course: (05/26) 86M Admitted for right pleural effusion and oral thrush--plan thoracentesis (05/27) TX to ICU for possible run Vtach while on commode. Asymptomatic. Electrolytes covered. (05/30 stable small right apical pneumothorax after 2600 thora (06/01) readmit for VT cardioverted on floor -: s/p Cath = Occluded RCA & SVG to RCA, Occluded circumflex = Conservative Management. A/P (06/01) readmit for VT cardioverted on floor Sustained ventricular tachycardia 05/27 versus atrial fibrillation with rapid ventricular response. -- single-chamber ICD in place - review/w/up amd plans as per cardiology - ( reprogrammed to 130 now ) Acute new resp distress - follow closely , onASV ( home equipment ) while sleeps Bilateral plural effusions by CT R>>L - thoracentes on right 05/28 ( with holding AC) -2600 ml - xrelto resumed - SLOWLY INCREASING EFFUSION AND ATELECTASIS ON RIGHT - follow on diuretics PTX, post thora , small right apical 05/28 - resolved CAD - complex history ( cabg/ stenting ) , as per cards -: s/p Cath = Occluded RCA & SVG to RCA, Occluded circumflex = Conservative Management. ICM -Status post single-chamber ICD -ECHO 05/27/22 - EF 25 % RVSP 60 mmHg ( previous LVEF 40-45% ,mild MR, mild AR, PA 30-35 mmHg) AFIB , permanent - AC xarelto - as per cards History of elevated liver enzymes Elevated liver enzymes of undetermined etiology - ? amio related Pulm HTN ECHO 05/27/22 - RVSP 60 mmHg - diuresis DM - ISS ADELE /CSA- COMPLIANT AT HOME ( AHI 59, with AutoPAP AHI 34) ) - s/p titration PSG 01/2022 - CSA AI 38 on bipap 07/23 --> ASV titrated ( final ASV titration: EPAP min 4cm -EPAP max 15cm PS 0-20cm rate auto , max pressure 25 Lines : periph , (Central Line Necessity Reviewed) Dunbar: void OG: Nutrition: po Analgesia: Anxiety/ delirium VTE Prophylaxis: xarelto Stress Ulcer Prophylaxis: Plans in collaboration with bedside consultants and IM MDs. Discussed with RN to reach out if any questions or concerns A total of 10 minutes of critical care time was devoted to this patient today, required to treat and/or prevent further deterioration of critical care condition ( as above ) . Sepsis Event Evaluation Height, Weight, BMI Height: 5'9.00" Weight: 211lbs. 0.0oz. [id number]; 27.42 BMI Method:Stated Exam Exam Patient acknowledged, consented, and participated in this virtual visit which was conducted using real time audio/video Vital Signs Date Time Temp Pulse Resp B/P (MAP) Pulse Ox O2 Delivery O2 Flow Rate FiO2 06/04/22 09:26 94 Room Air 0.00 06/04/22 09:00 48 06/04/22 08:00 36.2 06/04/22 08:00 47 06/04/22 06:00 47 111/84 (93) 98 NIV CPAP 3.00 06/04/22 05:00 46 129/88 (102) 98 NIV CPAP 3.00 06/04/22 04:15 36.2 06/04/22 04:00 97 NIV CPAP 3.00 06/04/22 04:00 48 131/66 (87) 100 NIV CPAP 3.00 06/04/22 03:00 45 135/67 (89) 95 NIV CPAP 3.00 06/04/22 02:00 53 129/61 (83) 95 NIV CPAP 3.00 06/04/22 01:00 46 06/04/22 01:00 47 138/63 (88) 98 NIV CPAP 3.00 06/04/22 00:06 36.2 06/04/22 00:00 46 96/74 (81) 98 NIV CPAP 3.00 06/04/22 00:00 97 NIV CPAP 3.00 06/03/22 23:00 48 122/65 (84) 97 NIV CPAP 3.00 06/03/22 22:56 46 06/03/22 22:00 47 114/65 (81) 97 NIV CPAP 3.00 06/03/22 21:00 54 117/68 (84) 97 NIV CPAP 3.00 06/03/22 20:58 36.2 06/03/22 20:56 49 06/03/22 20:00 97 NIV CPAP 3.00 06/03/22 20:00 52 14 104/77 (86) 95 NIV CPAP 3.00 06/03/22 19:57 36.2 06/03/22 19:00 49 06/03/22 19:00 53 17 112/80 (91) 93 NIV CPAP 3.00 06/03/22 18:00 52 16 135/81 (99) 98 NIV CPAP 3.00 06/03/22 17:10 97 NIV CPAP 3.00 06/03/22 17:00 47 17 125/62 (83) 98 NIV CPAP 3.00 06/03/22 16:00 45 24 118/68 (85) 97 NIV CPAP 3.00 06/03/22 16:00 97 NIV CPAP 3.00 06/03/22 15:00 45 20 118/60 (86) 95 NIV CPAP 3.00 06/03/22 14:45 48 14 117/63 (84) 100 NIV CPAP 3.00 06/03/22 14:42 49 22 118/57 (88) 87 NIV CPAP 3.00 06/03/22 13:15 47 16 115/75 (93) 98 NIV CPAP 3.00 06/03/22 13:00 47 15 107/66 (88) 97 NIV CPAP 3.00 06/03/22 12:45 49 13 114/88 (94) 100 NIV CPAP 3.00 06/03/22 12:30 46 20 128/68 (98) 100 NIV CPAP 3.00 06/03/22 12:30 46 06/03/22 12:28 49 06/03/22 12:15 36.6 45 19 116/58 (92) 98 NIV CPAP 3.00 06/03/22 12:00 99 NIV CPAP 3.00 06/03/22 12:00 50 16 116/95 (102) 97 NIV CPAP 3.00 06/03/22 11:00 48 15 116/71 (86) 100 NIV CPAP 3.00 06/03/22 10:00 49 30 129/68 (88) 99 NIV CPAP 3.00 I & O 06/04/22 07:00 Intake Total 1175 ml Output Total 1825 ml Balance -650 ml Height & Weight Height: 5'9.00" Weight: 211lbs. 0.0oz. 95.444784rj; 27.42 BMI Method:Stated General Appearance: No Apparent Distress, WD/WN HEENT: PERRL/EOMI, Normal ENT Inspection Neck: Normal Inspection, Non Tender Respiratory: Chest Non Tender, No Accessory Muscle Use, No Respiratory Distress Cardiovascular: No JVD, Irregularly Irregular Capillary Refill: Less Than 3 Seconds Peripheral Pulses: 2+ Dorsalis Pedis (R), 2+ Left Dors-Pedis (L), 2+ Radial Pulses (R), 2+ Radial Pulses (L) Gastrointestinal: non tender, soft Extremity: Non Tender, No Calf Tenderness Neurologic/Psychiatric: Alert, Oriented x3 Skin: Normal Color, Warm/Dry Lymphatic: No Adenopathy Results Lab Laboratory Tests 06/03/22 05:00 06/04/22 04:45 Assessment/Plan Assessment/Plan 1 VALERIO MANLEY MD Jun 04, 2022 09:45
--- NOTE | 2022-06-04 11:59 | Progress Note - Hospitalist ---
BALDEMAR JONES 06/04/22 1159: Subjective HPI/CC On Admission Date Seen by Provider: Jun 04, 2022 Time Seen by Provider: 10:45 Subjective/Events-last exam Pt doing well this morning with no complaints. Heart Cath yesterday (06/03) showed total occlusion of RCA and vein graft to RCA which is new from previous cath in 2016. Occluded circumflex a that is not bypassed. Severe stenosis in the LAD with occlusion distally, patent vein graft to the diagonal/LAD. No interventions at this time. He will be moved to the floor today. 1459: Shortly after pt was moved to the floor, he became unresponsive and went back into V-tach with HR 170. His ICD defibrillated him back to 70s. He is currently stable with BP 169/88 and 94% on RA. He is awake, alert and oriented x 3 stating "I'm fine." The only complaint he has currently is mouth pain due to oral thrush. Return to ICU. Review of Systems General: No Chills, No Night Sweats, No Fatigue HEENT: No Head Aches, No Visual Changes Pulmonary: No Dyspnea, No Cough Cardiovascular: No: Chest Pain, Palpitations Gastrointestinal: No: Nausea, Vomiting, Abdominal Pain, Diarrhea Genitourinary: No Dysuria, No Retention Musculoskeletal: No: neck pain Neurological: No: Weakness, Numbness Objective Exam Vital Signs Vital Signs Date Time Temp Pulse Resp B/P (MAP) Pulse Ox O2 Delivery O2 Flow Rate FiO2 06/04/22 15:00 36.2 53 18 139/63 (88) 96 Room Air 06/04/22 09:26 0.00 Capillary Refill : Less Than 3 Seconds General Appearance: No Apparent Distress, WD/WN HEENT: PERRL/EOMI, Moist Mucous Membranes Neck: Non Tender, Supple Respiratory: Chest Non Tender, Lungs Clear, No Accessory Muscle Use, No Respiratory Distress, Decreased Breath Sounds (on right. Good air movement on left side) Cardiovascular: Regular Rate, Rhythm, No Edema, No Gallop, No JVD, Normal Peripheral Pulses Gastrointestinal: Normal Bowel Sounds, Non Tender, Soft Extremity: Normal Capillary Refill, Non Tender, No Calf Tenderness, No Pedal Edema Neurologic/Psychiatric: Alert, Oriented x3, Normal Mood/Affect Skin: Normal Color, Warm/Dry Lymphatic: No Adenopathy Results/Procedures Lab Laboratory Tests 06/04/22 04:45 Patient resulted labs reviewed. Radiology NAME: [facility] REC#: [id number] PT STATUS: ADM IN : 1935 PHYSICIAN: SONAM WHARTON DO ADMIT DATE: 05/27/22/ICU Signed Date of Exam:06/04/22 CHEST 1 VIEW, AP/PA ONLY INDICATION: Respiratory failure, pleural effusion. Frontal chest obtained at 0311 a.m. and compared with 06/02/2022. There is poststernotomy change with borderline heart size and unchanged pacemaker device. Opacity over the right chest is noted which may represent posterior layering pleural fluid, this appears to be mildly decreased compared to the prior study. The left lung is clear. There is no pneumothorax. IMPRESSION: Probable posterior layering right pleural fluid with mild decrease compared to the prior study. No pneumothorax. No left-sided pleural fluid. Postoperative findings as above. Dictated by: Dictated on workstation # [id number] Dict: 06/04/22 0821 Trans: 06/04/22 1025 [facility] [id number] Interpreted by: HANY BLACKBURN MD Electronically signed by: HANY BLACKBURN MD 06/04/22 1025 Assessment/Plan Assessment and Plan Assess & Plan/Chief Complaint Assessment: Ventricular tachycardia - had another episode of V-Tach on 06/01/22. Dr. Dominguez ordered EKG and versed. He subsequently cardioverted back to sinus rhythm. - 06/02/22 - remains in sinus rhythm - 06/03/22 - in sinus rhythm. Dr. Dominguez is taking to lab tester today - Cardiac catheterization showed total occlusion of the right coronary artery and the vein graft to the right coronary artery, total occlusion of the circumflex artery, severe stenosis in the LAD with occlusion distally, patent vein graft to the diagonal/LAD and patent CHRISTINA to LAD - 06/04/22 at 1457 pt went back into V-tach with pulse of 170. His ICD defibrillated him back to 70s. He is currently stable with BP 169/88 and 94% on RA. He has been moved back to the ICU. Bilateral pleural effusions - thoracentesis on 05/29. Serial chest xrays for monitoring - CXR 06/01 shows unchanged right apical PTX but progressive R basilar consolidation and pleural fluid - CXR 06/02 shows Unchanged moderate right pleural effusion with right basil ar opacities. - CXR 06/03 shows right pleural fluid with mild decrease compared to the prior study. No pneumothorax. No left-sided pleural fluid. Right apical Pneumothorax - unchanged from 05/31 - goal to maintain O2 above 93% - CXR 06/02 indicates no PTX - CXR 06/04 shows no PTX Afib with RVR Diabetes - Type 2 Oral Thrush - nystatin and magic mouth wash Anticoagulation - xarelto HTN HLD Plan: ICU CPAP while sleeping PT/OT Supportive care Cardiology appreciated for cardiac drugs SONAM WHARTON DO 06/05/22 0522: Subjective Subjective/Events-last exam Patient doing really well he reports It appears he is very close to baseline Supervisory-Addendum Brief Verification & Attestation Participated in pt care: history, MDM, physical Personally performed: exam, history, MDM, supervision of care Care discussed with: Medical Student Procedures: n/a Results interpretation: Verified all documentation Verification and Attestation of Medical Student E/M Service A medical student performed and documented this service in my presence. I reviewed and verified all information documented by the medical student and made modifications to such information, when appropriate. I personally performed the physical exam and medical decision making. Sonam Wharton, Jun 05, 2022,05:21 BALDEMAR JONES Jun 04, 2022 11:59 SONAM WHARTON DO Jun 05, 2022 05:22
[2022-06-04 14:57] VITALS: BP 169/88
[2022-06-04] MEDS: TAMSULOSIN 0.4 MG (FLOMAX) CAP PO SCH (17:29)
[2022-06-04] MEDS: RIVAROXABAN 20 MG TABLET (XARELTO) PO SCH (17:29)
[2022-06-04] MEDS: SPIRONOLACTONE 25 MG (ALDACTONE) TAB PO SCH (17:29)
[2022-06-05] MEDS: NYSTATIN ORAL SUSP 5 ML UDC PO SCH ×3 (00:42→13:05)
[2022-06-05 04:31] LABS: BASOPHILS % (AUTO) 0 % (0-10); EOSINOPHILS # (AUTO) 0.2 10^3/uL (0.0-0.3); EOSINOPHILS % (AUTO) 2 % (0-10); HEMATOCRIT 37 % (40-54); HEMOGLOBIN 13.1 g/dL (13.3-17.7); LYMPHOCYTES # (AUTO) 0.7 10^3/uL (1.0-4.0); LYMPHOCYTES % (AUTO) 7 % (12-44); MEAN CORPUSCULAR HEMOGLOBIN 32 pg (25-34); MEAN CORPUSCULAR HGB CONC 35 g/dL (32-36); MEAN CORPUSCULAR VOLUME 91 fL (80-99); MEAN PLATELET VOLUME 10.9 fL (9.0-12.2); MONOCYTES # (AUTO) 0.7 10^3/uL (0.0-1.0); MONOCYTES % (AUTO) 8 % (0-12); NEUTROPHILS # (AUTO) 7.4 10^3/uL (1.8-7.8); NEUTROPHILS % (AUTO) 82 % (42-75); PLATELET COUNT 408 10^3/uL (130-400)
[2022-06-05 04:51] LABS: ALBUMIN 2.9 GM/DL (3.2-4.5)
[2022-06-05 04:52] LABS: POTASSIUM 3.6 MMOL/L (3.6-5.0)
[2022-06-05 04:53] LABS: CALCIUM 8.8 MG/DL (8.5-10.1)
[2022-06-05 04:54] LABS: TOTAL PROTEIN 6.8 GM/DL (6.4-8.2)
[2022-06-05 04:56] LABS: BILIRUBIN,TOTAL 1.6 MG/DL (0.1-1.0)
[2022-06-05 04:58] LABS: CREATININE SERUM 0.85 MG/DL (0.60-1.30)
[2022-06-05 05:00] LABS: MAGNESIUM 1.9 MG/DL (1.6-2.4)
[2022-06-05] MEDS: inSUlin ASPART (NovoLOG) 1 UNIT/0.01 ML (CHARGE PER UNIT) SC SCH ×2 (05:14→11:15)
[2022-06-05] MEDS: NS IV 1000 ML 1,000 ML IV SCH ×2 (05:15→09:48)
[2022-06-05] MEDS: FUROSEMIDE 40 MG/4 ML INJ (LASIX) IVP SCH (06:13)
[2022-06-05] MEDS: SOTALOL 80 MG (BETAPACE) TAB PO SCH (07:51)
[2022-06-05] MEDS: dilTIAZem120 MG (CARDIZEM CD) CAP PO SCH (07:52)
[2022-06-05] MEDS: PANTOPRAZOLE 20 MG TABLET (PROTONIX) PO SCH (07:52)
[2022-06-05] MEDS: AtorvaSTATin TABLET 10 MG TABLET PO SCH (07:52)
[2022-06-05] MEDS: ALLOPURINOL 300 MG (ZYLOPRIM) TAB PO SCH (07:52)
[2022-06-05] MEDS: MAGIC MOUTHWASH (ADULT) PO SCH ×8 (07:59→13:06)
--- NOTE | 2022-06-05 08:22 | Diagnostic Imaging Report ---
INDICATION: Pleural fluid. COMPARISON: 06/04/2022. FINDINGS: Right pleural effusion has increased now tracking interfissural. Left lung and left pleural space negative. Some increased passive atelectatic changes in the right mid to lower lung. IMPRESSION: Increased right pleural fluid. No pneumothorax. Left chest negative. Dictated by: Dictated on workstation # [id number]
--- NOTE | 2022-06-05 10:17 | Cardiology Progress Note ---
Subjective Date Seen by Provider: Jun 05, 2022 Time Seen by Provider: 10:11 Subjective/Events-last exam Patient was seen at bedside, laying down comfortably, had sustained ventricular tachycardia required 2 shocks yesterday Review of Systems General: No Chills, No Night Sweats, No Fatigue; Malaise; No Appetite, No Other HEENT: No Head Aches, No Visual Changes, No Eye Pain, No Ear Pain, No Dysphasia, No Sinus Congestion, No Post Nasal Drip, No Sore Throat, No Other Pulmonary: No Dyspnea, No Cough, No Pleuritic Chest Pain, No Other Cardiovascular: No: Chest Pain, Palpitations, Orthopnea, Paroxysmal Noc. Dyspnea, Edema, Lt Headedness, Other Objective-Cardiology Exam Last Set of Vital Signs Vital Signs 06/05/22 06/05/22 06/05/22 04:00 06:00 08:01 Temp 36.8 Pulse 47 Resp 16 B/P (MAP) 122/60 (80) Pulse Ox 99 O2 Delivery NIV CPAP O2 Flow Rate 3.00 I&O Intake and Output 06/05/22 00:00 Intake Total 1110 ml Output Total 1550 ml Balance -440 ml Intake Oral 1110 ml Output Urine Total 1550 ml # Bowel Movements 1 General: Alert, Oriented X3, Cooperative, No Acute Distress HEENT: PERRLA, EOMI, Mucous Memb Moist/[place] Neck: Supple, No JVD, No Thyromegaly Lungs: Other (rales at left base, essentially absent air movement right lung field lower 2/3) Heart: Normal S1, Normal S2, Other (Regularly irregular rhythm, systolic murmur) Abdomen: Normal Bowel Sounds, Soft, No Tenderness Extremities: No Edema, Normal Pulses, No Tenderness/Swelling Skin: No Rashes, No Breakdown, No Significant Lesion Neuro: Normal Speech Psych/Mental Status: Mental Status NL, Mood NL Results Lab Laboratory Tests 06/05/22 03:53 A/P-Cardiology Admission Diagnosis Dyspnea Pleural effusion Congestive heart failure, acute on chronic left ventricular systolic dysfunction Sustained ventricular tachycardia Assessment/Plan Dyspnea, pleural effusion Feeling better, responded well to diuretics and thoracentesis. Continue to monitor Multiple episodes of wide-complex tachycardia, Sustained ventricular tachycardia vs atrial fibrillation with rapid ventricular response. Initially responded to amiodarone and then he had sustained ventricular tachycardia required external cardioversion I reprogrammed his ICD. It appears that he continue to have recurrent vent ricular tachycardia Amiodarone was discontinued and he was started on sotalol 80 mg twice daily, richard erating the loading dose then he had another 2 episode of ventricular tachycardia last night I increase the amiodarone to 120 mg daily, his baseline sinus rhythm is around 40. I decided to increase his underlying pacing to 60, Patient appears to have another multiple episodes of ventricular tachycardia requiring shocks. Patient will need to be transfered to a tertiary care center Congestive heart failure, acute on chronic left ventricular systolic dysfunction, ischemic cardiomyopathy. Ejection fraction 30%. NYHA class II-III Continue with diuresis and monitor tolerance and response Paroxysmal atrial fibrillation with rate control. Was in the hospital with syncope and bradycardia. Diltiazem and Digoxin discontinued. Currently on Toprol XL 100mg daily. Diltiazem restarted, continue to monitor. History of elevated liver enzymes, improved after stopping Lipitor and amiodarone. Amiodarone again discontinued on this hospitalization d/t elevated LFTs [id number] score of 6, yearly risk of stroke without oral anticoagulation is 9.8 percent. Maintained on Xarelto, continue to monitor Coronary artery disease, history of 2 heart attacks in the past, had angioplasty in 1989, CABG 4 in 1997, stent in 2004 after a heart attack, had sudden during the procedure. Most recent cardiac catheterization done in June 05, 2015 revealed 3 patent bypass grafts. Vein graft to the right coronary artery, vein graft to the diagonal artery, and CHRISTINA to LAD with excellent flow in the system. Totally occluded circumflex artery with no bypass to the obtuse marginal system. Receiving collaterals from the right coronary system EF 30 percent. Stress test done in November 2020 showing fixed defect involving the inferior wall and inferoapex and true apex, no change compared to the previous stress test, ejection fraction 27%. Patient is asymptomatic. Cardiac catheterization was carried out on June 03, 2022 showing total occlusion of the right coronary artery and the vein graft to the right coronary artery, total occlusion of the circumflex artery, severe stenosis in the LAD with occlusion distally, patent vein graft to the diagonal/LAD and patent CHRISTINA to LAD Peripheral edema, chronic, Responding well to diuretics Status post single-chamber ICD implantation, using Medtronic device Evera XT, l ast pacemaker interrogation was done March 2022 showing good sensing and capture activity. ICD was interrogated and appeared to have multiple episodes of sustained ventricular tachycardia, I tried to increase his baseline pacing rate to 60 due to his bradycardia, after changing his baseline rate patient started to have multiple episodes of sustained ventricular tachycardia required multiple treat ment. I will try to change him back to pacing at 40. Hypertension, blood pressure is better, continue to monitor Hyperlipidemia, intolerant to Liptior d/t elevated LFTs Mild bilateral nonobstructive carotid artery stenosis per carotid duplex done in March 2021 Diabetes mellitus, followed and managed by Dr. Zheng Arthritis, maintained on allopurinol. History of sleep apnea on CPAP JONO WASHINGTON MD Jun 05, 2022 10:17
[2022-06-05] MEDS ORDERED: MIDAZOLAM 2 MG/2 ML (VERSED) VIAL ONE ×2 (10:47→11:01)
[2022-06-05] MEDS ORDERED: morphine INJ 4 MG/ML 1 ML (VIAL/SYRINGE) ONE (10:54)
--- NOTE | 2022-06-05 10:56 | Occ Therapy Progress Note ---
Therapy Progress Note OT orders received and chart reviewed. At OT arrival, multiple nurses and physician in room. Per tech, pt is remaining in V-tach and will possibly be transferred to . OT to hold this date as pt is not appropriate to participate at this time. OT will attempt again Friday 06/08 if medically appropriate. Linda Farfan OT Jun 05, 2022 10:56
[2022-06-05] MEDS ORDERED: morphine INJ 10 MG/ML 1ML (SYR OR VIAL) IVP ONE (11:00)
--- NOTE | 2022-06-05 11:23 | Physical Therapy Evaluation ---
PT Evaluation-General Medical Diagnosis Admission Date May 27, 2022 at 09:16 Medical Diagnosis: V-tach/pleural effusion Onset Date: May 27, 2022 Therapy Diagnosis Therapy Diagnosis: impaired mobility/weakness Height/Weight Height (Feet): 5 Height (Inches): 9.00 Weight (Pounds): 211 Weight (Ounces): 0.0 Precautions Precautions/Isolations: Fall Prevention, Standard Precautions Weight Bear Status Right Lower Extremity: Right Weight Bearing/Tolerated Left Lower Extremity: Left Weight Bearing/Tolerated Referral Physician: Compa Reason for Referral: Evaluation/Treatment Medical History Pertinent Medical History: Atrial Fib, CABG, CAD, DM, HTN, [place] Current History multiple episodes of V-tach with ICU to med floor transfers. Per Dr. Dominguez, patient's pacemaker with be adjusted on this date. Reviewed History: Yes Social History Home: Single Level Current Living Status: Children Entry Into Home: Level Entry Prior Prior Level of Function SCALE: Activities may be completed with or without assistive devices. 3-Bitmhaajwm-ebmbkqo completes the activity by him/herself with no assistance from a helper. 5-Set-up or Clean-up Assistance-helper sets up or cleans up; patient completes activity. [place] assists only prior to or following the activity. 4-Supervision or Touching Assistance-helper provides verbal cues and/or touching/steadying and/or contact guard assistance as patient completes activity. Assistance may be provided throughout the activity or intermittently. 3-Partial/Moderate Assistance-helper does LESS THAN HALF the effort. [place] lifts, holds or supports trunk or limbs, but provides less than half the effort. 2-Substantial/Maximal Assistance-helper does MORE THAN HALF the effort. [place] lifts or holds trunk or limbs and provides more than half the effort. 9-Zsxyuvkbq-twfqxl does ALL the effort. Patient does none of the effort to complete the activity. Or, the assistance of 2 or more helpers is required for the patient to complete the activity. If activity was not attempted, code reason: 7-Patient Refused. 9-Not Applicable-not attempted and the patient did not perform the activity before the current illness, exacerbation or injury. 10-Not Attempted due to Environmental Limitations-(lack of equipment, weather restraints, etc.). 88-Not Attempted due to Medical Conditions or Safety Concerns. Bed Mobility: 6 Transfers (B,C,W/C): 6 Gait: 6 Indoor Mobility (Ambulation): Independent Prior Devices Use: Other-see list below Prior Device Use: cane PT Evaluation-Current Subjective Patient agrees to PT. Dr. Dominguez present and states it is safe for patient to work with PT. Daughter present. Objective Patient Orientation: Normal For Age Attachments: Oxygen ROM/Strength ROM Lower Extremities fused right knee/left LE WFL Strength Lower Extremities bilateral LE 3+/5 grossly Integumentary/Posture Bladder Incontinence: Dunbar Cath Sensory Vision: Functional Hearing: Functional Hand Dominance: Right Transfers Lying to Sitting/Side of Bed(Q: 4 Sit to Stand (QC): 4 Chair/Aus-av-Gcrac Xfer(QC): 4 Gait Mode of Locomotion: Walk Anticipated Mode of Locomotion: Walk Balance Sitting Static: Normal Sitting Dynamic: Normal Standing Static: Normal Standing Dynamic: Normal Assessment/Needs Due to patient's cardiac status, PT and patient/family agree to up to recliner only. Patient is SBA with all functional mobility. PT to increase activity as patient's medical status improves. Rehab Potential: Guarded PT Infertility Nurse Goals Infertility Nurse Goals PT Long-Term Goals Time Frame: Jun 13, 2022 Roll Left & Right (QC): 6 Sit to Lying (QC): 6 Lying-Sitting on Side/Bed(QC): 6 Sit to Stand (QC): 6 Chair/Pqm-yn-Xtphf Xfer(QC): 6 Toilet Transfer (QC): 6 Walk 10 feet (QC): 6 Walk 50ft with 2 Turns (QC): 6 Walk 150 ft (QC): 6 PT Plan Problem List Problem List: Activity Tolerance Treatment/Plan Treatment Plan: Continue Plan of Care Treatment Plan: Bed Mobility, Education, Functional Activity Ashwini, Functional Strength, Gait, Safety, Therapeutic Exercise, Transfers Treatment Duration: Jun 13, 2022 Frequency: 6 times per week Estimated Hrs Per Day: .25 hour per day Patient and/or Family Agrees t: Yes Time/GCodes Time In: 801 Time Out: 814 Total Billed Treatment Time: 13 Total Billed Treatment 1 visit EVModC 14 min HUGO DONIS PT Jun 05, 2022 11:23
[2022-06-05] MEDS ORDERED: NS IV 500 ML 500 ML IV PRN (12:15)
[2022-06-05] MEDS ORDERED: MAGNESIUM 1 GM/D5W 100 ML IVPB IV SCH (12:15)
[2022-06-05] MEDS ORDERED: KCL 20 MEQ TAB (K-DUR) PO SCH (13:00)
--- NOTE | 2022-06-05 13:25 | Progress Note - Hospitalist ---
BALDEMAR JONES 06/05/22 1325: Subjective HPI/CC On Admission Date Seen by Provider: Jun 05, 2022 Time Seen by Provider: 09:30 Subjective/Events-last exam 929: Pt feeling well with no CP, SOB or N/V. Slept with CPAP, but was oxygenating at 97% on 4L. 1046: Pt had episode of sustained ventricular tachycardia and ICD shocked x 2. Afterwards, he is some pain but talking with non-rebreather mask in place, and BP of 118/62. Dr. Dominguez in room, recommended to set ICD at 40 and stop the sotolol. He plans to contact [facility] or other outside facility for transfer due to possible need of ablation, dual chamber pacemaker and electrophysiology consult. Hospital Course: Waleska Turpin, 86 yo M, with a past medical history of CAD, A. fib with RVR, CHF with EF 30%, ICD implant, HTN, [place], O2 dependence (3L at night), and DM II, admitted to after arrival to the ED on 05/27 with shortness of breath, productive cough, and lethargy. Chest x-ray and CT performed in ED indicated pleural effusion and patient was admitted med surg floor. He was also found to have oral thrush and was started on Nystatin and magic mouthwash. After admit, patient began having symptomatic ventricular tachycardia which warranted transfer to the ICU and amiodarone drip. On 05/29, he had a thoracentesis with subsequent right apical pneumothorax. He continues to have a right sided pleural effusion, however the PTX has completely resolved. On 06/01 he had another episode of V- tach with subsequent cardioversion. On 06/03 Dr. Dominguez performed a heart cath indicating total occlusion of the right coronary artery and the vein graft to the right coronary artery, total occlusion of the circumflex artery, severe stenosis in the LAD with occlusion distally, patent vein graft to the diagonal/LAD and patent CHRISTINA to LAD. He was started on sotolol (120mg) and resumed his normal cardiac medications including cardizem and amiodarone. On 06/04 he experienced an episode of V-tach with pulse of 170, ICD defibrillated him back to 70s. This morning he had an episode of sustained V-tach. ICD was reduced to pace him at 40 and sotolol was discontinued. He is now requesting to be a full code. Dr. Dominguez plans to transfer to higher level of care where electophysiology can help manage pt. Review of Systems General: No Chills, No Night Sweats HEENT: No Head Aches Pulmonary: No Dyspnea, No Cough Cardiovascular: No: Chest Pain, Edema Gastrointestinal: No: Nausea, Vomiting, Abdominal Pain, Diarrhea, Constipation Genitourinary: No Dysuria, No Retention Musculoskeletal: No: neck pain Neurological: No: Weakness, Numbness Objective Exam Vital Signs Vital Signs Date Time Temp Pulse Resp B/P (MAP) Pulse Ox O2 Delivery O2 Flow Rate FiO2 06/05/22 12:00 45 20 93/61 (72) 95 OxyMask 15.00 06/05/22 08:01 36.8 Capillary Refill : Less Than 3 Seconds General Appearance: Chronically ill, Mild Distress HEENT: PERRL/EOMI, Moist Mucous Membranes Neck: Non Tender, Supple Respiratory: No Accessory Muscle Use, No Respiratory Distress, Decreased Breath Sounds (on the right upper and lower lobes); No Wheezing Cardiovascular: No Edema, No JVD, Normal Peripheral Pulses, Bradycardia Gastrointestinal: Normal Bowel Sounds, Non Tender, Soft Back: No CVA Tenderness Extremity: Non Tender, No Calf Tenderness, No Pedal Edema Neurologic/Psychiatric: Alert, Oriented x3, Normal Mood/Affect Skin: Normal Color, Warm/Dry Lymphatic: No Adenopathy Results/Procedures Lab Laboratory Tests 06/05/22 03:53 Patient resulted labs reviewed. [facility] [id number] PT STATUS: ADM IN : 1935 PHYSICIAN: SONAM WHARTON DO ADMIT DATE: 05/27/22/ICU Signed Date of Exam:06/05/22 CHEST 1 VIEW, AP/PA ONLY INDICATION: Pleural fluid. COMPARISON: 06/04/2022. FINDINGS: Right pleural effusion has increased now tracking interfissural. Left lung and left pleural space negative. Some increased passive atelectatic changes in the right mid to lower lung. IMPRESSION: Increased right pleural fluid. No pneumothorax. Left chest negative. Dictated by: Dictated on workstation # [id number] Dict: 06/05/2219 Trans: 06/05/22 1135 [id number] Interpreted by: SAÚL ROY Electronically signed by: SAÚL ROY 06/05/22 3873 Assessment/Plan Assessment and Plan Assess & Plan/Chief Complaint Assessment: Ventricular tachycardia - had another episode of V-Tach on 06/01/22. Dr. Dominguez ordered EKG and versed. He subsequently cardioverted back to sinus rhythm. - 06/02/22 - remains in sinus rhythm - 06/03/22 - in sinus rhythm. Dr. Dominguez is taking to [employer] [facility] [employer] today - Cardiac catheterization showed total occlusion of the right coronary artery and the vein graft to the right coronary artery, total occlusion of the circumfl ex artery, severe stenosis in the LAD with occlusion distally, patent vein graft to the diagonal/LAD and patent CHRISTINA to LAD - 06/04/22 at 1457 pt went back into V-tach with pulse of 170. His ICD defi brillated him back to 70s. He is currently stable with BP 169/88 and 94% on RA. He has been moved back to the ICU. - 06/05/22 pt had episode of sustained V-tach. ICD defbrillated him back to 60s. Dr. Dominguez is reducing ICD to 40 and stopped sotolol. He plans for likely transfer to higher level of care for EP consult. Bilateral pleural effusions - thoracentesis on 05/29. Serial chest xrays for monitoring - CXR 06/01 shows unchanged right apical PTX but progressive R basilar consolidation and pleural fluid - CXR 06/02 shows Unchanged moderate right pleural effusion with right basilar opacities. - CXR 06/03 shows right pleural fluid with mild decrease compared to the prior study. No pneumothorax. No left-sided pleural fluid. - CXR 06/04 shows increasing right pleural fluid. No PTX. Left lung normal. Right apical Pneumothorax - unchanged from 05/31 - goal to maintain O2 above 93% - CXR 06/02 indicates no PTX - CXR 06/04 shows no PTX Afib with RVR Diabetes - Type 2 Oral Thrush - nystatin and magic mouth wash Anticoagulation - xarelto HTN HLD Plan: ICU CPAP while sleeping PT/OT Supportive care Cardiology will likely transfer to higher level of care for possible ablation, dual chamber pacemaker and electrophysiology consult. SONAM WHARTON DO 06/06/22 0516: Supervisory-Addendum Brief Verification & Attestation Participated in pt care: history, MDM, physical Personally performed: exam, history, MDM, supervision of care Care discussed with: Medical Student Procedures: n/a Results interpretation: Verified all documentation Verification and Attestation of Medical Student E/M Service A medical student performed and documented this service in my presence. I reviewed and verified all information documented by the medical student and made modifications to such information, when appropriate. I personally performed the physical exam and medical decision making. Sonam Wharton, Jun 06, 2022,05:15 BALDEMAR JONES Jun 05, 2022 13:25 SONAM WHARTON DO Jun 06, 2022 05:16
[2022-06-05] MEDS ORDERED: AMIODARONE 150 MG/3 ML (CORDARONE) VIAL IV ONE (14:11)
--- NOTE | 2022-06-06 05:21 | Discharge Summary ---
Discharge Summary Hospital Course Was the Problem List Reviewed?: Yes Problems/Dx: (1) Ventricular tachycardia Status: Acute (2) Congestive heart failure Status: Chronic Qualifiers: Qualified Codes: I50.23 - Acute on chronic systolic (congestive) heart failure (3) Chronic atrial fibrillation Status: Chronic (4) Chronic anticoagulation Status: Chronic (5) Pleural effusion Status: Acute Hospital Course Date of Admission: May 27, 2022 at 09:16 Admission Diagnosis : Family Physician/Provider: Ren Watson MD Date of Discharge: 06/06/22 Discharge Diagnosis: [ ] Hospital Course: 929: Pt feeling well with no CP, SOB or N/V. Slept with CPAP, but was oxygenating at 97% on 4L. 1046: Pt had episode of sustained ventricular tachycardia and ICD shocked x 2. Afterwards, he is some pain but talking with non-rebreather mask in place, and BP of 118/62. Dr. Dominguez in room, recommended to set ICD at 40 and stop the sotolol. He plans to contact [facility] or other outside facility for transfer due to possible need of ablation, dual chamber pacemaker and electrophysiology consult. Hospital Course: Waleska Turpin, 86 yo M, with a past medical history of CAD, A. fib with RVR, CHF with EF 30%, ICD implant, HTN, [place], O2 dependence (3L at night), and DM II, admitted to after arrival to the ED on 05/27 with shortness of breath, productive cough, and lethargy. Chest x-ray and CT performed in ED indicated pleural effusion and patient was admitted med surg floor. He was also found to have oral thrush and was started on Nystatin and magic mouthwash. After admit, patient began having symptomatic ventricular tachycardia which warranted transfer to the ICU and amiodarone drip. On 05/29, he had a thoracentesis with subsequent right apical pneumothorax. He continues to have a right sided pleural effusion, however the PTX has completely resolved. On 06/01 he had another episode of V- tach with subsequent cardioversion. On 06/03 Dr. Dominguez performed a heart cath indicating total occlusion of the right coronary artery and the vein graft to the right coronary artery, total occlusion of the circumflex artery, severe stenosis in the LAD with occlusion distally, patent vein graft to the diagonal/LAD and patent CHRISTINA to LAD. He was started on sotolol (120mg) and resumed his normal cardiac medications including cardizem and amiodarone. On 06/04 he experienced an episode of V-tach with pulse of 170, ICD defibrillated him back to 70s. This morning he had an episode of sustained V-tach. ICD was reduced to pace him at 40 and sotolol was discontinued. He is now requesting to be a full code. Dr. Dominguez plans to transfer to higher level of care where electophysiology can help manage pt. Labs and Pending Lab Test: Laboratory Tests 06/05/22 09:48: Glucometer 164H 06/05/22 10:59: Glucometer 194H Microbiology 05/28/22 Gram Stain - Final, Complete 05/28/22 Body Fluid Culture - Final, Complete No growth 05/27/22 MRSA Screen - Final, Complete MRSA not isolated Home Meds Active Reported Bisacodyl 5 Mg Tablet.dr 5 Mg PO DAILY PRN Fish Oil 500 mg Softgel (Calera-3/Dha/Epa/Fish Oil) 60 Mg-90 Mg-500 Mg Capsule 2 Each PO BID Tylenol Arthritis (Acetaminophen) 650 Mg Tablet.er 650-1,300 Mg PO Q8H PRN Aspirin 81 Mg Tab.chew 81 Mg PO DAILY PRN Omeprazole 20 Mg Capsule.dr 20 Mg PO DAILY Metoprolol Succinate 100 Mg Tab.er.24h 100 Mg PO DAILY Xarelto (Rivaroxaban) 20 Mg Tablet 20 Mg PO 1800 Metformin HCl 500 Mg Tablet 500 Mg PO DAILY Flomax (Tamsulosin HCl) 0.4 Mg Cap 0.4 Mg PO 1800 Lovaza (Calera-3 Acid Ethyl Esters) 1 Gm Capsule 2 Gm PO BID TAKES 2 (1GM) CAPS Colace (Docusate Sodium) 100 Mg Capsule 100 Mg PO DAILY PRN Atorvastatin Calcium 10 Mg Tablet 10 Mg PO DAILY Spironolactone 25 Mg Tablet 25 Mg PO 1800 Ramipril 5 Mg Capsule 5 Mg PO 1800 Allopurinol 300 Mg Tablet 300 Mg PO DAILY Potassium Chloride 10 Meq Capsule.er 10 Meq PO DAILY Furosemide 20 Mg Tablet 20 Mg PO DAILY Escitalopram Oxalate 10 Mg Tablet 10 Mg PO DAILY Assessment/Pt Instructions Sent to Discharge Planning: <30 minutes discharge planning Discharge Physical Examination Vital Signs Vital Signs Date Time Temp Pulse Resp B/P (MAP) Pulse Ox O2 Delivery O2 Flow Rate FiO2 06/05/22 13:45 06/05/22 13:00 46 06/05/22 12:00 20 95 OxyMask 15.00 06/05/22 08:01 36.8 General Appearance: No Apparent Distress, WD/WN, Chronically ill Allergies: Coded Allergies: No Known Drug Allergies (Unverified , 03/08/20) Discharge Summary Date of Admission May 27, 2022 at 09:16 Date of Discharge Jun 05, 2022 at 13:50 Discharge Date: Jun 05, 2022 Discharge Diagnosis cath today Guarded prognosis BRIDGER WHARTON DO Jun 06, 2022 05:21
[2022-06-06] MEDS ORDERED: POTASSIUM CL 10MEQ/50ML IVPB 50 ML IV SCH (06:00)
[2022-06-06] MEDS ORDERED: KCL 20 MEQ TAB (K-DUR) PO SCH (06:00)
[2022-06-06] MEDS ORDERED: MAGNESIUM 1 GM/100 ML IVPB 100 ML IV SCH (06:00)
== END 2022-06-05 13:50 | disposition short-term general hospital (02) | DRG 286 ==
LOC: EDUNIT# 11:59 → ER 12:01 → 4TH 15:21 → ICU 05-27 05:15 → OBSVTOIN 05-27 09:16 → 4TH 05-31 12:12 → ICU 06-01 10:09 → 4TH 06-04 14:22 → ICU 06-04 15:05
PROVIDERS: ADMIT Family Medicine; ATTEND Internal Medicine
PROC: 0W993ZZ Drainage of Right Pleural Cavity, Percutaneous Approach (ICD-10-PCS; principal; 2022-05-28)
PROC: 5A2204Z Restoration of Cardiac Rhythm, Single (ICD-10-PCS; 2022-06-01)
PROC: B2111ZZ Fluoroscopy of Multiple Coronary Arteries using Low Osmolar Contrast (ICD-10-PCS; 2022-06-03)
PROC: B2131ZZ Fluoroscopy of Multiple Coronary Artery Bypass Grafts using Low Osmolar Contrast (ICD-10-PCS; 2022-06-03)
PROC: B2181ZZ Fluoroscopy of Left Internal Mammary Bypass Graft using Low Osmolar Contrast (ICD-10-PCS; 2022-06-03)
DX: I11.0 Hypertensive heart disease with heart failure (principal); I50.23 Acute on chronic systolic (congestive) heart failure; J96.21 Acute and chronic respiratory failure with hypoxia; J90 Pleural effusion, not elsewhere classified; J95.811 Postprocedural pneumothorax; I48.21 Permanent atrial fibrillation; I25.810 Atherosclerosis of coronary artery bypass graft(s) without angina pectoris; I47.20 Ventricular tachycardia, unspecified; B37.0 Candidal stomatitis; I25.5 Ischemic cardiomyopathy; Z79.01 Long term (current) use of anticoagulants; I25.10 Atherosclerotic heart disease of native coronary artery without angina pectoris; I95.1 Orthostatic hypotension; Z99.81 Dependence on supplemental oxygen; E11.9 Type 2 diabetes mellitus without complications; G47.33 Obstructive sleep apnea (adult) (pediatric); E78.5 Hyperlipidemia, unspecified; H91.90 Unspecified hearing loss, unspecified ear; H54.7 Unspecified visual loss; I65.23 Occlusion and stenosis of bilateral carotid arteries; I25.2 Old myocardial infarction; Z95.1 Presence of aortocoronary bypass graft; Z95.5 Presence of coronary angioplasty implant and graft; Z95.810 Presence of automatic (implantable) cardiac defibrillator; Z96.652 Presence of left artificial knee joint
CPT/HCPCS: 32555; 36415; 71045; 71260; 80048; 80053; 82945; 82947; 83615; 83735; 83880; 84100; 84157; 84484; 85007; 85025; 85027; 87070; 87081; 87205; 88112; 88305; 89051; 92960; 93005; 93306; 93454; 94660; 96360; 96361; G0378

== ENCOUNTER 2022-07-01 13:56 | Emergency (ER) | payer MEDICARE, MEDICAID ==
[~2022-07-01] VITALS: Ht 175.3 cm; Wt 75.7 kg
[~2022-07-01 13:56] MED LIST changes: +ACET-2650 PO; +ASPI-999 PO; +BISA5TAB20 PO; +MTP100TCR PO; +OMEG-33 PO; +OMEP20CA18 PO
[2022-07-01 14:35] LABS: BASOPHILS % (AUTO) 0 % (0-10); EOSINOPHILS # (AUTO) 0.1 10^3/uL (0.0-0.3); EOSINOPHILS % (AUTO) 0 % (0-10); HEMATOCRIT 36 % (40-54); HEMOGLOBIN 12.3 g/dL (13.3-17.7); LYMPHOCYTES # (AUTO) 0.5 10^3/uL (1.0-4.0); LYMPHOCYTES % (AUTO) 3 % (12-44); MEAN CORPUSCULAR HEMOGLOBIN 32 pg (25-34); MEAN CORPUSCULAR HGB CONC 34 g/dL (32-36); MEAN CORPUSCULAR VOLUME 95 fL (80-99); MEAN PLATELET VOLUME 10.3 fL (9.0-12.2); MONOCYTES # (AUTO) 0.6 10^3/uL (0.0-1.0); MONOCYTES % (AUTO) 4 % (0-12); NEUTROPHILS # (AUTO) 12.9 10^3/uL (1.8-7.8); NEUTROPHILS % (AUTO) 91 % (42-75); PLATELET COUNT 424 10^3/uL (130-400); WHITE BLOOD COUNT 14.2 10^3/uL (4.3-11.0)
[2022-07-01 14:47] LABS: ALBUMIN 3.5 GM/DL (3.2-4.5)
[2022-07-01 14:48] LABS: CALCIUM 9.7 MG/DL (8.5-10.1)
[2022-07-01 14:50] LABS: TOTAL PROTEIN 7.4 GM/DL (6.4-8.2)
[2022-07-01 14:51] LABS: BILIRUBIN,TOTAL 0.9 MG/DL (0.1-1.0)
[2022-07-01 14:53] LABS: CREATININE SERUM 1.24 MG/DL (0.60-1.30)
[2022-07-01 15:03] LABS: NEUTROPHILS % (MANUAL) 94 %
[2022-07-01 15:04] LABS: BAND NEUTROPHILS 0 %; BASOPHILS % (MANUAL) 0 %; EOSINOPHILS % (MANUAL) 0 %; LYMPHOCYTES % (MANUAL) 3 %; MONOCYTES % (MANUAL) 3 %; RBC MORPH NORMAL
[2022-07-01] MEDS ORDERED: NS IV 1000 ML 1,000 ML IV SCH (15:45)
[2022-07-01] MEDS ORDERED: PROCHLORPERAZINE 10 MG/2ML INJ (COMPAZINE) IV ONE (16:30)
--- NOTE | 2022-07-01 17:34 | ED General ---
General Chief Complaint: General Problems/Pain Stated Complaint: N/V Nursing Triage Note: PT TO RM 8 VIA [facility] WHO REPORTS PT WAS SENT TO ED D/T N/V AND DECREASED APPETITE. PT FROM [facility], [facility], RN INFORMS THIS RN THAT SHE RECEIVED ORDERS FROM PT FOR BMP BUT PT DAUGHTER DID NOT WANT TO WAIT THAT LONG AND INSISTED PT GO TO ED. PT A&O UPON ARRIVAL. PICC NOTED TO RUE, ABRASION TO L ELBOW. Source of Information: Patient Exam Limitations: No Limitations (SAUL MARTINEZ APRN) History of Present Illness Date Seen by Provider: Jul 01, 2022 Time Seen by Provider: 14:00 Initial Comments Patient is a 86-year-old male who presents to the emergency department via EMS from [facility] with persistent nausea/vomiting that typically begins when he was given his daily dose of daptomycin in the morning. Patient is currently getting the antibiotic for a left knee infection. He recently had a prolonged hospitalization between this facility and lasting approximately 1-1/2 months. Patient had his left knee opened and it was washed out. Patient had a left knee replacement approximately 6 years ago. He was seen by infectious disease and based on the cultures and other findings the daptomycin was initiated for home antibiotic infusion. Patient has a PICC line for this purpose. Patient is accompanied by his daughter who states that patient is not eating or drinking much at all due to the nausea. She feels like it is related to the antibiotic. I spoke with a staff member at the [facility] who states that the plan was for the patient to start getting 10 mg of Compazine approximately 1 hour before the infusion starting tomorrow. They were also going to obtain labs and see if patient would benefit from fluids through his PICC line. Staff stated that daughter wanted answers more quickly and thus asked if patient could be transferred to the emergency department for further evaluation. Patient has no acute complaints at the time of my exam. Denies any left knee pain. No recent fevers. Patient has become debilitated and has much less exertional tolerance than prior to his illness and resulting hospitalization. Patient is getting rehab services at the facility. (SAUL MARTINEZ APRN) Allergies and Home Medications Allergies Coded Allergies: No Known Drug Allergies (Unverified , 03/08/20) Patient Home Medication List Home Medication List Reviewed: Yes (MARTINEZ,SAUL COLUMNIST/COMMENTATOR) Acetaminophen (Tylenol Arthritis) 650 Mg Tablet.er, 650-1,300 MG PO Q8H PRN for PAIN-MILD (1-4), (Reported) Entered as Reported by: REYES ONTIVEROS on 05/27/22 112 Allopurinol (Allopurinol) 300 Mg Tablet, 300 MG PO DAILY, (Reported) Entered as Reported by: ANTONI THOMPSON on 03/08/20 1159 Aspirin (Aspirin) 81 Mg Tab.chew, 81 MG PO DAILY PRN for CHEST PAIN (ANGINA), (Reported) Entered as Reported by: REYES ONTIVEROS on 05/27/22 112 Atorvastatin Calcium (Atorvastatin Calcium) 10 Mg Tablet, 10 MG PO DAILY, (Reported) Entered as Reported by: REYES ONTIVEROS on 05/15/20 0825 Bisacodyl (Bisacodyl) 5 Mg Tablet.dr, 5 MG PO DAILY PRN for CONSTIPATION-4TH LINE, (Reported) Entered as Reported by: REYES ONTIVEROS on 05/27/22 112 Docusate Sodium (Colace) 100 Mg Capsule, 100 MG PO DAILY PRN for CONSTIPATION- 1ST LINE, (Reported) Entered as Reported by: REYES ONTIVEROS on 05/15/20 0825 Escitalopram Oxalate (Escitalopram Oxalate) 10 Mg Tablet, 10 MG PO DAILY, (Reported) Entered as Reported by: CALI TORRES on 06/05/15 100 Furosemide (Furosemide) 20 Mg Tablet, 20 MG PO DAILY, (Reported) Entered as Reported by: EVELYNE CELESTE on 07/27/18 0919 Metformin HCl (Metformin HCl) 500 Mg Tablet, 500 MG PO DAILY, (Reported) Entered as Reported by: YARELI GARCIA on 01/25/22 194 Metoprolol Succinate (Metoprolol Succinate) 100 Mg Tab.er.24h, 100 MG PO DAILY, (Reported) Entered as Reported by: REYES ONTIVEROS on 05/27/22 112 [place]-3 Acid Ethyl Esters (Lovaza) 1 Gm Capsule, 2 GM PO BID, (Reported) Entered as Reported by: REYES ONTIVEROS on 05/15/20 0828 [place]-3/Dha/Epa/Fish Oil (Fish Oil 500 mg Softgel) 60 Mg-90 Mg-500 Mg Capsule, 2 EACH PO BID, (Reported) Entered as Reported by: REYES ONTIVEROS on 05/27/22 1120 Omeprazole (Omeprazole) 20 Mg Capsule.dr, 20 MG PO DAILY, (Reported) Entered as Reported by: REYES ONTIVEROS on 05/27/22 1120 Potassium Chloride (Potassium Chloride) 10 Meq Capsule.er, 10 MEQ PO DAILY, (Reported) Entered as Reported by: EVELYNE CELESTE on 07/27/18 0920 Ramipril (Ramipril) 5 Mg Capsule, 5 MG PO 1800, (Reported) Entered as Reported by: ANTONI THOMPSON on 03/08/20 1159 Rivaroxaban (Xarelto) 20 Mg Tablet, 20 MG PO 1800, (Reported) Entered as Reported by: YARELI GARCIA on 01/25/221950 Spironolactone (Spironolactone) 25 Mg Tablet, 25 MG PO 1800, (Reported) Entered as Reported by: ANTONI THOMPSON on 03/08/20 115 Tamsulosin HCl (Flomax) 0.4 Mg Cap, 0.4 MG PO 1800, (Reported) Entered as Reported by: YARELI GARCIA on 01/25/22 194 Review of Systems Review of Systems Constitutional: see HPI EENTM: no symptoms reported Respiratory: no symptoms reported Cardiovascular: no symptoms reported Gastrointestinal: see HPI, nausea, vomiting Genitourinary: no symptoms reported Musculoskeletal: no symptoms reported Skin: no symptoms reported Psychiatric/Neurological: No Symptoms Reported Hematologic/Lymphatic: No Symptoms Reported (SAUL MARTINEZ APRN) Past Aogcnhe-Zjaild-Bqgljw Hx Patient Social History Tobacco Use?: No Use of E-Cig and/or Vaping dev: No Substance use?: No Alcohol Use?: No (SAUL MARTINEZ APRN) Immunizations Up To Date Tetanus Booster (TDap): Unknown PED Vaccines UTD: No First/Initial COVID19 Vaccinat: 11/14/20 Second COVID19 Vaccination Sree: 12/2020 Third COVID19 Vaccination Date: 11/14/20 COVID19 Vaccine Fish Farmer: EDI (SAUL MARTINEZ APRN) Seasonal Allergies Seasonal Allergies: Yes (SAUL MARTINEZ APRN) Past Medical History Surgery/Hospitalization HX: 4 VESSEL CABG 1998CODED DURING CARDIAC CATH AND STENT PLACEMENT 2004 AT [facility]/DEFIBRILLATOR IN PLACELEFT TOTAL KNEE REPLACEMENT, GRACIELA, STIFF LEG, PACER, DEFIB HTN, AFIB Surgeries: Yes (ICD ON 09-11-15, L TKR, R LEG X5, ) Cardiac, CABG, Coronary Stent, Defibrillator, Gallbladder, Joint Replacement, Orthopedic, Pacemaker Respiratory: Yes Sleep Apnea Currently Using CPAP: Yes Currently Using BIPAP: No Cardiac: Yes Atrial Fibrillation, Coronary Artery Disease, Congenital Heart Disease, Deep Vein Thrombosis, Heart Attack, High Cholesterol, Hypertension Neurological: No Reproductive Disorders: No Sexually Transmitted Disease: No HIV/AIDS: No Genitourinary: Yes Kidney Stones Gastrointestinal: Yes Gastroesophageal Reflux Musculoskeletal: Yes (LEFT TOTAL KNEE REPLACEMENT) Arthritis, Gout Endocrine: Yes Diabetes, Non-Insulin dep HEENT: Yes (GLASSES) Cataract Loss of Vision: Denies Hearing Impairment: Denies Cancer: Yes Skin Did You Recieve Any Treatments: Yes What Type of Treatment Did You: Surgical Intervention Psychosocial: No Integumentary: No Blood Disorders: No Adverse Reaction/Blood Tranf: No (N/A) (SAUL MARTINEZ APRN) Family Medical History Hypertension Not obtainable due to adoption No Pertinent Family Hx (SAUL MARTINEZ APRN) Physical Exam Vital Signs Vital Signs - First Documented 07/01/22 13:59 Temp 35.6 Pulse 89 Resp 18 B/P (MAP) 126/78 (94) Pulse Ox 100 O2 Delivery Nasal Cannula O2 Flow Rate 1.50 (AYSE LLANES MD) Vital Signs Capillary Refill : Less Than 3 Seconds (SAUL MARTINEZ APRN) Height, Weight, BMI Height: 5'9.00" Weight: 211lbs. 0.0oz. 95.428117sr; 24.00 BMI Method:Stated General Appearance: No Apparent Distress, Chronically ill Neck: Normal Inspection, Non Tender, Supple Respiratory: Chest Non Tender, Lungs Clear, No Respiratory Distress Cardiovascular: Regular Rate, Rhythm Gastrointestinal: Non Tender, Soft Extremity: Normal Capillary Refill Neurologic/Psychiatric: Alert, Oriented x3, No Motor/Sensory Deficits, Normal Mood/Affect Skin: Normal Color, Warm/Dry Comments Surgical incision noted to the anterior portion of the left knee with overlying Xeroform, fluffs, and Collin wrap; there is no erythema, swelling, induration, or fluctuance noted in this region (SAUL MARTINEZ APRN) Progress/Results/Core Measures Suspected Sepsis SIRS Temperature: Pulse: 89 Respiratory Rate: 18 Laboratory Tests 07/01/22 14:00: White Blood Count 14.2H Blood Pressure 126 /78 Mean: 94 Laboratory Tests 07/01/22 14:00: Creatinine 1.24, Platelet Count 424H, Total Bilirubin 0.9 (SAUL MARTINEZ APRN) Results/Orders Lab Results Laboratory Tests Test 07/01/22 14:00 07/01/22 14:02 Range/Units White Blood Count 14.2 H 4.3-11.0 10^3/uL Red Blood Count 3.84 L 4.30-5.52 10^6/uL Hemoglobin 12.3 L 13.3-17.7 g/dL Hematocrit 36 L 40-54 % Mean Corpuscular Volume 95 80-99 fL Mean Corpuscular Hemoglobin 32 25-34 pg Mean Corpuscular Hemoglobin Concent 34 32-36 g/dL Red Cell Distribution Width 15.9 H 10.0-14.5 % Platelet Count 424 H 130-400 10^3/uL Mean Platelet Volume 10.3 9.0-12.2 fL Immature Granulocyte % (Auto) 1 % Neutrophils (%) (Auto) 91 H 42-75 % Lymphocytes (%) (Auto) 3 L 12-44 % Monocytes (%) (Auto) 4 0-12 % Eosinophils (%) (Auto) 0 0-10 % Basophils (%) (Auto) 0 0-10 % Neutrophils # (Auto) 12.9 H 1.8-7.8 10^3/uL Lymphocytes # (Auto) 0.5 L 1.0-4.0 10^3/uL Monocytes # (Auto) 0.6 0.0-1.0 10^3/uL Eosinophils # (Auto) 0.1 0.0-0.3 10^3/uL Basophils # (Auto) 0.0 0.0-0.1 10^3/uL Immature Granulocyte # (Auto) 0.1 0.0-0.1 10^3/uL Neutrophils % (Manual) 94 % Lymphocytes % (Manual) 3 % Monocytes % (Manual) 3 % Eosinophils % (Manual) 0 % Basophils % (Manual) 0 % Band Neutrophils 0 % Blood Morphology Comment NORMAL Sodium Level 134 L 135-145 MMOL/L Potassium Level 4.0 3.6-5.0 MMOL/L Chloride Level 95 L 98-107 MMOL/L Carbon Dioxide Level 24 21-32 MMOL/L Anion Gap 15 H 5-14 MMOL/L Blood Urea Nitrogen 29 H 7-18 MG/DL Creatinine 1.24 0.60-1.30 MG/DL Estimat Glomerular Filtration Rate 57 BUN/Creatinine Ratio 23 Glucose Level 147 H 70-105 MG/DL Calcium Level 9.7 8.5-10.1 MG/DL Corrected Calcium 10.1 8.5-10.1 MG/DL Total Bilirubin 0.9 0.1-1.0 MG/DL Aspartate Amino Transf (AST/SGOT) 34 5-34 U/L Alanine Aminotransferase (ALT/SGPT) 50 0-55 U/L Alkaline Phosphatase 134 40-136 U/L Total Protein 7.4 6.4-8.2 GM/DL Albumin 3.5 3.2-4.5 GM/DL Glucometer 142 H 70-110 MG/DL (AYSE LLANES MD) Vital Signs/I&O 07/01/22 07/01/22 13:59 20:00 Temp 35.6 Pulse 89 61 Resp 18 18 B/P (MAP) 126/78 (94) 115/55 Pulse Ox 100 100 O2 Delivery Nasal Cannula Room Air O2 Flow Rate 1.50 1.50 (AYSE LLANES MD) Vital Signs/I&O Capillary Refill : Less Than 3 Seconds (SAUL MARTINEZ APRN) Blood Pressure Mean: 94 Point of Care Testing Finger Stick Blood Glucose: 142 (SAUL MARTINEZ APRN) Progress Note : Progress Note Patient is nontoxic on exam. He does appear mildly dehydrated. Vital signs are overall reassuring. There appears to be no acute infectious process based on exam of his left knee. Laboratory evaluation is notable for mild leukocytosis of uncertain clinical significance especially given that patient is currently being treated for a known infection with antibiotics. No marked metabolic derangement appreciated. BUN is mildly elevated which is consistent with some mild dehydration. Thus patient was given 1 L of normal saline bolus over a couple hours. Patient tolerated this well. Patient was also given 10 mg of IV Compazine to ensure he would tolerate this before initiating it at the senior care facility tomorrow. He had no adverse reactions. No indication for acute hospitalization at this time. Discussed need for close follow-up and return precautions for urgent symptomology. Daughter and patient verbalized understanding. (SAUL MARTINEZ APRN) Departure Impression Primary Impression: Nausea & vomiting Qualified Codes: R11.2 - Nausea with vomiting, unspecified Additional Impression: Debility Disposition: 01 HOME, SELF-CARE Condition: Stable Departure-Patient Inst. Decision time for Depature: 17:30 (SAUL MARTINEZ APRN) Referrals: ARELIS LOPEZ MD (PCP/Family) Primary Care Physician Patient Instructions: Nausea and Vomiting, Adult ED ATTENDING PHYSICIAN NOTE: I was physically present as attending physician in the emergency department during the care of this patient, but I was not directly involved in the decision making or delivery of care for this patient. (AYSE LLANES MD) SAUL MARTINEZ APRN Jul 01, 2022 17:34 AYSE LLANES MD Jul 02, 2022 21:26
[2022-07-01 20:00] VITALS: BP 115/55
== END 2022-07-01 20:00 | disposition home or self-care (01) ==
LOC: EDUNIT# 13:56 → ER 13:58
DX: R11.2 Nausea with vomiting, unspecified (principal); R53.81 Other malaise; E86.0 Dehydration; D72.829 Elevated white blood cell count, unspecified; R79.89 Other specified abnormal findings of blood chemistry
CPT/HCPCS: 36415; 80053; 82947; 85007; 85027

== ENCOUNTER → 2022-08-02 | Outpatient (CLI) | payer MEDICARE, MEDICAID | LOC: LABNPT 17:47 | PROVIDERS: ATTEND Internal Medicine | DX: R82.90 Unspecified abnormal findings in urine (principal) | CPT/HCPCS: 87088 ==

== ENCOUNTER → 2022-08-03 | Outpatient (CLI) | payer MEDICARE, MEDICAID ==
[2022-08-03 19:12] LABS: HEMATOCRIT 25 % (40-54); HEMOGLOBIN 8.6 g/dL (13.3-17.7); MEAN CORPUSCULAR HEMOGLOBIN 32 pg (25-34); MEAN CORPUSCULAR HGB CONC 34 g/dL (32-36); MEAN CORPUSCULAR VOLUME 95 fL (80-99); MEAN PLATELET VOLUME 10.4 fL (9.0-12.2); PLATELET COUNT 308 10^3/uL (130-400); WHITE BLOOD COUNT 10.9 10^3/uL (4.3-11.0)
[2022-08-03 19:23] LABS: ALBUMIN 2.3 GM/DL (3.2-4.5)
[2022-08-03 19:24] LABS: CALCIUM 7.4 MG/DL (8.5-10.1)
[2022-08-03 19:25] LABS: TOTAL PROTEIN 5.1 GM/DL (6.4-8.2)
[2022-08-03 19:27] LABS: BILIRUBIN,TOTAL 0.6 MG/DL (0.1-1.0)
[2022-08-03 19:29] LABS: CREATININE SERUM 0.61 MG/DL (0.60-1.30)
[2022-08-03 21:03] LABS: POTASSIUM 2.5 MMOL/L (3.6-5.0)
== END ==
LOC: LABNPT 19:06
PROVIDERS: ATTEND Internal Medicine
DX: I50.9 Heart failure, unspecified (principal); E11.29 Type 2 diabetes mellitus with other diabetic kidney complication
CPT/HCPCS: 80053; 83036; 85027